=== PATIENT | male | born 1960 | race Caucasian/White ===

== ENCOUNTER 2017-01-19 13:56 | Inpatient (IN) | payer BC, OTHER ==
[2017-01-19] VITALS (12 sets, daily range): BP systolic 106–144; BP diastolic 50–67; PULSE 50–75; RESP 16; TEMP 98.4–98.7; O2SAT 95–100
[~2017-01-19] VITALS: Ht 182.9 cm; Wt 77.6 kg
[2017-01-19] MEDS ORDERED: PROPOFOL 1000 MG/100 ML INJ 100 ML ONE (14:06)
[2017-01-19 14:20] LABS: AUTOMATED NEUTROPHIL # 6.6 TH/MM3 (1.8-7.7); BASOPHIL # 0.1 TH/MM3 (0-0.2); BASOPHIL % 1.1 % (0.0-2.0); EOSINOPHIL # 0.2 TH/MM3 (0-0.4); HEMATOCRIT 43.7 % (39.0-51.0); LYMPH % 38.9 % (9.0-44.0); LYMPHOCYTE # 4.8 TH/MM3 (1.0-4.8); MEAN CORPUSCULAR HEMOGLOBIN 29.9 PG (27.0-34.0); MEAN CORPUSCULAR HGB CONC 34.4 % (32.0-36.0); MEAN PLATELET VOLUME 8.5 FL (7.0-11.0); MONO % 4.4 % (0.0-8.0); MONOCYTE # 0.5 TH/MM3 (0-0.9); NEUT % 53.6 % (16.0-70.0); PLATELET COUNT 205 TH/MM3 (150-450); RED BLOOD COUNT 5.02 MIL/MM3 (4.50-5.90); RED CELL DISTRIBUTION WIDTH 12.5 % (11.6-17.2); WHITE BLOOD COUNT 12.3 TH/MM3 (4.0-11.0)
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
[2017-01-19] MEDS ORDERED: MANNITOL INJ 100 ML ONE (14:28)
[2017-01-19 14:35] LABS: PROTHROMBIN TIME - PATIENT 9.9 SEC (9.8-11.6)
[2017-01-19] MEDS ORDERED: IOHEXOL 350 MG/ML 10 ML VIAL (for RAD DIAG) IVCONTRAST ONE (14:41)
[2017-01-19] MEDS ORDERED: CHLORHEXIDINE GLUCONATE 2 % 1 PACK (2 CLOTHS) TOP PRN (14:45)
[2017-01-19] MEDS ORDERED: MAGNESIUM HYDROXIDE SUSP 30 ML CUP PO PRN (14:45)
[2017-01-19] MEDS ORDERED: MISCELLANEOUS NURSING INFORMATION XX SCH (14:45)
[2017-01-19] MEDS ORDERED: ENALAPRILAT 1.25 MG/ML VIAL IV PUSH PRN (14:45)
[2017-01-19] MEDS ORDERED: ONDANSETRON HCL 4 MG/2 ML VIAL IV PUSH PRN (14:45)
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
[2017-01-19] MEDS ORDERED: fentaNYL DRIP 250 ML IV PRN ×2 (15:00→16:00)
[2017-01-19] MEDS ORDERED: PROPOFOL 1000 MG/100 ML INJ 100 ML IV PRN (15:00)
[2017-01-19] MEDS ORDERED: 3% SALINE INJ 500 ML IV ONE (15:00)
[2017-01-19] MEDS ORDERED: ETOMIDATE 20 MG/10 ML VIAL ONE (15:02)
[2017-01-19] MEDS ORDERED: SUCCINYLCHOLINE CHLORIDE 200 MG/10 ML VIAL ONE (15:02)
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
--- NOTE | 2017-01-19 15:36 | RADRPT ---
EXAM DATE/TIME: 01/19/2017 13:59 [facility] COMPARISON: CHEST SINGLE AP, January 19, 2017, 13:59. CT THORAX W CONTRAST, January 19, 2017, 14:23. INDICATIONS : Post intubation. MEDICAL HISTORY : None. SURGICAL HISTORY : None. ENCOUNTER: Initial ACUITY: 1 day PAIN SCORE: Non-responsive. LOCATION: Bilateral chest FINDINGS: There is an ETT in good position at the level of the clavicles. An NGT courses down the GE junction w ith tip limits of the image. Lungs are hypoaerated which accentuates the interstitial markings. Centr al posterior airspace consolidation in the lower lobes similar to the CT exam. Cardiomediastinal cont ours are stable. Remainder of exam is unchanged. CONCLUSION: 1. ETT in good position. NGT beyond the GE junction. 2. Stable bilateral central posterior lower lobe airspace consolidation which may reflect pulmonary c ontusions, aspiration or less likely atelectasis. Danny Vega MD on January 19, 2017 at 15:32 Board Certified Radiologist. This report was verified electronically.
[2017-01-19] MEDS ORDERED: MIDAZOLAM HCL 5 MG/ML VIAL (1 ML) ONE ×2 (15:43→15:44)
[2017-01-19] MEDS ORDERED: MIDAZOLAM HCL 5 MG/5 ML VIAL IV ONE (15:45)
[2017-01-19] MEDS ORDERED: ROCURONIUM INJ 50 MG/5 ML VIAL ONE (16:03)
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
--- NOTE | 2017-01-19 16:04 | PD.PROCEDR ---
Central Line Procedure REASON FOR PROCEDURE Central venous access PROCEDURE PERFORMED Central line placement: Right subclavian central line CONSENT Emergency procedure due to severe TBI ANESTHESIA Local injection of 1% Lidocaine DESCRIPTION OF THE PROCEDURE The patient was placed in supine, mild Trendelenburg position. The area was exposed and cleansed with ChloraPrep, times two. Large sterile drape was used to cover the patient, with the site exposed, under sterile conditions including cap, face mask, sterile gown, and sterile gloves. On single attempt, the introducer needle was inserted with negative pressure in syringe and venous flash was obtained. The guide wire was then advanced without any restriction and the needle was removed. The dilator was used without any complications. Using Seldinger technique the 20 CM 7F triple lumen catheter was advanced over the guide wire to a depth of 16 centimeters. The guide wire was removed. All ports were aspirated with dark venous blood return and flushed easily with sterile saline. All ports were capped. Antibiotic disc was placed around central line at puncture site. The central line was secured to the skin with two interrupted 2.0 silk sutures. The area was bandaged with sterile see- through central line bandage. COMPLICATIONS: No apparent complications ESTIMATED BLOOD LOSS: Less than 1 cc. Tonia Hood MD Jan 19, 2017 16:04
[2017-01-19] MEDS: PANTOPRAZOLE SODIUM 40 MG VIAL IVP SCH (16:13)
[2017-01-19] MEDS: SODIUM CHLOR 0.9% 1000 ML INJ 1,000 ML IV SCH (16:14)
[2017-01-19] MEDS: fentaNYL DRIP 250 ML IV PRN (16:14)
[2017-01-19] MEDS ORDERED: 3% SALINE INJ 250 ML IV SCH ×2 (16:15→17:00)
[2017-01-19] MEDS ORDERED: POTASSIUM PHOSPHATE INJ 30 MMOL in SODIUM CHLOR 0.9% 250 ML INJ 250 ML IV PRN (16:45)
[2017-01-19] MEDS ORDERED: POTASSIUM CHLOR 20 MEQ PREMIX 100 ML IV PRN ×2 (16:45)
[2017-01-19] MEDS ORDERED: MAGNESIUM SULFATE INJ 4 GM in SODIUM CHLORIDE 0.9% INJ 92 ML IV PRN (16:45)
[2017-01-19] MEDS ORDERED: POTASSIUM PHOSPHATE MONOBASIC 500 MG TAB PO PRN (16:45)
[2017-01-19] MEDS ORDERED: MAGNESIUM SULFATE INJ 2 GM in SODIUM CHLORIDE 0.9% INJ 96 ML IV PRN (16:45)
[2017-01-19] MEDS ORDERED: POTASSIUM CHLORIDE 25 MEQ EFFERVESCENT TAB PO PRN (16:45)
[2017-01-19] MEDS ORDERED: MAGNESIUM OXIDE 400 MG TAB PO PRN (16:45)
[2017-01-19] MEDS ORDERED: POTASSIUM PHOSPHATE MONOBASIC 500 MG TAB PO/TUBE PRN (16:45)
[2017-01-19] MEDS ORDERED: SODIUM PHOSPHATE INJ 30 MMOL in SODIUM CHLOR 0.9% 250 ML INJ 240 ML IV PRN (16:45)
--- NOTE | 2017-01-19 16:46 | RADRPT ---
EXAM DATE/TIME: 01/19/2017 16:07 [facility] COMPARISON: CHEST SINGLE AP, January 19, 2017, 13:59. INDICATIONS : Post central line placement. MEDICAL HISTORY : None. SURGICAL HISTORY : None. ENCOUNTER: Initial ACUITY: 1 day PAIN SCORE: Non-responsive. LOCATION: Bilateral chest FINDINGS: A single view of the chest demonstrates an improved inspiratory effort with resolution of the previou sly seen left basilar airspace disease. No effusions. Heart size is upper limits of normal. Interval placement of a nasogastric tube which enters the gastric lumen. Endotracheal tube with the tip at the clavicular heads. Right subclavian central venous catheter with the tip projecting over the central venous system. No pneumothorax. Osseous structures are intact. CONCLUSION: 1. Interval placement of a right subclavian central venous catheter, nasogastric tube and endotrachea l tube as above. All appear to be appropriately positioned. 2. Improved inspiratory effort. Lungs are now clear. Eber Matthews MD on January 19, 2017 at 16:42 Board Certified Radiologist. This report was verified electronically.
--- NOTE | 2017-01-19 16:51 | PD.OP ---
Operative Report Date of Surgery: Jan 19, 2017 Preoperative Diagnosis: Traumatic brain injury with multiple left hemispheric contusions and small subdural hemorrhage Postoperative Diagnosis: Same Procedure: Right frontal twist drill hole Beni intracranial pressure monitor placement Anesthesia: Local with sedation Surgeon: Chadd Salamanca M.D. Graining Press Operator(s): None Operation and Findings: Following administration of the intravenous Versed along with continuation of the Diprivan and fentanyl drips with the oxygen saturation and hemodynamic monitoring in the intensive care unit, the left frontal region was shaved and the prepped with chlor prep and sterilely draped. Using landmarks of 11 cm behind the nasion and 3 cm to the left of the midline, a 1 cm scalp incision was made after infiltrating with 1% lidocaine with epinephrine solution. With a handheld drill a twist drill hole was made in the underlying dura penetrated with a blunt probe. The Beni bolt was then secured to the skull. The fiberoptic catheter zeroed and passed into the subarachnoid space with an opening pressure of 13 mmHg noted. A sterile dressing was applied. There were no complications and blood loss was less than 5 cc. Chadd Salamanca MD Jan 19, 2017 16:51
[2017-01-19] MEDS ORDERED: ROCURONIUM INJ 100 MG/10 ML VIAL IV ONE (17:00)
[2017-01-19] MEDS ORDERED: MIDAZOLAM HCL 5 MG/ML VIAL (1 ML) IV ONE (17:00)
--- NOTE | 2017-01-19 17:43 | PD.PROCEDR ---
Procedure Note Procedure Left radial arterial line placement: The patient was placed optimal position. The area was exposed and cleansed with ChloraPrep, times two. Under sterile conditions including cap, face mask, sterile gown, and sterile gloves, introducer needle was inserted into the left radial artery and arterial flash was obtained. The guide wire was then advanced without any restriction and the needle was removed. Using Seldinger technique the single lumen arterial catheter was advanced over the guide wire and then the guide wire was removed. Antibiotic disc was placed around central line at puncture site. Arterial line was secured to the skin with one interrupted 2.0 silk sutures. The area was bandaged with sterile see-through bandage. Good arterial wave form obtained. blood loss was less than 2 ml Tonia Hood MD Jan 19, 2017 17:43
[2017-01-19] MEDS ORDERED: CISATRACURIUM INJ 100 MG in SODIUM CHLOR 0.9% 250 ML INJ 250 ML IV PRN (17:45)
[2017-01-19] MEDS: levETIRAcetam INJ 100 ML IV SCH (18:19)
[2017-01-19] MEDS: MANNITOL 12.5 GM/50 ML VIAL IV SCH (18:19)
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
[2017-01-19] MEDS ORDERED: NOREPINEPHRINE 4 MG/4 ML AMP ONE (19:37)
[2017-01-19] MEDS: MIDAZOLAM 100 MG/100 ML INJ 100 ML IV PRN (19:39)
[2017-01-19 19:58] LABS: MAGNESIUM 1.6 MG/DL (1.5-2.5); PHOSPHORUS 3.5 MG/DL (2.5-4.9)
[2017-01-19] MEDS: PROPOFOL 1000 MG/100 ML INJ 100 ML IV PRN (20:18)
[2017-01-19] MEDS: RESP: ALBUTEROL 2.5 MG/IPRATROPIUM 0.5 MG NEB (SCH) NEB (20:27)
[2017-01-19] MEDS: DOCUSATE SODIUM 100 MG/10 ML UDC PO SCH (21:00)
[2017-01-19] MEDS: CHLORHEXIDINE 0.12% (ORAL KIT) 15 ML CUP MT SCH (21:28)
[2017-01-19] MEDS ORDERED: FOSPHENYTOIN INJ 1,000 MGPE in SODIUM CHLORIDE 0.9% INJ 50 ML IV ONE (22:00)
[2017-01-19] MEDS: NOREPINEPHRINE INJ 4 MG in SODIUM CHLOR 0.9% 250 ML INJ 246 ML IV PRN (22:15)
[2017-01-20] VITALS (26 sets, daily range): BP systolic 103–120; BP diastolic 48–72; PULSE 39–55; RESP 16–20; TEMP 98.2–98.8; O2SAT 30–100
[2017-01-20] MEDS: SODIUM CHLOR 0.9% 1000 ML INJ 1,000 ML IV SCH ×3 (00:48→20:14)
[2017-01-20] MEDS: MANNITOL 12.5 GM/50 ML VIAL IV SCH (02:00)
[2017-01-20] MEDS: PROPOFOL 1000 MG/100 ML INJ 100 ML IV PRN ×7 (02:49→22:30)
[2017-01-20] MEDS: NOREPINEPHRINE INJ 4 MG in SODIUM CHLOR 0.9% 250 ML INJ 246 ML IV PRN (02:51)
[2017-01-20] MEDS: fentaNYL DRIP 250 ML IV PRN ×2 (02:58→15:15)
[2017-01-20] MEDS ORDERED: SODIUM CHLORIDE 23.4% INJ 240 MEQ in SYRINGE/BAG 1 EA IV SCH (03:00)
[2017-01-20] MEDS: RESP: ALBUTEROL 2.5 MG/IPRATROPIUM 0.5 MG NEB (SCH) NEB ×2 (03:16→20:07)
[2017-01-20] MEDS ORDERED: ATROPINE SULFATE 1 MG/10 ML SYRINGE ONE (03:49)
[2017-01-20] MEDS ORDERED: EPINEPHrine HCL (1:10,000) 1 MG/10 ML SYRINGE ONE (03:51)
[2017-01-20] MEDS ORDERED: MIDAZOLAM HCL 5 MG/ML VIAL (1 ML) IV SCH (04:00)
[2017-01-20] MEDS: CHLORHEXIDINE GLUCONATE 2 % 1 PACK (2 CLOTHS) TOP SCH (04:00)
--- NOTE | 2017-01-20 04:54 | RADRPT ---
EXAM DATE/TIME: 01/20/2017 04:16 [facility] COMPARISON: CHEST SINGLE AP, January 19, 2017, 16:07. INDICATIONS : Follow up acute trauma. Head injury. MEDICAL HISTORY : None. SURGICAL HISTORY : None. ENCOUNTER: Subsequent ACUITY: 2 days PAIN SCORE: Non-responsive. LOCATION: Bilateral chest FINDINGS: A single view of the chest demonstrates the lungs to be symmetrically aerated without evidence of mas s, infiltrate or effusion. Discoid atelectasis is noted at the right lung base. The endotracheal tub e remains in place with the tip approximately 5 cm above the dedrick. Nasogastric tube is again seen c oursing through the esophagus into the stomach. The right subclavian central venous line remains in p lace. Heart size is at the upper limits of normal. The cardiomediastinal contours are unremarkable. Osseous structures are intact. CONCLUSION: 1. Stable intubation and central line placement. 2. Mild discoid atelectasis now noted at the left lung base. Ole Mccall MD on January 20, 2017 at 4:52 Board Certified Radiologist. This report was verified electronically.
[2017-01-20 04:55] LABS: AUTOMATED NEUTROPHIL # 9.6 TH/MM3 (1.8-7.7); BASOPHIL # 0.1 TH/MM3 (0-0.2); BASOPHIL % 0.5 % (0.0-2.0); EOSINOPHIL # 0.1 TH/MM3 (0-0.4); EOSINOPHIL % 0.4 % (0.0-4.0); HEMATOCRIT 39.7 % (39.0-51.0); HEMOGLOBIN 13.2 GM/DL (13.0-17.0); LYMPH % 20.1 % (9.0-44.0); LYMPHOCYTE # 2.8 TH/MM3 (1.0-4.8); MEAN CELL VOLUME 87.6 FL (80.0-100.0); MEAN CORPUSCULAR HEMOGLOBIN 29.1 PG (27.0-34.0); MEAN CORPUSCULAR HGB CONC 33.2 % (32.0-36.0); MEAN PLATELET VOLUME 8.3 FL (7.0-11.0); MONO % 11.2 % (0.0-8.0); MONOCYTE # 1.6 TH/MM3 (0-0.9); NEUT % 67.8 % (16.0-70.0); PLATELET COUNT 183 TH/MM3 (150-450); RED BLOOD COUNT 4.53 MIL/MM3 (4.50-5.90); RED CELL DISTRIBUTION WIDTH 12.7 % (11.6-17.2); WHITE BLOOD COUNT 14.2 TH/MM3 (4.0-11.0)
--- NOTE | 2017-01-20 05:01 | RADRPT ---
EXAM DATE/TIME: 01/20/2017 03:51 [facility] COMPARISON: CT BRAIN W/O CONTRAST, January 19, 2017, 14:14. INDICATIONS : Trauma; fall, evaluate bleed. RADIATION DOSE: 56.35 CTDIvol (mGy) MEDICAL HISTORY : Non-responsive. SURGICAL HISTORY : Non-responsive. ENCOUNTER: Initial ACUITY: 2 days PAIN SCALE: Non-responsive LOCATION: cranial TECHNIQUE: Multiple contiguous axial images were obtained of the head. Using automated exposure control and adj ustment of the mA and/or kV according to patient size, radiation dose was kept as low as reasonably a chievable to obtain optimal diagnostic quality images. DICOM format image data is available electro nically for review and comparison. FINDINGS: One the areas of intraparenchymal hemorrhage in left frontal lobe is more prominent than on the prior study and now measures up to approximately 1.4 cm in greatest diameter compared to 0.7 cm. Ther e are multiple smaller areas of punctate hemorrhage in the left frontal and temporal lobe without sig nificant change. Small subdural collections along the left frontal and parietal bones are not signifi cant change. Diffuse edema is noted in the white matter of the left frontal and parietal lobes mild e ffacement of left lateral ventricle. This is without significant change. There is no significant midl ine shift. Subarachnoid hemorrhage is again noted the left parietal and temporal lobes. There is also small amount of subarachnoid hemorrhage now noted in the right parietal and temporal lobes. A an air -fluid level is noted in the left maxillary sinus. There is opacification of bilateral ethmoidal air cells. Extensive soft tissue swelling is noted over the left frontal and parietal bones. This is incr eased. CONCLUSION: 1. A small amount of sub-arachnoid hemorrhage is now noted in the right parietal and temporal lobes w hich appears new from the prior study. 2. Mild interval increase in the intraparenchymal hemorrhage in the left frontal lobe. 3. No significant change in the left subdural hemorrhage and subarachnoid hemorrhage diffuse edema an d mild mass effect. 4. Increased soft tissue swelling over the left parietal and temporal lobes. Ole Mccall MD on January 20, 2017 at 4:53 Board Certified Radiologist. This report was verified electronically.
[2017-01-20 05:12] LABS: ALBUMIN 3.1 GM/DL (3.4-5.0); AST (GOT) 36 U/L (15-37); BICARBONATE 24.4 MEQ/L (21.0-32.0); BLOOD UREA NITROGEN 13 MG/DL (7-18); CALCIUM 7.6 MG/DL (8.5-10.1); CHLORIDE 114 MEQ/L (98-107); CREATININE 0.96 MG/DL (0.60-1.30); GLOMERULAR FILTRATION RATE 68 ML/MIN (>89); GLUCOSE,RANDOM 176 MG/DL (74-106); MAGNESIUM 1.7 MG/DL (1.5-2.5); SODIUM (NA) 145 MEQ/L (136-145)
[2017-01-20 05:15] LABS: ALKALINE PHOSPHATASE 68 U/L (45-117); ALT (GPT) 29 U/L (12-78); TOTAL BILIRUBIN ADULT 0.7 MG/DL (0.2-1.0); TOTAL PROTEIN 6.3 GM/DL (6.4-8.2)
[2017-01-20] MEDS: levETIRAcetam INJ 100 ML IV SCH ×2 (06:02→20:13)
[2017-01-20] MEDS: MIDAZOLAM 100 MG/100 ML INJ 100 ML IV PRN ×2 (06:39→15:15)
[2017-01-20] MEDS: CHLORHEXIDINE 0.12% (ORAL KIT) 15 ML CUP MT SCH ×2 (08:00→20:14)
[2017-01-20] MEDS: DOCUSATE SODIUM 100 MG/10 ML UDC PO SCH ×2 (09:00→20:13)
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
[2017-01-20] MEDS: MAGNESIUM SULFATE 1 GM PREMIX 100 ML IV SCH ×2 (10:42→11:58)
[2017-01-20 10:58] LABS: TROPONIN I 0.03 NG/ML (0.02-0.05)
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
[2017-01-20] MEDS ORDERED: SODIUM CHLORIDE 23.4% INJ 240 MEQ in SYRINGE/BAG 1 EA IV STA (11:52)
[2017-01-20] MEDS: 3% SALINE INJ 500 ML IV SCH ×2 (11:59→18:23)
--- NOTE | 2017-01-20 12:09 | HHI.CCPN ---
Objective Vital Signs Date Time Temp Pulse Resp B/P (MAP) Pulse Ox O2 Delivery O2 Flow Rate FiO2 01/20/17 12:00 50 01/20/17 12:00 42 01/20/17 12:00 98.2 20 115/65 (82) 100 118/72 (87) 01/20/17 07:00 Mechanical Ventilator 01/19/17 14:00 15.00 Intake and Output 01/20/17 01/20/17 01/21/17 08:00 16:00 00:00 Intake Total 2264 ml 660 ml Output Total 1625 ml Balance 639 ml 660 ml Result Diagram: 01/20/17 0450 01/20/17 0950 Other Results Laboratory Tests Test 01/19/17 15:45 01/20/17 04:57 01/20/17 07:42 Blood Gas Puncture Site LT RADIAL ART LINE ART LINE Blood Gas Patient Temperature 98.6 98.6 98.6 Blood Gas HCO3 22 mmol/L (22-26) 22 mmol/L (22-26) 21 mmol/L (22-26) Blood Gas Base Excess -2.6 mmol/L (-2-2) -2.7 mmol/L (-2-2) -3.4 mmol/L (-2-2) Blood Gas Oxygen Saturation 96 % (90-100) 97 % (90-100) 98 % (90-100) Arterial Blood pH 7.33 (7.380-7.420) 7.35 (7.380-7.420) 7.40 (7.380-7.420) Arterial Blood Partial Pressure CO2 44 mmHg (38-42) 41 mmHg (38-42) 34 mmHg (38-42) Arterial Blood Partial Pressure O2 262 mmHg (61-120) 194 mmHg (61-120) 232 mmHg (61-120) Arterial Blood Oxygen Content 19.8 Vol % (12.0-20.0) 18.0 Vol % (12.0-20.0) 17.4 Vol % (12.0-20.0) Arterial Blood Carboxyhemoglobin 2.6 % (0-4) 1.0 % (0-4) 1.1 % (0-4) Arterial Blood Methemoglobin 1.0 % (0-2) 1.0 % (0-2) 1.0 % (0-2) Blood Gas Hemoglobin 14.3 G/DL (12.0-16.0) 12.9 G/DL (12.0-16.0) 12.3 G/DL (12.0-16.0) Oxygen Delivery Device VENTILATOR VENTILATOR VENTILATOR Blood Gas Ventilator Setting PRVC16/500/1.0/+5 AC16/600/+7/45% AC20/600/+7 Blood Gas Inspired Oxygen 50 % 45 % 40 % Imaging Last [address] 01/20/17 0000 Signed Impressions: Service Date/Time: January 03:51 - CONCLUSION: 1. A small amount of sub-arachnoid hemorrhage is now noted in the right parietal and temporal lobes which appears new from the prior study. 2. Mild interval increase in the intraparenchymal hemorrhage in the left frontal lobe. 3. No significant change in the left subdural hemorrhage and subarachnoid hemorrhage diffuse edema and mild mass effect. 4. Increased soft tissue swelling over the left parietal and temporal lobes. Ole Mccall MD Chest X-Ray 01/20/17 0000 Signed Impressions: Service Date/Time: January 04:16 - CONCLUSION: 1. Stable intubation and central line placement. 2. Mild discoid atelectasis now noted at the left lung base. Ole Mccall MD Thoracic Spine CT [id number]/19/171405 Signed Impressions: Service Date/Time: Thursday, January 19, 2017 14:14 - CONCLUSION: 1. No acute fracture or subluxation. 2. Dense posterior bilateral lower lobe air space consolidation which may reflect atelectasis, contusion or aspiration. Danny Vega MD Pelvis X-Ray [id number]/19/[id number] Signed Impressions: Service Date/Time: Thursday, January 19, 2017 13:59 - CONCLUSION: No acute disease. Krunal Hart MD Lumbar Spine CT [id number]/19/[id number] Signed Impressions: Service Date/Time: Thursday, January 19, 2017 14:14 - CONCLUSION: 1. No acute fracture or subluxation. 2. Degenerative spondylosis of the lumbar spine most prominently at L5-S1. Danny Vega MD Head CT 01/19/17 140 Signed Impressions: Service Date/Time: Thursday, January 19, 2017 14:14 - CONCLUSION: 1. Left-sided traumatic brain injury with left frontal and temporal hemorrhagic contusions, subarachnoid hemorrhage and left frontal subdural hematoma. 2. Mild left cerebral edema with 23 mm left to right midline shift. 3. No evidence of acute fracture. Krunal Hart MD Chest X-Ray [id number]/19/171405 Signed Impressions: Service Date/Time: Thursday, January 19, 2017 13:59 - CONCLUSION: Hypoaerated lungs with left basilar airspace disease Krunal Hart MD Chest CT [id number]/19/[id number] Signed Impressions: Service Date/Time: Thursday, January 19, 2017 14:23 - CONCLUSION: 1. Consolidating bibasilar air space disease within the lower lobes. 2. Tip of endotracheal tube at the level of the clavicles. 3. No evidence of vascular or cardiac mediastinal injury. 4. Intact osseous structures. Krunal Hart MD Cervical Spine CT [id number]/19/[id number] Signed Impressions: Service Date/Time: Thursday, January 19, 2017 14:16 - CONCLUSION: No evidence of acute fracture or traumatic listhesis. Krunal Hart MD Abdomen/Pelvis CT 01/19/171405 Signed Impressions: Service Date/Time: Thursday, January 19, 2017 14:14 - CONCLUSION: 1. Bibasilar lower lobe consolidating airspace disease. 2. No evidence of acute soft tissue or bony traumatic injury involving the abdomen or pelvis. MD Indira Medina Christian MD Jan 20, 2017 12:09
--- NOTE | 2017-01-20 12:29 | ECHRPT ---
Indication: cardiac arrest CONCLUSIONS The left ventricular systolic function is low normal with an estimated ejection fraction in the rang e of 50- 55%. Normal left ventricular size. No regional wall motion abnormalities are present. Trace mitral valve regurgitation. There is trace tricuspid valve regurgitation. The pulmonary valve is not well visualized. BP: / HR: Rhythm: Technical Quality: FINDINGS LEFT VENTRICLE The left ventricular systolic function is low normal with an estimated ejection fraction in the rang e of 50- 55%. Normal left ventricular size. No regional wall motion abnormalities are present. RIGHT VENTRICLE Normal right ventricular size and systolic function. LEFT ATRIUM The left atrial size is normal. RIGHT ATRIUM The right atrial size is normal. ATRIAL SEPTUM Normal atrial septal thickness without atrial level shunting by limited color doppler interrogation. AORTA The aortic root and proximal ascending aorta are normal in size on limited imaging. MITRAL VALVE Trace mitral valve regurgitation. Structurally normal mitral valve. AORTIC VALVE Trileaflet aortic valve. No aortic valve stenosis or regurgitation. TRICUSPID VALVE There is trace tricuspid valve regurgitation. Structurally normal tricuspid valve. PULMONARY VALVE The pulmonary valve is not well visualized. VESSELS The inferior vena cava is normal in size. PERICARDIUM No pericardial effusion. Royce Sánchez MD (Electronically Signed) Final Date:20 January 2017 12:29
[2017-01-20] MEDS ORDERED: ROCURONIUM INJ 50 MG/5 ML VIAL IV ONE (13:00)
[2017-01-20] MEDS ORDERED: IOHEXOL 350 MG/ML 10 ML VIAL (for RAD DIAG) IVCONTRAST ONE (13:40)
[2017-01-20] MEDS ORDERED: PHENYTOIN INJ 100 MG/2 ML VIAL IV PUSH SCH (15:15)
[2017-01-20] MEDS: PANTOPRAZOLE SODIUM 40 MG VIAL IVP SCH (15:16)
--- NOTE | 2017-01-20 15:49 | RADRPT ---
EXAM DATE/TIME: 01/20/2017 13:29 [facility] COMPARISON: CT BRAIN W/O CONTRAST, January 20, 2017, 3:51. INDICATIONS : Evaluate for aneurysm. Bleed. IV CONTRAST: 71 cc Omnipaque 350 (iohexol) IV ; Cumulative dose for multiple exams. RADIATION DOSE: 28.80 CTDIvol (mGy) ; Combined studies MEDICAL HISTORY : Non-responsive. SURGICAL HISTORY : Non-responsive. ENCOUNTER: Initial ACUITY: 2 days PAIN SCALE: Non-responsive LOCATION: cranial TECHNIQUE: Volumetric scanning was performed using a multi-row detector CT scanner. The data was post processed with a variety of visualization algorithms including full volume maximum intensity projection, multi -planar sliding thin slab reformation, curved planar reformation, and surface rendering techniques. Using automated exposure control and adjustment of the mA and/or kV according to patient size, radiat ion dose was kept as low as reasonably achievable to obtain optimal diagnostic quality images. DICO M format image data is available electronically for review and comparison. FINDINGS: Anterior circulation: Distal intracranial internal carotid arteries are patent with flow extending to the middle and anteri or cerebral arteries. Small caliber right A1 segment. There is no evidence for aneurysm, vessel trunc ation or stenosis, and no evidence for vascular malformation. Posterior circulation: Symmetric distal vertebral arteries with flow extending to basilar artery. There is no evidence for aneurysm, vessel truncation or stenosis, and no evidence for vascular malformation. CONCLUSION: 1. Small caliber right A1 segment, likely hypoplastic rather than vasospasm. 2. Otherwise, unremarkable head CTA examination. No aneurysm as questioned Danny Vega MD on January 20, 2017 at 15:31 Board Certified Radiologist. This report was verified electronically.
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
[2017-01-20] MEDS ORDERED: TERBUTALINE INJ 1 MG/ML AMP SQ PRN (16:15)
--- NOTE | 2017-01-20 17:32 | PD.RAD ---
Post Procedure Progress Note Pre Procedure Diagnosis: (1) Closed head injury Post Procedure Diagnosis: (1) Closed head injury Procedure Date: Jan 20, 2017 Supervising Radiologist: Danny Vega Proceduralist/Assist: Sophia Antonio, RT(R)(), Nolan Felton RT(R) Anesthesia: Local Plan of Activity Patient to Unit: Critical Care Patient Condition: Good See PACS Report for procedural detail/treatment Danny Vega MD Jan 20, 2017 17:32
[2017-01-20] MEDS ORDERED: IOHEXOL 350 MG/ML 50 ML BTL (for RAD DIAG) OTHER ONE (17:57)
[2017-01-20] MEDS: DOPamine INJ PREMIX 500 ML IV PRN (18:21)
--- NOTE | 2017-01-20 19:00 | EKG ---
Date Performed: 01/20/2017 Time Performed: 15:20:31 PTAGE: 56 years EKG: SINUS BRADYCARDIA BORDERLINE ECG NO PREVIOUS TRACING DOCTOR: Garret Hudson Interpretating Date/Time 01/20/2017 18:58:59
--- NOTE | 2017-01-20 20:50 | RADRPT ---
EXAM DATE/TIME: 01/20/2017 18:18 [facility] COMPARISON: No previous studies available for comparison. INDICATIONS : History of traumatic brain injury with brain hemorrhage and abnormal CT exam demonstrating pulmonary embolism. Therefore, IVC filter placement requested. MEDICAL HISTORY : Unavailable due to patients condition. SURGICAL HISTORY : Unavailable due to patients condition. ENCOUNTER: Initial ACUITY: 1 day PAIN SCORE: FLUORO TIME: 1.3 minutes IMAGE SERIES: 2 ACCESS SITE: Right Internal jugular vein CONTRAST: 1.) 15 cc Omnipaque (iohexol) 350 DEVICE(S): 1.) Inferior vena cava Bard Liliana filter PROCEDURE : 1. Ultrasound-guided venipuncture. 2. Inferior venacavogram. 3. Inferior vena cava filter placement. 4. Conscious sedation with continuous EKG and oximetry monitoring. The risks, benefits and alternatives to the procedure were explained and verbal and written consent w as obtained. The site was prepped in sterile fashion. Full sterile technique was used, including ca p, mask, sterile gloves and gown and a large sterile sheet. Hand hygiene and 2% chlorhexidine and/or betadine/alcohol prep was utilized per protocol for cutaneous antisepsis. Sterile gel and sterile p robe cover were utilized for ultrasound guidance. The skin and subcutaneous tissues were infiltrated with local anesthetic solution. With ultrasound and fluoroscopic guidance the targeted vein was punctured and a vascular sheath was p laced. Inferior venacavogram was performed to demonstrate level of renal veins. No caval thrombus was identified. The prescribed filter was deployed in the infrarenal inferior vena cava. Following deplo yment the filter was identified in good position. Conscious sedation was performed with the prescribed dosages and duration as above in the presence of an independent trained radiology nurse to assist in the monitoring of the patient. EKG and oximetry remained stable throughout the procedure. The patient tolerated the procedure well and there were n o complications. The patient was sent to post anesthesia recovery in stable condition. CONCLUSION: Uncomplicated inferior vena cava filter placement as above. Note: This retrievable IVC filter should be removed as soon as patient's contraindication to anticoag ulation or clinical status improves. Danny Vega MD on January 20, 2017 at 20:47 Board Certified Radiologist. This report was verified electronically.
[2017-01-20] MEDS: SODIUM CHLORIDE 0.9% IV SCH (21:31)
[2017-01-20] MEDS: PHENYTOIN IV SCH (21:31)
--- NOTE | 2017-01-20 22:40 | RADRPT ---
EXAM DATE/TIME: 01/20/2017 21:35 [facility] COMPARISON: No previous studies available for comparison. INDICATIONS : Bilateral leg swelling. MEDICAL HISTORY : Unable to obtain. SURGICAL HISTORY : Unable to obtain. ENCOUNTER: Initial ACUITY: 1 day PAIN SCORE: Non-responsive LOCATION: Bilateral legs. TECHNIQUE: Venous ultrasound of the left and right leg was performed from the inguinal ligament to the proximal calf. Real-time, color Doppler and spectral tracing, compression and augmentation techniques were us ed. FINDINGS: RIGHT LEG: There is normal compressibility of the deep venous system from the inguinal region to the proximal ca lf. No echogenic clot is seen in the lumen of the common femoral, femoral, popliteal, and posterior tibial veins. There is a normal response of the venous system to proximal and distal augmentation an d respiration. LEFT LEG: There is normal compressibility of the deep venous system from the inguinal region to the proximal ca lf. No echogenic clot is seen in the lumen of the common femoral, femoral, popliteal, and posterior tibial veins. There is a normal response of the venous system to proximal and distal augmentation an d respiration. CONCLUSION: No evidence of deep venous thrombosis within the lower extremities. Willian Hyatt MD on January 20, 2017 at 22:38 Board Certified Radiologist. This report was verified electronically.
--- NOTE | 2017-01-20 22:41 | RADRPT ---
EXAM DATE/TIME: 01/20/2017 21:50 [facility] COMPARISON: No previous studies available for comparison. INDICATIONS : Bilateral arm swelling. MEDICAL HISTORY : Unable to obtain. SURGICAL HISTORY : Unable to obtain. ENCOUNTER: Initial ACUITY: 1 day PAIN SCORE: Non-responsive LOCATION: Bilateral arms. FINDINGS: RIGHT UPPER EXTREMITY: Nonocclusive thrombus is noted within the right basilic and cephalic veins. LEFT UPPER EXTREMITY: Occlusive thrombus is noted within the left cephalic vein. CONCLUSION: Occlusive thrombus within the left cephalic vein and nonocclusive thrombus within the right basilic a nd cephalic veins. Willian Hyatt MD on January 20, 2017 at 22:38 Board Certified Radiologist. This report was verified electronically.
[2017-01-21] VITALS (20 sets, daily range): BP systolic 98–134; BP diastolic 54–69; PULSE 46–70; RESP 18–20; TEMP 97.8–99.1; O2SAT 93–98
[2017-01-21] MEDS: PROPOFOL 1000 MG/100 ML INJ 100 ML IV PRN ×6 (01:50→20:17)
[2017-01-21] MEDS: fentaNYL DRIP 250 ML IV PRN ×2 (02:35→12:48)
[2017-01-21 03:02] LABS: ALBUMIN 2.8 GM/DL (3.4-5.0); ALKALINE PHOSPHATASE 60 U/L (45-117); ALT (GPT) 25 U/L (12-78); AST (GOT) 27 U/L (15-37); BLOOD UREA NITROGEN 6 MG/DL (7-18); CALCIUM 7.7 MG/DL (8.5-10.1); CHLORIDE 123 MEQ/L (98-107); GLOMERULAR FILTRATION RATE 117 ML/MIN (>89); GLUCOSE,RANDOM 148 MG/DL (74-106); SODIUM (NA) 153 MEQ/L (136-145); TOTAL BILIRUBIN ADULT 0.5 MG/DL (0.2-1.0)
[2017-01-21] MEDS: RESP: ALBUTEROL 2.5 MG/IPRATROPIUM 0.5 MG NEB (SCH) NEB ×4 (03:25→21:54)
[2017-01-21] MEDS: CHLORHEXIDINE GLUCONATE 2 % 1 PACK (2 CLOTHS) TOP SCH (04:00)
[2017-01-21] MEDS: POTASSIUM CHLOR 40 MEQ PREMIX 100 ML IV PRN (04:27)
[2017-01-21 05:07] LABS: AUTOMATED NEUTROPHIL # 8.6 TH/MM3 (1.8-7.7); BASOPHIL % 0.3 % (0.0-2.0); EOSINOPHIL # 0.1 TH/MM3 (0-0.4); EOSINOPHIL % 1.1 % (0.0-4.0); HEMATOCRIT 37.7 % (39.0-51.0); HEMOGLOBIN 12.9 GM/DL (13.0-17.0); LYMPH % 17.6 % (9.0-44.0); LYMPHOCYTE # 2.1 TH/MM3 (1.0-4.8); MEAN CELL VOLUME 87.2 FL (80.0-100.0); MEAN CORPUSCULAR HEMOGLOBIN 29.8 PG (27.0-34.0); MEAN CORPUSCULAR HGB CONC 34.2 % (32.0-36.0); MEAN PLATELET VOLUME 8.6 FL (7.0-11.0); MONO % 8.3 % (0.0-8.0); NEUT % 72.7 % (16.0-70.0); PLATELET COUNT 122 TH/MM3 (150-450); RED BLOOD COUNT 4.33 MIL/MM3 (4.50-5.90); RED CELL DISTRIBUTION WIDTH 12.7 % (11.6-17.2); WHITE BLOOD COUNT 11.8 TH/MM3 (4.0-11.0)
[2017-01-21] MEDS: MIDAZOLAM 100 MG/100 ML INJ 100 ML IV PRN ×3 (05:32→22:31)
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
[2017-01-21] MEDS: 3% SALINE INJ 500 ML IV SCH ×2 (06:50→16:02)
[2017-01-21] MEDS: SODIUM CHLOR 0.9% 1000 ML INJ 1,000 ML IV SCH ×2 (06:51→15:44)
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
[2017-01-21] MEDS: CHLORHEXIDINE 0.12% (ORAL KIT) 15 ML CUP MT SCH ×2 (08:00→21:23)
[2017-01-21] MEDS: DOCUSATE SODIUM 100 MG/10 ML UDC PO SCH ×2 (08:22→20:54)
[2017-01-21] MEDS: levETIRAcetam INJ 100 ML IV SCH ×2 (08:23→20:46)
[2017-01-21] MEDS: SODIUM CHLORIDE 0.9% IV SCH ×2 (09:10→20:46)
[2017-01-21] MEDS: PHENYTOIN IV SCH ×2 (09:10→20:46)
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
--- NOTE | 2017-01-21 12:18 | HHI.CCPN ---
Subjective 24 Hour Review/Hospital Course 01/21/17 IVC filter placed yesterday after finding right-sided pulmonary embolus and left -sided cephalic vein thrombus ICP levels continue to spike, controlled with hypertonic saline boluses and sedation Start tube feeds today Objective Vital Signs Date Time Temp Pulse Resp B/P (MAP) Pulse Ox O2 Delivery O2 Flow Rate FiO2 01/21/17 11:36 97 30 01/21/17 10:00 98.5 52 20 134/66 (88) 109/68 (82) 01/21/17 07:00 Mechanical Ventilator 01/19/17 14:00 15.00 Intake and Output 01/21/17 01/21/17 01/21/17 07:59 15:59 23:59 Intake Total 2098 ml Output Total 3800 ml Balance -1702 ml Result Diagram: 01/21/17 0441 01/21/17 0215 Other Results Microbiology Date/Time Source Procedure Growth Status 01/19/17 16:30 Sputum Endotracheal Gram Stain - Final Complete 01/19/17 16:30 Sputum Endotracheal Sputum Culture - Final HEAVY GROWTH NORMAL RESPIRATORY MARCIAL Complete Laboratory Tests Test 01/21/17 03:44 Blood Gas Puncture Site ART LINE Blood Gas Patient Temperature 98.6 Blood Gas HCO3 19 mmol/L (22-26) Blood Gas Base Excess -4.2 mmol/L (-2-2) Blood Gas Oxygen Saturation 96 % (90-100) Arterial Blood pH 7.44 (7.380-7.420) Arterial Blood Partial Pressure CO2 29 mmHg (38-42) Arterial Blood Partial Pressure O2 101 mmHg (61-120) Arterial Blood Oxygen Content 17.1 Vol % (12.0-20.0) Arterial Blood Carboxyhemoglobin 1.0 % (0-4) Arterial Blood Methemoglobin 0.9 % (0-2) Blood Gas Hemoglobin 12.6 G/DL (12.0-16.0) Oxygen Delivery Device VENTILATOR Blood Gas Ventilator Setting AC20/600/+5 Blood Gas Inspired Oxygen 30 % Imaging Last 24 hours Impressions Chest X-Ray 01/21/17 0600 Signed Impressions: Service Date/Time: Saturday, January 21, 2017 04:11 - CONCLUSION: Atelectatic changes are noted as above. Eloy Webber MD Exam [employer] Intubated sedated Juan Coma Scale 3T Hemodynamic/Cardiac Regular rate and rhythm, stable off Levophed Pulmonary/Respiratory Clear to auscultation bilaterally Abdomen/GI Nutrition Soft, nontender, nondistended Renal/I&O Adequate urine output Hematologic Stable with a hemoglobin of 12.9 Assessment and Plan Plan Patient remains critically ill with severe traumatic brain injury requiring excess sedation to maintain a low ICP Continue to rest patient without sedation holidays for ICP control Start tube feeds today advanced to goal as tolerated Continue full ventilator support Edmund Jacobson MD Jan 21, 2017 12:18
[2017-01-21] MEDS: LACTULOSE SYRUP 20 GM/30 ML CUP PO SCH (12:47)
[2017-01-21] MEDS: MAGNESIUM HYDROXIDE SUSP 30 ML CUP PO SCH ×2 (12:47→20:54)
[2017-01-21] MEDS: SODIUM CHLORIDE 23.4% INJ 240 MEQ in SYRINGE/BAG 1 EA IV PRN ×2 (13:21→18:49)
--- NOTE | 2017-01-21 13:22 | HHI.NSPN ---
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 Contrast W 3d 3% Saline Inj (Sodium MED 01/20/17 In Process Chloride 3% Inj) 09:45 Electrocardiogram CAV 01/20/17 Resulted Magnesium Sulfate 1 MED 01/20/17 Complete Gm Premix (Magnesium 10:00 Sodium (Na) LAB 01/20/17 Complete 09:50 Sodium Chloride 23.4% MED 01/20/17 Complete Inj (Sodium Chlori 11:52 Sodium Chloride 23.4% MED 01/20/17 In Process Inj (Sodium Chlori 12:00 Rocuronium Inj MED 01/20/17 Complete (Zemuron Inj) 13:00 Iohexol 350 Inj MED 01/20/17 Complete (Omnipaque 350 Inj) 13:40 Phenytoin Inj MED 01/20/17 Complete (Dilantin Inj) 15:15 Phenytoin (Dilantin) LAB 01/21/17 Logged 06:00 Levetiracetam Inj MED 01/20/17 In Process (Keppra Inj) 21:00 Dopamine Inj Premix MED 01/20/17 In Process (Dopamine Inj Premix 16:15 Terbutaline Inj MED 01/20/17 In Process (Brethine Inj) 16:15 Us Arm Venous Doppler RADUS 01/20/17 Resulted Bilat Us Leg Venous Doppler RADUS 01/20/17 Resulted Bilat Venogram Ivc W/Ret RADINV 01/20/17 Resulted Fltr Plcmt Vital Signs (Adult) WILFRID 01/20/17 Complete 17:31 Activity Bed Rest WILFRID 01/20/17 In Process 17:[address]: Other WILFRID 01/20/17 In Process 17:31 ^ Apply Pressure WILFRID 01/20/17 In Process 17:31 Us Guided Vascular RADINV 01/20/17 Taken Access Iohexol 350 Inj MED 01/20/17 Complete (Omnipaque 350 Inj) 17:57 Phenytoin Inj MED 01/20/17 In Process (Dilantin Inj) 21:00 Continue Urinary WILFRID 01/21/17 In Process Catheter 08:02 Diet Tube Feed Only DIET 01/21/17 Transmitted Breakfast Tube Feeding WILFRID 01/21/17 In Process 09:41 Magnesium Hydroxide MED 01/21/17 In Process Liq (Milk Of Magnesi 11:00 Lactulose Liq MED 01/21/17 In Process (Lactulose Liq) 11:00 Equip, Feeding Pump SPD 01/21/17 Logged Use Of 10:08 Vital Signs Date Time Temp Pulse Resp B/P (MAP) Pulse Ox O2 Delivery O2 Flow Rate FiO2 01/21/17 11:36 97 30 01/21/17 10:00 30 01/21/17 10:00 98.5 52 20 134/66 (88) 98 109/68 (82) 01/21/17 10:00 52 01/21/17 08:00 50 01/21/17 07:45 97 30 01/21/17 07:00 100 Mechanical Ventilator 30 01/21/17 06:00 50 01/21/17 04:17 98 30 01/21/17 04:00 98.1 70 20 116/58 (77) 97 01/21/17 04:00 98 30 01/21/17 04:00 30 01/21/17 04:00 70 01/21/17 02:00 46 01/21/17 01:16 98 30 01/21/17 00:00 30 01/21/17 00:00 48 01/21/17 00:00 98.6 48 20 124/59 (80) 98 01/20/17 23:45 48 109/57 01/20/17 22:10 98 30 01/20/17 22:00 44 01/20/17 22:00 44 109/54 01/20/17 20:13 60 116/57 01/20/17 20:07 98 30 01/20/17 20:00 98.5 53 20 120/56 (77) 99 01/20/17 20:00 54 01/20/17 20:00 30 01/20/17 19:35 98 30 01/20/17 19:00 100 Mechanical Ventilator 30 01/20/17 18:21 40 127/52 01/20/17 18:00 41 01/20/17 17:28 98 100 01/20/17 16:00 45 01/20/17 16:00 98.2 40 20 103/54 (70) 100 115/65 (82) 01/20/17 16:00 30 01/20/17 15:33 100 30 01/20/17 14:00 40 01/20/17 13:51 98 01/20/17 12:00 50 01/20/17 12:00 42 01/20/17 12:00 98.2 42 20 115/65 (82) 100 118/72 (87) 01/20/17 11:29 100 30 01/20/17 10:00 39 01/20/17 08:02 100 30 01/20/17 08:00 50 01/20/17 08:00 40 01/20/17 08:00 98.4 49 20 108/61 (77) 100 105/59 (74) 01/20/17 07:58 30 40 01/20/17 07:00 100 Mechanical Ventilator 30 01/20/17 06:00 48 01/20/17 06:00 48 103/67 01/20/17 05:30 100 40 01/20/17 05:15 99 40 01/20/17 05:01 97 45 01/20/17 04:56 52 140/59 01/20/17 04:48 100 45 01/20/17 04:00 50 01/20/17 04:00 52 01/20/17 04:00 98.8 52 16 116/52 (73) 100 01/20/17 02:51 56 133/56 01/20/17 02:00 55 01/20/17 01:46 100 50 01/20/17 00:00 52 01/20/17 00:00 98.3 52 16 119/48 (71) 100 01/20/17 00:00 50 01/19/17 23:35 95 50 01/19/17 22:30 100 50 01/19/17 22:15 52 114/48 01/19/17 22:00 52 01/19/17 20:25 100 50 01/19/17 20:00 50 01/19/17 20:00 98.7 50 16 106/50 (68) 100 01/19/17 20:00 50 01/19/17 19:25 100 01/19/17 19:00 100 Mechanical Ventilator 50 01/19/17 18:00 52 01/19/17 16:00 100 Mechanical Ventilator 100 01/19/17 16:00 98.4 71 16 144/67 (92) 99 01/19/17 16:00 75 01/19/17 14:55 98 100 01/19/17 14:50 96 100 01/19/17 14:30 100 100 01/19/17 14:00 98 ambu 15.00 100 01/19/17 14:00 98 15.00 100 Medical Decision Making Impression and Plan Mr Rebollar is a 56-year-old male status post fall with TBI, intracerebral hemorrhage involving the left frontal and temporal lobes him a SAH, and left frontal subdural hematoma Neuro: Patient's neurologic exam remains guarded. His ICP's are well controlled , but remained labile and increase with any decrease in sedation 01/21 continue ICP monitoring, 3% saline at 50 mL/hr, goal CPP>65 Seizure: Seizure well-controlled on Keppra, propofol, Versed CV: Cardiac arrest with hypotension requiring dopamine pressors. Wean as tolerated to maintain CPP Pulm: Respiratory failure with aspiration pneumonitis, and pulmonary embolism Continue mechanical ventilation. Due to acute hemorrhage in the brain, therapeutic anticoagulation is contraindicated IVC filter GI: Aggressive bowel regimen in the setting of sedation PPI prophylaxis : Good urine output with Jones in place F/E/N: Malnutrition secondary to intubation status Continue to feeds to goal. Add reglan if patient has high residual ID: Aspiration pneumonitis. Follow-up culture Disposition: Continue ICU monitoring Uche Parker MD Jan 21, 2017 13:22
[2017-01-21] MEDS: PANTOPRAZOLE SODIUM 40 MG VIAL IVP SCH (15:44)
[2017-01-21] MEDS: DOPamine INJ PREMIX 500 ML IV PRN (16:02)
[2017-01-21] MEDS ORDERED: ROCURONIUM INJ 50 MG/5 ML VIAL ONE (16:44)
[2017-01-21] MEDS ORDERED: ROCURONIUM INJ 50 MG/5 ML VIAL IV PUSH STA (16:45)
[2017-01-22] VITALS (21 sets, daily range): BP systolic 96–111; BP diastolic 48–59; PULSE 64–86; RESP 22–24; TEMP 99–100.2; O2SAT 90–99
[2017-01-22 00:16] LABS: PHENYTOIN (DILANTIN) 10.9 MCG/ML (10.0-20.0)
[2017-01-22] MEDS: PROPOFOL 1000 MG/100 ML INJ 100 ML IV PRN ×5 (00:30→17:30)
[2017-01-22] MEDS: fentaNYL DRIP 250 ML IV PRN ×2 (00:58→10:41)
[2017-01-22] MEDS: SODIUM CHLOR 0.9% 1000 ML INJ 1,000 ML IV SCH ×3 (03:13→21:51)
[2017-01-22] MEDS: RESP: ALBUTEROL 2.5 MG/IPRATROPIUM 0.5 MG NEB (SCH) NEB ×4 (03:42→20:57)
[2017-01-22 03:47] LABS: BASOPHIL % 0.1 % (0.0-2.0); HEMATOCRIT 36.6 % (39.0-51.0); HEMOGLOBIN 12.6 GM/DL (13.0-17.0); LYMPH % 8.3 % (9.0-44.0); LYMPHOCYTE # 0.8 TH/MM3 (1.0-4.8); MEAN CELL VOLUME 88.1 FL (80.0-100.0); MEAN CORPUSCULAR HEMOGLOBIN 30.3 PG (27.0-34.0); MEAN CORPUSCULAR HGB CONC 34.4 % (32.0-36.0); MEAN PLATELET VOLUME 8.6 FL (7.0-11.0); MONO % 5.8 % (0.0-8.0); MONOCYTE # 0.5 TH/MM3 (0-0.9); NEUT % 85.8 % (16.0-70.0); PLATELET COUNT 114 TH/MM3 (150-450); RED BLOOD COUNT 4.16 MIL/MM3 (4.50-5.90); WHITE BLOOD COUNT 9.4 TH/MM3 (4.0-11.0)
[2017-01-22] MEDS ORDERED: NOREPINEPHRINE 4 MG/4 ML AMP ONE (03:47)
[2017-01-22] MEDS: NOREPINEPHRINE INJ 4 MG in SODIUM CHLOR 0.9% 250 ML INJ 246 ML IV PRN (03:55)
[2017-01-22] MEDS: CHLORHEXIDINE GLUCONATE 2 % 1 PACK (2 CLOTHS) TOP SCH (03:56)
[2017-01-22 04:19] LABS: ALBUMIN 2.4 GM/DL (3.4-5.0); BICARBONATE 21.3 MEQ/L (21.0-32.0); CALCIUM 7.3 MG/DL (8.5-10.1); CALCIUM-PROTEIN CORRECTED 7.9 MG/DL (8.5-10.1); CREATININE 1.23 MG/DL (0.60-1.30); TOTAL BILIRUBIN ADULT 0.6 MG/DL (0.2-1.0); TOTAL PROTEIN 5.9 GM/DL (6.4-8.2)
[2017-01-22] MEDS: POTASSIUM CHLOR 40 MEQ PREMIX 100 ML IV PRN ×4 (04:24→20:30)
[2017-01-22] MEDS ORDERED: SODIUM CHLOR 0.9% 1000 ML INJ 1,000 ML IV ONE ×2 (04:30→15:00)
--- NOTE | 2017-01-22 05:24 | PD.PROCEDR ---
Procedure Note Procedure Arterial line A time-out was completed verifying correct patient, procedure, site, positioning , and special equipment if applicable. Allens test was performed to ensure adequate perfusion. The patients right wrist was prepped and draped in sterile fashion. 1% Lidocaine was used to anesthetize the area. A 18G Arrow arterial line was introduced into the radial artery. The catheter was threaded over the guide wire and the needle was removed with appropriate pulsatile blood return. The catheter was then sutured in place to the skin and a sterile dressing applied. Perfusion to the extremity distal to the point of catheter insertion was checked and found to be adequate. Estimated Blood Loss: 1ml The patient tolerated the procedure well and there were no complications. Rigoberto Beth MD Jan 22, 2017 5:24 am
--- NOTE | 2017-01-22 05:57 | RADRPT ---
EXAM DATE/TIME: 01/22/2017 04:42 [facility] COMPARISON: CHEST SINGLE AP, January 21, 2017, 4:11. INDICATIONS : Follow up acute trauma. Head injury. MEDICAL HISTORY : Unable to obtain. SURGICAL HISTORY : Unable to obtain. ENCOUNTER: Subsequent ACUITY: 3 days PAIN SCORE: Non-responsive. LOCATION: Bilateral FINDINGS: There is cardiomegaly, dense consolidation in the left lower lobe and increasing bilateral infiltrate s. There may be small layering effusions. Endotracheal tube and enteric tube are noted. Right subclav benjamin line tip overlies the SVC. CONCLUSION: Worsening appearance of the chest. Eloy Webber MD on January 22, 2017 at 5:55 Board Certified Radiologist. This report was verified electronically.
[2017-01-22] MEDS: 3% SALINE INJ 500 ML IV SCH (06:41)
[2017-01-22] MEDS: DOCUSATE SODIUM 100 MG/10 ML UDC PO SCH ×2 (08:23→20:10)
[2017-01-22] MEDS: LACTULOSE SYRUP 20 GM/30 ML CUP PO SCH (08:23)
[2017-01-22] MEDS: MAGNESIUM HYDROXIDE SUSP 30 ML CUP PO SCH ×2 (08:23→20:10)
[2017-01-22] MEDS: levETIRAcetam INJ 100 ML IV SCH ×2 (08:23→20:10)
[2017-01-22] MEDS: CHLORHEXIDINE 0.12% (ORAL KIT) 15 ML CUP MT SCH ×2 (08:23→20:11)
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
[2017-01-22] MEDS: SODIUM CHLORIDE 0.9% IV SCH ×2 (08:42→20:11)
[2017-01-22] MEDS: PHENYTOIN IV SCH ×2 (08:42→20:11)
[2017-01-22] MEDS: MIDAZOLAM 100 MG/100 ML INJ 100 ML IV PRN ×2 (08:43→16:27)
[2017-01-22] MEDS ORDERED: SODIUM CHLORID 0.9% 500 ML INJ 500 ML IV ONE ×2 (09:00→10:30)
[2017-01-22] MEDS ORDERED: VASOPRESSIN INJ 40 UNITS in DEXTROSE 5% IN WATER 100ML INJ 98 ML IV SCH ×2 (09:17)
[2017-01-22] MEDS ORDERED: DEXTROSE 50% IN WATER 50 ML VIAL(D50) IV PUSH PRN (09:30)
--- NOTE | 2017-01-22 09:54 | HHI.NSPN ---
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 MED 01/19/17 In Process (Levophed Inj) 21:45 Equip, Crash Cart Use SPD 01/20/17 Logged OF 00:33 Midazolam Inj (Versed MED 01/20/17 Complete Inj) 04:00 Sodium Chloride 23.4% MED 01/20/17 Complete Inj (Sodium Chlori 03:00 Sodium (Na) LAB 01/20/17 Complete 03:07 Atropine Inj MED 01/20/17 Complete (Atropine Inj) 03:49 Epinephrine MED 01/20/17 In Process (1:10,000) Inj 03:51 Arterial Blood Gas LAB 01/20/17 Complete (Abg) 04:57 Trauma Office Use NTRACS 01/19/17 Transmitted Only Arterial Blood Gas LAB 01/20/17 Complete (Abg) 07:42 Consult CONS 01/20/17 Transmitted Neuropsychology Consult Rehab Medicine CONS 01/20/17 Transmitted (Hub Use Only)Inp Phy CONS 01/20/17 Transmitted Cons/Ref Complete Blood Count LAB 01/21/17 Complete With Diff 04:00 Complete Blood Count LAB 01/22/17 Complete With Diff 04:00 Complete Blood Count LAB 01/23/17 Verified With Diff 04:00 Comprehensive LAB 01/21/17 Complete Metabolic Panel 04:00 Comprehensive LAB 01/22/17 Complete Metabolic Panel 04:00 Comprehensive LAB 01/23/17 Verified Metabolic Panel 04:00 Arterial Blood Gas LAB 01/21/17 Complete (Abg) 04:00 Arterial Blood Gas LAB 01/22/17 Complete (Abg) 04:00 Arterial Blood Gas LAB 01/23/17 Verified (Abg) 04:00 Chest, Single Ap RADDIAG 01/22/17 Resulted 06:00 Chest, Single Ap RADDIAG 01/23/17 Verified 06:00 Chest, Single Ap RADDIAG 01/21/17 Resulted 06:00 Continue Urinary WILFRID 01/20/17 In Process Catheter 08:36 (Hub Use Only)Inp Phy CONS 01/20/17 Transmitted Cons/Ref Continue Urinary WILFRID 01/20/17 In Process Catheter 08:46 Troponin I LAB 01/20/17 Complete 09:21 Echo 2d Comp With ECH 01/20/17 Resulted Doppler Sodium (Na) LAB 01/20/17 Complete 18:00 Sodium (Na) LAB 01/21/17 Complete 10:00 Sodium (Na) LAB 01/21/17 Complete 18:00 Sodium (Na) LAB 01/22/17 In Process 10:00 Sodium (Na) LAB 01/22/17 Logged 18:00 Sodium (Na) LAB 01/23/17 Verified 02:00 Sodium (Na) LAB 01/23/17 Verified 10:00 Sodium (Na) LAB 01/23/17 Verified 18:00 Sodium (Na) LAB 01/24/17 Verified 02:00 Sodium (Na) LAB 01/24/17 Verified 10:00 Sodium (Na) LAB 01/24/17 Verified 18:00 Sodium (Na) LAB 01/25/17 Verified 02:00 Sodium (Na) LAB 01/25/17 Verified 10:00 Sodium (Na) LAB 01/25/17 Verified 18:00 Cta Brain W Iv RADCT 01/20/17 Resulted Contrast W 3d Cta Neck W Iv RADCT 01/20/17 Resulted Contrast W 3d 3% Saline Inj (Sodium MED 01/20/17 In Process Chloride 3% Inj) 09:45 Electrocardiogram CAV 01/20/17 Resulted Magnesium Sulfate 1 MED 01/20/17 Complete Gm Premix (Magnesium 10:00 Sodium (Na) LAB 01/20/17 Complete 09:50 Sodium Chloride 23.4% MED 01/20/17 Complete Inj (Sodium Chlori 11:52 Sodium Chloride 23.4% MED 01/20/17 In Process Inj (Sodium Chlori 12:00 Rocuronium Inj MED 01/20/17 Complete (Zemuron Inj) 13:00 Iohexol 350 Inj MED 01/20/17 Complete (Omnipaque 350 Inj) 13:40 Phenytoin Inj MED 01/20/17 Complete (Dilantin Inj) 15:15 Phenytoin (Dilantin) LAB 01/21/17 Complete 06:00 Levetiracetam Inj MED 01/20/17 In Process (Keppra Inj) 21:00 Dopamine Inj Premix MED 01/20/17 In Process (Dopamine Inj Premix 16:15 Terbutaline Inj MED 01/20/17 In Process (Brethine Inj) 16:15 Us Arm Venous Doppler RADUS 01/20/17 Resulted Bilat Us Leg Venous Doppler RADUS 01/20/17 Resulted Bilat Venogram Ivc W/Ret RADINV 01/20/17 Resulted Fltr Plcmt Vital Signs (Adult) WILFRID 01/20/17 Complete 17:31 Activity Bed Rest WILFRID 01/20/17 In Process 17:[address]: Other WILFRID 01/20/17 In Process 17:31 ^ Apply Pressure WILFRID 01/20/17 In Process 17:31 Us Guided Vascular RADINV 01/20/17 Taken Access Iohexol 350 Inj MED 01/20/17 Complete (Omnipaque 350 Inj) 17:57 Phenytoin Inj MED 01/20/17 In Process (Dilantin Inj) 21:00 Continue Urinary WILFRID 01/21/17 In Process Catheter 08:02 Tube Feeding WILFRID 01/21/17 In Process 09:41 Magnesium Hydroxide MED 01/21/17 In Process Liq (Milk Of Magnesi 11:00 Lactulose Liq MED 01/21/17 In Process (Lactulose Liq) 11:00 Equip, Feeding Pump SPD 01/21/17 Logged Use Of 10:08 Arterial Blood Gas LAB 01/21/17 Complete (Abg) Rocuronium Inj MED 01/21/17 Complete (Zemuron Inj) 16:44 Rocuronium Inj MED 01/21/17 Complete (Zemuron Inj) 16:45 Arterial Blood Gas LAB 01/21/17 Complete (Abg) 20:35 Arterial Blood Gas LAB 01/22/17 Complete (Abg) 01:15 Norepinephrine Inj MED 01/22/17 Complete (Levophed Inj) 03:47 Sodium Chlor 0.9% MED 01/22/17 Complete 1000 Ml Inj (Ns 1000 M 04:30 Vascular Access Team WILFRID 01/22/17 In Process Consult/P 06:53 Vascular Poc IMGUS 01/22/17 Taken Ultrasound Lactic Acid LAB 01/22/17 In Process 08:53 Continue Urinary WILFRID 01/22/17 In Process Catheter 08:57 Sodium Chlorid 0.9% MED 01/22/17 In Process 500 Ml Inj (Ns 500 M 09:00 Resp Request For RSP 01/22/17 Logged Service Dextrose 5% In MED 01/22/17 In Process Wate... W/Vasopressin 09:17 Portable Eeg EEG 01/22/17 Logged Phenytoin (Dilantin) LAB 01/22/17 In Process 09:20 Arterial Blood Gas LAB 01/22/17 Logged (Abg) 10:30 ^ CVP WILFRID 01/22/17 In Process 09:26 Bedside Glucose WILFRID 01/22/17 In Process 09:27 Blood Glucose Goal [facility] 01/22/17 In Process (Criteria) 09:27 Hypoglycemia 51 - 69 WILFRID 01/22/17 In Process Mg/Dl 09:27 Hypoglycemia 50 Mg/Dl WILFRID 01/22/17 In Process Or < 09:[address]: Vipul WILFRID 01/22/17 In Process 09:27 Dextrose 50% In Myrna MED 01/22/17 In Process (Vial) Inj (D50w (Vi 09:30 Insulin Human Reg MED 01/22/17 In Process Supp Scale (Novolin R 12:00 Cbc No Diff, Includes LAB 01/23/17 Verified Plts 05:00 Cbc No Diff, Includes LAB 01/24/17 Verified Plts 05:00 Cbc No Diff, Includes LAB 01/25/17 Verified Plts 05:00 Cbc No Diff, Includes LAB 01/26/17 Verified Plts 05:00 Cbc No Diff, Includes LAB 01/27/17 Verified Plts 05:00 Cbc No Diff, Includes LAB 01/28/17 Verified Plts 05:00 Cbc No Diff, Includes LAB 01/29/17 Verified Plts 05:00 Basic Metabolic Panel LAB 01/23/17 Verified (Bmp) 05:00 Basic Metabolic Panel LAB 01/24/17 Verified (Bmp) 05:00 Basic Metabolic Panel LAB 01/25/17 Verified (Bmp) 05:00 Basic Metabolic Panel LAB 01/26/17 Verified (Bmp) 05:00 Basic Metabolic Panel LAB 01/27/17 Verified (Bmp) 05:00 Basic Metabolic Panel LAB 01/28/17 Verified (Bmp) 05:00 Basic Metabolic Panel LAB 01/29/17 Verified (Bmp) 05:00 Vital Signs Date Time Temp Pulse Resp B/P (MAP) Pulse Ox O2 Delivery O2 Flow Rate FiO2 01/22/17 09:01 90 80 01/22/17 06:00 72 01/22/17 04:15 95 80 01/22/17 04:00 99.5 80 24 101/53 (69) 95 Automatic Cuff 01/22/17 04:00 80 01/22/17 04:00 80 01/22/17 03:55 79 94/52 01/22/17 03:20 77 99/57 01/22/17 02:40 99 45 01/22/17 02:00 68 01/22/17 01:25 95 60 01/22/17 01:15 95 60 01/22/17 00:00 64 01/22/17 00:00 100.2 64 22 103/54 (70) 95 01/22/17 00:00 35 01/21/17 23:20 75 121/58 01/21/17 22:15 95 60 01/21/17 22:00 69 01/21/17 20:16 62 100/52 01/21/17 20:00 99.1 64 18 103/54 (70) 94 01/21/17 20:00 64 01/21/17 20:00 93 60 01/21/17 20:00 35 01/21/17 19:45 93 60 01/21/17 19:41 75 137/68 01/21/17 18:00 59 01/21/17 16:38 97 30 01/21/17 16:02 56 126/87 01/21/17 16:01 65 01/21/17 16:00 65 01/21/17 16:00 35 01/21/17 16:00 98.4 58 20 110/58 (75) 93 Arterial Line 01/21/17 14:00 56 01/21/17 12:00 63 01/21/17 12:00 30 01/21/17 12:00 97.8 63 20 132/69 (90) 95 98/68 (78) 01/21/17 11:36 97 30 01/21/17 10:00 30 01/21/17 10:00 98.5 52 20 134/66 (88) 98 109/68 (82) 01/21/17 10:00 52 01/21/17 08:00 50 01/21/17 07:45 97 30 01/21/17 07:00 100 Mechanical Ventilator 30 01/21/17 06:00 50 01/21/17 04:17 98 30 01/21/17 04:00 98.1 70 20 116/58 (77) 97 01/21/17 04:00 98 30 01/21/17 04:00 30 01/21/17 04:00 70 01/21/17 02:00 46 01/21/17 01:16 98 30 01/21/17 00:00 30 01/21/17 00:00 48 01/21/17 00:00 98.6 48 20 124/59 (80) 98 01/20/17 23:45 48 109/57 01/20/17 22:10 98 30 01/20/17 22:00 44 01/20/17 22:00 44 109/54 01/20/17 20:13 60 116/57 01/20/17 20:07 98 30 01/20/17 20:00 98.5 53 20 120/56 (77) 99 01/20/17 20:00 54 01/20/17 20:00 30 01/20/17 19:35 98 30 01/20/17 19:00 100 Mechanical Ventilator 30 01/20/17 18:21 40 127/52 01/20/17 18:00 41 01/20/17 17:28 98 100 01/20/17 16:00 45 01/20/17 16:00 98.2 40 20 103/54 (70) 100 115/65 (82) 01/20/17 16:00 30 01/20/17 15:33 100 30 01/20/17 14:00 40 01/20/17 13:51 98 01/20/17 12:00 50 01/20/17 12:00 42 01/20/17 12:00 98.2 42 20 115/65 (82) 100 118/72 (87) 01/20/17 11:29 100 30 01/20/17 10:00 39 01/20/17 08:02 100 30 01/20/17 08:00 50 01/20/17 08:00 40 01/20/17 08:00 98.4 49 20 108/61 (77) 100 105/59 (74) 01/20/17 07:58 30 40 01/20/17 07:00 100 Mechanical Ventilator 30 01/20/17 06:00 48 01/20/17 06:00 48 103/67 01/20/17 05:30 100 40 01/20/17 05:15 99 40 01/20/17 05:01 97 45 01/20/17 04:56 52 140/59 01/20/17 04:48 100 45 01/20/17 04:00 50 01/20/17 04:00 52 01/20/17 04:00 98.8 52 16 116/52 (73) 100 01/20/17 02:51 56 133/56 01/20/17 02:00 55 01/20/17 01:46 100 50 01/20/17 00:00 52 01/20/17 00:00 98.3 52 16 119/48 (71) 100 01/20/17 00:00 50 01/19/17 23:35 95 50 01/19/17 22:30 100 50 01/19/17 22:15 52 114/48 01/19/17 22:00 52 01/19/17 20:25 100 50 01/19/17 20:00 50 01/19/17 20:00 98.7 50 16 106/50 (68) 100 01/19/17 20:00 50 01/19/17 19:25 100 01/19/17 19:00 100 Mechanical Ventilator 50 01/19/17 18:00 52 01/19/17 16:00 100 Mechanical Ventilator 100 01/19/17 16:00 98.4 71 16 144/67 (92) 99 01/19/17 16:00 75 01/19/17 14:55 98 100 01/19/17 14:50 96 100 01/19/17 14:30 100 100 01/19/17 14:00 98 ambu 15.00 100 01/19/17 14:00 98 15.00 100 Medical Decision Making Impression and Plan Mr Rebollar is a 56-year-old male status post fall with TBI, intracerebral hemorrhage involving the left frontal and temporal lobes him a SAH, and left frontal subdural hematoma Neuro: Patient's neurologic exam remains guarded. His ICP's are well controlled , but remained labile and increase with any decrease in sedation 01/21 continue ICP monitoring, 3% saline at 50 mL/hr, goal CPP>65 01/22 neurologically stable with elevated ICP. ICP well-controlled on 3% saline and sedation Seizure: Seizure well-controlled on Keppra, propofol, Versed CV: Cardiac arrest with hypotension requiring dopamine pressors. Wean as tolerated to maintain CPP 01/22 hypotension on pressors Pulm: Respiratory failure with aspiration pneumonitis, and pulmonary embolism Continue mechanical ventilation. Due to acute hemorrhage in the brain, therapeutic anticoagulation is contraindicated IVC filter GI: Aggressive bowel regimen in the setting of sedation PPI prophylaxis : Good urine output with Jones in place F/E/N: Malnutrition secondary to intubation status Continue to feeds to goal. Add reglan if patient has high residual ID: Aspiration pneumonitis. Follow-up culture Disposition: Continue ICU monitoring Uche Parker MD Jan 22, 2017 09:54
[2017-01-22] MEDS: DOPamine INJ PREMIX 500 ML IV PRN (10:46)
[2017-01-22] MEDS ORDERED: SODIUM BICARBONATE 8.4% INJ 50 MEQ/50 ML SYR IV PUSH ONE (11:00)
[2017-01-22] MEDS: VASOPRESSIN INJ 40 UNITS in SODIUM CHLORIDE 0.9% INJ 98 ML IV SCH (11:50)
[2017-01-22] MEDS: INSULIN NovoLIN REGULAR SUPPLEMENTAL SCALE SQ SCH ×3 (12:00→23:58)
--- NOTE | 2017-01-22 14:33 | HHI.CCPN ---
Subjective 24 Hour Review/Hospital Course 01/21/17 IVC filter placed yesterday after finding right-sided pulmonary embolus and left -sided cephalic vein thrombus ICP levels continue to spike, controlled with hypertonic saline boluses and sedation Start tube feeds today 01/22 large Uo,Na 166--will r/o DI CVP 3mmHg,BD-9,lactic 4.8-hypovolemic levophed/dopamin for CPP management Objective Vital Signs Date Time Temp Pulse Resp B/P (MAP) Pulse Ox O2 Delivery O2 Flow Rate FiO2 01/22/17 12:35 95 80 01/22/17 12:00 84 01/22/17 12:00 99.3 24 96/48 (64) 01/21/17 07:00 Mechanical Ventilator 01/19/17 14:00 15.00 Intake and Output 01/22/17 01/22/17 01/23/17 08:00 16:00 00:00 Intake Total 2726 ml 2572 ml Output Total 2600 ml Balance 126 ml 2572 ml Result Diagram: 01/22/17 0328 01/22/17 1029 Other Results Microbiology Date/Time Source Procedure Growth Status 01/19/17 16:30 Sputum Endotracheal Gram Stain - Final Complete 01/19/17 16:30 Sputum Endotracheal Sputum Culture - Final HEAVY GROWTH NORMAL RESPIRATORY MARCIAL Complete Laboratory Tests Test 01/21/17 16:10 01/21/17 20:35 01/22/17 01:15 01/22/17 03:58 Blood Gas Puncture Site ART LINE RT RADIAL RT RADIAL RT RADIAL Blood Gas Patient Temperature 98.6 98.6 98.6 98.6 Blood Gas HCO3 11 mmol/L (22-26) 21 mmol/L (22-26) 20 mmol/L (22-26) 19 mmol/L (22-26) Blood Gas Base Excess -12.3 mmol/L (-2-2) -4.5 mmol/L (-2-2) -5.2 mmol/L (-2-2) -6.6 mmol/L (-2-2) Blood Gas Oxygen Saturation 95 % (90-100) 92 % (90-100) 90 % (90-100) 92 % ( 90-100) Arterial Blood pH 7.49 (7.380-7.420) 7.30 (7.380-7.420) 7.32 (7.380-7.420) 7.28 (7.380-7.420) Arterial Blood Partial Pressure CO2 14 mmHg (38-42) 44 mmHg (38-42) 40 mmHg (38-42) 42 mmHg (38-42) Arterial Blood Partial Pressure O2 73 mmHg (61-120) 78 mmHg (61-120) 65 mmHg (61-120) 77 mmHg (61-120) Arterial Blood Oxygen Content 10.7 Vol % (12.0-20.0) 16.6 Vol % (12.0-20.0) 16.2 Vol % (12.0-20.0) 16.4 Vol % (12.0-20.0) Arterial Blood Carboxyhemoglobin 1.3 % (0-4) 1.1 % (0-4) 0.9 % (0-4) 1.0 % (0-4) Arterial Blood Methemoglobin 1.0 % (0-2) 1.1 % (0-2) 1.0 % (0-2) 1.1 % (0-2) Blood Gas Hemoglobin 8.0 G/DL (12.0-16.0) 12.8 G/DL (12.0-16.0) 12.8 G/DL (12.0-16.0) 12.6 G/DL (12.0-16.0) Oxygen Delivery Device VENTILATOR VENTILATOR VENTILATOR VENTILATOR Blood Gas Ventilator Setting AC18/600/+5 AC22/600/+5/ A/C 22/600/+5 Blood Gas Inspired Oxygen 30 % 60 % 60 % 80 % Test 01/22/17 10:35 Blood Gas Puncture Site ART LINE Blood Gas Patient Temperature 98.6 Blood Gas HCO3 17 mmol/L (22-26) Blood Gas Base Excess -9.9 mmol/L (-2-2) Blood Gas Oxygen Saturation 92 % (90-100) Arterial Blood pH 7.21 (7.380-7.420) Arterial Blood Partial Pressure CO2 43 mmHg (38-42) Arterial Blood Partial Pressure O2 78 mmHg (61-120) Arterial Blood Oxygen Content 14.7 Vol % (12.0-20.0) Arterial Blood Carboxyhemoglobin 0.9 % (0-4) Arterial Blood Methemoglobin 0.9 % (0-2) Blood Gas Hemoglobin 11.3 G/DL (12.0-16.0) Oxygen Delivery Device VENTILATOR Blood Gas Ventilator Setting 24/600/1.0/+12 Blood Gas Inspired Oxygen 80 % Imaging Last 24 hours Impressions Chest X-Ray 01/22/17 0600 Signed Impressions: Service Date/Time: Sunday, January 22, 2017 04:42 - CONCLUSION: Worsening appearance of the chest. Eloy Webber MD Exam AUTOCAD GCS 3 T Hemodynamic/Cardiac levophed Pulmonary/Respiratory mechanical ventilation Abdomen/GI Nutrition soft Vascular Central Line Catheter Vascular Central Line Catheter: Yes Assessment and Plan Plan Patient remains critically ill with severe traumatic brain injury requiring excess sedation to maintain a low ICP Continue full ventilator support monitor NA hydrate gently if DI DDAVP monitor BD and lactic acid Carmen Wynn MD Jan 22, 2017 14:33
[2017-01-22] MEDS: PANTOPRAZOLE SODIUM 40 MG VIAL IVP SCH (16:26)
[2017-01-22] MEDS ORDERED: LACTATED RINGER'S 1000 ML INJ 1,000 ML IV ONE (19:30)
[2017-01-22] MEDS: MIDAZOLAM HCL 5 MG/5 ML VIAL IV PUSH PRN (20:26)
--- NOTE | 2017-01-22 21:36 | RADRPT ---
EXAM DATE/TIME: 01/22/2017 21:08 [place] COMPARISON: CHEST SINGLE AP, January 22, 2017, 4:42. INDICATIONS : Respiratory failure and ETT tube exchange. MEDICAL HISTORY : Unable to obtain. SURGICAL HISTORY : Unable to obtain. ENCOUNTER: Initial ACUITY: 1 day PAIN SCORE: Non-responsive. LOCATION: Bilateral chest FINDINGS: A single view of the chest demonstrates endotracheal tube in good position. NG in stomach. Right cent ral line in the superior vena cava. No pneumothorax. Basilar airspace consolidation. No significant e ffusion. Heart size upper limits normal. CONCLUSION: 1. Support apparatus in good position. Basilar lung consolidation overall slightly improved on the le ft since exam from earlier today. Dashawn Delgadillo MD on January 22, 2017 at 21:32 Board Certified Radiologist. This report was verified electronically.
[2017-01-22] MEDS ORDERED: SUCCINYLCHOLINE CHLORIDE 200 MG/10 ML VIAL IV ONE (21:45)
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
[2017-01-23] VITALS (19 sets, daily range): BP systolic 108–119; BP diastolic 57–63; PULSE 62–75; RESP 12–24; TEMP 99–100.8; O2SAT 96–99
[2017-01-23 02:01] LABS: BICARBONATE 22.6 MEQ/L (21.0-32.0); CALCIUM 7.4 MG/DL (8.5-10.1); CALCIUM-PROTEIN CORRECTED 8.3 MG/DL (8.5-10.1); CREATININE 1.12 MG/DL (0.60-1.30); TOTAL BILIRUBIN ADULT 0.8 MG/DL (0.2-1.0); TOTAL PROTEIN 5.4 GM/DL (6.4-8.2)
[2017-01-23] MEDS: VASOPRESSIN INJ 40 UNITS in SODIUM CHLORIDE 0.9% INJ 98 ML IV SCH ×2 (02:07→17:42)
[2017-01-23] MEDS: MIDAZOLAM 100 MG/100 ML INJ 100 ML IV PRN ×3 (03:05→19:38)
[2017-01-23] MEDS: CHLORHEXIDINE GLUCONATE 2 % 1 PACK (2 CLOTHS) TOP SCH (03:22)
[2017-01-23] MEDS: RESP: ALBUTEROL 2.5 MG/IPRATROPIUM 0.5 MG NEB (SCH) NEB ×4 (04:19→20:01)
[2017-01-23 04:33] LABS: AUTOMATED NEUTROPHIL # 9.6 TH/MM3 (1.8-7.7); BASOPHIL % 0.2 % (0.0-2.0); HEMATOCRIT 33.6 % (39.0-51.0); HEMOGLOBIN 11.2 GM/DL (13.0-17.0); LYMPH % 15.1 % (9.0-44.0); LYMPHOCYTE # 1.8 TH/MM3 (1.0-4.8); MEAN CELL VOLUME 88.4 FL (80.0-100.0); MEAN CORPUSCULAR HEMOGLOBIN 29.4 PG (27.0-34.0); MEAN CORPUSCULAR HGB CONC 33.2 % (32.0-36.0); MEAN PLATELET VOLUME 8.5 FL (7.0-11.0); MONO % 3.3 % (0.0-8.0); MONOCYTE # 0.4 TH/MM3 (0-0.9); NEUT % 81.4 % (16.0-70.0); PLATELET COUNT 109 TH/MM3 (150-450); RED CELL DISTRIBUTION WIDTH 13.3 % (11.6-17.2); WHITE BLOOD COUNT 11.7 TH/MM3 (4.0-11.0)
[2017-01-23] MEDS: INSULIN NovoLIN REGULAR SUPPLEMENTAL SCALE SQ SCH ×3 (06:00→18:00)
[2017-01-23] MEDS: fentaNYL DRIP 250 ML IV PRN ×2 (07:01→19:38)
[2017-01-23 07:02] LABS: BANDS 28 % (0-6); CORRECTED NUCLEATED RBC 1 /100 WBC (0-0); LYMPHOCYTES 12 % (9-44); METAMYELOCYTES 35 % (0-1); MONOCYTES 1 % (0-8); MYELOCYTES 1 % (0-0); NEUTROPHIL # MANUAL DIFF 10.1 TH/MM3 (1.8-7.7); NUCLEATED RED BLOOD CELL 1 (0-0); POLYS (SEG NEUTROPHILS) 22 % (16-70)
[2017-01-23 07:03] LABS: DOHLE BODIES PRESENT (NONE SEEN)
[2017-01-23 07:30] LABS: BICARBONATE 20.9 MEQ/L (21.0-32.0); CALCIUM 7.3 MG/DL (8.5-10.1); CREATININE 1.19 MG/DL (0.60-1.30)
[2017-01-23 07:37] LABS: MAGNESIUM 1.6 MG/DL (1.5-2.5); PHOSPHORUS 3.7 MG/DL (2.5-4.9)
[2017-01-23 07:47] LABS: CALCIUM-PROTEIN CORRECTED 8.2 MG/DL (8.5-10.1); TOTAL PROTEIN 5.5 GM/DL (6.4-8.2)
[2017-01-23] MEDS ORDERED: SODIUM BICARBONATE 8.4% INJ 50 MEQ/50 ML SYR IV PUSH ONE (08:00)
[2017-01-23] MEDS: CHLORHEXIDINE 0.12% (ORAL KIT) 15 ML CUP MT SCH ×2 (08:14→20:38)
[2017-01-23] MEDS: MAGNESIUM HYDROXIDE SUSP 30 ML CUP PO SCH ×2 (08:21→20:38)
[2017-01-23] MEDS: LACTULOSE SYRUP 20 GM/30 ML CUP PO SCH (08:21)
[2017-01-23] MEDS: DOCUSATE SODIUM 100 MG/10 ML UDC PO SCH ×2 (08:21→20:38)
[2017-01-23] MEDS: levETIRAcetam INJ 100 ML IV SCH ×2 (08:21→20:38)
[2017-01-23] MEDS: SODIUM CHLOR 0.9% 1000 ML INJ 1,000 ML IV SCH ×3 (08:22→19:37)
[2017-01-23] MEDS: NOREPINEPHRINE INJ 4 MG in SODIUM CHLOR 0.9% 250 ML INJ 246 ML IV PRN ×2 (08:56→15:32)
[2017-01-23] MEDS: PHENYTOIN IV SCH ×2 (09:34→20:38)
[2017-01-23] MEDS: SODIUM CHLORIDE 0.9% IV SCH ×2 (09:34→20:38)
[2017-01-23] MEDS ORDERED: DIATRIZOATE MEGLUM/DIATRIZOATE SOD 9 ML CUP PO ONE (10:30)
[2017-01-23] MEDS: VANCOMYCIN INJ 1,000 MG in SODIUM CHLOR 0.9% 250 ML INJ 250 ML IV SCH ×2 (11:02→22:37)
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
[2017-01-23] MEDS: CEFEPIME INJ 1,000 MG in SODIUM CHLORIDE 0.9% INJ 100 ML IV SCH (12:20)
[2017-01-23] MEDS ORDERED: IOHEXOL 350 MG/ML 10 ML VIAL (for RAD DIAG) IVCONTRAST ONE (13:31)
--- NOTE | 2017-01-23 13:34 | HHI.CCPN ---
Subjective Remarks/Hospital Course Patient is a middle-aged male fell backwards from a top of a vehicle hitting his head. Initially was confused with right-sided facial droop and witnessed seizure activity. Apparently patient deteriorated neurologically, and was intubated with an LMA in the field. Patient arrived to [facility] emergency department as a trauma alert, LMA was exchanged and endotracheal tube was placed. GCS was 3 in ED. trauma workup revealed Left frontal and temporal hemorrhagic contusions, subarachnoid hemorrhage and left frontal subdural hematoma. There was a mild left to right midline shift. CT chest showed Bibasilar consolidation/aspiration pneumonitis. There was no other injuries identified. Patient received IV mannitol and was ordered to receive 3% saline from the ED. Seen by trauma surgeon Dr. Jacobson I evaluated the patient in the ICU. On sedation hold patient moves all extremities but nonpurposeful no eye opening, right upper extremity weaker than left. Patient requiring heavy sedation for ventilator synchrony. I have placed a right subclavian central line for hypertonic saline infusion. Discussed with neurosurgery Dr. Salamanca. Patient will need ICP monitor placement due to severe TBI with low GCS. With history of witnessed seizures I have started patient on IV Keppra will get the EEG also SUBJ 01/20: Sustained brief cardiac arrest/asystole following seizure yesterday night around 8 PM. Received CPR for 30 seconds with return of spontaneous circulation. F/u CT head shows new small SAH now noted in the right parietal and temporal lobes and mild interval increase in the intraparenchymal hemorrhage in the left frontal lobe. No significant change in the left subdural hemorrhage and subarachnoid hemorrhage diffuse edema and mild mass effect. Cardiac enzymes and 2-D echo ordered. Patient had ICP elevation up to [address] head. 23% saline given with good control. Currently on IV Mannitol and 3% saline 01/21: Patient remains critically ill with intermittent ICP elevation. CTA of the neck showed probable pulmonary embolism in the right pulmonary artery. Patient had IVC filter placed yesterday. Venous scan done 01/20 showed occlusive thrombus within the left cephalic vein and nonocclusive thrombus within the right basilic and cephalic veins. Na 153 today. UO adequate 01/22: remains on multiple vasopressors, elevated ICP between 11-20. on 3% sodium. hypernatremic. 01/23: remains critically ill. lactate rising despite fluid resuscitation. remains on vasopressors. hypernatremia, though with SG 1.011, unlikely to be DI. holding 3%. ICP more controlled today. unclear source of shock. Objective Vital Signs Date Time Temp Pulse Resp B/P (MAP) Pulse Ox O2 Delivery O2 Flow Rate FiO2 01/23/17 12:09 98 60 01/23/17 11:51 67 123/62 01/23/17 08:00 99.7 24 01/21/17 07:00 Mechanical Ventilator 01/19/17 14:00 15.00 Intake and Output 01/23/17 01/23/17 01/24/17 08:00 16:00 00:00 Intake Total 718 ml 1410 ml Output Total 2400 ml Balance -1682 ml 1410 ml Result Diagram: 01/23/17 0415 01/23/17 1056 Other Results Laboratory Tests Test 01/22/17 15:57 01/23/17 04:15 Blood Gas Puncture Site ART LINE MARILIA Blood Gas Patient Temperature 98.6 98.6 Blood Gas HCO3 19 mmol/L (22-26) 18 mmol/L (22-26) Blood Gas Base Excess -6.8 mmol/L (-2-2) -6.5 mmol/L (-2-2) Blood Gas Oxygen Saturation 93 % (90-100) 95 % (90-100) Arterial Blood pH 7.29 (7.380-7.420) 7.33 (7.380-7.420) Arterial Blood Partial Pressure CO2 39 mmHg (38-42) 36 mmHg (38-42) Arterial Blood Partial Pressure O2 73 mmHg (61-120) 84 mmHg (61-120) Arterial Blood Oxygen Content 14.9 Vol % (12.0-20.0) 19.0 Vol % (12.0-20.0) Arterial Blood Carboxyhemoglobin 1.0 % (0-4) 1.0 % (0-4) Arterial Blood Methemoglobin 1.0 % (0-2) 0.8 % (0-2) Blood Gas Hemoglobin 11.4 G/DL (12.0-16.0) 14.3 G/DL (12.0-16.0) Oxygen Delivery Device VENTILATOR VENTILATOR Blood Gas Ventilator Setting PRVC/24/600/1.0/+12 PRVC24/600/1.0/+12 Blood Gas Inspired Oxygen 80 % 80 % Imaging See HPI Objective Remarks GENERAL: middle-aged male who is sedated with propofol, Versed and fentanyl SKIN: Warm/dry. HEAD: Normocephalic. EYES: Pupils equal and round, 2 mm reactive to light. No scleral icterus. No injection or drainage. ENT: No nasal bleeding or discharge. Orotracheally intubated NECK: Trachea midline. No JVD. CARDIOVASCULAR: Regular rate and rhythm. RESPIRATORY: No accessory muscle use. PRVC, PEEP 12, fio2 60%. GASTROINTESTINAL: Abdomen soft, non-tender, nondistended. no guarding. MUSCULOSKELETAL: distal pulses 2+. 1+ edema. NEUROLOGICAL: Intubated heavily sedated. Pupils are round equal and reactive. Heavy sedation limits neuro exam, but no spontaneous movement noted on heavy sedation A/P Assessment and Plan Assessment: 56yM with severe traumatic brain injury. persistent shock with worsening lactate is concerning. rising fio2 also concerning. discussed with trauma team: need repeat imaging, CT chest/abd/pelvis. very unstable. I will travel with patient and remain with patient for imaging. appears euvolemic based on CVP, bedside echo. Remains very critically ill at this time. Neuro: Traumatic Brain Injury Subarachnoid hemorrhage Acute encephalopathy Elevated ICP Cerebral Edema - RASS goal -4 while elevated ICP - continue fentanyl, versed, propofol - monitoring ICP - versed 5mg iv boluses for sustained ICP > 20 - frequent neuro checks - repeat head CT today while imaging. - continue hyperosmolar therapy Resp: Acute hypoxic and hypercarbic respiratory failure Acute pulmonary embolism - repeat CT pulmonary angiogram - wean fio2 for goal spo2 > 90% - hob elevated - nebs - vent bundle - no weaning of mechanical ventilation until neuro and ICP improves - emergent ett swap for torn cuff 01/22 overnight. CV: Undifferentiated Shock Acute pulmonary embolism - trend lactate - continue levophed, vasopressin for goal map > 65 mmHg Renal: Acute kidney injury - continue gold - strict i/os FEN/GI: Hypernatremia Acute protein calorie malnutrition- mild Hypokalemia Metabolic Acidosis - unlikely to be DI. trend serial sodiums - if cannot get hypernatremia under control, may be forced to use a small dose of DDAVP - ICU electrolyte protocol - daily BMP - NPO while in shock - trend ABGs - CT abd/pelvis with iv and po contrast. Heme/ID: Anemia secondary to acute blood loss Thrombocytopenia secondary to consumption Reactive Leukocytosis - does not meet transfusion triggers at this time - no infectious etiology suspected at this time - daily CBC Endocrine: Hyperglycemia of critical illness - ssi, med scale, q6h Prophy: SCDs Pepcid iv no pharmacologic dvt prophylaxis given head bleed Dispo: remain in ICU. critically ill. Critical care time: 93 minutes, exclusive of separately billable procedures. includes time I spent in active management of the unstable patient transporting to and from CT scan, and ongoing acute hemodynamic management in the ICU. Morgan Ruth MD Jan 23, 2017 13:34
--- NOTE | 2017-01-23 13:37 | RADRPT ---
EXAM DATE/TIME: 01/23/2017 13:15 [facility] COMPARISON: CT BRAIN W/O CONTRAST, January 20, 2017, 3:51. INDICATIONS : Trauma, follow up RADIATION DOSE: 56.35 CTDIvol (mGy) MEDICAL HISTORY : Non-responsive. Trauma alert 01/19/17 SURGICAL HISTORY : Non-responsive. ENCOUNTER: Subsequent ACUITY: 4 - 6 days PAIN SCALE: Non-responsive LOCATION: cranial TECHNIQUE: Multiple contiguous axial images were obtained of the head. Using automated exposure control and adj ustment of the mA and/or kV according to patient size, radiation dose was kept as low as reasonably a chievable to obtain optimal diagnostic quality images. DICOM format image data is available electro nically for review and comparison. FINDINGS: Today's exam is compared to the prior study of 01/20/2017. There continues to be multiple punctate are as of hemorrhagic contusion and edema along the base of both frontal lobes, left greater than right. There continues to be a 1.4 cm area of focal intraparenchymal hemorrhage in the left frontal lobe whi ch is stable compared to the prior examination. The ventricles are normal in size and midline in posi tion. There appears to been improvement of the small left-sided subdural hematoma. There also appears to be some overall improvement of the bilateral subarachnoid hemorrhage. The posterior fossa is stab le and unremarkable. No definite new areas of hemorrhage are demonstrated. There does appear to be so me improvement with the bilateral cerebral edema. CONCLUSION: 1. Compared to the prior exam there has been some overall improvement in the bilateral cerebral edema and subarachnoid hemorrhage. There also appears to be improvement in the previously noted small left -sided subdural hematoma. 2. There continues to be multiple punctate hemorrhagic areas of contusion surrounded by edema in the base of both frontal lobes, left greater than right. There continues to be a focal 1.4 cm area of int raparenchymal hemorrhage in the left frontal lobe. These findings are essentially stable compared to the prior examination. 3. No definite new areas of hemorrhage are seen. 4. The ventricles remain normal in size and midline in position. Juan Carrillo MD on January 23, 2017 at 13:30 Board Certified Radiologist. This report was verified electronically.
--- NOTE | 2017-01-23 13:45 | RADRPT ---
EXAM DATE/TIME: 01/23/2017 13:19 [facility] COMPARISON: No previous studies available for comparison. INDICATIONS : Embolism, trauma. IV CONTRAST: 100 cc Omnipaque 350 (iohexol) IV ; Cumulative dose for multiple exams. RADIATION DOSE: 16.06 CTDIvol (mGy) MEDICAL HISTORY : Non-responsive. Trauma alert 01/19 SURGICAL HISTORY : Non-responsive. ENCOUNTER: Subsequent ACUITY: 4 - 6 days PAIN SCALE: Non-responsive LOCATION: chest TECHNIQUE: Volumetric scanning of the chest was performed using a pulmonary embolism protocol MIP images were re constructed. Using automated exposure control and adjustment of the mA and/or kV according to patien t size, radiation dose was kept as low as reasonably achievable to obtain optimal diagnostic quality images. DICOM format image data is available electronically for review and comparison. Follow-up recommendations for detected pulmonary nodules are based at a minimum on nodule size and pa tient risk factors according to Fleischner Society Guidelines. FINDINGS: PULMONARY ARTERIES: No filling defects are seen in the pulmonary arteries through the segmental level. LUNGS: There is some scattered infiltrates in both upper lung farfan, with the right. There is diffuse atele ctasis involving the right lower lung and left lower lung. There is no evidence of pneumothorax. PLEURAE: There is some pleural thickening bilaterally. However no definite pleural effusions are demonstrated. MEDIASTINUM: There is good visualization of the great vessels of the middle mediastinum. No evidence of mediastin al or hilar adenopathy/mass. MUSCULOSKELETAL: Within normal limits for patient age. MISCELLANEOUS: The visualized upper abdominal organs demonstrate no acute abnormality. There is an endotracheal tube and NG tube in place. CONCLUSION: 1. No evidence of pulmonary embolism. 2. There is atelectasis involving both lower lung farfan. No definite pleural effusions are demonstra allan. 3. There is some scattered infiltrates in both upper lung farfan, left greater than right. Juan Carrillo MD on January 23, 2017 at 13:40 Board Certified Radiologist. This report was verified electronically.
--- NOTE | 2017-01-23 13:50 | RADRPT ---
EXAM DATE/TIME: 01/23/2017 13:19 [facility] COMPARISON: CT ABDOMEN & PELVIS W CONTRAST, January 19, 2017, 14:14. INDICATIONS : Trauma IV CONTRAST: 100 cc Omnipaque 350 (iohexol) IV ; Cumulative dose for multiple exams. ORAL CONTRAST: No oral contrast ingested. RADIATION DOSE: 17.98 CTDIvol (mGy) MEDICAL HISTORY : Non-responsive. TRAUMA ALERT 01/19/17 SURGICAL HISTORY : Non-responsive. ENCOUNTER: Subsequent ACUITY: 4 - 6 days PAIN SCALE: Non-responsive LOCATION: chest TECHNIQUE: Volumetric scanning of the abdomen and pelvis was performed. Using automated exposure control and ad justment of the mA and/or kV according to patient size, radiation dose was kept as low as reasonably achievable to obtain optimal diagnostic quality images. DICOM format image data is available electro nically for review and comparison. FINDINGS: LOWER LUNGS: There is atelectasis in both lung bases. No evidence of pleural effusions. LIVER: Homogeneous density without lesion. There is no dilation of the biliary tree. No calcified gallston es. There is contrast seen in the gallbladder. SPLEEN: Normal size without lesion. PANCREAS: Within normal limits. KIDNEYS: Normal in size and shape. There is no mass, stone or hydronephrosis. ADRENAL GLANDS: Within normal limits. VASCULAR: There is no aortic aneurysm. There is an IVC filter in place. BOWEL/MESENTERY: The stomach, small bowel, and colon demonstrate no acute abnormality. There is no free intraperitone al air or fluid. No inflammatory changes are demonstrated. There is stool throughout the colon. ABDOMINAL WALL: Within normal limits. RETROPERITONEUM: There is no lymphadenopathy. BLADDER: Jones catheter in urinary bladder. REPRODUCTIVE: Within normal limits. INGUINAL: There is no lymphadenopathy or hernia. MUSCULOSKELETAL: Within normal limits for patient age. No significant changes compared to the prior examination. CONCLUSION: 1. There is atelectasis in both lower lung afrfan. 2. Otherwise, the CT scan of the abdomen and pelvis is not significantly changed compared to the prio r examination. Juan Carrillo MD on January 23, 2017 at 13:45 Board Certified Radiologist. This report was verified electronically.
--- NOTE | 2017-01-23 14:45 | HHI.CCPN ---
Subjective 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 by the tax manager public-CVP 18 mmHg possible etiology SIRS/pneumonitis/pneumonia-increased bands as well on diff CBC CT AP -no source CT chest-infiltrates b/l requires also increased vent settings Objective Vital Signs Date Time Temp Pulse Resp B/P (MAP) Pulse Ox O2 Delivery O2 Flow Rate FiO2 01/23/17 13:55 97 100 01/23/17 11:51 67 123/62 01/23/17 08:00 99.7 24 01/21/17 07:00 Mechanical Ventilator 01/19/17 14:00 15.00 Intake and Output 01/23/17 01/23/17 01/23/17 07:59 15:59 23:59 Intake Total 718 ml 1410 ml Output Total 2400 ml Balance -1682 ml 1410 ml Result Diagram: 01/23/17 0415 01/23/17 1056 Other Results Laboratory Tests Test 01/22/17 15:57 01/23/17 04:15 Blood Gas Puncture Site ART LINE MARILIA Blood Gas Patient Temperature 98.6 98.6 Blood Gas HCO3 19 mmol/L (22-26) 18 mmol/L (22-26) Blood Gas Base Excess -6.8 mmol/L (-2-2) -6.5 mmol/L (-2-2) Blood Gas Oxygen Saturation 93 % (90-100) 95 % (90-100) Arterial Blood pH 7.29 (7.380-7.420) 7.33 (7.380-7.420) Arterial Blood Partial Pressure CO2 39 mmHg (38-42) 36 mmHg (38-42) Arterial Blood Partial Pressure O2 73 mmHg (61-120) 84 mmHg (61-120) Arterial Blood Oxygen Content 14.9 Vol % (12.0-20.0) 19.0 Vol % (12.0-20.0) Arterial Blood Carboxyhemoglobin 1.0 % (0-4) 1.0 % (0-4) Arterial Blood Methemoglobin 1.0 % (0-2) 0.8 % (0-2) Blood Gas Hemoglobin 11.4 G/DL (12.0-16.0) 14.3 G/DL (12.0-16.0) Oxygen Delivery Device VENTILATOR VENTILATOR Blood Gas Ventilator Setting PRVC/24/600/1.0/+12 PRVC24/600/1.0/+12 Blood Gas Inspired Oxygen 80 % 80 % Imaging Last [address] 01/23/17 0000 Signed Impressions: Service Date/Time: Monday, January 23, 2017 13:15 - CONCLUSION: 1. Compared to the prior exam there has been some overall improvement in the bilateral cerebral edema and subarachnoid hemorrhage. There also appears to be improvement in the previously noted small left-sided subdural hematoma. 2. There continues to be multiple punctate hemorrhagic areas of contusion surrounded by edema in the base of both frontal lobes, left greater than right. There continues to be a focal 1.4 cm area of intraparenchymal hemorrhage in the left frontal lobe. These findings are essentially stable compared to the prior examination. 3. No definite new areas of hemorrhage are seen. 4. The ventricles remain normal in size and midline in position. Juan Carrillo MD CT Angiography 01/23/17 0000 Signed Impressions: Service Date/Time: Monday, January 23, 2017 13:19 - CONCLUSION: 1. No evidence of pulmonary embolism. 2. There is atelectasis involving both lower lung farfan. No definite pleural effusions are demonstrated. 3. There is some scattered infiltrates in both upper lung farfan, left greater than right. Juan Carrillo MD Abdomen/Pelvis CT 01/23/17 0000 Signed Impressions: Service Date/Time: Monday, January 23, 2017 13:19 - CONCLUSION: 1. There is atelectasis in both lower lung farfan. 2. Otherwise, the CT scan of the abdomen and pelvis is not significantly changed compared to the prior examination. Juan Carrillo MD Exam REGISTERED NURSE SUPERVISOR GCS 3 T Hemodynamic/Cardiac levophed/vasopressin Pulmonary/Respiratory infiltrated b/l Abdomen/GI Nutrition soft,npo Urinary Catheter Assessment Urinary Catheter: Yes Vascular Central Line Catheter Vascular Central Line Catheter: Yes Assessment and Plan Plan Patient remains critically ill with severe traumatic brain injury requiring sedation to maintain a low ICP Continue full ventilator support monitor NA-off 3% na normal Urin osmolarity if NA climbs may need careful 1/2 NS pancultured-started on empiric abx- if infection likely source are the lungs continue ICP/CPP monitoring neuroprotection/keppra family updated at the bedside CT head stable IVC filter for PE Carmen Wynn MD Jan 23, 2017 14:45
[2017-01-23] MEDS: PANTOPRAZOLE SODIUM 40 MG VIAL IVP SCH (15:00)
[2017-01-23] MEDS ORDERED: DESMOPRESSIN ACETATE 4 MCG/ML VIAL IV PUSH ONE (15:00)
[2017-01-23] MEDS: MIDAZOLAM HCL 5 MG/5 ML VIAL IV PUSH PRN (15:00)
[2017-01-23] MEDS ORDERED: SODIUM CHLOR 0.9% 1000 ML INJ 1,000 ML IV ONE (17:15)
[2017-01-24] VITALS (18 sets, daily range): BP systolic 117–148; BP diastolic 63–70; PULSE 64–84; RESP 12; TEMP 99.1–100.6; O2SAT 95–100
[2017-01-24] MEDS: CEFEPIME INJ 1,000 MG in SODIUM CHLORIDE 0.9% INJ 100 ML IV SCH ×2 (00:07→12:34)
[2017-01-24] MEDS: INSULIN NovoLIN REGULAR SUPPLEMENTAL SCALE SQ SCH ×4 (00:22→17:57)
[2017-01-24] MEDS: CHLORHEXIDINE GLUCONATE 2 % 1 PACK (2 CLOTHS) TOP SCH (01:48)
[2017-01-24] MEDS: FREE WATER SCH ×4 (02:52→18:25)
[2017-01-24] MEDS: RESP: ALBUTEROL 2.5 MG/IPRATROPIUM 0.5 MG NEB (SCH) NEB ×4 (04:15→21:03)
[2017-01-24 05:06] LABS: HEMATOCRIT 29.1 % (39.0-51.0); HEMOGLOBIN 9.9 GM/DL (13.0-17.0); MEAN CELL VOLUME 87.2 FL (80.0-100.0); MEAN CORPUSCULAR HEMOGLOBIN 29.5 PG (27.0-34.0); MEAN CORPUSCULAR HGB CONC 33.9 % (32.0-36.0); MEAN PLATELET VOLUME 8.9 FL (7.0-11.0); PLATELET COUNT 91 TH/MM3 (150-450); RED BLOOD COUNT 3.34 MIL/MM3 (4.50-5.90); RED CELL DISTRIBUTION WIDTH 13.2 % (11.6-17.2); WHITE BLOOD COUNT 11.6 TH/MM3 (4.0-11.0)
--- NOTE | 2017-01-24 05:16 | RADRPT ---
EXAM DATE/TIME: 01/24/2017 03:43 [facility] COMPARISON: CHEST SINGLE AP, January 22, 2017, 21:08. INDICATIONS : Evaluate for pneumonia-Respiratory failure MEDICAL HISTORY : None. SURGICAL HISTORY : None. ENCOUNTER: Subsequent ACUITY: 4 - 6 days PAIN SCORE: Non-responsive. LOCATION: Bilateral chest FINDINGS: ET, gastric, and right central lines in good position. Improved aeration of the mid and lower lungs with partial resolution of the airspace opacities. There remains some indistinctness of the central bronchopulmonary markings with peribronchial thickening and some patchy infiltrates in the left lower lung. Both hemidiaphragms. The heart is normal in size CONCLUSION: Improving bilateral infiltrates. Sterling Azevedo MD on January 24, 2017 at 5:13 Board Certified Radiologist. This report was verified electronically.
[2017-01-24 05:36] LABS: BICARBONATE 23.6 MEQ/L (21.0-32.0); CALCIUM 7.4 MG/DL (8.5-10.1); CREATININE 1.26 MG/DL (0.60-1.30)
[2017-01-24 05:56] LABS: CALCIUM-PROTEIN CORRECTED 8.2 MG/DL (8.5-10.1); TOTAL PROTEIN 5.6 GM/DL (6.4-8.2)
[2017-01-24] MEDS: POTASSIUM CHLOR 40 MEQ PREMIX 100 ML IV PRN ×2 (06:44→08:50)
[2017-01-24] MEDS: CHLORHEXIDINE 0.12% (ORAL KIT) 15 ML CUP MT SCH ×2 (08:03→21:40)
[2017-01-24] MEDS: levETIRAcetam INJ 100 ML IV SCH ×2 (08:03→21:38)
[2017-01-24] MEDS: LACTULOSE SYRUP 20 GM/30 ML CUP PO SCH (08:04)
[2017-01-24] MEDS: MAGNESIUM HYDROXIDE SUSP 30 ML CUP PO SCH ×2 (08:04→21:38)
[2017-01-24] MEDS: DOCUSATE SODIUM 100 MG/10 ML UDC PO SCH ×2 (08:04→21:38)
--- NOTE | 2017-01-24 08:15 | HHI.PR ---
Neuropsych Emotional Emotional: UnabletoAssess: Emotional, Anxious/Fearful, Depressed/Sad, Hostile/ Resentful, Irritable/Angry/Frustrate, Labile, Constricted/Blunted Behavior Behavior: Unable to Asses: Behavior, Coping/Acceptance, Cooperative w/ Treatment, Motivation, Frustration Tolerance/[place], Impulsive/Agitated, Suicidal/ Homicidal Risk Cognitive Cognitive: Unable to Asses: Cognitive, Attention/Concentration, Confused/ Orientation, Insight/Awareness, Judgement/Problem-Solving, Memory Psychosocial Psychosocial: Unable to Asses: Psychosocial, Family/Other Adjustment, Realistic Expectation, Self-Esteem/Confidence Progress Notes/Response to Tx Contents of Sessions: Adjustment, Level of Consciousness Time with Patient: 15 minutes Premorbid psychological status Premorbid Cognitive, Emotional and Behavioral Status: Unable to Assess. The patient's past history is unknown at this time. Behavioral Reactions of Patient and Family/Support System: Deferred. The patients family is experiencing ongoing issues of adjustment given the nature of the injury, and this aspect of recovery will require ongoing monitoring. Emotional/Behavioral Status of Patient and Family/Support System: Deferred. Pertinent issues, if appropriate to this patients clinical care, are described in detail above. Maximizing acute care outcome It is recommended that the patient be monitored for emergent behavioral impulsivity as the medical condition evolves. This patients neuropathological challenges may limit his rehabilitation potential going forward, and these challenges will require specialized therapeutic skills to maximize outcome. Additionally, the patients family is experiencing ongoing issues of adjustment given the traumatic nature of the injury, and they may benefit from ongoing psychological assistance. At this point in the recovery process, the patient does not have cognitive capacity as the patient is unable to understand a situation and its likely consequences, nor is he able to manipulate information rationally. Cognitive capacity will be assessed throughout the recovery process. Anticipated Problems Ongoing areas of concern will include behavioral impulsivity, lack of insight and judgment, which is expected to improve with time and treatment. Presently , the patient is intubated and sedated. Given the severity of the patient's injuries it is my clinical opinion that this patient will be unable to return to any type of productive employment for at least one year, perhaps longer and likely never. This patient is not considered safe to discharge home with supervision. Treatment Plan This clinician will continue to follow with you throughout the course of this patients acute care treatment, and I will be available to meet with the patient s family/support system to facilitate their understanding and the ongoing care of their family member. The goals of neuropsychological intervention shall be both educational and supportive to the family/support system as is deemed clinically appropriate. [facility] Level: I:No response-total assistance Impression 56 year old man s/p TBI 2T fall on 01/19/2017. He has significant neuropathology with outcome likely poor. Diagnosis: (1) Major neurocognitive disorder as late effect of traumatic brain injury without behavioral disturbance Progress Note Narrative Ongoing follow-up of patient seen during daily trauma rounds. This is day 5 post injury. The patient remains critically ill, and continues at [facility]. I will continue to follow. Contreras Snyder PhD Jan 24, 2017 8:15 am
[2017-01-24] MEDS: fentaNYL DRIP 250 ML IV PRN (08:28)
[2017-01-24] MEDS: SODIUM CHLOR 0.9% 1000 ML INJ 1,000 ML IV SCH (08:38)
[2017-01-24] MEDS: PHENYTOIN IV SCH (08:51)
[2017-01-24] MEDS: SODIUM CHLORIDE 0.9% IV SCH (08:51)
[2017-01-24] MEDS ORDERED: BISACODYL 10 MG SUPP RECTAL ONE (09:00)
[2017-01-24] MEDS: LACTATED RINGER'S 1000 ML INJ 1,000 ML IV SCH ×3 (10:50→21:39)
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
[2017-01-24] MEDS: VANCOMYCIN INJ 1,000 MG in SODIUM CHLOR 0.9% 250 ML INJ 250 ML IV SCH ×2 (11:15→23:39)
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
[2017-01-24] MEDS ORDERED: LACTATED RINGER'S 1000 ML INJ 500 ML IV ONE (12:15)
[2017-01-24] MEDS: VASOPRESSIN INJ 40 UNITS in SODIUM CHLORIDE 0.9% INJ 98 ML IV SCH (12:36)
--- NOTE | 2017-01-24 15:51 | HHI.CCPN ---
Subjective 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 by the sweat band sewer-CVP 18 mmHg possible etiology SIRS/pneumonitis/pneumonia-increased bands as well on diff CBC CT AP -no source CT chest-infiltrates b/l requires also increased vent settings 01/24 ICP monitor removed by NS lactic acid 2.7,BD cleared Na 164-has certainly free water deficit oxygenation improved with APRV CXR -stable with improvement Objective Vital Signs Date Time Temp Pulse Resp B/P (MAP) Pulse Ox O2 Delivery O2 Flow Rate FiO2 01/24/17 14:00 67 01/24/17 12:55 99 40 01/24/17 12:36 137/74 01/24/17 12:00 99.4 12 01/21/17 07:00 Mechanical Ventilator Intake and Output 01/24/17 01/24/17 01/25/17 08:00 16:00 00:00 Intake Total 1311 ml 2626 ml Output Total 1100 ml Balance 211 ml 2626 ml Result Diagram: 01/24/17 0445 01/24/17 1057 Other Results Laboratory Tests Test 01/23/17 16:30 01/24/17 04:25 Blood Gas Puncture Site ART LINE ART LINE Blood Gas Patient Temperature 98.6 98.6 Blood Gas HCO3 19 mmol/L (22-26) 21 mmol/L (22-26) Blood Gas Base Excess -4.7 mmol/L (-2-2) -2.2 mmol/L (-2-2) Blood Gas Oxygen Saturation 97 % (90-100) 96 % (90-100) Arterial Blood pH 7.41 (7.380-7.420) 7.49 (7.380-7.420) Arterial Blood Partial Pressure CO2 31 mmHg (38-42) 28 mmHg (38-42) Arterial Blood Partial Pressure O2 136 mmHg (61-120) 102 mmHg (61-120) Arterial Blood Oxygen Content 14.0 Vol % (12.0-20.0) 15.3 Vol % (12.0-20.0) Arterial Blood Carboxyhemoglobin 1.1 % (0-4) 1.3 % (0-4) Arterial Blood Methemoglobin 0.8 % (0-2) 0.8 % (0-2) Blood Gas Hemoglobin 10.1 G/DL (12.0-16.0) 11.2 G/DL (12.0-16.0) Oxygen Delivery Device VENTILATOR VENTILATOR Blood Gas Ventilator Setting APRV APRV Blood Gas Inspired Oxygen 80 % 40 % Imaging Last 24 hours Impressions Chest X-Ray 01/24/17 0600 Signed Impressions: Service Date/Time: Tuesday, January 24, 2017 03:43 - CONCLUSION: Improving bilateral infiltrates. Sterling Azevedo MD Exam STOCK DRIVER GCS 3 T Hemodynamic/Cardiac stable,off pressors Pulmonary/Respiratory coarse b/l Abdomen/GI Nutrition soft-started tube feeds Urinary Catheter Assessment Urinary Catheter: Yes Vascular Central Line Catheter Vascular Central Line Catheter: Yes Assessment and Plan Plan Patient remains critically ill with severe traumatic brain injury Continue full ventilator support-APRV Continue abx-monitor cultures LR to correct hypernatremia-follow q 6 hrs free water ordered by the sweat band sewer per NG mental status exam -will be possible when sodium high normal level/versed wears off started chemical DVT prophylaxis after cleared by Carmen Melara MD Jan 24, 2017 15:51
[2017-01-24] MEDS: HEPARIN SODIUM - SQ 10,000 UNITS/ML VIAL SQ SCH (16:39)
[2017-01-24] MEDS: PANTOPRAZOLE SODIUM 40 MG VIAL IVP SCH (16:39)
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
[2017-01-24] MEDS: FOSPHENYTOIN SODIUM 100 MG PE/2 ML VIAL IV SCH ×2 (17:57→22:12)
[2017-01-24] MEDS: cefTRIAXone INJ 2,000 MG in SODIUM CHLORIDE 0.9% INJ 100 ML IV SCH (18:28)
[2017-01-25] VITALS (20 sets, daily range): BP systolic 132–186; BP diastolic 79–88; PULSE 72–106; RESP 12–26; TEMP 99.8–101.3; O2SAT 92–98
[2017-01-25] MEDS: HEPARIN SODIUM - SQ 10,000 UNITS/ML VIAL SQ SCH ×4 (00:12→23:58)
[2017-01-25] MEDS: FREE WATER SCH ×4 (01:00→18:26)
[2017-01-25] MEDS: LACTATED RINGER'S 1000 ML INJ 1,000 ML IV SCH ×2 (01:49→06:49)
[2017-01-25] MEDS: POTASSIUM CHLOR 40 MEQ PREMIX 100 ML IV PRN ×2 (02:11→04:25)
[2017-01-25] MEDS: RESP: ALBUTEROL 2.5 MG/IPRATROPIUM 0.5 MG NEB (SCH) NEB ×4 (04:00→21:11)
[2017-01-25] MEDS: CHLORHEXIDINE GLUCONATE 2 % 1 PACK (2 CLOTHS) TOP SCH (04:00)
[2017-01-25] MEDS: VASOPRESSIN INJ 40 UNITS in SODIUM CHLORIDE 0.9% INJ 98 ML IV SCH ×2 (04:11→21:20)
[2017-01-25] MEDS: INSULIN NovoLIN REGULAR SUPPLEMENTAL SCALE SQ SCH ×5 (06:00→23:59)
[2017-01-25] MEDS: FOSPHENYTOIN SODIUM 100 MG PE/2 ML VIAL IV SCH ×3 (06:09→22:05)
[2017-01-25 06:16] LABS: HEMOGLOBIN 9.5 GM/DL (13.0-17.0); MEAN CELL VOLUME 87.4 FL (80.0-100.0); MEAN CORPUSCULAR HEMOGLOBIN 29.6 PG (27.0-34.0); MEAN CORPUSCULAR HGB CONC 33.9 % (32.0-36.0); PLATELET COUNT 69 TH/MM3 (150-450); RED CELL DISTRIBUTION WIDTH 13.6 % (11.6-17.2); WHITE BLOOD COUNT 12.2 TH/MM3 (4.0-11.0)
--- NOTE | 2017-01-25 06:17 | RADRPT ---
EXAM DATE/TIME: 01/25/2017 04:59 [facility] COMPARISON: CHEST SINGLE AP, January 24, 2017, 3:43. INDICATIONS : Short of breath. MEDICAL HISTORY : None. SURGICAL HISTORY : None. ENCOUNTER: Subsequent ACUITY: 1 week PAIN SCORE: Non-responsive. LOCATION: Bilateral chest FINDINGS: Endotracheal tube tip above the dedrick. Gastric tube and right central line stable. Patchy infiltra vasquez in the left lower lung similar to prior. Slight improvement in the right lower lung infiltrates. Portions of both hemidiaphragms are discernible. The heart is normal size. CONCLUSION: Persistent left lower lung infiltrates and slight improvement in right lower lung infiltrates. Sterling Azevedo MD on January 25, 2017 at 6:15 Board Certified Radiologist. This report was verified electronically.
[2017-01-25 07:04] LABS: BICARBONATE 26.2 MEQ/L (21.0-32.0); CALCIUM 7.7 MG/DL (8.5-10.1); CREATININE 1.11 MG/DL (0.60-1.30)
[2017-01-25] MEDS: CHLORHEXIDINE 0.12% (ORAL KIT) 15 ML CUP MT SCH ×2 (08:00→20:42)
[2017-01-25] MEDS: SODIUM CHLOR 0.45% 1000 ML INJ 1,000 ML IV SCH ×2 (09:00→15:16)
[2017-01-25] MEDS: hydrALAZINE HCL 20 MG/ML VIAL IV PUSH PRN ×2 (09:20→20:41)
[2017-01-25] MEDS: levETIRAcetam INJ 100 ML IV SCH ×2 (09:22→20:41)
[2017-01-25] MEDS: MAGNESIUM HYDROXIDE SUSP 30 ML CUP PO SCH ×2 (09:23→22:04)
[2017-01-25] MEDS: DOCUSATE SODIUM 100 MG/10 ML UDC PO SCH ×2 (09:23→22:04)
[2017-01-25] MEDS: LACTULOSE SYRUP 20 GM/30 ML CUP PO SCH (09:23)
[2017-01-25] MEDS: VANCOMYCIN INJ 1,000 MG in SODIUM CHLOR 0.9% 250 ML INJ 250 ML IV SCH ×2 (09:24→23:06)
[2017-01-25] MEDS: PROPRANOLOL HCL 10 MG TAB PO SCH ×3 (10:46→22:05)
[2017-01-25] MEDS: niCARdipine INJ 25 MG in SODIUM CHLOR 0.9% 250 ML INJ 250 ML IV PRN ×7 (10:47→22:22)
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
[2017-01-25] MEDS: PROPOFOL 1000 MG/100 ML INJ 100 ML IV PRN (13:19)
[2017-01-25 14:14] LABS: ALKALINE PHOSPHATASE 105 U/L (45-117); ALT (GPT) 18 U/L (12-78); AST (GOT) 29 U/L (15-37); BICARBONATE 26.8 MEQ/L (21.0-32.0); BLOOD UREA NITROGEN 22 MG/DL (7-18); CALCIUM 7.8 MG/DL (8.5-10.1); CHLORIDE 124 MEQ/L (98-107); GLOMERULAR FILTRATION RATE 77 ML/MIN (>89); GLUCOSE,RANDOM 161 MG/DL (74-106); TOTAL BILIRUBIN ADULT 0.9 MG/DL (0.2-1.0); TOTAL PROTEIN 6.1 GM/DL (6.4-8.2)
[2017-01-25 14:16] LABS: SODIUM (NA) 157 MEQ/L (136-145)
[2017-01-25] MEDS ORDERED: DESMOPRESSIN ACETATE 4 MCG/ML VIAL IV PUSH ONE (14:45)
[2017-01-25] MEDS: ACETAMINOPHEN 325 MG TAB PO PRN (15:23)
[2017-01-25] MEDS: PANTOPRAZOLE SODIUM 40 MG VIAL IVP SCH (15:23)
[2017-01-25] MEDS: cefTRIAXone INJ 2,000 MG in SODIUM CHLORIDE 0.9% INJ 100 ML IV SCH (18:26)
--- NOTE | 2017-01-25 20:31 | MG ---
cc: TIMOTHY SCHMITT MD Lab No: Date: 01/25/17 Age: 56 Sex: M Race: REQUESTING PHYSICIAN Dr. Hood. An EEG was obtained on this 56-year-old patient intubated. The patient is described as withdrawing bilaterally, no sedation. Prior EEG showed some bursts of suppression pattern. This study is showing prominent theta and delta rhythms bilaterally. There are some artifact and beta rhythms diffusely, but there is no alpha activity. Deep tactile stimulation disclosed no major change, perhaps some minor background reactivity. Photic stimulation was unremarkable. INTERPRETATION Abnormal EEG because of generalized slowing suggesting a moderate to severe diffuse disturbance of cerebral function but no epileptiform or lateralizing features present. Timothy Schmitt MD [facility]/ /8:08 PM /8:23 PM
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
--- NOTE | 2017-01-25 21:08 | HHI.CCPN ---
Subjective 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 by the command and control-CVP 18 mmHg possible etiology SIRS/pneumonitis/pneumonia-increased bands as well on diff CBC CT AP -no source CT chest-infiltrates b/l requires also increased vent settings 01/24 ICP monitor removed by NS lactic acid 2.7,BD cleared Na 164-has certainly free water deficit oxygenation improved with APRV CXR -stable with improvement 01/25 Sodium gradually improving Oxygenation remained satisfactory BAL shows staph hypertensive slightly has been off sedation Tolerating tube feeds Objective Vital Signs Date Time Temp Pulse Resp B/P (MAP) Pulse Ox O2 Delivery O2 Flow Rate FiO2 01/25/17 20:41 100 173/81 01/25/17 16:55 95 40 01/25/17 16:00 101.1 24 01/21/17 07:00 Mechanical Ventilator Intake and Output 01/25/17 01/25/17 01/26/17 08:00 16:00 00:00 Intake Total 484 ml 4144 ml 1400 ml Output Total 1600.0 ml 0 ml 5600 ml Balance -1116.0 ml 4144 ml -4200 ml Result Diagram: 01/25/17 0530 01/25/17 1825 Other Results Microbiology Date/Time Source Procedure Growth Status 01/22/17 21:05 Sputum Endotracheal Gram Stain - Final Complete 01/22/17 21:05 Sputum Culture - Final Staphylococcus Aureus Streptococcus Pneumoniae Complete 01/23/17 12:02 Urine Catheterized Urine Urine Culture - Final NO GROWTH IN 48 HOURS. Complete Laboratory Tests Test 01/25/17 17:57 Blood Gas Puncture Site LT RADIAL Blood Gas Patient Temperature 98.6 Blood Gas HCO3 24 mmol/L (22-26) Blood Gas Base Excess 1.2 mmol/L (-2-2) Blood Gas Oxygen Saturation 92 % (90-100) Arterial Blood pH 7.50 (7.380-7.420) Arterial Blood Partial Pressure CO2 32 mmHg (38-42) Arterial Blood Partial Pressure O2 67 mmHg (61-120) Arterial Blood Oxygen Content 15.7 Vol % (12.0-20.0) Arterial Blood Carboxyhemoglobin 1.4 % (0-4) Arterial Blood Methemoglobin 0.9 % (0-2) Blood Gas Hemoglobin 12.2 G/DL (12.0-16.0) Oxygen Delivery Device VENTILATOR Blood Gas Ventilator Setting Blood Gas Inspired Oxygen 40 % Imaging Last 24 hours Impressions Chest X-Ray 01/25/17 0600 Signed Impressions: Service Date/Time: Wednesday, January 25, 2017 04:59 - CONCLUSION: Persistent left lower lung infiltrates and slight improvement in right lower lung infiltrates. Sterling Azevedo MD Exam PAPER REELER GC score 3T Hemodynamic/Cardiac hypertensive Pulmonary/Respiratory APRV Abdomen/GI Nutrition soft Urinary Catheter Assessment Urinary Catheter: Yes Vascular Central Line Catheter Vascular Central Line Catheter: Yes Assessment and Plan Plan Patient remains critically ill with severe traumatic brain injury Continue full ventilator support-APRV Adjusted antibiotics for positive BAL Switch LR to half normal saline free water mental status exam -will be possible when sodium high normal level/versed wears off chemical DVT prophylaxis after cleared by NS Family updated at the bedside Carmen Wynn MD Jan 25, 2017 21:08
[2017-01-25] MEDS ORDERED: niCARdipine INJ 50 MG in SODIUM CHLOR 0.9% 250 ML INJ 230 ML IV PRN (23:30)
--- NOTE | 2017-01-25 23:59 | HHI.NSPN ---
History Chief Complaint: Severe TBI. Exam Results Vital Signs Date Time Temp Pulse Resp B/P (MAP) Pulse Ox O2 Delivery O2 Flow Rate FiO2 01/25/17 23:23 93 50 01/25/17 22:22 102 161/78 01/25/17 16:00 101.1 24 01/21/17 07:00 Mechanical Ventilator Intake and Output 01/25/17 01/25/17 01/26/17 08:00 16:00 00:00 Intake Total 484 ml 4144 ml 1400 ml Output Total 1600.0 ml 0 ml 5600 ml Balance -1116.0 ml 4144 ml -4200 ml Physical Examination The patient is intubated and sedated. HEENT: Moderate scleral and conjunctival edema with mild icterus. Cranial Nerves: Pupils equal, round, reactive to light. Eyes appear conjugated. There was no nystagmus, no papilledema. Face musculature appeared symmetrical at rest. Face sensation, olfaction, visual farfan, and hearing cannot be adequately assessed due to his neurological condition. The patient has a corneal reflex. He has a gag reflex. The sternocleidomastoid and trapezius are symmetrical. Cervical Spine: His neck is soft, supple, without nuchal rigidity. Motor: His muscle tone and bulk are normal. He moves purposefully all 4 extremities symmetrically. Reflexes: Deep tendon reflexes are 1+ and symmetrical in the biceps, triceps, and brachioradialis, bilaterally, in the upper extremities. In the lower extremities, the patellar and ankles are 1+, bilaterally. There is a bilateral plantar flexion response. There is no clonus or other abnormal reflexes noted. Sensory: On examination there is response to painful stimuli, localizing with both upper and lower extremities. Cerebellar: Examination cannot be adequately assessed due to the patient's neurological condition. Medical Decision Making Impression and Plan Impression: 1. Stable neurologic exam following traumatic brain injury. ICP monitor has been discontinued. Plan: Continue ventilatory support Seizure prophylaxis DVT prophylaxis-okay for Lovenox Persistent constipation. Addadd suppository. Patient impacted per nursing staff. Jerald Taylor MD Jan 25, 2017 23:59
[2017-01-26] VITALS (20 sets, daily range): BP systolic 131–154; BP diastolic 68–88; PULSE 76–92; RESP 18–26; TEMP 100.4–101.1; O2SAT 60–100
[2017-01-26] MEDS ORDERED: BISACODYL 10 MG SUPP RECTAL PRN (00:15)
[2017-01-26] MEDS: SODIUM CHLOR 0.45% 1000 ML INJ 1,000 ML IV SCH ×4 (00:29→18:01)
[2017-01-26] MEDS: FREE WATER SCH ×4 (01:00→19:00)
[2017-01-26] MEDS: POTASSIUM CHLOR 40 MEQ PREMIX 100 ML IV PRN (02:51)
[2017-01-26] MEDS: RESP: ALBUTEROL 2.5 MG/IPRATROPIUM 0.5 MG NEB (SCH) NEB ×4 (02:56→19:29)
[2017-01-26] MEDS: CHLORHEXIDINE GLUCONATE 2 % 1 PACK (2 CLOTHS) TOP SCH (04:00)
[2017-01-26] MEDS: PROPOFOL 1000 MG/100 ML INJ 100 ML IV PRN (04:19)
[2017-01-26 04:41] LABS: HEMATOCRIT 34.2 % (39.0-51.0); HEMOGLOBIN 11.6 GM/DL (13.0-17.0); MEAN CELL VOLUME 86.9 FL (80.0-100.0); MEAN CORPUSCULAR HEMOGLOBIN 29.5 PG (27.0-34.0); MEAN CORPUSCULAR HGB CONC 33.9 % (32.0-36.0); MEAN PLATELET VOLUME 8.4 FL (7.0-11.0); PLATELET COUNT 76 TH/MM3 (150-450); RED BLOOD COUNT 3.94 MIL/MM3 (4.50-5.90); RED CELL DISTRIBUTION WIDTH 13.3 % (11.6-17.2); WHITE BLOOD COUNT 15.2 TH/MM3 (4.0-11.0)
[2017-01-26 05:11] LABS: BICARBONATE 24.5 MEQ/L (21.0-32.0); CALCIUM 7.3 MG/DL (8.5-10.1); CREATININE 0.93 MG/DL (0.60-1.30)
[2017-01-26 05:32] LABS: CALCIUM-PROTEIN CORRECTED 7.9 MG/DL (8.5-10.1)
[2017-01-26] MEDS: PROPRANOLOL HCL 10 MG TAB PO SCH ×3 (05:43→21:59)
[2017-01-26] MEDS: INSULIN NovoLIN REGULAR SUPPLEMENTAL SCALE SQ SCH ×3 (05:43→18:00)
[2017-01-26] MEDS: FOSPHENYTOIN SODIUM 100 MG PE/2 ML VIAL IV SCH ×3 (05:43→21:58)
--- NOTE | 2017-01-26 05:44 | RADRPT ---
EXAM DATE/TIME: 01/26/2017 04:59 [facility] COMPARISON: CHEST SINGLE AP, January 25, 2017, 4:59. INDICATIONS : Shortness of breath. MEDICAL HISTORY : None. SURGICAL HISTORY : None. ENCOUNTER: Subsequent ACUITY: 1 week PAIN SCORE: Non-responsive. LOCATION: Bilateral chest FINDINGS: Endotracheal tube tip well above the dedrick. Gastric tube traverses the [id number]. Right subcla vian catheter tip projects over the mid superior vena cava. There is increasing hazy opacity in righ t mid and lower lung with loss of delineation of the right hemidiaphragm characteristic of increasing right pleural effusion. Patchy partially consolidative infiltrates in the medial lower left lung st able. The heart is normal in size. CONCLUSION: Findings suggest increasing right pleural effusion. Stable partially consolidative infiltrates left mid and lower lung. Sterling Azevedo MD on January 26, 2017 at 5:42 Board Certified Radiologist. This report was verified electronically.
[2017-01-26] MEDS: CHLORHEXIDINE 0.12% (ORAL KIT) 15 ML CUP MT SCH ×2 (08:00→19:43)
[2017-01-26] MEDS: levETIRAcetam INJ 100 ML IV SCH ×2 (09:05→21:46)
[2017-01-26] MEDS: HEPARIN SODIUM - SQ 10,000 UNITS/ML VIAL SQ SCH ×3 (09:05→23:45)
[2017-01-26] MEDS: DOCUSATE SODIUM 100 MG/10 ML UDC PO SCH ×2 (09:06→19:43)
[2017-01-26] MEDS: MAGNESIUM HYDROXIDE SUSP 30 ML CUP PO SCH ×2 (09:07→19:42)
[2017-01-26] MEDS: LACTULOSE SYRUP 20 GM/30 ML CUP PO SCH (09:07)
[2017-01-26] MEDS: ACETAMINOPHEN 325 MG TAB PO PRN ×2 (09:46)
[2017-01-26] MEDS ORDERED: BISACODYL 10 MG SUPP RECTAL ONE (10:00)
[2017-01-26] MEDS ORDERED: VECURONIUM BROMIDE 10 MG VIAL IV PUSH SCH (10:00)
[2017-01-26] MEDS: VANCOMYCIN INJ 1,000 MG in SODIUM CHLOR 0.9% 250 ML INJ 250 ML IV SCH ×2 (11:26→23:34)
[2017-01-26] MEDS ORDERED: MAGNESIUM CITRATE SOLN 300 ML BTL PO ONE (12:15)
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
[2017-01-26] MEDS ORDERED: fentaNYL CITRATE 250 MCG/5 ML AMP IV PUSH ONE (14:00)
[2017-01-26] MEDS: VASOPRESSIN INJ 40 UNITS in SODIUM CHLORIDE 0.9% INJ 98 ML IV SCH (14:39)
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
[2017-01-26] MEDS: PIPERACIL-TAZO 4.5 GM PREMIX 100 ML IV SCH ×2 (15:23→19:43)
--- NOTE | 2017-01-26 16:09 | PD.PROCEDR ---
Procedure Note Procedure DX: Respiratory Failure, Guidance for percutaneous tracheostomy Procedure: Bronchoscopy Procedure: Usual ICU monitoring devices in place. Patient on mechanical ventilation, rate 20/min, orotracheally intubated intubation. Through a side port in the vent circuit the scope was introduced and the tracheobronchial tree was inspected. Thick yellow secretions aspirated from RLL bronchi and BAL collected. Segmental branching was normal. The scope and orotracheal tube were then withdrawn together to the level of the cricoid cartilage. This provided full screen visualization for the percutaneous tracheostomy insertion dictated separately. Following trach insertion the new trach tube was immediately entered to confirm the tube's location in the mid-trachea, suitably above the dedrick. Conversion to direct tracheal ventilation was then accomplished and full tidal volumes returned. Sats were maintained > 91% throughout the procedure. Tonia Hood MD Jan 26, 2017 16:09
[2017-01-26] MEDS: MIDAZOLAM HCL 5 MG/5 ML VIAL IV PUSH PRN ×2 (16:29→16:30)
[2017-01-26] MEDS: PANTOPRAZOLE SODIUM 40 MG VIAL IVP SCH (16:51)
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
--- NOTE | 2017-01-26 17:25 | RADRPT ---
EXAM DATE/TIME: 01/26/2017 16:14 [facility] COMPARISON: CHEST SINGLE AP, January 26, 2017, 4:59. INDICATIONS : Status post tracheostomy and NG tube placement MEDICAL HISTORY : None. SURGICAL HISTORY : None. ENCOUNTER: Initial ACUITY: 1 day PAIN SCORE: Non-responsive. LOCATION: Bilateral chest FINDINGS: Interval tracheostomy placement with tip at the level of the clavicles. NGT in the distal stomach. Th e stable right subclavian catheter in place. Small to moderate right pleural effusion with associated right lower lobe airspace disease. Interval development of hazy opacity in the left lower lung zone consistent with small pleural effusion. Persistent left lower lung zone airspace disease. Cardiomedia stinal contours are stable. Remainder of exam is unchanged. CONCLUSION: 1. Tracheostomy and NGT in good position. 2. Small to moderate right pleural effusion with associated right lower lobe airspace disease. 3. Developing left pleural effusion with persistent left lower lobe airspace disease. Danny Vega MD on January 26, 2017 at 17:21 Board Certified Radiologist. This report was verified electronically.
[2017-01-27] VITALS (19 sets, daily range): BP systolic 133–158; BP diastolic 66–87; PULSE 74–90; RESP 23–30; TEMP 100.9–103.1; O2SAT 92–100
[2017-01-27] MEDS: FREE WATER SCH ×4 (01:00→21:37)
[2017-01-27] MEDS: ACETAMINOPHEN 325 MG TAB PO PRN ×4 (02:44→21:38)
[2017-01-27] MEDS: PIPERACIL-TAZO 4.5 GM PREMIX 100 ML IV SCH ×4 (02:44→21:09)
[2017-01-27] MEDS: RESP: ALBUTEROL 2.5 MG/IPRATROPIUM 0.5 MG NEB (SCH) NEB ×3 (03:26→17:02)
[2017-01-27] MEDS: CHLORHEXIDINE GLUCONATE 2 % 1 PACK (2 CLOTHS) TOP SCH (04:00)
[2017-01-27] MEDS: SODIUM CHLOR 0.45% 1000 ML INJ 1,000 ML IV SCH (04:01)
--- NOTE | 2017-01-27 04:25 | RADRPT ---
EXAM DATE/TIME: 01/27/2017 03:04 [facility] COMPARISON: CHEST SINGLE AP, January 26, 2017, 16:14. INDICATIONS : Short of breath. MEDICAL HISTORY : None. SURGICAL HISTORY : None. ENCOUNTER: Subsequent ACUITY: 1 week PAIN SCORE: Non-responsive. LOCATION: Bilateral chest FINDINGS: Tracheostomy, gastric, and right central lines stable. There is persisting consolidation in the left mid and lower lung with loss of delineation of the entire left hemidiaphragm and hazy opacity in the right lower lung suggesting a combination of pleural effusion and infiltrate. CONCLUSION: Stable left lower lobe consolidation and hazy opacity in the right lower chest. Sterling Azevedo MD on January 27, 2017 at 4:22 Board Certified Radiologist. This report was verified electronically.
[2017-01-27] MEDS: FOSPHENYTOIN SODIUM 100 MG PE/2 ML VIAL IV SCH ×3 (05:29→22:41)
[2017-01-27] MEDS: PROPRANOLOL HCL 10 MG TAB PO SCH ×2 (05:29→14:08)
[2017-01-27] MEDS: INSULIN NovoLIN REGULAR SUPPLEMENTAL SCALE SQ SCH ×4 (06:00→18:00)
[2017-01-27 06:12] LABS: HEMATOCRIT 30.8 % (39.0-51.0); HEMOGLOBIN 10.1 GM/DL (13.0-17.0); MEAN CELL VOLUME 87.4 FL (80.0-100.0); MEAN CORPUSCULAR HEMOGLOBIN 28.6 PG (27.0-34.0); MEAN CORPUSCULAR HGB CONC 32.7 % (32.0-36.0); MEAN PLATELET VOLUME 9.5 FL (7.0-11.0); PLATELET COUNT 77 TH/MM3 (150-450); RED BLOOD COUNT 3.52 MIL/MM3 (4.50-5.90); RED CELL DISTRIBUTION WIDTH 13.3 % (11.6-17.2); WHITE BLOOD COUNT 14.5 TH/MM3 (4.0-11.0)
[2017-01-27 06:59] LABS: BICARBONATE 27.4 MEQ/L (21.0-32.0); CREATININE 0.97 MG/DL (0.60-1.30)
[2017-01-27] MEDS: VASOPRESSIN INJ 40 UNITS in SODIUM CHLORIDE 0.9% INJ 98 ML IV SCH (07:25)
[2017-01-27 07:38] LABS: TOTAL PROTEIN 5.2 GM/DL (6.4-8.2)
[2017-01-27] MEDS: CHLORHEXIDINE 0.12% (ORAL KIT) 15 ML CUP MT SCH ×2 (07:54→21:10)
[2017-01-27] MEDS: HEPARIN SODIUM - SQ 10,000 UNITS/ML VIAL SQ SCH ×2 (07:54→18:03)
[2017-01-27] MEDS: MAGNESIUM HYDROXIDE SUSP 30 ML CUP PO SCH ×2 (08:06→21:00)
[2017-01-27] MEDS: LACTULOSE SYRUP 20 GM/30 ML CUP PO SCH (08:06)
[2017-01-27] MEDS: DOCUSATE SODIUM 100 MG/10 ML UDC PO SCH ×2 (08:06→21:00)
[2017-01-27] MEDS: levETIRAcetam INJ 100 ML IV SCH ×2 (08:06→21:47)
[2017-01-27] MEDS: POTASSIUM CHLOR 40 MEQ PREMIX 100 ML IV PRN (08:06)
--- NOTE | 2017-01-27 08:12 | MP ---
cc: ZAID POWERS MD DATE OF SURGERY 01/26/2017 PREOPERATIVE DIAGNOSES Respiratory failure. Traumatic brain injury. POSTOPERATIVE DIAGNOSES Respiratory failure. Traumatic brain injury. OPERATIVE PROCEDURE Blue Rhino tracheostomy and bronchoscopy. SURGEON MD Kim QUALITY REVIEW SPECIALIST Tonia Hood MD ANESTHESIA 1% Xylocaine, rocuronium and Versed. ESTIMATED BLOOD LOSS 5 cc. PROCEDURE The patient is prepped and draped in the usual fashion. The area is anesthetized with 1% Xylocaine and a small incision is made in the lower neck just above the sternal notch, deepened down with a hemostat straight to the trachea and needle with Angiocath is inserted in the trachea between the second and third ring and this is followed with bronchoscopy after endotracheal tube is withdrawn somewhat. Through the Angiocath guidewire is inserted, over the guidewire the punch dilator is placed, followed by the Blue Rhino dilator and then followed by the tracheostomy cannula, a Shiley on a guide. When this is completed the guide is withdrawn, the cannula is connected to the ventilator, end-tidal CO2 checked. The patient is now bronchoscoped through the tracheostomy site and position ascertained. The cannula is sutured to skin with a 2-0 nylon and secured around the neck. The patient tolerated the procedure well. Zaid Powers SJ/SSB /4:29 PM /8:00 AM
--- NOTE | 2017-01-27 08:23 | HHI.PR ---
Neuropsych Emotional Emotional: UnabletoAssess: Emotional, Anxious/Fearful, Depressed/Sad, Hostile/ Resentful, Irritable/Angry/Frustrate, Labile, Constricted/Blunted Behavior Behavior: Unable to Asses: Behavior, Coping/Acceptance, Cooperative w/ Treatment, Motivation, Frustration Tolerance/[place], Impulsive/Agitated, Suicidal/ Homicidal Risk Cognitive Cognitive: Unable to Asses: Cognitive, Attention/Concentration, Confused/ Orientation, Insight/Awareness, Judgement/Problem-Solving, Memory Psychosocial Psychosocial: Unable to Asses: Psychosocial, Family/Other Adjustment, Realistic Expectation, Self-Esteem/Confidence Progress Notes/Response to Tx Contents of Sessions: Adjustment Time with Patient: 15 minutes Premorbid psychological status Premorbid Cognitive, Emotional and Behavioral Status: Unable to Assess. The patient's past history is unknown at this time. Behavioral Reactions of Patient and Family/Support System: Deferred. The patients family is experiencing ongoing issues of adjustment given the nature of the injury, and this aspect of recovery will require ongoing monitoring. Emotional/Behavioral Status of Patient and Family/Support System: Deferred. Pertinent issues, if appropriate to this patients clinical care, are described in detail above. Maximizing acute care outcome It is recommended that the patient be monitored for emergent behavioral impulsivity as the medical condition evolves. This patients neuropathological challenges may limit his rehabilitation potential going forward, and these challenges will require specialized therapeutic skills to maximize outcome. Additionally, the patients family is experiencing ongoing issues of adjustment given the traumatic nature of the injury, and they may benefit from ongoing psychological assistance. At this point in the recovery process, the patient does not have cognitive capacity as the patient is unable to understand a situation and its likely consequences, nor is he able to manipulate information rationally. Cognitive capacity will be assessed throughout the recovery process. Anticipated Problems Ongoing areas of concern will include behavioral impulsivity, lack of insight and judgment, which is expected to improve with time and treatment. Presently , the patient is intubated and sedated. Given the severity of the patient's injuries it is my clinical opinion that this patient will be unable to return to any type of productive employment for at least one year, perhaps longer and likely never. This patient is not considered safe to discharge home with supervision. Treatment Plan This clinician will continue to follow with you throughout the course of this patients acute care treatment, and I will be available to meet with the patient s family/support system to facilitate their understanding and the ongoing care of their family member. The goals of neuropsychological intervention shall be both educational and supportive to the family/support system as is deemed clinically appropriate. [facility] Level: I:No response-total assistance Impression 56 year old man s/p TBI 2T fall on 01/19/2017. He has significant neuropathology with outcome likely poor. Diagnosis: (1) Major neurocognitive disorder as late effect of traumatic brain injury without behavioral disturbance Progress Note Narrative Ongoing follow-up of patient seen during daily trauma rounds. This is day 8 post injury. The patient remains intubated and sedated, with GCS of 5-6 and no significant neurobehavioral improvement. No agitation/restlessness issues. We do anticipate that he will becoming increasingly more awake and likely agitated/ restless and as such we are starting ABS to monitor him neurobehaviorally. He is at [facility]. I will continue to follow. Contreras Snyder PhD Jan 27, 2017 8:23 am
--- NOTE | 2017-01-27 09:35 | HHI.NSPN ---
(Oscar Rivera) History Chief Complaint: Unable to obtain due to patient's clinical condition. (Oscar Rivera) Interval History 01/19: This is a middle-aged gentleman who apparently fell off the top of a vehicle and had a low Juan Coma Score with right facial droop and seizure activity also noted. His airway was controlled with an LMA, and he was brought to [facility] as a trauma alert and intubated on arrival. He was hemodynamically stable. He was taken to the CT scanner for extensive trauma workup including CT scan of the head, which reveals multiple contusions involving the frontal lobes, left more than right, as well as temporal lobe on the left side along with a small subdural hemorrhage about 6 mm in thickness with 3 mm [id number] midline shift. There is also left hemisphere traumatic subarachnoid hemorrhage noted. 01/20/17: Pt is heavily sedated on Diprivan, Fentanyl, and Versed drips. Pupils 2mm bilaterally NR bilaterally. [place] bolt in place with ICPs 7. 01/21 ICP remains labile overnight. CTA of the neck show possible pulmonary embolism involving the right pulmonary artery. 01/22: No acute events overnight. ICP remains labile in upper teens 01/23: ICP well-controlled overnight. Patient has increasing lactic acidosis. Abdominal CT pending. 01/24. Intubated. No commands. No eye opening. ICP's have been stable over the weekend 01/26: intubated and sedated on propofol for blood pressure control. 01/27: The patient remains trached and sedated when seen. Nursing reports that the patient does have slight movement to the right upper and both lower extremities to local noxious stimulation but his pupils were fixed. He did report that the patient was off sedation at this time. The patient is on CPAP. He was placed on a cooling blanket due to fevers up to 101.1 max. Nursing does report that the patient's systolic blood pressure has been up. (Oscar Rivera) System Review Comments Unable to obtain due to patient's clinical condition. (Oscar Rivera) Exam Results 01/25/17 01/25/17 01/26/17 01/26/17 01/27/17 01/27/17 06:00 18:00 06:00 18:00 06:00 18:00 Intake Total 484 ml 5203 ml 651 ml 680 ml 985 ml Output Total 1600 ml 5600 ml 4050.0 ml 3000 ml 2000 ml Balance -1116 ml -397 ml -3399.0 ml -2320 ml -1015 ml Intake IV Total 4370 ml 601 ml Tube Feeding 184 ml 233 ml 0 ml 80 ml 385 ml Tube Irrigant 50 ml Other 300 ml 600 ml 0 ml 600 ml 600 ml Output Urine Total 1600 ml 5600 ml 3050 ml 3000 ml 2000 ml Gastric Drainage Total 500 ml Tube Feeding Residual Discard 0 ml 500.0 ml 0 ml # Bowel Movements 0 0 0 1 0 Vital Signs Date Time Temp Pulse Resp B/P (MAP) Pulse Ox O2 Delivery O2 Flow Rate FiO2 01/27/17 08:03 50 01/27/17 08:03 94 50 01/27/17 07:25 74 157/91 01/27/17 06:00 76 01/27/17 04:20 96 50 01/27/17 04:00 101.1 79 23 133/66 (88) 97 01/27/17 04:00 80 01/27/17 04:00 79 01/27/17 03:26 96 60 01/27/17 02:00 84 01/27/17 01:17 98 70 01/27/17 00:00 74 01/27/17 00:00 80 01/27/17 00:00 100.9 74 23 139/73 (95) 94 01/26/17 22:45 100 15.00 100 01/26/17 22:00 84 01/26/17 20:00 100.8 80 23 148/73 (98) 98 01/26/17 20:00 80 01/26/17 20:00 80 01/26/17 19:29 97 70 01/26/17 18:00 79 01/26/17 17:59 98 70 01/26/17 16:34 96 80 01/26/17 16:00 80 01/26/17 16:00 100.6 76 18 139/68 (91) 96 01/26/17 16:00 77 01/26/17 15:25 95 100 01/26/17 14:39 87 150/77 01/26/17 14:00 87 01/26/17 12:00 91 01/26/17 12:00 40 01/26/17 12:00 101.1 91 26 154/83 (106) 95 01/26/17 11:53 95 50 01/26/17 10:48 22 01/26/17 10:00 90 01/26/17 08:00 100.8 86 25 149/88 (108) 95 01/26/17 08:00 40 01/26/17 08:00 87 01/26/17 07:43 93 60 01/26/17 06:00 90 01/26/17 04:18 91 137/75 01/26/17 04:00 40 01/26/17 04:00 92 01/26/17 04:00 100.4 92 24 131/78 (95) 92 01/26/17 02:58 60 50 01/26/17 02:00 88 01/26/17 00:22 85 151/73 01/26/17 00:00 40 01/26/17 00:00 90 01/26/17 00:00 100.8 90 26 151/69 (96) 91 01/25/17 23:23 93 50 01/25/17 22:22 102 161/78 01/25/17 22:00 104 01/25/17 21:11 93 50 01/25/17 20:41 100 173/81 01/25/17 20:00 101.3 92 14 162/87 (112) 92 01/25/17 20:00 40 01/25/17 20:00 92 01/25/17 18:34 97 155/79 01/25/17 18:00 93 01/25/17 16:56 86 161/89 01/25/17 16:55 95 40 01/25/17 16:00 90 01/25/17 16:00 101.1 90 24 163/87 (112) 93 01/25/17 16:00 40 01/25/17 15:00 93 173/83 01/25/17 14:00 88 01/25/17 13:16 89 193/84 01/25/17 12:46 92 40 01/25/17 12:30 85 188/81 01/25/17 12:00 40 01/25/17 12:00 100.8 81 26 186/79 (114) 92 01/25/17 12:00 81 01/25/17 12:00 82 186/82 01/25/17 11:48 77 180/77 01/25/17 11:19 83 171/74 01/25/17 10:47 93 184/76 01/25/17 10:00 106 01/25/17 09:19 96 40 01/25/17 08:00 40 01/25/17 08:00 81 01/25/17 08:00 100.4 82 12 179/86 (117) 98 Arterial Line 01/25/17 06:00 78 01/25/17 05:10 97 40 01/25/17 04:01 97 40 01/25/17 04:00 99.8 74 12 145/88 (107) 97 01/25/17 04:00 40 01/25/17 04:00 74 01/25/17 02:00 72 01/25/17 00:43 97 40 01/25/17 00:00 99.9 74 12 132/82 (99) 98 01/25/17 00:00 40 01/25/17 00:00 74 01/24/17 22:00 82 01/24/17 20:57 98 40 01/24/17 20:00 40 01/24/17 20:00 72 01/24/17 20:00 99.5 72 12 148/70 (96) 99 01/24/17 18:00 77 01/24/17 16:14 98 40 01/24/17 16:00 40 01/24/17 16:00 80 01/24/17 16:00 99.1 81 12 138/63 (88) 100 01/24/17 14:00 67 01/24/17 12:55 99 40 01/24/17 12:36 68 137/74 01/24/17 12:00 99.4 68 12 127/68 (87) 97 01/24/17 12:00 40 01/24/17 12:00 68 01/24/17 10:00 74 01/24/17 09:43 95 40 (Oscar Rivera) Physical Examination GENERAL: Obtunded, no sedation, no apparent distress. HEENT: Normocephalic, frontal scalp wound healing w/o complication PERRLA 3 mm fairly brisk. MUSCULOSKELETAL: Moves RUE & BLE to stimulation, no movement of LUE noted, no evident deformity or clubbing. NEUROLOGICAL: Obtunded, no sedation, trached, GCS 5-6T (E1 V1T M3-4). No eye opening to any type of stimulation. PERRLA 3 mm fairly brisk. Nonverbal, trached. Slight motor movement RUE & BLE to local noxious stimulation, none to the LUE. No response to central noxious stimulation. (Oscar Rivera) Lab, Micro, Other Results Recent Impressions Chest X-Ray 01/27/17 0600 Signed Impressions: Service Date/Time: January 03:04 - CONCLUSION: Stable left lower lobe consolidation and hazy opacity in the right lower chest. Sterling Azevedo MD Chest X-Ray 01/26/17 0600 Signed Impressions: Service Date/Time: Thursday, January 26, 2017 04:59 - CONCLUSION: Findings suggest increasing right pleural effusion. Stable partially consolidative infiltrates left mid and lower lung. Sterling Azevedo MD Chest X-Ray 01/26/17 0000 Signed Impressions: Service Date/Time: Thursday, January 26, 2017 16:14 - CONCLUSION: 1. Tracheostomy and NGT in good position. 2. Small to moderate right pleural effusion with associated right lower lobe airspace disease. 3. Developing left pleural effusion with persistent left lower lobe airspace disease. Danny Vega MD Chest X-Ray 01/25/17 0600 Signed Impressions: Service Date/Time: Wednesday, January 25, 2017 04:59 - CONCLUSION: Persistent left lower lung infiltrates and slight improvement in right lower lung infiltrates. Sterling Azevedo MD Laboratory Tests Test 01/24/17 10:57 01/24/17 13:05 01/24/17 17:35 01/25/17 01:33 Sodium Level 165 MEQ/L 163 MEQ/L 162 MEQ/L Serum Osmolality 347 MOSM/KG 345 MOSM/KG Lactic Acid Level 2.7 mmol/L 2.0 mmol/L Potassium Level 3.2 MEQ/L Test 01/25/17 05:30 01/25/17 13:00 01/25/17 13:45 01/25/17 13:49 White Blood Count 12.2 TH/MM3 Red Blood Count 3.20 MIL/MM3 Hemoglobin 9.5 GM/DL Hematocrit 28.0 % Mean Corpuscular Volume 87.4 FL Mean Corpuscular Hemoglobin 29.6 PG Mean Corpuscular Hemoglobin Concent 33.9 % Red Cell Distribution Width 13.6 % Platelet Count 69 TH/MM3 Mean Platelet Volume 9.0 FL Blood Urea Nitrogen 23 MG/DL 22 MG/DL Creatinine 1.11 MG/DL 1.00 MG/DL Random Glucose 146 MG/DL 161 MG/DL Calcium Level 7.7 MG/DL 7.8 MG/DL Sodium Level 161 MEQ/L 157 MEQ/L 157 MEQ/L Potassium Level 3.7 MEQ/L 3.6 MEQ/L Chloride Level 128 MEQ/L 124 MEQ/L Carbon Dioxide Level 26.2 MEQ/L 26.8 MEQ/L Anion Gap 7 MEQ/L 6 MEQ/L Estimat Glomerular Filtration Rate 69 ML/MIN 77 ML/MIN Total Protein 6.1 GM/DL Albumin 2.0 GM/DL Alkaline Phosphatase 105 U/L Aspartate Amino Transf (AST/SGOT) 29 U/L Alanine Aminotransferase (ALT/SGPT) 18 U/L Total Bilirubin 0.9 MG/DL Serum Osmolality 341 MOSM/KG Urine Specific [place] 1.008 Urine Osmolality 428 MOSM/KG Test 01/25/17 17:57 01/25/17 18:25 01/26/17 00:13 01/26/17 04:34 Blood Gas Puncture Site LT RADIAL Blood Gas Patient Temperature 98.6 Blood Gas HCO3 24 mmol/L Blood Gas Base Excess 1.2 mmol/L Blood Gas Oxygen Saturation 92 % Arterial Blood pH 7.50 Arterial Blood Partial Pressure CO2 32 mmHg Arterial Blood Partial Pressure O2 67 mmHg Arterial Blood Oxygen Content 15.7 Vol % Arterial Blood Carboxyhemoglobin 1.4 % Arterial Blood Methemoglobin 0.9 % Blood Gas Hemoglobin 12.2 G/DL Oxygen Delivery Device VENTILATOR Blood Gas Ventilator Setting Blood Gas Inspired Oxygen 40 % Sodium Level 155 MEQ/L 154 MEQ/L 151 MEQ/L Potassium Level 3.3 MEQ/L 3.6 MEQ/L White Blood Count 15.2 TH/MM3 Red Blood Count 3.94 MIL/MM3 Hemoglobin 11.6 GM/DL Hematocrit 34.2 % Mean Corpuscular Volume 86.9 FL Mean Corpuscular Hemoglobin 29.5 PG Mean Corpuscular Hemoglobin Concent 33.9 % Red Cell Distribution Width 13.3 % Platelet Count 76 TH/MM3 Mean Platelet Volume 8.4 FL Blood Urea Nitrogen 26 MG/DL Creatinine 0.93 MG/DL Random Glucose 142 MG/DL Total Protein 6.0 GM/DL Calcium Level 7.3 MG/DL Chloride Level 119 MEQ/L Carbon Dioxide Level 24.5 MEQ/L Anion Gap 8 MEQ/L Estimat Glomerular Filtration Rate 84 ML/MIN Protein Corrected Calcium 7.9 MG/DL Phenytoin (Dilantin) Level 17.0 MCG/ML Test 01/27/17 05:55 White Blood Count 14.5 TH/MM3 Red Blood Count 3.52 MIL/MM3 Hemoglobin 10.1 GM/DL Hematocrit 30.8 % Mean Corpuscular Volume 87.4 FL Mean Corpuscular Hemoglobin 28.6 PG Mean Corpuscular Hemoglobin Concent 32.7 % Red Cell Distribution Width 13.3 % Platelet Count 77 TH/MM3 Mean Platelet Volume 9.5 FL Blood Urea Nitrogen 27 MG/DL Creatinine 0.97 MG/DL Random Glucose 174 MG/DL Total Protein 5.2 GM/DL Calcium Level 7.0 MG/DL Sodium Level 148 MEQ/L Potassium Level 3.3 MEQ/L Chloride Level 114 MEQ/L Carbon Dioxide Level 27.4 MEQ/L Anion Gap 7 MEQ/L Estimat Glomerular Filtration Rate 80 ML/MIN Protein Corrected Calcium 8.0 MG/DL (Oscar Rivera) Medical Decision Making Impression and Plan Impression: 1. Traumatic brain injury with bifrontal and left temporal lobe multiple contusions along with a small left frontotemporal subdural hemorrhage with minimal midline shift. 2. Respiratory failure with likely aspiration pneumonia. 3. Early posttraumatic seizure. 4. Hypertension. Patient remains obtunded w/o any sedation, minimal movement of extremities. Stable CT brain with improving cerebral edema. Plan: Critical care management per Trauma & Medical Laboratory Technician. Primary management per Trauma. Neuro checks. Continue antiepileptics. Mechanical DVT prophylaxis. Stress ulcer prophylaxis. (Oscar Rivera) Attending Statement The exam, history, and the medical decision-making described in the above note were completed with the assistance of the mid-level provider. I reviewed and agree with the findings presented. I attest that I had a [id number] encounter with the patient on the same day, and personally performed and documented my assessment and findings in the medical record. On examination 01/27/17 the patient remains intubated and sedated. With sedation decreased he has no eye opening or facial grimacing to voice or deep pain. Pupils are mid range moderately reactive. Minimal oculocephalic He has very mild slight flexion to deep pain over the chest and upper extremities. No lower extremity movement to deep pain. No significant improvement in neurologic exam over the past few days. Maintaining ventilatory support. Avoid hyponatremia Remains on Keppra and Dilantin for seizure prophylaxis Heparin for DVT prophylaxis (Jerald Taylor MD) Oscar Rivera Jan 27, 2017 09:35 Jerald Taylor MD Jan 27, 2017 18:49
[2017-01-27] MEDS: cloNIDine HCL 0.2 MG TAB PO SCH ×2 (10:51→14:08)
[2017-01-27] MEDS: VANCOMYCIN INJ 1,000 MG in SODIUM CHLOR 0.9% 250 ML INJ 250 ML IV SCH (10:51)
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
[2017-01-27] MEDS: LINEZOLID 600 MG PREMIX 300 ML IV SCH (15:48)
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
[2017-01-27] MEDS: PANTOPRAZOLE SODIUM 40 MG VIAL IVP SCH (18:04)
[2017-01-27] MEDS ORDERED: MORPHINE SULFATE 4 MG/ML INJ IV PUSH ONE (22:00)
--- NOTE | 2017-01-27 22:34 | RADRPT ---
EXAM DATE/TIME: 01/27/2017 22:07 [facility] COMPARISON: CHEST SINGLE AP, January 27, 2017, 3:04. INDICATIONS : Shortness of breath. MEDICAL HISTORY : None. SURGICAL HISTORY : None. ENCOUNTER: Subsequent ACUITY: 1 day PAIN SCORE: Non-responsive. LOCATION: Bilateral chest FINDINGS: A single view of the chest demonstrates tracheostomy in good position. NG enters stomach. Right centr al line is in superior vena cava. Bilateral mostly basilar airspace disease similar to exam from [facility] today. CONCLUSION: 1. Bilateral mostly basilar airspace disease similar to earlier exam. Support apparatus unchanged. Dashawn Delgadillo MD on January 27, 2017 at 22:31 Board Certified Radiologist. This report was verified electronically.
[2017-01-27] MEDS: ACETAMINOPHEN 1000 MG/100 ML 100 ML IV PRN (22:42)
[2017-01-27] MEDS: cloNIDine HCL 0.3 MG TAB PO SCH (22:42)
[2017-01-28] VITALS (16 sets, daily range): BP systolic 112–159; BP diastolic 66–76; PULSE 62–82; RESP 20–30; TEMP 100.9–102.8; O2SAT 94–100
[2017-01-28] MEDS: RESP: ALBUTEROL 2.5 MG/IPRATROPIUM 0.5 MG NEB (PRN) NEB (00:09)
[2017-01-28] MEDS: ACETAMINOPHEN 1000 MG/100 ML 100 ML IV PRN ×3 (00:22→20:26)
[2017-01-28] MEDS: PROPRANOLOL HCL 10 MG TAB PO SCH ×5 (00:41→19:18)
[2017-01-28] MEDS: HEPARIN SODIUM - SQ 10,000 UNITS/ML VIAL SQ SCH ×3 (00:41→16:00)
[2017-01-28] MEDS: FREE WATER SCH ×4 (00:42→20:27)
[2017-01-28] MEDS: PIPERACIL-TAZO 4.5 GM PREMIX 100 ML IV SCH ×3 (03:14→14:12)
[2017-01-28] MEDS: LINEZOLID 600 MG PREMIX 300 ML IV SCH (03:44)
[2017-01-28] MEDS: CHLORHEXIDINE GLUCONATE 2 % 1 PACK (2 CLOTHS) TOP SCH (03:47)
[2017-01-28] MEDS: RESP: ALBUTEROL 2.5 MG/IPRATROPIUM 0.5 MG NEB (SCH) NEB ×4 (05:02→21:52)
[2017-01-28 05:40] LABS: HEMATOCRIT 29.1 % (39.0-51.0); HEMOGLOBIN 9.6 GM/DL (13.0-17.0); MEAN CELL VOLUME 88.1 FL (80.0-100.0); MEAN CORPUSCULAR HEMOGLOBIN 29.1 PG (27.0-34.0); MEAN CORPUSCULAR HGB CONC 33.1 % (32.0-36.0); MEAN PLATELET VOLUME 10.2 FL (7.0-11.0); PLATELET COUNT 94 TH/MM3 (150-450); RED BLOOD COUNT 3.31 MIL/MM3 (4.50-5.90); RED CELL DISTRIBUTION WIDTH 12.7 % (11.6-17.2); WHITE BLOOD COUNT 18.6 TH/MM3 (4.0-11.0)
[2017-01-28] MEDS: INSULIN NovoLIN REGULAR SUPPLEMENTAL SCALE SQ SCH ×4 (06:00→18:00)
[2017-01-28] MEDS: cloNIDine HCL 0.3 MG TAB PO SCH ×3 (06:00→21:31)
[2017-01-28 06:08] LABS: BICARBONATE 27.3 MEQ/L (21.0-32.0); CALCIUM 7.1 MG/DL (8.5-10.1); CREATININE 0.92 MG/DL (0.60-1.30)
[2017-01-28 06:22] LABS: CALCIUM-PROTEIN CORRECTED 8.1 MG/DL (8.5-10.1); TOTAL PROTEIN 5.2 GM/DL (6.4-8.2)
[2017-01-28] MEDS: FOSPHENYTOIN SODIUM 100 MG PE/2 ML VIAL IV SCH ×3 (06:26→21:31)
[2017-01-28] MEDS: DOCUSATE SODIUM 100 MG/10 ML UDC PO SCH ×2 (08:18→20:27)
[2017-01-28] MEDS: LACTULOSE SYRUP 20 GM/30 ML CUP PO SCH (08:18)
[2017-01-28] MEDS: MAGNESIUM HYDROXIDE SUSP 30 ML CUP PO SCH ×2 (08:19→20:28)
[2017-01-28] MEDS: CHLORHEXIDINE 0.12% (ORAL KIT) 15 ML CUP MT SCH ×2 (08:20→20:27)
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
[2017-01-28] MEDS: levETIRAcetam INJ 100 ML IV SCH ×2 (09:10→20:27)
--- NOTE | 2017-01-28 09:39 | RADRPT ---
EXAM DATE/TIME: 01/28/2017 09:03 [facility] COMPARISON: CHEST SINGLE AP, January 27, 2017, 22:07. INDICATIONS : Short of breath MEDICAL HISTORY : None. SURGICAL HISTORY : None. ENCOUNTER: Subsequent ACUITY: 1 week PAIN SCORE: Non-responsive. LOCATION: Bilateral chest FINDINGS: The support devices remain in place. There has been no significant change in the bilateral pulmonary infiltrates compared to the prior examination. The heart size is stable. No significant pleural effus ions. The bony structures are stable. CONCLUSION: No significant change in the bilateral pulmonary infiltrates. Juan Carrillo MD on January 28, 2017 at 9:36 Board Certified Radiologist. This report was verified electronically.
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
--- NOTE | 2017-01-28 11:44 | RADRPT ---
EXAM DATE/TIME: 01/28/2017 10:54 [facility] COMPARISON: CT BRAIN W/O CONTRAST, January 23, 2017, 13:15. INDICATIONS : Traumatic brain injury. MEDICAL HISTORY : Hypertension. SURGICAL HISTORY : Appendectomy. IVC filter ENCOUNTER: Initial ACUITY: 4-6 days PAIN SCORE: 0/10 LOCATION: cranial TECHNIQUE: Multiplanar, multisequence MRI of the brain was performed without contrast. FINDINGS: Today's examination compared to the prior CT scan of 01/23/2017. There is focal edema again noted astrid ng the base of both frontal lobes, left greater than right in the area of the patient's punctate hemo rrhages without significant change compared to the prior CT scan. There is edema along the left tempo ral lobe and left mid parietal lobe corresponding to areas of punctate hemorrhage. There is a focal a alison of restricted diffusion associated with 1.3 cm focal hemorrhage in the left frontal lobe. Otherwi se, the diffusion weighted images are unremarkable. The ventricles are normal in size and midline in position. No significant mass effect or midline shift is seen. There is a small left-sided subdural h ematoma without significant change compared to the prior exam. The midbrain and posterior fossa are u nremarkable. There is subarachnoid hemorrhage along the posterior high cerebral vertex bilaterally. T his is stable compared to the prior CT scan. The pituitary gland is not enlarged. CONCLUSION: Compared to the prior CT scan of the brain of 01/23/2017 no new or significant changes are demonstrat ed. There continues to be areas of cerebral edema involving the base of both frontal lobes, left grea ter than right, left temporal lobe and left mid parietal lobe in areas of punctate hemorrhage. There is a small left-sided subdural hematoma and subarachnoid hemorrhage along both cerebral vertex. Juan Crarillo MD on January 28, 2017 at 11:35 Board Certified Radiologist. This report was verified electronically.
[2017-01-28] MEDS: VALPROIC ACID SYRUP 250 MG/5 ML UDC PO SCH ×2 (14:12→20:28)
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
--- NOTE | 2017-01-28 14:51 | RADRPT ---
EXAM DATE/TIME: 01/28/2017 13:28 [facility] COMPARISON: US LEG BILATERAL VENOUS DOPPLER, January 20, 2017, 21:35. INDICATIONS : Bilateral leg swelling. MEDICAL HISTORY : Deep venous thrombosis. Traumatic brain injury. SURGICAL HISTORY : Unable to obtain. ENCOUNTER: Subsequent ACUITY: 1 week PAIN SCORE: Non-responsive LOCATION: Bilateral leg. TECHNIQUE: Venous ultrasound of the left and right leg was performed from the inguinal ligament to the proximal calf. Real-time, color Doppler and spectral tracing, compression and augmentation techniques were us ed. FINDINGS: RIGHT LEG: There is normal compressibility of the deep venous system from the inguinal region to the proximal ca lf. No echogenic clot is seen in the lumen of the common femoral, femoral, popliteal, and posterior tibial veins. There is a normal response of the venous system to proximal and distal augmentation an d respiration. LEFT LEG: There is normal compressibility of the deep venous system from the inguinal region to the proximal ca lf. No echogenic clot is seen in the lumen of the common femoral, femoral, popliteal, and posterior tibial veins. There is a normal response of the venous system to proximal and distal augmentation an d respiration. CONCLUSION: No DVT in either lower extremity. Eber Matthews MD on January 28, 2017 at 14:48 Board Certified Radiologist. This report was verified electronically.
--- NOTE | 2017-01-28 14:55 | RADRPT ---
EXAM DATE/TIME: 01/28/2017 13:45 [facility] COMPARISON: US ARM BILATERAL VENOUS DOPPLER, January 20, 2017, 21:50. INDICATIONS : Prior deep vein thrombosis. MEDICAL HISTORY : Deep venous thrombosis. Traumatic brain injury. SURGICAL HISTORY : Unable to obtain. ENCOUNTER: Subsequent ACUITY: 1 week PAIN SCORE: Non-responsive LOCATION: Bilateral arm. FINDINGS: RIGHT UPPER EXTREMITY: Today's examination there is occlusive thrombus consistently DVT in the right subclavian vein, right axillary vein, right basilic and radial veins. There is also thrombus in the cephalic vein. These fin dings appear to be worse compared to the prior exam. LEFT UPPER EXTREMITY: There is thrombus seen in the left cephalic vein. The rest of the deep venous system of the left uppe r extremity appears to be patent. This appears to be about the same compared to the prior exam. CONCLUSION: 1. There is deep venous thrombosis involving the right upper extremity. 2. There is thrombus of the cephalic vein on the left side. No definite left DVT. Juan Carrillo MD on January 28, 2017 at 14:49 Board Certified Radiologist. This report was verified electronically.
[2017-01-28] MEDS: PANTOPRAZOLE SODIUM 40 MG VIAL IVP SCH (16:16)
[2017-01-28] MEDS: ceFAZolin 2 GM PREMIX 50 ML IV SCH ×2 (16:16→22:19)
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
--- NOTE | 2017-01-28 18:11 | HHI.PR ---
Addendum to Inpatient Note Addendum Reason: Additional Documentation Additional Information There is deep venous thrombosis involving the right upper extremity That can definiely contribute to fevers Serenity Gallegos MD Jan 28, 2017 18:11
[2017-01-28] MEDS ORDERED: HEPARIN-D5W 25,000 U/250 ML 250 ML IV PRN (19:00)
[2017-01-28 20:15] LABS: HEMATOCRIT 31.8 % (39.0-51.0); HEMOGLOBIN 10.5 GM/DL (13.0-17.0); MEAN CELL VOLUME 87.2 FL (80.0-100.0); MEAN CORPUSCULAR HEMOGLOBIN 28.8 PG (27.0-34.0); MEAN PLATELET VOLUME 10.1 FL (7.0-11.0); PLATELET COUNT 146 TH/MM3 (150-450); RED BLOOD COUNT 3.65 MIL/MM3 (4.50-5.90); RED CELL DISTRIBUTION WIDTH 12.5 % (11.6-17.2); WHITE BLOOD COUNT 23.1 TH/MM3 (4.0-11.0)
[2017-01-28 20:26] LABS: INTERNATIONAL NORMALIZED RATIO 1.1 RATIO
[2017-01-29] VITALS (17 sets, daily range): BP systolic 133–176; BP diastolic 60–77; PULSE 61–98; RESP 18–26; TEMP 99.4–101.4; O2SAT 95–100
[2017-01-29] MEDS: FREE WATER SCH ×5 (01:01→23:04)
[2017-01-29] MEDS: ACETAMINOPHEN 1000 MG/100 ML 100 ML IV PRN (02:51)
[2017-01-29] MEDS: RESP: ALBUTEROL 2.5 MG/IPRATROPIUM 0.5 MG NEB (SCH) NEB ×4 (03:40→19:27)
[2017-01-29] MEDS: CHLORHEXIDINE GLUCONATE 2 % 1 PACK (2 CLOTHS) TOP SCH (03:51)
[2017-01-29] MEDS: FOSPHENYTOIN SODIUM 100 MG PE/2 ML VIAL IV SCH ×3 (05:17→21:50)
[2017-01-29] MEDS: PROPRANOLOL HCL 10 MG TAB PO SCH ×5 (05:17→17:42)
[2017-01-29] MEDS: cloNIDine HCL 0.3 MG TAB PO SCH ×3 (05:17→21:50)
[2017-01-29 05:22] LABS: HEMATOCRIT 30.2 % (39.0-51.0); HEMOGLOBIN 10.4 GM/DL (13.0-17.0); MEAN CORPUSCULAR HGB CONC 34.5 % (32.0-36.0); MEAN PLATELET VOLUME 10.2 FL (7.0-11.0); PLATELET COUNT 161 TH/MM3 (150-450); RED BLOOD COUNT 3.48 MIL/MM3 (4.50-5.90); RED CELL DISTRIBUTION WIDTH 12.6 % (11.6-17.2); WHITE BLOOD COUNT 25.8 TH/MM3 (4.0-11.0)
[2017-01-29 05:41] LABS: BICARBONATE 27.5 MEQ/L (21.0-32.0); CALCIUM 7.3 MG/DL (8.5-10.1); CREATININE 0.71 MG/DL (0.60-1.30)
[2017-01-29 05:54] LABS: CALCIUM-PROTEIN CORRECTED 7.9 MG/DL (8.5-10.1); TOTAL PROTEIN 5.9 GM/DL (6.4-8.2)
[2017-01-29] MEDS: INSULIN NovoLIN REGULAR SUPPLEMENTAL SCALE SQ SCH ×4 (06:00→17:53)
[2017-01-29] MEDS: CHLORHEXIDINE 0.12% (ORAL KIT) 15 ML CUP MT SCH ×2 (08:00→20:00)
[2017-01-29] MEDS: DOCUSATE SODIUM 100 MG/10 ML UDC PO SCH ×2 (09:00→21:00)
[2017-01-29] MEDS: LACTULOSE SYRUP 20 GM/30 ML CUP PO SCH (09:00)
[2017-01-29] MEDS: MAGNESIUM HYDROXIDE SUSP 30 ML CUP PO SCH ×2 (09:00→21:00)
[2017-01-29] MEDS: ceFAZolin 2 GM PREMIX 50 ML IV SCH ×3 (09:07→21:50)
[2017-01-29] MEDS: levETIRAcetam INJ 100 ML IV SCH ×2 (09:08→21:50)
[2017-01-29] MEDS: VALPROIC ACID SYRUP 250 MG/5 ML UDC PO SCH ×2 (09:08→21:50)
[2017-01-29] MEDS: hydrALAZINE HCL 20 MG/ML VIAL IV PUSH PRN (09:08)
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
--- NOTE | 2017-01-29 12:34 | HHI.GIFU ---
Subjective Remarks PEG tube placed today without difficulty. NG tube removed. No apparent complication. EXcellent transillumination and indentation. Procedure went smoothly. Objective Vitals I&O Vital Signs Date Time Temp Pulse Resp B/P (MAP) Pulse Ox O2 Delivery O2 Flow Rate FiO2 01/29/17 12:24 99 50 01/29/17 09:21 100 50 01/29/17 06:00 67 01/29/17 05:57 96 50 01/29/17 04:00 99.6 66 26 137/62 (87) 100 01/29/17 04:00 50 01/29/17 04:00 66 01/29/17 03:40 100 50 01/29/17 02:00 69 01/29/17 00:00 101.4 61 22 133/60 (84) 100 01/29/17 00:00 50 01/29/17 00:00 61 01/28/17 22:00 75 01/28/17 21:52 100 50 01/28/17 20:00 102.8 80 30 159/67 (97) 99 01/28/17 20:00 50 01/28/17 20:00 80 01/28/17 18:00 78 01/28/17 16:28 100 50 01/28/17 16:00 72 01/28/17 16:00 102.3 75 22 139/66 (90) 96 01/28/17 16:00 50 01/28/17 14:00 66 I/O 01/28/17 01/28/17 01/28/17 01/29/17 01/29/17 01/29/17 07:00 15:00 23:00 07:00 15:00 23:00 Intake Total 1100 ml 1200 ml 845 ml Output Total 1675 ml 2175 ml 1450 ml Balance -575 ml -975 ml -605 ml Intake IV Total 500 ml 600 ml 245 ml Other 600 ml 600 ml 600 ml Output Urine Total 1675 ml 2175 ml 1450 ml # Bowel Movements 0 2 3 Laboratory Laboratory Tests Test 01/28/17 19:58 01/29/17 04:48 White Blood Count 23.1 25.8 Red Blood Count 3.65 3.48 Hemoglobin 10.5 10.4 Hematocrit 31.8 30.2 Mean Corpuscular Volume 87.2 87.0 Mean Corpuscular Hemoglobin 28.8 30.0 Mean Corpuscular Hemoglobin Concent 33.0 34.5 Red Cell Distribution Width 12.5 12.6 Platelet Count 146 161 Mean Platelet Volume 10.1 10.2 Prothrombin Time 11.0 Prothromb Time International Ratio 1.1 Activated Partial Thromboplast Time 25.6 48.5 Blood Urea Nitrogen 21 Creatinine 0.71 Random Glucose 97 Total Protein 5.9 Calcium Level 7.3 Sodium Level 140 Potassium Level 4.1 Chloride Level 106 Carbon Dioxide Level 27.5 Anion Gap 7 Estimat Glomerular Filtration Rate 115 Protein Corrected Calcium 7.9 Date/Time Source Procedure Growth Status 01/29/17 06:31 Blood Peripheral Aerobic Blood Culture Pending Received 01/29/17 06:31 Blood Peripheral Anaerobic Blood Culture Pending Received 01/29/17 04:45 Stool Stool Stool Occult Blood (EDISON) - Final HEMOCCULT NEGATIVE Complete 01/26/17 16:00 Bronchial Washings Right Lower Lobe Fungal Smear - Final NO FUNGAL ELEMENTS SEEN. Resulted 01/26/17 16:00 Bronchial Washings Right Lower Lobe Fungal Culture Pending Resulted 01/26/17 13:05 Urine Catheterized Urine Urine Culture - Final NO GROWTH IN 48 HOURS. Complete Physical Exam HEENT: Pupils round and reactive to light; normocephalic; atraumatic; no jaundice. Throat is clear. NECK: Neck is supple, no JVD, no lymphadenopathy. CHEST: Chest is clear to auscultation and percussion. CARDIAC: Regular rate and rhythm with no murmur gallop or rubs. ABDOMEN: Soft, nondistended, nontender; no hepatosplenomegaly; bowel sounds are present in all four quadrants. EXTREMITIES: No cyanosis SKIN: Normal; no rash; no jaundice. 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 d/w pt's , she is hesitant. she wants more time to decide - TBI, SAH, increased ICP, prob PE s/p filter, SURENDRA - per [facility] PEG tube placed on 01/29 without problems. PLAN OK to use PEG tube for meds and flush with water. OK to use PEG tube tomorrow for tube feedings Consult Nutrition service. We will recheck tube tomorrow. Gold Man MD Jan 29, 2017 12:34
--- NOTE | 2017-01-29 13:22 | HHI.IDPN ---
Subjective Subjective Remarks cont to be febrile sp PEG today remains on vent large amount of bronch secretions Antibiotics cefazoline Allergies: Coded Allergies: No Known Allergies (Verified Allergy, Unknown, 01/19/17) Objective . Vital Signs Date Time Temp Pulse Resp B/P (MAP) Pulse Ox O2 Delivery O2 Flow Rate FiO2 01/29/17 12:24 99 50 01/29/17 09:21 100 50 01/29/17 06:00 67 01/29/17 05:57 96 50 01/29/17 04:00 99.6 66 26 137/62 (87) 100 01/29/17 04:00 50 01/29/17 04:00 66 01/29/17 03:40 100 50 01/29/17 02:00 69 01/29/17 00:00 101.4 61 22 133/60 (84) 100 01/29/17 00:00 50 01/29/17 00:00 61 01/28/17 22:00 75 01/28/17 21:52 100 50 01/28/17 20:00 102.8 80 30 159/67 (97) 99 01/28/17 20:00 50 01/28/17 20:00 80 01/28/17 18:00 78 01/28/17 16:28 100 50 01/28/17 16:00 72 01/28/17 16:00 102.3 75 22 139/66 (90) 96 01/28/17 16:00 50 01/28/17 14:00 66 01/29/17 01/29/17 01/30/17 15:00 23:00 07:00 Intake Total 50 ml Balance 50 ml Other 50 ml . Laboratory Tests Test 01/28/17 05:08 01/28/17 19:58 01/29/17 04:48 White Blood Count 18.6 TH/MM3 23.1 TH/MM3 25.8 TH/MM3 Red Blood Count 3.31 MIL/MM3 3.65 MIL/MM3 3.48 MIL/MM3 Hemoglobin 9.6 GM/DL 10.5 GM/DL 10.4 GM/DL Hematocrit 29.1 % 31.8 % 30.2 % Mean Corpuscular Volume 88.1 FL 87.2 FL 87.0 FL Mean Corpuscular Hemoglobin 29.1 PG 28.8 PG 30.0 PG Mean Corpuscular Hemoglobin Concent 33.1 % 33.0 % 34.5 % Red Cell Distribution Width 12.7 % 12.5 % 12.6 % Platelet Count 94 TH/MM3 146 TH/MM3 161 TH/MM3 Mean Platelet Volume 10.2 FL 10.1 FL 10.2 FL Laboratory Tests Test 01/27/17 21:10 01/28/17 05:08 01/29/17 04:48 Sodium Level 146 MEQ/L 143 MEQ/L 140 MEQ/L Blood Urea Nitrogen 21 MG/DL 21 MG/DL Creatinine 0.92 MG/DL 0.71 MG/DL Random Glucose 167 MG/DL 97 MG/DL Total Protein 5.2 GM/DL 5.9 GM/DL Calcium Level 7.1 MG/DL 7.3 MG/DL Potassium Level 3.5 MEQ/L 4.1 MEQ/L Chloride Level 109 MEQ/L 106 MEQ/L Carbon Dioxide Level 27.3 MEQ/L 27.5 MEQ/L Anion Gap 7 MEQ/L 7 MEQ/L Estimat Glomerular Filtration Rate 85 ML/MIN 115 ML/MIN Protein Corrected Calcium 8.1 MG/DL 7.9 MG/DL Microbiology Date/Time Source Procedure Growth Status 01/29/17 06:31 Blood Peripheral Aerobic Blood Culture Pending Received 01/29/17 06:31 Blood Peripheral Anaerobic Blood Culture Pending Received 01/29/17 06:31 Blood Peripheral Aerobic Blood Culture Pending Received 01/29/17 06:31 Blood Peripheral Anaerobic Blood Culture Pending Received 01/26/17 15:20 Blood Peripheral Aerobic Blood Culture - Preliminary NO GROWTH IN 3 DAYS Resulted 01/26/17 15:20 Blood Peripheral Anaerobic Blood Culture - Preliminary NO GROWTH IN 3 DAYS Resulted 01/26/17 13:20 Blood Peripheral Aerobic Blood Culture - Preliminary NO GROWTH IN 3 DAYS Resulted 01/26/17 13:20 Blood Peripheral Anaerobic Blood Culture - Preliminary NO GROWTH IN 3 DAYS Resulted 01/29/17 04:45 Stool Stool Stool Occult Blood (EDISON) - Final HEMOCCULT NEGATIVE Complete 01/26/17 16:00 Bronchial Washings Right Lower Lobe Fungal Smear - Final NO FUNGAL ELEMENTS SEEN. Resulted 01/26/17 16:00 Bronchial Washings Right Lower Lobe Fungal Culture Pending Resulted 01/26/17 16:00 Bronchial Washings Right Lower Lobe Acid Fast Stain - Final NO ACID FAST BACILLI SEEN Resulted 01/26/17 16:00 Bronchial Washings Right Lower Lobe Mycobacterial Culture Pending Resulted 01/26/17 16:00 Bronchial Washings Right Lower Lobe Gram Stain - Final Complete 01/26/17 16:00 Bronchial Culture - Final Staphylococcus Aureus Complete Imaging Last Impressions Upper Extremity Ultrasound 01/28/17 0000 Signed Impressions: Service Date/Time: Saturday, January 28, 2017 13:45 - CONCLUSION: 1. There is deep venous thrombosis involving the right upper extremity. 2. There is thrombus of the cephalic vein on the left side. No definite left DVT. Juan Carrillo MD Lower Extremity Ultrasound 01/28/17 Signed Impressions: Service Date/Time: Saturday, January 28, 2017 13:28 - CONCLUSION: No DVT in either lower extremity. Eber Matthews MD Chest X-Ray 01/28/17 Signed Impressions: Service Date/Time: Saturday, January 28, 2017 09:03 - CONCLUSION: No significant change in the bilateral pulmonary infiltrates. Juan Carrillo MD Brain MRI 01/28/17 Signed Impressions: Service Date/Time: Saturday, January 28, 2017 10:54 - CONCLUSION: Compared to the prior CT scan of the brain of 01/23/2017 no new or significant changes are demonstrated. There continues to be areas of cerebral edema involving the base of both frontal lobes, left greater than right, left temporal lobe and left mid parietal lobe in areas of punctate hemorrhage. There is a small left-sided subdural hematoma and subarachnoid hemorrhage along both cerebral vertex. Juan Carrillo MD Head CT 01/23/17 Signed Impressions: Service Date/Time: Monday, January 23, 2017 13:15 - CONCLUSION: 1. Compared to the prior exam there has been some overall improvement in the bilateral cerebral edema and subarachnoid hemorrhage. There also appears to be improvement in the previously noted small left-sided subdural hematoma. 2. There continues to be multiple punctate hemorrhagic areas of contusion surrounded by edema in the base of both frontal lobes, left greater than right. There continues to be a focal 1.4 cm area of intraparenchymal hemorrhage in the left frontal lobe. These findings are essentially stable compared to the prior examination. 3. No definite new areas of hemorrhage are seen. 4. The ventricles remain normal in size and midline in position. Juan Carrillo MD CT Angiography 12/10/17 0000 Signed Impressions: Service Date/Time: Monday, January 23, 2017 13:19 - CONCLUSION: 1. No evidence of pulmonary embolism. 2. There is atelectasis involving both lower lung farfan. No definite pleural effusions are demonstrated. 3. There is some scattered infiltrates in both upper lung farfan, left greater than right. Juan Carrillo MD Abdomen/Pelvis CT 01/23/17 Signed Impressions: Service Date/Time: Monday, January 23, 2017 13:19 - CONCLUSION: 1. There is atelectasis in both lower lung farfan. 2. Otherwise, the CT scan of the abdomen and pelvis is not significantly changed compared to the prior examination. Juan Carrillo MD Neck CTA 01/20/17 Signed Impressions: Service Date/Time: January 13:29 - CONCLUSION: 1. No significant flow-limiting stenosis or dissection in the carotid or vertebral arteries. 2. Focal filling defect in the main right pulmonary artery which despite its unusual appearance is highly concerning for pulmonary embolus. 3. New discrete nodule in the right lung apex measuring up to 1.1 cm which was previously obscured by airspace consolidation in this region. Followup examination in approximately 3 months is recommended on an outpatient basis, unless future inpatient CT exams demonstrate resolution. 4. 8mm enhancing nodule in the right parotid gland which may reflect a small parotid lymph node. Consider followup examination with ultrasound on an outpatient basis. Danny Vega MD IVC Filter Placement X-Ray 01/20/17 Signed Impressions: Service Date/Time: January 18:18 - CONCLUSION: Uncomplicated inferior vena cava filter placement as above. Note: This retrievable IVC filter should be removed as soon as patient's contraindication to anticoagulation or clinical status improves. Danny Vega MD Head CTA 01/20/17 0000 Signed Impressions: Service Date/Time: January 13:29 - CONCLUSION: 1. Small caliber right A1 segment, likely hypoplastic rather than vasospasm. 2. Otherwise, unremarkable head CTA examination. No aneurysm as questioned Danny Vega MD Thoracic Spine CT 01/19/17 1406 Signed Impressions: Service Date/Time: Thursday, January 19, 2017 14:14 - CONCLUSION: 1. No acute fracture or subluxation. 2. Dense posterior bilateral lower lobe air space consolidation which may reflect atelectasis, contusion or aspiration. Danny Vega MD Pelvis X-Ray 01/19/171405 Signed Impressions: Service Date/Time: Thursday, January 19, 2017 13:59 - CONCLUSION: No acute disease. Krunal Hart MD Lumbar Spine CT 01/19/171405 Signed Impressions: Service Date/Time: Thursday, January 19, 2017 14:14 - CONCLUSION: 1. No acute fracture or subluxation. 2. Degenerative spondylosis of the lumbar spine most prominently at L5-S1. Danny Vega MD Chest CT 01/19/171405 Signed Impressions: Service Date/Time: Thursday, January 19, 2017 14:23 - CONCLUSION: 1. Consolidating bibasilar air space disease within the lower lobes. 2. Tip of endotracheal tube at the level of the clavicles. 3. No evidence of vascular or cardiac mediastinal injury. 4. Intact osseous structures. Krunal Hart MD Cervical Spine CT 01/19/171405 Signed Impressions: Service Date/Time: Thursday, January 19, 2017 14:16 - CONCLUSION: No evidence of acute fracture or traumatic listhesis. Krunal Hart MD Physical Exam CONSTITUTIONAL/GENERAL: This is an adequately nourished patient, in no apparent distress. TUBES/LINES/DRAINS: SKIN: No jaundice, rashes, or lesions. Ecchymoses on upper extremities. No wounds seen anteriorly. Skin temperature appropriate. Not diaphoretic. CARDIOVASCULAR: Regular rate and rhythm without murmurs, gallops, or rubs. No JVD. Peripheral pulses symmetric. RESPIRATORY/CHEST: Symmetric, unlabored respirations. Clear to auscultation. Breath sounds equal bilaterally. No wheezes, rales, or rhonchi. GASTROINTESTINAL: Abdomen soft, non-tender, nondistended. No hepato-splenomegaly , or palpable masses. No guarding. Bowel sounds present. GENITOURINARY: Without palpable bladder distension. gold in place MUSCULOSKELETAL: Extremities without clubbing, cyanosis, or edema. No joint tenderness or effusion noted. No calf tenderness. No mottling or clubbing. LYMPHATICS: No palpable cervical or supraclavicular adenopathy. NEUROLOGICAL: Obtunded. Not follows commands. Withdrawls all extremities. PSYCHIATRIC: unable to assess Assessment & Plan Remarks Traumatic brain injury with multiple left hemispheric contusions and small subdural hemorrhage Acute VDRF Bl PNA more involving LLL, MSSA Persistent fever ? infection vs central vs combination likely from PNA Brain MRI findings noted : continious cerebral edema, hmatoma, SAH Rec's: cont ancef fu repeat blood clx Serenity Gallegos MD Jan 29, 2017 13:22
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
--- NOTE | 2017-01-29 14:27 | HHI.NSPN ---
head injury History Chief Complaint: Unable to obtain due to patient's clinical condition. Interval History Patient in ICU due to head injury Has been febrile No neuro change System Review Comments no change Exam Results Vital Signs Date Time Temp Pulse Resp B/P (MAP) Pulse Ox O2 Delivery O2 Flow Rate FiO2 01/29/17 12:24 99 50 01/29/17 06:00 67 01/29/17 04:00 99.6 26 137/62 (87) 01/26/17 22:45 15.00 Intake and Output 01/29/17 01/29/17 01/30/17 08:00 16:00 00:00 Intake Total 845 ml 50 ml Output Total 1450 ml Balance -605 ml 50 ml Physical Examination Obtunded. Does not follow commands Opens eyes when stimulated Right hemiparesis Has been febrile Lab, Micro, Other Results Labs reviewed White count rising Medical Decision Making Impression and Plan Await cultures Continue support Discussed with Total Minutes: 15 Sai Toscano MD Jan 29, 2017 14:27
[2017-01-29] MEDS: HEPARIN-D5W 25,000 U/250 ML 250 ML IV PRN (15:00)
[2017-01-29] MEDS: PANTOPRAZOLE SODIUM 40 MG VIAL IVP SCH (15:39)
[2017-01-30] VITALS (16 sets, daily range): BP systolic 139–166; BP diastolic 65–94; PULSE 62–103; RESP 12–28; TEMP 98.7–101.5; O2SAT 95–100
[2017-01-30] MEDS: PROPRANOLOL HCL 10 MG TAB PO SCH ×4 (00:07→18:00)
[2017-01-30] MEDS: RESP: ALBUTEROL 2.5 MG/IPRATROPIUM 0.5 MG NEB (SCH) NEB ×4 (03:18→21:34)
[2017-01-30] MEDS: CHLORHEXIDINE GLUCONATE 2 % 1 PACK (2 CLOTHS) TOP SCH (04:00)
[2017-01-30 05:16] LABS: AUTOMATED NEUTROPHIL # 17.5 TH/MM3 (1.8-7.7); BASOPHIL # 0.1 TH/MM3 (0-0.2); BASOPHIL % 0.4 % (0.0-2.0); EOSINOPHIL # 0.5 TH/MM3 (0-0.4); EOSINOPHIL % 2.2 % (0.0-4.0); HEMATOCRIT 28.9 % (39.0-51.0); HEMOGLOBIN 9.6 GM/DL (13.0-17.0); LYMPH % 15.4 % (9.0-44.0); LYMPHOCYTE # 3.6 TH/MM3 (1.0-4.8); MEAN CELL VOLUME 87.1 FL (80.0-100.0); MEAN CORPUSCULAR HEMOGLOBIN 28.9 PG (27.0-34.0); MEAN CORPUSCULAR HGB CONC 33.2 % (32.0-36.0); MEAN PLATELET VOLUME 9.4 FL (7.0-11.0); MONO % 6.5 % (0.0-8.0); MONOCYTE # 1.5 TH/MM3 (0-0.9); NEUT % 75.5 % (16.0-70.0); PLATELET COUNT 250 TH/MM3 (150-450); RED BLOOD COUNT 3.32 MIL/MM3 (4.50-5.90); RED CELL DISTRIBUTION WIDTH 12.6 % (11.6-17.2); WHITE BLOOD COUNT 23.2 TH/MM3 (4.0-11.0)
[2017-01-30 05:35] LABS: ALBUMIN 1.7 GM/DL (3.4-5.0); BICARBONATE 26.6 MEQ/L (21.0-32.0); CALCIUM 7.4 MG/DL (8.5-10.1); CALCIUM-PROTEIN CORRECTED 8.1 MG/DL (8.5-10.1); CREATININE 0.77 MG/DL (0.60-1.30); TOTAL BILIRUBIN ADULT 0.5 MG/DL (0.2-1.0); TOTAL PROTEIN 5.8 GM/DL (6.4-8.2)
[2017-01-30] MEDS: INSULIN NovoLIN REGULAR SUPPLEMENTAL SCALE SQ SCH ×4 (05:46→18:00)
--- NOTE | 2017-01-30 06:02 | RADRPT ---
EXAM DATE/TIME: 01/30/2017 04:42 [facility] COMPARISON: CHEST SINGLE AP, January 28, 2017, 9:03. INDICATIONS : Infiltrates. MEDICAL HISTORY : None. SURGICAL HISTORY : None. ENCOUNTER: Subsequent ACUITY: 1 week PAIN SCORE: Non-responsive. LOCATION: Bilateral chest FINDINGS: Right base consolidation has resolved but there is slight worsening of left mid lung and basilar cons olidation. A very small left pleural effusion is present. No pneumothorax. Heart size stable, within normal limits. Tracheostomy tube again noted. Nasogastric tube has been removed. Right subclavian central venous cat heter remains in place, tip in the superior vena cava. CONCLUSION: Clearing right base and slightly worse left base consolidation. Erwin Carmona MD on January 30, 2017 at 6:00 Board Certified Radiologist. This report was verified electronically.
[2017-01-30] MEDS: FOSPHENYTOIN SODIUM 100 MG PE/2 ML VIAL IV SCH (06:14)
[2017-01-30] MEDS: cloNIDine HCL 0.3 MG TAB PO SCH ×3 (06:14→20:24)
[2017-01-30] MEDS: ceFAZolin 2 GM PREMIX 50 ML IV SCH ×3 (06:14→23:00)
[2017-01-30] MEDS: FREE WATER SCH ×2 (06:15→11:11)
[2017-01-30] MEDS: HEPARIN-D5W 25,000 U/250 ML 250 ML IV PRN (08:22)
[2017-01-30] MEDS: levETIRAcetam INJ 100 ML IV SCH (08:26)
[2017-01-30] MEDS: DOCUSATE SODIUM 100 MG/10 ML UDC PO SCH ×2 (08:27→20:28)
[2017-01-30] MEDS: CHLORHEXIDINE 0.12% (ORAL KIT) 15 ML CUP MT SCH ×2 (08:27→20:28)
[2017-01-30] MEDS: VALPROIC ACID SYRUP 250 MG/5 ML UDC PO SCH ×2 (08:27→20:27)
[2017-01-30] MEDS: LACTULOSE SYRUP 20 GM/30 ML CUP PO SCH (08:27)
[2017-01-30] MEDS: MAGNESIUM HYDROXIDE SUSP 30 ML CUP PO SCH ×2 (08:27→20:28)
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
[2017-01-30] MEDS: ENOXAPARIN SODIUM 40 MG/0.4 ML SYRINGE SQ SCH ×2 (11:10→21:00)
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
--- NOTE | 2017-01-30 11:50 | HHI.GIFU ---
Subjective Remarks Patient lying in bed. TF running at 20mL/hr, tolerating well. Objective Vitals I&O Vital Signs Date Time Temp Pulse Resp B/P (MAP) Pulse Ox O2 Delivery O2 Flow Rate FiO2 01/30/17 10:50 99 40 01/30/17 10:50 40 01/30/17 09:40 40 01/30/17 09:18 98 45 01/30/17 08:00 50 01/30/17 06:00 77 01/30/17 04:00 73 01/30/17 04:00 100.7 73 22 147/67 (93) 01/30/17 04:00 50 01/30/17 03:19 98 50 01/30/17 02:00 62 01/30/17 00:00 50 01/30/17 00:00 76 01/30/17 00:00 96 50 01/30/17 00:00 99.8 72 26 139/65 (89) 01/29/17 22:00 74 01/29/17 20:00 50 01/29/17 20:00 100.2 72 23 158/70 (99) 99 01/29/17 20:00 70 01/29/17 19:27 98 50 01/29/17 18:00 68 01/29/17 17:15 95 50 01/29/17 16:00 50 01/29/17 16:00 100.0 98 18 133/60 (84) 01/29/17 14:00 98 01/29/17 12:24 99 50 01/29/17 12:00 99.4 98 18 176/77 (110) 98 01/29/17 12:00 98 01/29/17 12:00 50 I/O 01/29/17 01/29/17 01/29/17 01/30/17 01/30/17 01/30/17 07:00 15:00 23:00 07:00 15:00 23:00 Intake Total 845 ml 50 ml 150 ml 238 ml Output Total 1450 ml 1900 ml 1200 ml Balance -605 ml 50 ml -1750 ml -962 ml Intake IV Total 245 ml 150 ml 198 ml Other 600 ml 50 ml 40 ml Output Urine Total 1450 ml 1900 ml 1200 ml # Bowel Movements 3 2 Laboratory Laboratory Tests Test 01/29/17 22:00 01/30/17 05:00 01/30/17 05:30 01/30/17 11:00 Activated Partial Thromboplast Time 44.0 51.3 White Blood Count 23.2 Red Blood Count 3.32 Hemoglobin 9.6 Hematocrit 28.9 Mean Corpuscular Volume 87.1 Mean Corpuscular Hemoglobin 28.9 Mean Corpuscular Hemoglobin Concent 33.2 Red Cell Distribution Width 12.6 Platelet Count 250 Mean Platelet Volume 9.4 Neutrophils (%) (Auto) 75.5 Lymphocytes (%) (Auto) 15.4 Monocytes (%) (Auto) 6.5 Eosinophils (%) (Auto) 2.2 Basophils (%) (Auto) 0.4 Neutrophils # (Auto) 17.5 Lymphocytes # (Auto) 3.6 Monocytes # (Auto) 1.5 Eosinophils # (Auto) 0.5 Basophils # (Auto) 0.1 CBC Comment DIFF FINAL Differential Comment Blood Urea Nitrogen 20 Creatinine 0.77 Random Glucose 112 Total Protein 5.8 Albumin 1.7 Calcium Level 7.4 Alkaline Phosphatase 146 Aspartate Amino Transf (AST/SGOT) 45 Alanine Aminotransferase (ALT/SGPT) 39 Total Bilirubin 0.5 Sodium Level 138 Potassium Level 3.8 Chloride Level 103 Carbon Dioxide Level 26.6 Anion Gap 8 Estimat Glomerular Filtration Rate 105 Protein Corrected Calcium 8.1 Blood Gas Puncture Site LT RADIAL Blood Gas Patient Temperature 98.6 Blood Gas HCO3 24 Blood Gas Base Excess 1.1 Blood Gas Oxygen Saturation 96 Arterial Blood pH 7.49 Arterial Blood Partial Pressure CO2 32 Arterial Blood Partial Pressure O2 90 Arterial Blood Oxygen Content 16.0 Arterial Blood Carboxyhemoglobin 1.1 Arterial Blood Methemoglobin 0.7 Blood Gas Hemoglobin 11.9 Oxygen Delivery Device VENTILATOR Blood Gas Ventilator Setting PRVC18/600/1.0/+8 Blood Gas Inspired Oxygen 50 Date/Time Source Procedure Growth Status 01/29/17 06:31 Blood Peripheral Aerobic Blood Culture - Preliminary NO GROWTH IN 1 DAY Resulted 01/29/17 06:31 Blood Peripheral Anaerobic Blood Culture - Preliminary NO GROWTH IN 1 DAY Resulted 01/29/17 04:45 Stool Stool Stool Occult Blood (EDISON) - Final HEMOCCULT NEGATIVE Complete 01/26/17 16:00 Bronchial Washings Right Lower Lobe Fungal Smear - Final NO FUNGAL ELEMENTS SEEN. Resulted 01/26/17 16:00 Bronchial Washings Right Lower Lobe Fungal Culture Pending Resulted 01/26/17 13:05 Urine Catheterized Urine Urine Culture - Final NO GROWTH IN 48 HOURS. Complete Imaging Last Impressions Chest X-Ray 01/30/17 0600 Signed Impressions: Service Date/Time: Monday, January 30, 2017 04:42 - CONCLUSION: Clearing right base and slightly worse left base consolidation. Erwin Carmona MD Upper Extremity Ultrasound 01/28/17 0000 Signed Impressions: Service Date/Time: Saturday, January 28, 2017 13:45 - CONCLUSION: 1. There is deep venous thrombosis involving the right upper extremity. 2. There is thrombus of the cephalic vein on the left side. No definite left DVT. Juan Carrillo MD Lower Extremity Ultrasound 01/28/17 0000 Signed Impressions: Service Date/Time: Saturday, January 28, 2017 13:28 - CONCLUSION: No DVT in either lower extremity. Eber Matthews MD Brain MRI 01/28/17 0000 Signed Impressions: Service Date/Time: Saturday, January 28, 2017 10:54 - CONCLUSION: Compared to the prior CT scan of the brain of 01/23/2017 no new or significant changes are demonstrated. There continues to be areas of cerebral edema involving the base of both frontal lobes, left greater than right, left temporal lobe and left mid parietal lobe in areas of punctate hemorrhage. There is a small left-sided subdural hematoma and subarachnoid hemorrhage along both cerebral vertex. Juan Carrillo MD Head CT 01/23/17 0000 Signed Impressions: Service Date/Time: Monday, January 23, 2017 13:15 - CONCLUSION: 1. Compared to the prior exam there has been some overall improvement in the bilateral cerebral edema and subarachnoid hemorrhage. There also appears to be improvement in the previously noted small left-sided subdural hematoma. 2. There continues to be multiple punctate hemorrhagic areas of contusion surrounded by edema in the base of both frontal lobes, left greater than right. There continues to be a focal 1.4 cm area of intraparenchymal hemorrhage in the left frontal lobe. These findings are essentially stable compared to the prior examination. 3. No definite new areas of hemorrhage are seen. 4. The ventricles remain normal in size and midline in position. Juan Carrillo MD CT Angiography 01/23/17 0000 Signed Impressions: Service Date/Time: Monday, January 23, 2017 13:19 - CONCLUSION: 1. No evidence of pulmonary embolism. 2. There is atelectasis involving both lower lung farfan. No definite pleural effusions are demonstrated. 3. There is some scattered infiltrates in both upper lung farfan, left greater than right. Juan Carrillo MD Abdomen/Pelvis CT 01/23/17 0000 Signed Impressions: Service Date/Time: Monday, January 23, 2017 13:19 - CONCLUSION: 1. There is atelectasis in both lower lung farfan. 2. Otherwise, the CT scan of the abdomen and pelvis is not significantly changed compared to the prior examination. Juan Carrillo MD Neck CTA 01/20/17 0000 Signed Impressions: Service Date/Time: January 13:29 - CONCLUSION: 1. No significant flow-limiting stenosis or dissection in the carotid or vertebral arteries. 2. Focal filling defect in the main right pulmonary artery which despite its unusual appearance is highly concerning for pulmonary embolus. 3. New discrete nodule in the right lung apex measuring up to 1.1 cm which was previously obscured by airspace consolidation in this region. Followup examination in approximately 3 months is recommended on an outpatient basis, unless future inpatient CT exams demonstrate resolution. 4. 8mm enhancing nodule in the right parotid gland which may reflect a small parotid lymph node. Consider followup examination with ultrasound on an outpatient basis. Danny Vega MD IVC Filter Placement X-Ray 01/20/17 0000 Signed Impressions: Service Date/Time: January 18:18 - CONCLUSION: Uncomplicated inferior vena cava filter placement as above. Note: This retrievable IVC filter should be removed as soon as patient's contraindication to anticoagulation or clinical status improves. Danny Vega MD Head CTA 01/20/17 0000 Signed Impressions: Service Date/Time: January 13:29 - CONCLUSION: 1. Small caliber right A1 segment, likely hypoplastic rather than vasospasm. 2. Otherwise, unremarkable head CTA examination. No aneurysm as questioned Danny Vega MD Thoracic Spine CT 01/19/17 1406 Signed Impressions: Service Date/Time: Thursday, January 19, 2017 14:14 - CONCLUSION: 1. No acute fracture or subluxation. 2. Dense posterior bilateral lower lobe air space consolidation which may reflect atelectasis, contusion or aspiration. Danny Vega MD Pelvis X-Ray [id number]/19/[id number] Signed Impressions: Service Date/Time: Thursday, January 19, 2017 13:59 - CONCLUSION: No acute disease. Krunal Hart MD Lumbar Spine CT [id number]/19/171405 Signed Impressions: Service Date/Time: Thursday, January 19, 2017 14:14 - CONCLUSION: 1. No acute fracture or subluxation. 2. Degenerative spondylosis of the lumbar spine most prominently at L5-S1. Danny Vega MD Chest CT [id number]/19/171405 Signed Impressions: Service Date/Time: Thursday, January 19, 2017 14:23 - CONCLUSION: 1. Consolidating bibasilar air space disease within the lower lobes. 2. Tip of endotracheal tube at the level of the clavicles. 3. No evidence of vascular or cardiac mediastinal injury. 4. Intact osseous structures. Krunal Hart MD Cervical Spine CT 01/19/171405 Signed Impressions: Service Date/Time: Thursday, January 19, 2017 14:16 - CONCLUSION: No evidence of acute fracture or traumatic listhesis. Krunal Hart MD Physical Exam HEENT: Normocephalic; atraumatic; no jaundice. NECK: Neck is supple CHEST: CTA CARDIAC: Regular rate and rhythm with no murmur gallop or rubs. ABDOMEN: Soft, nondistended, nontender; no hepatosplenomegaly; bowel sounds are present in all four quadrants. PEG site C/D/I EXTREMITIES: No cyanosis SKIN: Normal; no rash; no jaundice. RADIO DIRECTOR: Intubated, off sedation. Assessment and Plan Plan ASSESSMENT: - Dysphagia - GI consulted for PEG tube placement. - TBI, SAH, increased ICP, prob PE s/p filter, SURENDRA - per [facility] PEG tube placed on 01/29 without problems. 01/30/17--Tolerating TF at 20 mL/hr. PEG site C/D/I. No abdominal tenderness. PLAN: - Continue TF, Jevity 1.5, goal 60 mL/hr - Nutrition consult - Supportive care Patient seen and examined by Dr. Man and myself and this note is written on his behalf. Chiquis Marshall Jan 30, 2017 11:50
[2017-01-30] MEDS: hydrALAZINE HCL 20 MG/ML VIAL IV PUSH PRN (16:44)
[2017-01-30] MEDS: ACETAMINOPHEN 1000 MG/100 ML 100 ML IV PRN (20:23)
[2017-01-30] MEDS: levETIRAcetam 500 MG/5 ML UDC NG SCH (20:24)
[2017-01-30] MEDS: FAMOTIDINE 40 MG/5 ML LIQ 50 ML BTL NG SCH (21:00)
[2017-01-31] VITALS (20 sets, daily range): BP systolic 150–171; BP diastolic 69–82; PULSE 66–108; RESP 21–25; TEMP 98.6–99.9; O2SAT 96–100
[2017-01-31] MEDS: CHLORHEXIDINE GLUCONATE 2 % 1 PACK (2 CLOTHS) TOP SCH ×2 (03:34→23:49)
[2017-01-31] MEDS: RESP: ALBUTEROL 2.5 MG/IPRATROPIUM 0.5 MG NEB (SCH) NEB ×4 (03:55→21:20)
[2017-01-31] MEDS: INSULIN NovoLIN REGULAR SUPPLEMENTAL SCALE SQ SCH ×5 (06:00→23:48)
[2017-01-31] MEDS: cloNIDine HCL 0.3 MG TAB PO SCH ×3 (06:07→21:10)
[2017-01-31] MEDS: PROPRANOLOL HCL 10 MG TAB PO SCH ×3 (06:07→12:39)
[2017-01-31] MEDS: ceFAZolin 2 GM PREMIX 50 ML IV SCH ×3 (06:08→23:24)
[2017-01-31 06:27] LABS: AUTOMATED NEUTROPHIL # 9.6 TH/MM3 (1.8-7.7); BASOPHIL # 0.1 TH/MM3 (0-0.2); BASOPHIL % 0.4 % (0.0-2.0); EOSINOPHIL # 0.3 TH/MM3 (0-0.4); EOSINOPHIL % 2.4 % (0.0-4.0); LYMPHOCYTE # 2.3 TH/MM3 (1.0-4.8); MEAN CELL VOLUME 86.8 FL (80.0-100.0); MEAN CORPUSCULAR HEMOGLOBIN 29.9 PG (27.0-34.0); MEAN CORPUSCULAR HGB CONC 34.5 % (32.0-36.0); MEAN PLATELET VOLUME 9.9 FL (7.0-11.0); MONO % 8.4 % (0.0-8.0); MONOCYTE # 1.1 TH/MM3 (0-0.9); NEUT % 71.8 % (16.0-70.0); PLATELET COUNT 301 TH/MM3 (150-450); RED BLOOD COUNT 3.34 MIL/MM3 (4.50-5.90); RED CELL DISTRIBUTION WIDTH 12.6 % (11.6-17.2); WHITE BLOOD COUNT 13.4 TH/MM3 (4.0-11.0)
[2017-01-31 07:06] LABS: ALBUMIN 1.8 GM/DL (3.4-5.0); BICARBONATE 28.2 MEQ/L (21.0-32.0); CALCIUM 7.4 MG/DL (8.5-10.1); CALCIUM-PROTEIN CORRECTED 7.9 MG/DL (8.5-10.1); CREATININE 0.69 MG/DL (0.60-1.30); PHENYTOIN (DILANTIN) 2.6 MCG/ML (10.0-20.0); TOTAL BILIRUBIN ADULT 0.4 MG/DL (0.2-1.0); TOTAL PROTEIN 6.2 GM/DL (6.4-8.2)
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
[2017-01-31] MEDS: DOCUSATE SODIUM 100 MG/10 ML UDC PO SCH ×2 (09:00→19:46)
[2017-01-31] MEDS: LACTULOSE SYRUP 20 GM/30 ML CUP PO SCH (09:00)
[2017-01-31] MEDS: MAGNESIUM HYDROXIDE SUSP 30 ML CUP PO SCH ×2 (09:00→19:46)
[2017-01-31] MEDS: VALPROIC ACID SYRUP 250 MG/5 ML UDC PO SCH ×2 (09:34→21:10)
[2017-01-31] MEDS: levETIRAcetam 500 MG/5 ML UDC NG SCH ×2 (09:35→21:10)
[2017-01-31] MEDS: ENOXAPARIN SODIUM 40 MG/0.4 ML SYRINGE SQ SCH ×2 (09:35→21:10)
[2017-01-31] MEDS: CHLORHEXIDINE 0.12% (ORAL KIT) 15 ML CUP MT SCH ×2 (09:36→19:46)
[2017-01-31] MEDS: FAMOTIDINE 40 MG/5 ML LIQ 50 ML BTL NG SCH ×2 (12:53→22:15)
[2017-01-31] MEDS: BENEPROTEIN POWDER 1 PACK G-TUBE SCH ×2 (13:00→18:00)
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
--- NOTE | 2017-01-31 16:42 | HHI.PR ---
Addendum to Inpatient Note Additional Information ID - pt seen around 1400 - full note to follow Serenity Gallegos MD Jan 31, 2017 16:42
[2017-01-31] MEDS: SODIUM CHLOR 0.9% 1000 ML INJ 1,000 ML IV SCH ×2 (17:15→18:16)
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
[2017-01-31] MEDS ORDERED: PILL SPLITTER OTHER PRN (18:30)
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
[2017-01-31] MEDS: PROPRANOLOL HCL 20 MG TAB PO SCH ×2 (19:34→23:24)
--- NOTE | 2017-01-31 20:41 | HHI.IDPN ---
Subjective Subjective Remarks fevers improved remains on vent + secretions, though somewhat less more awake Antibiotics cefazoline Allergies: Coded Allergies: No Known Allergies (Verified Allergy, Unknown, 01/19/17) Objective . Vital Signs Date Time Temp Pulse Resp B/P (MAP) Pulse Ox O2 Delivery O2 Flow Rate FiO2 01/31/17 19:00 100 Mechanical Ventilator 40 01/31/17 18:00 80 01/31/17 16:53 97 40 01/31/17 16:00 78 01/31/17 16:00 99.8 78 23 157/69 (98) 100 01/31/17 16:00 40 01/31/17 14:00 68 01/31/17 12:10 97 40 01/31/17 12:00 81 01/31/17 12:00 99.0 81 25 161/70 (100) 96 01/31/17 12:00 40 01/31/17 10:00 76 01/31/17 09:50 99 40 01/31/17 09:50 40 01/31/17 09:45 99 40 01/31/17 09:12 100 40 01/31/17 08:00 40 01/31/17 08:00 99.5 66 22 159/71 (100) 99 01/31/17 08:00 66 01/31/17 06:00 84 01/31/17 04:00 40 01/31/17 04:00 99.6 83 22 152/82 (105) 98 01/31/17 04:00 83 01/31/17 03:55 98 40 01/31/17 02:00 74 01/31/17 01:10 98 40 01/31/17 00:00 98.6 88 23 150/70 (96) 99 01/31/17 00:00 88 01/31/17 00:00 40 01/30/17 22:00 84 01/30/17 21:35 98 40 01/31/17 01/31/17 02/01/17 15:00 23:00 07:00 Intake Total 873 ml Output Total 3000 ml Balance -2127 ml Tube Feeding 593 ml Tube Irrigant 280 ml Output Urine Total 3000 ml # Bowel Movements 2 . Laboratory Tests Test 01/30/17 05:00 01/31/17 05:16 White Blood Count 23.2 TH/MM3 13.4 TH/MM3 Red Blood Count 3.32 MIL/MM3 3.34 MIL/MM3 Hemoglobin 9.6 GM/DL 10.0 GM/DL Hematocrit 28.9 % 29.0 % Mean Corpuscular Volume 87.1 FL 86.8 FL Mean Corpuscular Hemoglobin 28.9 PG 29.9 PG Mean Corpuscular Hemoglobin Concent 33.2 % 34.5 % Red Cell Distribution Width 12.6 % 12.6 % Platelet Count 250 TH/MM3 301 TH/MM3 Mean Platelet Volume 9.4 FL 9.9 FL Neutrophils (%) (Auto) 75.5 % 71.8 % Lymphocytes (%) (Auto) 15.4 % 17.0 % Monocytes (%) (Auto) 6.5 % 8.4 % Eosinophils (%) (Auto) 2.2 % 2.4 % Basophils (%) (Auto) 0.4 % 0.4 % Neutrophils # (Auto) 17.5 TH/MM3 9.6 TH/MM3 Lymphocytes # (Auto) 3.6 TH/MM3 2.3 TH/MM3 Monocytes # (Auto) 1.5 TH/MM3 1.1 TH/MM3 Eosinophils # (Auto) 0.5 TH/MM3 0.3 TH/MM3 Basophils # (Auto) 0.1 TH/MM3 0.1 TH/MM3 CBC Comment DIFF FINAL DIFF FINAL Differential Comment Laboratory Tests Test 01/30/17 05:00 01/30/17 14:04 01/31/17 05:16 Blood Urea Nitrogen 20 MG/DL 15 MG/DL Creatinine 0.77 MG/DL 0.69 MG/DL Random Glucose 112 MG/DL 155 MG/DL Total Protein 5.8 GM/DL 6.2 GM/DL Albumin 1.7 GM/DL 1.8 GM/DL Calcium Level 7.4 MG/DL 7.4 MG/DL Alkaline Phosphatase 146 U/L 215 U/L Aspartate Amino Transf (AST/SGOT) 45 U/L 53 U/L Alanine Aminotransferase (ALT/SGPT) 39 U/L 39 U/L Total Bilirubin 0.5 MG/DL 0.4 MG/DL Sodium Level 138 MEQ/L 134 MEQ/L Potassium Level 3.8 MEQ/L 3.5 MEQ/L Chloride Level 103 MEQ/L 100 MEQ/L Carbon Dioxide Level 26.6 MEQ/L 28.2 MEQ/L Anion Gap 8 MEQ/L 6 MEQ/L Estimat Glomerular Filtration Rate 105 ML/MIN 119 ML/MIN Protein Corrected Calcium 8.1 MG/DL 7.9 MG/DL Ammonia 30 MCMOL/L Microbiology Date/Time Source Procedure Growth Status 01/29/17 06:31 Blood Peripheral Aerobic Blood Culture - Preliminary NO GROWTH IN 2 DAYS Resulted 01/29/17 06:31 Blood Peripheral Anaerobic Blood Culture - Preliminary NO GROWTH IN 2 DAYS Resulted 01/29/17 06:31 Blood Peripheral Aerobic Blood Culture - Preliminary NO GROWTH IN 2 DAYS Resulted 01/29/17 06:31 Blood Peripheral Anaerobic Blood Culture - Preliminary NO GROWTH IN 2 DAYS Resulted 01/29/17 04:45 Stool Stool Stool Occult Blood ([facility]) - Final HEMOCCULT NEGATIVE Complete Imaging Last Impressions Upper Extremity Ultrasound 01/28/17 0000 Signed Impressions: Service Date/Time: Saturday, January 28, 2017 13:45 - CONCLUSION: 1. There is deep venous thrombosis involving the right upper extremity. 2. There is thrombus of the cephalic vein on the left side. No definite left DVT. Juan Carrillo MD Lower Extremity Ultrasound 01/28/17 0000 Signed Impressions: Service Date/Time: Saturday, January 28, 2017 13:28 - CONCLUSION: No DVT in either lower extremity. Eber Matthews MD Chest X-Ray 01/28/17 0000 Signed Impressions: Service Date/Time: Saturday, January 28, 2017 09:03 - CONCLUSION: No significant change in the bilateral pulmonary infiltrates. Juan Carrillo MD Brain MRI 01/28/17 0000 Signed Impressions: Service Date/Time: Saturday, January 28, 2017 10:54 - CONCLUSION: Compared to the prior CT scan of the brain of 01/23/2017 no new or significant changes are demonstrated. There continues to be areas of cerebral edema involving the base of both frontal lobes, left greater than right, left temporal lobe and left mid parietal lobe in areas of punctate hemorrhage. There is a small left-sided subdural hematoma and subarachnoid hemorrhage along both cerebral vertex. Juan Carrillo MD Head CT 01/23/17 0000 Signed Impressions: Service Date/Time: Monday, January 23, 2017 13:15 - CONCLUSION: 1. Compared to the prior exam there has been some overall improvement in the bilateral cerebral edema and subarachnoid hemorrhage. There also appears to be improvement in the previously noted small left-sided subdural hematoma. 2. There continues to be multiple punctate hemorrhagic areas of contusion surrounded by edema in the base of both frontal lobes, left greater than right. There continues to be a focal 1.4 cm area of intraparenchymal hemorrhage in the left frontal lobe. These findings are essentially stable compared to the prior examination. 3. No definite new areas of hemorrhage are seen. 4. The ventricles remain normal in size and midline in position. Juan Carrillo MD CT Angiography 01/23/17 Signed Impressions: Service Date/Time: Monday, January 23, 2017 13:19 - CONCLUSION: 1. No evidence of pulmonary embolism. 2. There is atelectasis involving both lower lung farfan. No definite pleural effusions are demonstrated. 3. There is some scattered infiltrates in both upper lung farfan, left greater than right. Juan Carrillo MD Abdomen/Pelvis CT 01/23/17 Signed Impressions: Service Date/Time: Monday, January 23, 2017 13:19 - CONCLUSION: 1. There is atelectasis in both lower lung farfan. 2. Otherwise, the CT scan of the abdomen and pelvis is not significantly changed compared to the prior examination. Juan Carrillo MD Neck CTA 01/20/17 Signed Impressions: Service Date/Time: January 13:29 - CONCLUSION: 1. No significant flow-limiting stenosis or dissection in the carotid or vertebral arteries. 2. Focal filling defect in the main right pulmonary artery which despite its unusual appearance is highly concerning for pulmonary embolus. 3. New discrete nodule in the right lung apex measuring up to 1.1 cm which was previously obscured by airspace consolidation in this region. Followup examination in approximately 3 months is recommended on an outpatient basis, unless future inpatient CT exams demonstrate resolution. 4. 8mm enhancing nodule in the right parotid gland which may reflect a small parotid lymph node. Consider followup examination with ultrasound on an outpatient basis. Danny Vega MD IVC Filter Placement X-Ray 01/20/17 Signed Impressions: Service Date/Time: January 18:18 - CONCLUSION: Uncomplicated inferior vena cava filter placement as above. Note: This retrievable IVC filter should be removed as soon as patient's contraindication to anticoagulation or clinical status improves. Danny Vega MD Head CTA 01/20/17 0000 Signed Impressions: Service Date/Time: January 13:29 - CONCLUSION: 1. Small caliber right A1 segment, likely hypoplastic rather than vasospasm. 2. Otherwise, unremarkable head CTA examination. No aneurysm as questioned Danny Vega MD Thoracic Spine CT 01/19/17 1406 Signed Impressions: Service Date/Time: Thursday, January 19, 2017 14:14 - CONCLUSION: 1. No acute fracture or subluxation. 2. Dense posterior bilateral lower lobe air space consolidation which may reflect atelectasis, contusion or aspiration. Danny Vega MD Pelvis X-Ray 01/19/17 140 Signed Impressions: Service Date/Time: Thursday, January 19, 2017 13:59 - CONCLUSION: No acute disease. Krunal Hart MD Lumbar Spine CT 01/19/17 140 Signed Impressions: Service Date/Time: Thursday, January 19, 2017 14:14 - CONCLUSION: 1. No acute fracture or subluxation. 2. Degenerative spondylosis of the lumbar spine most prominently at L5-S1. Danny Vega MD Chest CT 01/19/17 140 Signed Impressions: Service Date/Time: Thursday, January 19, 2017 14:23 - CONCLUSION: 1. Consolidating bibasilar air space disease within the lower lobes. 2. Tip of endotracheal tube at the level of the clavicles. 3. No evidence of vascular or cardiac mediastinal injury. 4. Intact osseous structures. Krunal Hart MD Cervical Spine CT 01/19/17 140 Signed Impressions: Service Date/Time: Thursday, January 19, 2017 14:16 - CONCLUSION: No evidence of acute fracture or traumatic listhesis. Krunal Hart MD Last Impressions Chest X-Ray 01/30/17 0600 Signed Impressions: Service Date/Time: Monday, January 30, 2017 04:42 - CONCLUSION: Clearing right base and slightly worse left base consolidation. Erwin Carmona MD Upper Extremity Ultrasound 01/28/17 0000 Signed Impressions: Service Date/Time: Saturday, January 28, 2017 13:45 - CONCLUSION: 1. There is deep venous thrombosis involving the right upper extremity. 2. There is thrombus of the cephalic vein on the left side. No definite left DVT. Juan Carrillo MD Lower Extremity Ultrasound 01/28/17 0000 Signed Impressions: Service Date/Time: Saturday, January 28, 2017 13:28 - CONCLUSION: No DVT in either lower extremity. Eber Matthews MD Brain MRI 01/28/17 0000 Signed Impressions: Service Date/Time: Saturday, January 28, 2017 10:54 - CONCLUSION: Compared to the prior CT scan of the brain of 01/23/2017 no new or significant changes are demonstrated. There continues to be areas of cerebral edema involving the base of both frontal lobes, left greater than right, left temporal lobe and left mid parietal lobe in areas of punctate hemorrhage. There is a small left-sided subdural hematoma and subarachnoid hemorrhage along both cerebral vertex. Juan Carrillo MD Head CT 01/23/17 0000 Signed Impressions: Service Date/Time: Monday, January 23, 2017 13:15 - CONCLUSION: 1. Compared to the prior exam there has been some overall improvement in the bilateral cerebral edema and subarachnoid hemorrhage. There also appears to be improvement in the previously noted small left-sided subdural hematoma. 2. There continues to be multiple punctate hemorrhagic areas of contusion surrounded by edema in the base of both frontal lobes, left greater than right. There continues to be a focal 1.4 cm area of intraparenchymal hemorrhage in the left frontal lobe. These findings are essentially stable compared to the prior examination. 3. No definite new areas of hemorrhage are seen. 4. The ventricles remain normal in size and midline in position. Juan Carrillo MD CT Angiography 01/23/17 0000 Signed Impressions: Service Date/Time: Monday, January 23, 2017 13:19 - CONCLUSION: 1. No evidence of pulmonary embolism. 2. There is atelectasis involving both lower lung farfan. No definite pleural effusions are demonstrated. 3. There is some scattered infiltrates in both upper lung farfan, left greater than right. Juan Carrillo MD Abdomen/Pelvis CT 01/23/17 0000 Signed Impressions: Service Date/Time: Monday, January 23, 2017 13:19 - CONCLUSION: 1. There is atelectasis in both lower lung farfan. 2. Otherwise, the CT scan of the abdomen and pelvis is not significantly changed compared to the prior examination. Juan Carrillo MD Neck CTA 01/20/17 0000 Signed Impressions: Service Date/Time: January 13:29 - CONCLUSION: 1. No significant flow-limiting stenosis or dissection in the carotid or vertebral arteries. 2. Focal filling defect in the main right pulmonary artery which despite its unusual appearance is highly concerning for pulmonary embolus. 3. New discrete nodule in the right lung apex measuring up to 1.1 cm which was previously obscured by airspace consolidation in this region. Followup examination in approximately 3 months is recommended on an outpatient basis, unless future inpatient CT exams demonstrate resolution. 4. 8mm enhancing nodule in the right parotid gland which may reflect a small parotid lymph node. Consider followup examination with ultrasound on an outpatient basis. Danny Vega MD IVC Filter Placement X-Ray 01/20/17 0000 Signed Impressions: Service Date/Time: January 18:18 - CONCLUSION: Uncomplicated inferior vena cava filter placement as above. Note: This retrievable IVC filter should be removed as soon as patient's contraindication to anticoagulation or clinical status improves. Danny Vega MD Head CTA 01/20/17 0000 Signed Impressions: Service Date/Time: January 13:29 - CONCLUSION: 1. Small caliber right A1 segment, likely hypoplastic rather than vasospasm. 2. Otherwise, unremarkable head CTA examination. No aneurysm as questioned Danny Vega MD Thoracic Spine CT 01/19/17 140 Signed Impressions: Service Date/Time: Thursday, January 19, 2017 14:14 - CONCLUSION: 1. No acute fracture or subluxation. 2. Dense posterior bilateral lower lobe air space consolidation which may reflect atelectasis, contusion or aspiration. Danny Vega MD Pelvis X-Ray 01/19/171405 Signed Impressions: Service Date/Time: Thursday, January 19, 2017 13:59 - CONCLUSION: No acute disease. Krunal Hart MD Lumbar Spine CT 01/19/17 140 Signed Impressions: Service Date/Time: Thursday, January 19, 2017 14:14 - CONCLUSION: 1. No acute fracture or subluxation. 2. Degenerative spondylosis of the lumbar spine most prominently at L5-S1. Danny Vega MD Chest CT 01/19/17 1406 Signed Impressions: Service Date/Time: Thursday, January 19, 2017 14:23 - CONCLUSION: 1. Consolidating bibasilar air space disease within the lower lobes. 2. Tip of endotracheal tube at the level of the clavicles. 3. No evidence of vascular or cardiac mediastinal injury. 4. Intact osseous structures. Krunal Hart MD Cervical Spine CT 01/19/17 1406 Signed Impressions: Service Date/Time: Thursday, January 19, 2017 14:16 - CONCLUSION: No evidence of acute fracture or traumatic listhesis. Krunal Hart MD Physical Exam CONSTITUTIONAL/GENERAL: This is an adequately nourished patient, in no apparent distress. TUBES/LINES/DRAINS: SKIN: No jaundice, rashes, or lesions. Ecchymoses on upper extremities. No wounds seen anteriorly. Skin temperature appropriate. Not diaphoretic. CARDIOVASCULAR: Regular rate and rhythm without murmurs, gallops, or rubs. No JVD. Peripheral pulses symmetric. RESPIRATORY/CHEST: Symmetric, unlabored respirations. Scattered rhonchi auscultation. Breath sounds equal bilaterally. No wheezes, rales, or rhonchi. GASTROINTESTINAL: Abdomen soft, non-tender, nondistended. No hepato-splenomegaly , or palpable masses. No guarding. Bowel sounds present. GENITOURINARY: Without palpable bladder distension. gold in place MUSCULOSKELETAL: Extremities without clubbing, cyanosis, or edema. No joint tenderness or effusion noted. No calf tenderness. No mottling or clubbing. LYMPHATICS: No palpable cervical or supraclavicular adenopathy. NEUROLOGICAL: Awakens, oopens eyes spontaneously, maybe trying to focus. . Not follows commands. Withdrawls all extremities. PSYCHIATRIC: unable to assess Assessment & Plan Remarks Traumatic brain injury with multiple left hemispheric contusions and small subdural hemorrhage Acute VDRF Bl PNA more involving LLL, MSSA - improving clinically and radiologically Yeast in sputum - if not crypto, no clin significance Persistent fever ? infection vs central vs combination likely from PNA Brain MRI findings noted : continious cerebral edema, hmatoma, SAH Rec's: cont ancef fu yeast in BAL Serenity Gallegos MD Jan 31, 2017 20:41
[2017-01-31] MEDS: hydrALAZINE HCL 20 MG/ML VIAL IV PUSH PRN (21:11)
[2017-01-31] MEDS: HALOPERIDOL LACTATE 5 MG/ML AMP IV PUSH PRN (21:32)
[2017-02-01] VITALS (20 sets, daily range): BP systolic 134–164; BP diastolic 58–74; PULSE 79–109; RESP 17–23; TEMP 98.8–100.6; O2SAT 98–100
[2017-02-01] MEDS: RESP: ALBUTEROL 2.5 MG/IPRATROPIUM 0.5 MG NEB (SCH) NEB ×4 (03:40→22:52)
[2017-02-01] MEDS: SODIUM CHLOR 0.9% 1000 ML INJ 1,000 ML IV SCH ×2 (05:36→14:43)
[2017-02-01] MEDS: INSULIN NovoLIN REGULAR SUPPLEMENTAL SCALE SQ SCH ×3 (05:59→18:47)
[2017-02-01] MEDS: ceFAZolin 2 GM PREMIX 50 ML IV SCH ×3 (06:09→22:24)
[2017-02-01] MEDS: PROPRANOLOL HCL 20 MG TAB PO SCH ×3 (06:09→18:46)
[2017-02-01] MEDS: cloNIDine HCL 0.3 MG TAB PO SCH ×3 (06:09→22:24)
--- NOTE | 2017-02-01 06:22 | RADRPT ---
EXAM DATE/TIME: 02/01/2017 05:15 [facility] COMPARISON: CHEST SINGLE AP, January 30, 2017, 4:42. INDICATIONS : Short of breath. MEDICAL HISTORY : None. SURGICAL HISTORY : None. ENCOUNTER: Subsequent ACUITY: 2 weeks PAIN SCORE: Non-responsive. LOCATION: Bilateral chest FINDINGS: There is a tracheostomy tube place. The heart size is normal. There is mild increased density at the left base. The right lung is grossly clear. CONCLUSION: Mild left base atelectasis or consolidation. Erwin Christensen MD on February 01, 2017 at 6:20 Board Certified Radiologist. This report was verified electronically.
[2017-02-01 06:26] LABS: AUTOMATED NEUTROPHIL # 8.8 TH/MM3 (1.8-7.7); BASOPHIL % 0.3 % (0.0-2.0); EOSINOPHIL # 0.3 TH/MM3 (0-0.4); HEMOGLOBIN 10.6 GM/DL (13.0-17.0); LYMPH % 22.9 % (9.0-44.0); MEAN CORPUSCULAR HEMOGLOBIN 29.8 PG (27.0-34.0); MEAN CORPUSCULAR HGB CONC 34.3 % (32.0-36.0); MEAN PLATELET VOLUME 9.4 FL (7.0-11.0); MONO % 8.3 % (0.0-8.0); MONOCYTE # 1.1 TH/MM3 (0-0.9); NEUT % 66.5 % (16.0-70.0); PLATELET COUNT 427 TH/MM3 (150-450); RED BLOOD COUNT 3.56 MIL/MM3 (4.50-5.90); RED CELL DISTRIBUTION WIDTH 12.5 % (11.6-17.2); WHITE BLOOD COUNT 13.2 TH/MM3 (4.0-11.0)
[2017-02-01 06:56] LABS: ALBUMIN 1.9 GM/DL (3.4-5.0); AST (GOT) 63 U/L (15-37); BICARBONATE 28.9 MEQ/L (21.0-32.0); BLOOD UREA NITROGEN 13 MG/DL (7-18); CALCIUM 7.7 MG/DL (8.5-10.1); CHLORIDE 100 MEQ/L (98-107); CREATININE 0.66 MG/DL (0.60-1.30); GLOMERULAR FILTRATION RATE 125 ML/MIN (>89); GLUCOSE,RANDOM 142 MG/DL (74-106); SODIUM (NA) 137 MEQ/L (136-145)
[2017-02-01 06:57] LABS: ALT (GPT) 45 U/L (12-78)
[2017-02-01 07:00] LABS: ALKALINE PHOSPHATASE 241 U/L (45-117); TOTAL BILIRUBIN ADULT 0.4 MG/DL (0.2-1.0); TOTAL PROTEIN 6.6 GM/DL (6.4-8.2)
[2017-02-01] MEDS: MAGNESIUM HYDROXIDE SUSP 30 ML CUP PO SCH ×2 (08:10→20:07)
[2017-02-01] MEDS: LACTULOSE SYRUP 20 GM/30 ML CUP PO SCH (08:10)
[2017-02-01] MEDS: DOCUSATE SODIUM 100 MG/10 ML UDC PO SCH ×2 (08:10→20:06)
--- NOTE | 2017-02-01 08:40 | HHI.PR ---
Neuropsych Emotional Emotional: UnabletoAssess: Emotional, Anxious/Fearful, Depressed/Sad, Hostile/ Resentful, Irritable/Angry/Frustrate, Labile, Constricted/Blunted Behavior Behavior: Mild: Impulsive/Agitated Cognitive Cognitive: Unable to Asses: Cognitive, Attention/Concentration, Confused/ Orientation, Insight/Awareness, Judgement/Problem-Solving, Memory Psychosocial Psychosocial: Intact: Psychosocial, Family/Other Adjustment, Realistic Expectation, Unable to Asses: Self-Esteem/Confidence Progress Notes/Response to Tx Contents of Sessions: Adjustment, Level of Consciousness Time with Patient: 15 minutes Premorbid psychological status Premorbid Cognitive, Emotional and Behavioral Status: Stable. The patient is high school educated, and has a solid work history. He has no prior psychiatric issues, and substance abuse history is unremarkable. Behavioral Reactions of Patient and Family/Support System: Stable. The patient s family is experiencing ongoing issues of adjustment given the nature of the injury, and this aspect of recovery will require ongoing monitoring. Emotional/Behavioral Status of Patient and Family/Support System: Stable. Pertinent issues, if appropriate to this patients clinical care, are described in detail above. Maximizing acute care outcome It is recommended that the patient be monitored for emergent behavioral impulsivity as the medical condition evolves. This patients neuropathological challenges may limit his rehabilitation potential going forward, and these challenges will require specialized therapeutic skills to maximize outcome. Additionally, the patients family is experiencing ongoing issues of adjustment given the traumatic nature of the injury, and they may benefit from ongoing psychological assistance. At this point in the recovery process, the patient does not have cognitive capacity as the patient is unable to understand a situation and its likely consequences, nor is he able to manipulate information rationally. Cognitive capacity will be assessed throughout the recovery process. Anticipated Problems Ongoing areas of concern will include behavioral impulsivity, lack of insight and judgment, which is expected to improve with time and treatment. Presently , the patient is intubated and sedated. Given the severity of the patient's injuries it is my clinical opinion that this patient will be unable to return to any type of productive employment for at least one year, perhaps longer and likely never. This patient is not considered safe to discharge home with supervision. Treatment Plan This clinician will continue to follow with you throughout the course of this patients acute care treatment, and I will be available to meet with the patient s family/support system to facilitate their understanding and the ongoing care of their family member. The goals of neuropsychological intervention shall be both educational and supportive to the family/support system as is deemed clinically appropriate. [facility] Level: IV:Confused/Agitated-maximal assist Impression 56 year old man s/p TBI 2T fall on 01/19/2017. He has significant neuropathology with outcome likely poor. Diagnosis: (1) Major neurocognitive disorder as late effect of traumatic brain injury without behavioral disturbance Progress Note Narrative Ongoing follow-up of patient seen during daily trauma rounds. This is day 13 post injury. The patient's NA has normalized, and he localizes to pain, some following commands. He is an emerging [place] IV. Notably is that although ordered x 2 days, ABS was not administered. This is unfortunate as this hamper the trauma team's management of his agitation/restlessness, particularly in light of the fact that he received Haldol PRN at 2132 yesterday. In other words , we don't know level or pattern of agitation/restlessness and as such don't know how develop a plan to treat. This was discussed with nursing and nursing management. I will continue to follow. Contreras Snyder PhD Feb 01, 2017 8:40 am
[2017-02-01] MEDS: CHLORHEXIDINE 0.12% (ORAL KIT) 15 ML CUP MT SCH ×2 (08:45→20:00)
[2017-02-01] MEDS: BENEPROTEIN POWDER 1 PACK G-TUBE SCH ×3 (08:46→18:47)
[2017-02-01] MEDS: levETIRAcetam 500 MG/5 ML UDC NG SCH ×2 (08:50→20:06)
[2017-02-01] MEDS: VALPROIC ACID SYRUP 250 MG/5 ML UDC PO SCH ×2 (08:51→20:06)
[2017-02-01] MEDS: FAMOTIDINE 40 MG/5 ML LIQ 50 ML BTL NG SCH ×2 (08:52→20:10)
[2017-02-01] MEDS: ENOXAPARIN SODIUM 40 MG/0.4 ML SYRINGE SQ SCH ×2 (08:52→20:09)
[2017-02-01] MEDS ORDERED: FLUCONAZOLE 200 MG PREMIX BAG 100 ML IV SCH (10:00)
[2017-02-01] MEDS ORDERED: FREE WATER G-TUBE SCH (12:00)
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
[2017-02-01] MEDS: SODIUM CHLORIDE 1 GRAM TAB PO SCH (14:42)
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
[2017-02-01] MEDS: ACETAMINOPHEN 1000 MG/100 ML 100 ML IV PRN (20:10)
[2017-02-02] VITALS (18 sets, daily range): BP systolic 116–167; BP diastolic 58–72; PULSE 73–93; RESP 17–20; TEMP 98.8–100.6; O2SAT 94–99
[2017-02-02] MEDS: PROPRANOLOL HCL 20 MG TAB PO SCH ×3 (00:38→20:35)
[2017-02-02] MEDS: SODIUM CHLORIDE 1 GRAM TAB PO SCH ×2 (00:38→11:23)
[2017-02-02] MEDS: SODIUM CHLOR 0.9% 1000 ML INJ 1,000 ML IV SCH ×2 (02:35→15:51)
[2017-02-02] MEDS: RESP: ALBUTEROL 2.5 MG/IPRATROPIUM 0.5 MG NEB (SCH) NEB ×4 (03:46→20:16)
[2017-02-02] MEDS: CHLORHEXIDINE GLUCONATE 2 % 1 PACK (2 CLOTHS) TOP SCH (04:00)
[2017-02-02 05:50] LABS: AUTOMATED NEUTROPHIL # 6.1 TH/MM3 (1.8-7.7); BASOPHIL # 0.1 TH/MM3 (0-0.2); BASOPHIL % 1.2 % (0.0-2.0); EOSINOPHIL # 0.2 TH/MM3 (0-0.4); EOSINOPHIL % 2.1 % (0.0-4.0); HEMATOCRIT 28.2 % (39.0-51.0); HEMOGLOBIN 9.7 GM/DL (13.0-17.0); LYMPH % 27.6 % (9.0-44.0); LYMPHOCYTE # 2.8 TH/MM3 (1.0-4.8); MEAN CELL VOLUME 87.8 FL (80.0-100.0); MEAN CORPUSCULAR HEMOGLOBIN 30.1 PG (27.0-34.0); MEAN CORPUSCULAR HGB CONC 34.3 % (32.0-36.0); MEAN PLATELET VOLUME 9.1 FL (7.0-11.0); MONO % 9.3 % (0.0-8.0); MONOCYTE # 0.9 TH/MM3 (0-0.9); NEUT % 59.8 % (16.0-70.0); PLATELET COUNT 440 TH/MM3 (150-450); RED BLOOD COUNT 3.21 MIL/MM3 (4.50-5.90); RED CELL DISTRIBUTION WIDTH 12.6 % (11.6-17.2); WHITE BLOOD COUNT 10.1 TH/MM3 (4.0-11.0)
[2017-02-02] MEDS: INSULIN NovoLIN REGULAR SUPPLEMENTAL SCALE SQ SCH ×5 (06:00→23:48)
[2017-02-02 06:08] LABS: BICARBONATE 29.6 MEQ/L (21.0-32.0); CALCIUM 7.7 MG/DL (8.5-10.1); CREATININE 0.74 MG/DL (0.60-1.30)
[2017-02-02] MEDS: ceFAZolin 2 GM PREMIX 50 ML IV SCH ×3 (06:21→23:15)
[2017-02-02] MEDS: cloNIDine HCL 0.3 MG TAB PO SCH ×3 (06:21→20:35)
[2017-02-02] MEDS: CHLORHEXIDINE 0.12% (ORAL KIT) 15 ML CUP MT SCH ×2 (08:00→20:35)
[2017-02-02] MEDS: BENEPROTEIN POWDER 1 PACK G-TUBE SCH ×3 (08:17→18:00)
--- NOTE | 2017-02-02 08:26 | HHI.PR ---
Neuropsych Emotional Emotional: UnabletoAssess: Emotional, Anxious/Fearful, Depressed/Sad, Hostile/ Resentful, Irritable/Angry/Frustrate, Labile, Constricted/Blunted Behavior Behavior: Intact: Impulsive/Agitated Cognitive Cognitive: Unable to Asses: Cognitive, Attention/Concentration, Confused/ Orientation, Insight/Awareness, Judgement/Problem-Solving, Memory Psychosocial Psychosocial: Intact: Psychosocial, Family/Other Adjustment, Realistic Expectation, Unable to Asses: Self-Esteem/Confidence Progress Notes/Response to Tx Contents of Sessions: Adjustment, Level of Consciousness Time with Patient: 15 minutes Premorbid psychological status Premorbid Cognitive, Emotional and Behavioral Status: Stable. The patient is high school educated, and has a solid work history. He has no prior psychiatric issues, and substance abuse history is unremarkable. Behavioral Reactions of Patient and Family/Support System: Stable. The patient s family is experiencing ongoing issues of adjustment given the nature of the injury, and this aspect of recovery will require ongoing monitoring. Emotional/Behavioral Status of Patient and Family/Support System: Stable. Pertinent issues, if appropriate to this patients clinical care, are described in detail above. Maximizing acute care outcome It is recommended that the patient be monitored for emergent behavioral impulsivity as the medical condition evolves. This patients neuropathological challenges may limit his rehabilitation potential going forward, and these challenges will require specialized therapeutic skills to maximize outcome. Additionally, the patients family is experiencing ongoing issues of adjustment given the traumatic nature of the injury, and they may benefit from ongoing psychological assistance. At this point in the recovery process, the patient does not have cognitive capacity as the patient is unable to understand a situation and its likely consequences, nor is he able to manipulate information rationally. Cognitive capacity will be assessed throughout the recovery process. Anticipated Problems Ongoing areas of concern will include behavioral impulsivity, lack of insight and judgment, which is expected to improve with time and treatment. Presently , the patient is intubated and sedated. Given the severity of the patient's injuries it is my clinical opinion that this patient will be unable to return to any type of productive employment for at least one year, perhaps longer and likely never. This patient is not considered safe to discharge home with supervision. Treatment Plan This clinician will continue to follow with you throughout the course of this patients acute care treatment, and I will be available to meet with the patient s family/support system to facilitate their understanding and the ongoing care of their family member. The goals of neuropsychological intervention shall be both educational and supportive to the family/support system as is deemed clinically appropriate. [facility] Level: III:Localized response-total assist Disinhibition Score: 19.18 Aggression Score: 14.00 Lability Score: 14.00 Agitated Behavior Total Score: 17 Impression 56 year old man s/p TBI 2T fall on 01/19/2017. He has significant neuropathology with outcome likely poor. Diagnosis: (1) Major neurocognitive disorder as late effect of traumatic brain injury without behavioral disturbance Progress Note Narrative Ongoing follow-up of patient seen during daily trauma rounds. This is day 14 post injury. He is neurobehaviorally improving, with opening of eyes and following simple commands inconsistently. He remains on Propranolol 30 q6H, Keppra, Valproic Acid 250 BID, and he has not required Haldol since 01/31 @ 2132. Nursing completion of ABS is most appreciated, showing that in general he is NOT agitated/restless, but trending up with the disinhibition component, yet still not clinically significant. The patient is Rancho III, improving to IV. Suggestion to trauma team to consider starting Amantadine 100 qD and d/c Propranolol, if not medically contraindicated. I will continue to follow. Contreras Snyder PhD Feb 02, 2017 8:26 am
[2017-02-02] MEDS: DOCUSATE SODIUM 100 MG/10 ML UDC PO SCH ×2 (08:51→20:35)
[2017-02-02] MEDS: levETIRAcetam 500 MG/5 ML UDC NG SCH ×2 (08:51→20:34)
[2017-02-02] MEDS: MAGNESIUM HYDROXIDE SUSP 30 ML CUP PO SCH ×2 (08:51→20:34)
[2017-02-02] MEDS: VALPROIC ACID SYRUP 250 MG/5 ML UDC PO SCH ×2 (08:51→20:35)
[2017-02-02] MEDS: FAMOTIDINE 40 MG/5 ML LIQ 50 ML BTL NG SCH ×2 (08:52→20:35)
[2017-02-02] MEDS: ENOXAPARIN SODIUM 40 MG/0.4 ML SYRINGE SQ SCH ×2 (08:52→20:38)
[2017-02-02] MEDS: LACTULOSE SYRUP 20 GM/30 ML CUP PO SCH (08:52)
--- NOTE | 2017-02-02 09:39 | PD.WCN.NOT ---
Wound Consult Description: Bilateral buttocks Communicated with: Tarah Fink,consult ordered by Recommendation: 1) Please reposition patient every 2 hours for comfort and offloading. 2) Cleanse bilateral buttocks with warm soap and water, rinse,pat dry.Remove old Calazime but please do not vagariously scrub skin. 3) Apply generous amount of Calazime cream to bilateral buttocks BID or post bowel movement. Additional Information: Patient was seen today by machine sign writer for bilateral buttocks wounds. Tarah Fikn present with machine sign writer. Patient requires full assist to reposition to left side. Buttocks cleansed with normal saline pat dry. Buttocks presents with denoted skin to left buttocks with an open area measuring 3cm x .9cm x .1cm beefy red wound base no drainage, no foul odor or no signs or symptoms of infection.Patient is currently on Airerapy Mattress. Calazime cream applied to bilateral buttocks for moisture/skin protection.Bilateral buttocks is blanchable.No open areas noted to Right buttocks.Patient repositioned to right side with 2 pillows for comfort. Multiple intact blisters noted to areas of upper extremities and left flank area probable cause is adhesive allergy blisters concurrent with adhesive placement. Ostomy Date of Surgery: Jan 19, 2017 Ana Maria Chang [facility] Feb 02, 2017 09:39
[2017-02-02] MEDS ORDERED: SODI1TAB PO (09:52)
[2017-02-02] MEDS ORDERED: ACET325T15 PO (09:52)
[2017-02-02] MEDS ORDERED: AMANTADINE HCL SOLN 100 MG/10 ML UDC PO ONE (11:00)
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
[2017-02-03] VITALS (19 sets, daily range): BP systolic 142–163; BP diastolic 64–72; PULSE 66–86; RESP 16–22; TEMP 98.5–99.7; O2SAT 92–100
[2017-02-03] MEDS: SODIUM CHLORIDE 1 GRAM TAB PO SCH ×2 (01:34→12:29)
[2017-02-03] MEDS: RESP: ALBUTEROL 2.5 MG/IPRATROPIUM 0.5 MG NEB (SCH) NEB ×2 (03:15→08:07)
[2017-02-03] MEDS: CHLORHEXIDINE GLUCONATE 2 % 1 PACK (2 CLOTHS) TOP SCH (03:51)
[2017-02-03] MEDS: SODIUM CHLOR 0.9% 1000 ML INJ 1,000 ML IV SCH ×2 (05:55→17:38)
[2017-02-03] MEDS: cloNIDine HCL 0.3 MG TAB PO SCH ×3 (05:55→22:18)
[2017-02-03] MEDS: INSULIN NovoLIN REGULAR SUPPLEMENTAL SCALE SQ SCH ×3 (06:00→17:37)
[2017-02-03] MEDS: CHLORHEXIDINE 0.12% (ORAL KIT) 15 ML CUP MT SCH ×2 (08:00→19:29)
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
[2017-02-03] MEDS: BENEPROTEIN POWDER 1 PACK G-TUBE SCH ×3 (08:19→17:37)
[2017-02-03] MEDS: LACTULOSE SYRUP 20 GM/30 ML CUP PO SCH (09:00)
[2017-02-03] MEDS: FAMOTIDINE 40 MG/5 ML LIQ 50 ML BTL NG SCH ×2 (09:00→19:28)
[2017-02-03] MEDS: AMANTADINE HCL SOLN 100 MG/10 ML UDC PO SCH ×2 (09:00→09:11)
[2017-02-03] MEDS: ceFAZolin 2 GM PREMIX 50 ML IV SCH ×3 (09:10→22:18)
[2017-02-03] MEDS: DOCUSATE SODIUM 100 MG/10 ML UDC PO SCH ×2 (09:11→19:29)
[2017-02-03] MEDS: PROPRANOLOL HCL 20 MG TAB PO SCH ×2 (09:11→19:28)
[2017-02-03] MEDS: levETIRAcetam 500 MG/5 ML UDC NG SCH ×2 (09:11→19:28)
[2017-02-03] MEDS: MAGNESIUM HYDROXIDE SUSP 30 ML CUP PO SCH ×2 (09:11→19:29)
[2017-02-03] MEDS: ENOXAPARIN SODIUM 40 MG/0.4 ML SYRINGE SQ SCH ×2 (09:11→19:27)
[2017-02-03] MEDS: VALPROIC ACID SYRUP 250 MG/5 ML UDC PO SCH ×2 (09:11→19:28)
[2017-02-03] MEDS: RESP: ALBUTEROL 2.5 MG/IPRATROPIUM 0.5 MG NEB (PRN) NEB ×2 (16:02→21:43)
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
[2017-02-04] VITALS (18 sets, daily range): BP systolic 113–167; BP diastolic 67–89; PULSE 65–95; RESP 17–24; TEMP 98.6–99.4; O2SAT 97–100
[2017-02-04] MEDS: SODIUM CHLORIDE 1 GRAM TAB PO SCH ×2 (01:43→13:01)
[2017-02-04] MEDS: CHLORHEXIDINE GLUCONATE 2 % 1 PACK (2 CLOTHS) TOP SCH (03:06)
[2017-02-04] MEDS: cloNIDine HCL 0.3 MG TAB PO SCH ×3 (05:20→21:50)
[2017-02-04 05:43] LABS: AUTOMATED NEUTROPHIL # 6.4 TH/MM3 (1.8-7.7); BASOPHIL # 0.2 TH/MM3 (0-0.2); BASOPHIL % 1.5 % (0.0-2.0); EOSINOPHIL # 0.3 TH/MM3 (0-0.4); EOSINOPHIL % 2.8 % (0.0-4.0); HEMATOCRIT 30.8 % (39.0-51.0); HEMOGLOBIN 10.2 GM/DL (13.0-17.0); LYMPH % 28.2 % (9.0-44.0); LYMPHOCYTE # 3.1 TH/MM3 (1.0-4.8); MEAN CELL VOLUME 88.4 FL (80.0-100.0); MEAN CORPUSCULAR HEMOGLOBIN 29.2 PG (27.0-34.0); MEAN CORPUSCULAR HGB CONC 33.1 % (32.0-36.0); MEAN PLATELET VOLUME 9.1 FL (7.0-11.0); MONO % 9.3 % (0.0-8.0); NEUT % 58.2 % (16.0-70.0); PLATELET COUNT 526 TH/MM3 (150-450); RED BLOOD COUNT 3.48 MIL/MM3 (4.50-5.90); RED CELL DISTRIBUTION WIDTH 13.1 % (11.6-17.2); WHITE BLOOD COUNT 10.9 TH/MM3 (4.0-11.0)
[2017-02-04] MEDS: INSULIN NovoLIN REGULAR SUPPLEMENTAL SCALE SQ SCH ×4 (06:00→18:00)
[2017-02-04 06:12] LABS: ALBUMIN 2.4 GM/DL (3.4-5.0); ALKALINE PHOSPHATASE 199 U/L (45-117); ALT (GPT) 61 U/L (12-78); AST (GOT) 49 U/L (15-37); BICARBONATE 26.7 MEQ/L (21.0-32.0); BLOOD UREA NITROGEN 13 MG/DL (7-18); CALCIUM 8.3 MG/DL (8.5-10.1); CHLORIDE 102 MEQ/L (98-107); CREATININE 0.71 MG/DL (0.60-1.30); GLOMERULAR FILTRATION RATE 115 ML/MIN (>89); GLUCOSE,RANDOM 110 MG/DL (74-106); SODIUM (NA) 136 MEQ/L (136-145); TOTAL BILIRUBIN ADULT 0.4 MG/DL (0.2-1.0); TOTAL PROTEIN 7.4 GM/DL (6.4-8.2)
--- NOTE | 2017-02-04 06:28 | RADRPT ---
EXAM DATE/TIME: 02/04/2017 04:37 [facility] COMPARISON: CHEST SINGLE AP, February 01, 2017, 5:15. INDICATIONS : Respiratory disease. MEDICAL HISTORY : Deep venous thrombosis. Traumatic brain injury. SURGICAL HISTORY : Unable to obtain. ENCOUNTER: Subsequent ACUITY: 3 weeks PAIN SCORE: Non-responsive. LOCATION: Bilateral chest FINDINGS: Tracheostomy is in good position. Right perihilar infiltrate is unchanged. Left lung aeration is impr tanner. Cardiac contour is grossly stable. CONCLUSION: Slight interval improvement in aeration. Erwin Arevalo MD on February 04, 2017 at 6:25 Board Certified Radiologist. This report was verified electronically.
[2017-02-04] MEDS: SODIUM CHLOR 0.9% 1000 ML INJ 1,000 ML IV SCH ×2 (07:55→20:00)
[2017-02-04] MEDS: CHLORHEXIDINE 0.12% (ORAL KIT) 15 ML CUP MT SCH ×2 (08:00→21:49)
[2017-02-04] MEDS ORDERED: GELATIN 12 MM/7 MM FOAM ONE (08:14)
[2017-02-04] MEDS: VALPROIC ACID SYRUP 250 MG/5 ML UDC PO SCH ×2 (08:40→21:49)
[2017-02-04] MEDS: AMANTADINE HCL SOLN 100 MG/10 ML UDC PO SCH (08:41)
[2017-02-04] MEDS: ceFAZolin 2 GM PREMIX 50 ML IV SCH ×3 (08:41→21:49)
[2017-02-04] MEDS: levETIRAcetam 500 MG/5 ML UDC NG SCH ×2 (08:41→21:55)
[2017-02-04] MEDS: PROPRANOLOL HCL 20 MG TAB PO SCH ×2 (08:41→21:50)
[2017-02-04] MEDS: FAMOTIDINE 40 MG/5 ML LIQ 50 ML BTL NG SCH ×2 (09:00→21:00)
[2017-02-04] MEDS: DOCUSATE SODIUM 100 MG/10 ML UDC PO SCH ×2 (09:00→21:00)
[2017-02-04] MEDS: BENEPROTEIN POWDER 1 PACK G-TUBE SCH ×3 (09:00→18:00)
[2017-02-04] MEDS: ENOXAPARIN SODIUM 40 MG/0.4 ML SYRINGE SQ SCH ×2 (09:00→21:50)
[2017-02-04] MEDS: LACTULOSE SYRUP 20 GM/30 ML CUP PO SCH (09:00)
[2017-02-04] MEDS: MAGNESIUM HYDROXIDE SUSP 30 ML CUP PO SCH ×2 (09:00→21:00)
--- NOTE | 2017-02-04 12:56 | RADRPT ---
EXAM DATE/TIME: 02/04/2017 10:35 [place] Corrected on: February 11, 2017; Added pain score and acuity data [facility] COMPARISON: US ARM BILATERAL VENOUS DOPPLER, January 28, 2017, 13:45. INDICATIONS : Follow up on DVT. Patient on therapeutic Lovenox. MEDICAL HISTORY : Deep venous thrombosis. Traumatic brain injury. SURGICAL HISTORY : Unable to obtain. ENCOUNTER: [facility] ACUITY: 3 Weeks PAIN SCORE: 8/10 LOCATION: Right arm. FINDINGS: Examination is limited and incomplete due to patient becoming uncooperative and combative during exam . There is only partial compressibility and large amount of residual thrombus in the internal jugular, subclavian and axillary veins. Blood flow is demonstrated in the axillary and subclavian veins. The c ephalic vein was not visualized. CONCLUSION: 1. Incomplete exam due to patient becoming uncooperative and combative during examination. 2. Findings are consistent with chronic DVT involving the axillary, subclavian and internal jugular v eins. There has been interval partial recannulization of the axillary and subclavian veins. Danny Vega MD on February 04, 2017 at 12:48 Board Certified Radiologist. This report was verified electronically.
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
[2017-02-04] MEDS: HALOPERIDOL LACTATE 5 MG/ML AMP IV PUSH PRN (21:56)
[2017-02-05] VITALS (19 sets, daily range): BP systolic 113–155; BP diastolic 60–80; PULSE 72–114; RESP 18–28; TEMP 98.8–100.1; O2SAT 94–100
[2017-02-05] MEDS: SODIUM CHLORIDE 1 GRAM TAB PO SCH ×2 (00:43→12:02)
[2017-02-05] MEDS: CHLORHEXIDINE GLUCONATE 2 % 1 PACK (2 CLOTHS) TOP SCH (02:37)
[2017-02-05 04:48] LABS: AUTOMATED NEUTROPHIL # 8.3 TH/MM3 (1.8-7.7); BASOPHIL # 0.1 TH/MM3 (0-0.2); BASOPHIL % 1.2 % (0.0-2.0); EOSINOPHIL # 0.2 TH/MM3 (0-0.4); EOSINOPHIL % 1.7 % (0.0-4.0); HEMATOCRIT 30.7 % (39.0-51.0); HEMOGLOBIN 10.7 GM/DL (13.0-17.0); LYMPH % 20.3 % (9.0-44.0); LYMPHOCYTE # 2.4 TH/MM3 (1.0-4.8); MEAN CORPUSCULAR HEMOGLOBIN 30.2 PG (27.0-34.0); MEAN CORPUSCULAR HGB CONC 34.7 % (32.0-36.0); MEAN PLATELET VOLUME 8.4 FL (7.0-11.0); NEUT % 68.8 % (16.0-70.0); PLATELET COUNT 646 TH/MM3 (150-450); RED BLOOD COUNT 3.53 MIL/MM3 (4.50-5.90); RED CELL DISTRIBUTION WIDTH 13.1 % (11.6-17.2)
[2017-02-05 05:01] LABS: BLOOD UREA NITROGEN 15 MG/DL (7-18); CREATININE 0.79 MG/DL (0.60-1.30); GLOMERULAR FILTRATION RATE 101 ML/MIN (>89); GLUCOSE,RANDOM 122 MG/DL (74-106)
[2017-02-05 05:02] LABS: ALBUMIN 2.7 GM/DL (3.4-5.0); ALT (GPT) 56 U/L (12-78); AST (GOT) 38 U/L (15-37); BICARBONATE 26.1 MEQ/L (21.0-32.0); CALCIUM 8.6 MG/DL (8.5-10.1); CHLORIDE 101 MEQ/L (98-107); SODIUM (NA) 134 MEQ/L (136-145)
[2017-02-05 05:04] LABS: ALKALINE PHOSPHATASE 194 U/L (45-117); TOTAL BILIRUBIN ADULT 0.5 MG/DL (0.2-1.0); TOTAL PROTEIN 7.9 GM/DL (6.4-8.2)
[2017-02-05] MEDS: INSULIN NovoLIN REGULAR SUPPLEMENTAL SCALE SQ SCH ×5 (06:00→23:36)
[2017-02-05] MEDS: ceFAZolin 2 GM PREMIX 50 ML IV SCH ×3 (06:01→23:35)
[2017-02-05] MEDS: cloNIDine HCL 0.3 MG TAB PO SCH ×3 (06:01→21:10)
[2017-02-05] MEDS: MAGNESIUM HYDROXIDE SUSP 30 ML CUP PO SCH ×2 (09:00→19:26)
[2017-02-05] MEDS: DOCUSATE SODIUM 100 MG/10 ML UDC PO SCH ×2 (09:00→20:58)
[2017-02-05] MEDS: LACTULOSE SYRUP 20 GM/30 ML CUP PO SCH (09:00)
[2017-02-05] MEDS: BENEPROTEIN POWDER 1 PACK G-TUBE SCH ×3 (09:00→17:36)
[2017-02-05] MEDS: levETIRAcetam 500 MG/5 ML UDC NG SCH ×2 (09:45→21:09)
[2017-02-05] MEDS: VALPROIC ACID SYRUP 250 MG/5 ML UDC PO SCH ×2 (09:45→21:09)
[2017-02-05] MEDS: ENOXAPARIN SODIUM 100 MG/ML SYRINGE SQ SCH ×2 (09:46→21:10)
[2017-02-05] MEDS: PROPRANOLOL HCL 20 MG TAB PO SCH ×2 (09:46→21:09)
[2017-02-05] MEDS: hydrALAZINE HCL 20 MG/ML VIAL IV PUSH PRN (09:47)
[2017-02-05] MEDS: RESP: ALBUTEROL 2.5 MG/IPRATROPIUM 0.5 MG NEB (PRN) NEB (11:38)
[2017-02-05] MEDS: AMANTADINE HCL SOLN 100 MG/10 ML UDC PO SCH (12:02)
[2017-02-05] MEDS: CHLORHEXIDINE 0.12% (ORAL KIT) 15 ML CUP MT SCH ×2 (12:04→21:09)
[2017-02-05] MEDS: FAMOTIDINE 40 MG/5 ML LIQ 50 ML BTL NG SCH ×2 (12:04→21:09)
[2017-02-05] MEDS: SODIUM CHLOR 0.9% 1000 ML INJ 1,000 ML IV SCH ×2 (12:04→23:36)
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
[2017-02-06] VITALS (10 sets, daily range): BP systolic 127–161; BP diastolic 53–91; PULSE 72–93; RESP 18–27; TEMP 97.7–99.3; O2SAT 86–99
[2017-02-06] MEDS: SODIUM CHLORIDE 1 GRAM TAB PO SCH ×2 (01:00→14:12)
[2017-02-06] MEDS: CHLORHEXIDINE GLUCONATE 2 % 1 PACK (2 CLOTHS) TOP SCH (02:06)
[2017-02-06 05:13] LABS: AUTOMATED NEUTROPHIL # 5.6 TH/MM3 (1.8-7.7); BASOPHIL # 0.2 TH/MM3 (0-0.2); BASOPHIL % 2.2 % (0.0-2.0); EOSINOPHIL # 0.2 TH/MM3 (0-0.4); EOSINOPHIL % 1.9 % (0.0-4.0); HEMOGLOBIN 11.2 GM/DL (13.0-17.0); LYMPH % 26.8 % (9.0-44.0); LYMPHOCYTE # 2.6 TH/MM3 (1.0-4.8); MEAN CELL VOLUME 87.7 FL (80.0-100.0); MEAN CORPUSCULAR HEMOGLOBIN 29.7 PG (27.0-34.0); MEAN CORPUSCULAR HGB CONC 33.9 % (32.0-36.0); MEAN PLATELET VOLUME 8.2 FL (7.0-11.0); MONO % 10.8 % (0.0-8.0); NEUT % 58.3 % (16.0-70.0); PLATELET COUNT 599 TH/MM3 (150-450); RED BLOOD COUNT 3.76 MIL/MM3 (4.50-5.90); RED CELL DISTRIBUTION WIDTH 13.7 % (11.6-17.2); WHITE BLOOD COUNT 9.6 TH/MM3 (4.0-11.0)
[2017-02-06 05:16] LABS: ALBUMIN 2.6 GM/DL (3.4-5.0); AST (GOT) 26 U/L (15-37); BICARBONATE 27.5 MEQ/L (21.0-32.0); BLOOD UREA NITROGEN 15 MG/DL (7-18); CALCIUM 8.6 MG/DL (8.5-10.1); CHLORIDE 102 MEQ/L (98-107); CREATININE 0.79 MG/DL (0.60-1.30); GLOMERULAR FILTRATION RATE 101 ML/MIN (>89); GLUCOSE,RANDOM 156 MG/DL (74-106); SODIUM (NA) 136 MEQ/L (136-145)
[2017-02-06 05:22] LABS: ALKALINE PHOSPHATASE 180 U/L (45-117); ALT (GPT) 46 U/L (12-78); TOTAL BILIRUBIN ADULT 0.4 MG/DL (0.2-1.0); TOTAL PROTEIN 7.8 GM/DL (6.4-8.2)
[2017-02-06] MEDS: cloNIDine HCL 0.3 MG TAB PO SCH ×3 (05:39→20:18)
[2017-02-06] MEDS: AMANTADINE HCL SOLN 100 MG/10 ML UDC PO SCH ×2 (06:10→14:13)
[2017-02-06] MEDS: ceFAZolin 2 GM PREMIX 50 ML IV SCH ×3 (06:10→23:00)
[2017-02-06] MEDS: INSULIN NovoLIN REGULAR SUPPLEMENTAL SCALE SQ SCH ×3 (06:36→18:00)
[2017-02-06] MEDS ORDERED: Albuterol-Ipratropium Neb NEB (07:47)
[2017-02-06] MEDS: DOCUSATE SODIUM 100 MG/10 ML UDC PO SCH ×2 (09:00→20:13)
[2017-02-06] MEDS: BENEPROTEIN POWDER 1 PACK G-TUBE SCH ×3 (09:00→18:00)
[2017-02-06] MEDS: LACTULOSE SYRUP 20 GM/30 ML CUP PO SCH (09:00)
[2017-02-06] MEDS: MAGNESIUM HYDROXIDE SUSP 30 ML CUP PO SCH ×2 (09:00→20:14)
[2017-02-06] MEDS: CHLORHEXIDINE 0.12% (ORAL KIT) 15 ML CUP MT SCH ×2 (09:30→20:00)
[2017-02-06] MEDS: VALPROIC ACID SYRUP 250 MG/5 ML UDC PO SCH ×2 (09:31→20:11)
[2017-02-06] MEDS: PROPRANOLOL HCL 20 MG TAB PO SCH ×2 (09:31→20:13)
[2017-02-06] MEDS: levETIRAcetam 500 MG/5 ML UDC NG SCH ×2 (09:32→20:13)
[2017-02-06] MEDS: ENOXAPARIN SODIUM 100 MG/ML SYRINGE SQ SCH ×2 (09:32→20:17)
[2017-02-06] MEDS: FAMOTIDINE 20 MG TAB NG SCH ×2 (09:59→20:13)
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
[2017-02-06] MEDS: FREE WATER G-TUBE SCH ×2 (12:00→18:00)
--- NOTE | 2017-02-06 16:34 | HHI.IDPN ---
Subjective Subjective Remarks intermittent fever up to 100 WBC down to 9 K Antibiotics cefazoline Allergies: Coded Allergies: No Known Allergies (Verified Allergy, Unknown, 01/19/17) Objective . Vital Signs Date Time Temp Pulse Resp B/P (MAP) Pulse Ox O2 Delivery O2 Flow Rate FiO2 02/06/17 09:34 99 Trach Collar 28 02/06/17 08:00 97.7 91 18 135/71 (92) 98 02/06/17 07:00 97 Trach Collar 28 02/06/17 06:00 87 02/06/17 04:00 98.5 72 24 137/53 (81) 86 02/06/17 04:00 83 02/06/17 02:00 78 02/06/17 00:00 97.7 72 25 138/57 (84) 95 02/06/17 00:00 72 02/05/17 22:00 72 02/05/17 20:42 95 Trach Collar 28 02/05/17 20:00 110 02/05/17 20:00 98.8 110 28 124/61 (82) 95 02/05/17 19:00 97 Trach Collar 28 02/05/17 18:00 102 02/06/17 02/06/17 02/07/17 15:00 23:00 07:00 Output Total 0 ml Balance 0 ml Tube Feeding Residual Discard 0 ml . Laboratory Tests Test 02/05/17 04:25 02/06/17 04:50 White Blood Count 12.0 TH/MM3 9.6 TH/MM3 Red Blood Count 3.53 MIL/MM3 3.76 MIL/MM3 Hemoglobin 10.7 GM/DL 11.2 GM/DL Hematocrit 30.7 % 33.0 % Mean Corpuscular Volume 87.0 FL 87.7 FL Mean Corpuscular Hemoglobin 30.2 PG 29.7 PG Mean Corpuscular Hemoglobin Concent 34.7 % 33.9 % Red Cell Distribution Width 13.1 % 13.7 % Platelet Count 646 TH/MM3 599 TH/MM3 Mean Platelet Volume 8.4 FL 8.2 FL Neutrophils (%) (Auto) 68.8 % 58.3 % Lymphocytes (%) (Auto) 20.3 % 26.8 % Monocytes (%) (Auto) 8.0 % 10.8 % Eosinophils (%) (Auto) 1.7 % 1.9 % Basophils (%) (Auto) 1.2 % 2.2 % Neutrophils # (Auto) 8.3 TH/MM3 5.6 TH/MM3 Lymphocytes # (Auto) 2.4 TH/MM3 2.6 TH/MM3 Monocytes # (Auto) 1.0 TH/MM3 1.0 TH/MM3 Eosinophils # (Auto) 0.2 TH/MM3 0.2 TH/MM3 Basophils # (Auto) 0.1 TH/MM3 0.2 TH/MM3 CBC Comment DIFF FINAL DIFF FINAL Differential Comment Laboratory Tests Test 02/05/17 04:25 02/06/17 04:50 Blood Urea Nitrogen 15 MG/DL 15 MG/DL Creatinine 0.79 MG/DL 0.79 MG/DL Random Glucose 122 MG/DL 156 MG/DL Total Protein 7.9 GM/DL 7.8 GM/DL Albumin 2.7 GM/DL 2.6 GM/DL Calcium Level 8.6 MG/DL 8.6 MG/DL Alkaline Phosphatase 194 U/L 180 U/L Aspartate Amino Transf (AST/SGOT) 38 U/L 26 U/L Alanine Aminotransferase (ALT/SGPT) 56 U/L 46 U/L Total Bilirubin 0.5 MG/DL 0.4 MG/DL Sodium Level 134 MEQ/L 136 MEQ/L Potassium Level 4.6 MEQ/L 4.4 MEQ/L Chloride Level 101 MEQ/L 102 MEQ/L Carbon Dioxide Level 26.1 MEQ/L 27.5 MEQ/L Anion Gap 7 MEQ/L 7 MEQ/L Estimat Glomerular Filtration Rate 101 ML/MIN 101 ML/MIN Imaging Last Impressions Chest X-Ray 02/04/17 0600 Signed Impressions: Service Date/Time: Saturday, February 04, 2017 04:37 - CONCLUSION: Slight interval improvement in aeration. Erwin Arevalo MD Upper Extremity Ultrasound 02/04/17 0000 Signed Impressions: Service Date/Time: Saturday, February 04, 2017 10:35 - CONCLUSION: 1. Incomplete exam due to patient becoming uncooperative and combative during examination. 2. Findings are consistent with chronic DVT involving the axillary, subclavian and internal jugular veins. There has been interval partial recannulization of the axillary and subclavian veins. Danny Vega MD Lower Extremity Ultrasound 01/28/17 0000 Signed Impressions: Service Date/Time: Saturday, January 28, 2017 13:28 - CONCLUSION: No DVT in either lower extremity. Eber Matthews MD Brain MRI 01/28/17 Signed Impressions: Service Date/Time: Saturday, January 28, 2017 10:54 - CONCLUSION: Compared to the prior CT scan of the brain of 01/23/2017 no new or significant changes are demonstrated. There continues to be areas of cerebral edema involving the base of both frontal lobes, left greater than right, left temporal lobe and left mid parietal lobe in areas of punctate hemorrhage. There is a small left-sided subdural hematoma and subarachnoid hemorrhage along both cerebral vertex. Juan Carrillo MD Head CT 01/23/17 0000 Signed Impressions: Service Date/Time: Monday, January 23, 2017 13:15 - CONCLUSION: 1. Compared to the prior exam there has been some overall improvement in the bilateral cerebral edema and subarachnoid hemorrhage. There also appears to be improvement in the previously noted small left-sided subdural hematoma. 2. There continues to be multiple punctate hemorrhagic areas of contusion surrounded by edema in the base of both frontal lobes, left greater than right. There continues to be a focal 1.4 cm area of intraparenchymal hemorrhage in the left frontal lobe. These findings are essentially stable compared to the prior examination. 3. No definite new areas of hemorrhage are seen. 4. The ventricles remain normal in size and midline in position. Juan Carrillo MD CT Angiography 01/23/17 0000 Signed Impressions: Service Date/Time: Monday, January 23, 2017 13:19 - CONCLUSION: 1. No evidence of pulmonary embolism. 2. There is atelectasis involving both lower lung farfan. No definite pleural effusions are demonstrated. 3. There is some scattered infiltrates in both upper lung farfan, left greater than right. Juan Carrillo MD Abdomen/Pelvis CT 01/23/17 0000 Signed Impressions: Service Date/Time: Monday, January 23, 2017 13:19 - CONCLUSION: 1. There is atelectasis in both lower lung farfan. 2. Otherwise, the CT scan of the abdomen and pelvis is not significantly changed compared to the prior examination. Juan Carrillo MD Neck CTA 01/20/17 Signed Impressions: Service Date/Time: January 13:29 - CONCLUSION: 1. No significant flow-limiting stenosis or dissection in the carotid or vertebral arteries. 2. Focal filling defect in the main right pulmonary artery which despite its unusual appearance is highly concerning for pulmonary embolus. 3. New discrete nodule in the right lung apex measuring up to 1.1 cm which was previously obscured by airspace consolidation in this region. Followup examination in approximately 3 months is recommended on an outpatient basis, unless future inpatient CT exams demonstrate resolution. 4. 8mm enhancing nodule in the right parotid gland which may reflect a small parotid lymph node. Consider followup examination with ultrasound on an outpatient basis. Danny Vega MD IVC Filter Placement X-Ray 01/20/17 0000 Signed Impressions: Service Date/Time: January 18:18 - CONCLUSION: Uncomplicated inferior vena cava filter placement as above. Note: This retrievable IVC filter should be removed as soon as patient's contraindication to anticoagulation or clinical status improves. Danny Vega MD Head CTA 01/20/17 0000 Signed Impressions: Service Date/Time: January 13:29 - CONCLUSION: 1. Small caliber right A1 segment, likely hypoplastic rather than vasospasm. 2. Otherwise, unremarkable head CTA examination. No aneurysm as questioned Danny Vega MD Thoracic Spine CT 01/19/17 140 Signed Impressions: Service Date/Time: Thursday, January 19, 2017 14:14 - CONCLUSION: 1. No acute fracture or subluxation. 2. Dense posterior bilateral lower lobe air space consolidation which may reflect atelectasis, contusion or aspiration. Danny Vega MD Pelvis X-Ray 01/19/171405 Signed Impressions: Service Date/Time: Thursday, January 19, 2017 13:59 - CONCLUSION: No acute disease. Krunal Hart MD Lumbar Spine CT 01/19/17 140 Signed Impressions: Service Date/Time: Thursday, January 19, 2017 14:14 - CONCLUSION: 1. No acute fracture or subluxation. 2. Degenerative spondylosis of the lumbar spine most prominently at L5-S1. Danny Vega MD Chest CT 01/19/171405 Signed Impressions: Service Date/Time: Thursday, January 19, 2017 14:23 - CONCLUSION: 1. Consolidating bibasilar air space disease within the lower lobes. 2. Tip of endotracheal tube at the level of the clavicles. 3. No evidence of vascular or cardiac mediastinal injury. 4. Intact osseous structures. Krunal Hart MD Cervical Spine CT 01/19/17 1406 Signed Impressions: Service Date/Time: Thursday, January 19, 2017 14:16 - CONCLUSION: No evidence of acute fracture or traumatic listhesis. Krunal Hart MD Physical Exam CONSTITUTIONAL/GENERAL: This is an adequately nourished patient, in no apparent distress. TUBES/LINES/DRAINS: SKIN: No jaundice, rashes, or lesions. Ecchymoses on upper extremities. No wounds seen anteriorly. Skin temperature appropriate. Not diaphoretic. NECK: trach in place , site ok CARDIOVASCULAR: Regular rate and rhythm without murmurs, gallops, or rubs. No JVD. Peripheral pulses symmetric. RESPIRATORY/CHEST: Symmetric, unlabored respirations. Scattered rhonchi auscultation. Breath sounds equal bilaterally. No wheezes, rales, or rhonchi. GASTROINTESTINAL: Abdomen soft, non-tender, nondistended. No hepato-splenomegaly , or palpable masses. No guarding. Bowel sounds present. GENITOURINARY: Without palpable bladder distension. gold in place MUSCULOSKELETAL: Extremities without clubbing, cyanosis, or edema. No joint tenderness or effusion noted. No calf tenderness. No mottling or clubbing. LYMPHATICS: No palpable cervical or supraclavicular adenopathy. NEUROLOGICAL: Awakens, oopens eyes spontaneously, maybe trying to focus. . Not follows commands consistently. PSYCHIATRIC: unable to assess Assessment & Plan Remarks Traumatic brain injury with multiple left hemispheric contusions and small subdural hemorrhage Acute VDRF Bl PNA more involving LLL, MSSA - improving clinically and radiologically Yeast in sputum - not crypto, no clin significance Persistent fever ? infection vs central vs combination likely from PNA Brain MRI findings noted : continious cerebral edema, hematoma, SAH Rec's: cont ancef for few more days (thru 02/09) Serenity Gallegos MD Feb 06, 2017 16:34
[2017-02-06] MEDS: HALOPERIDOL LACTATE 5 MG/ML AMP IV PUSH PRN (20:00)
[2017-02-07] VITALS (12 sets, daily range): BP systolic 117–161; BP diastolic 66–91; PULSE 82–136; RESP 22–28; TEMP 98.6–99.9; O2SAT 92–99
[2017-02-07] MEDS: HALOPERIDOL LACTATE 5 MG/ML AMP IV PUSH PRN ×3 (00:12→19:29)
[2017-02-07] MEDS: SODIUM CHLORIDE 1 GRAM TAB PO SCH ×2 (00:12→12:08)
[2017-02-07] MEDS: CHLORHEXIDINE GLUCONATE 2 % 1 PACK (2 CLOTHS) TOP SCH (04:00)
[2017-02-07 05:32] LABS: AUTOMATED NEUTROPHIL # 5.4 TH/MM3 (1.8-7.7); BASOPHIL # 0.1 TH/MM3 (0-0.2); BASOPHIL % 1.3 % (0.0-2.0); EOSINOPHIL # 0.2 TH/MM3 (0-0.4); EOSINOPHIL % 2.3 % (0.0-4.0); HEMATOCRIT 35.4 % (39.0-51.0); HEMOGLOBIN 11.9 GM/DL (13.0-17.0); LYMPH % 29.5 % (9.0-44.0); LYMPHOCYTE # 2.9 TH/MM3 (1.0-4.8); MEAN CELL VOLUME 88.3 FL (80.0-100.0); MEAN CORPUSCULAR HEMOGLOBIN 29.7 PG (27.0-34.0); MEAN CORPUSCULAR HGB CONC 33.6 % (32.0-36.0); MEAN PLATELET VOLUME 8.4 FL (7.0-11.0); MONO % 11.6 % (0.0-8.0); MONOCYTE # 1.1 TH/MM3 (0-0.9); NEUT % 55.3 % (16.0-70.0); PLATELET COUNT 654 TH/MM3 (150-450); RED BLOOD COUNT 4.01 MIL/MM3 (4.50-5.90); RED CELL DISTRIBUTION WIDTH 13.6 % (11.6-17.2); WHITE BLOOD COUNT 9.8 TH/MM3 (4.0-11.0)
[2017-02-07 05:55] LABS: BICARBONATE 26.4 MEQ/L (21.0-32.0); CALCIUM 8.8 MG/DL (8.5-10.1); CREATININE 0.83 MG/DL (0.60-1.30)
[2017-02-07] MEDS: FREE WATER G-TUBE SCH ×5 (06:00→23:35)
[2017-02-07] MEDS: cloNIDine HCL 0.3 MG TAB PO SCH ×3 (06:00→23:35)
[2017-02-07] MEDS: INSULIN NovoLIN REGULAR SUPPLEMENTAL SCALE SQ SCH ×4 (06:00→17:21)
[2017-02-07] MEDS: ceFAZolin 2 GM PREMIX 50 ML IV SCH ×3 (07:00→23:35)
[2017-02-07] MEDS: AMANTADINE HCL SOLN 100 MG/10 ML UDC PO SCH ×2 (07:00→12:07)
[2017-02-07] MEDS: BENEPROTEIN POWDER 1 PACK G-TUBE SCH ×3 (07:54→17:21)
[2017-02-07] MEDS: CHLORHEXIDINE 0.12% (ORAL KIT) 15 ML CUP MT SCH ×2 (07:54→19:35)
[2017-02-07] MEDS: VALPROIC ACID SYRUP 250 MG/5 ML UDC PO SCH ×2 (07:56→19:36)
[2017-02-07] MEDS: levETIRAcetam 500 MG/5 ML UDC NG SCH ×2 (07:56→19:35)
[2017-02-07] MEDS: PROPRANOLOL HCL 20 MG TAB PO SCH (07:57)
[2017-02-07] MEDS: LACTULOSE SYRUP 20 GM/30 ML CUP PO SCH (07:57)
[2017-02-07] MEDS: DOCUSATE SODIUM 100 MG/10 ML UDC PO SCH ×2 (07:57→19:36)
[2017-02-07] MEDS: FAMOTIDINE 20 MG TAB NG SCH ×2 (07:57→19:35)
[2017-02-07] MEDS: MAGNESIUM HYDROXIDE SUSP 30 ML CUP PO SCH ×2 (07:57→19:36)
[2017-02-07] MEDS: ENOXAPARIN SODIUM 100 MG/ML SYRINGE SQ SCH ×2 (09:00→19:36)
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
[2017-02-07] MEDS: hydrALAZINE HCL 20 MG/ML VIAL IV PUSH PRN (15:30)
[2017-02-07] MEDS: PROPRANOLOL HCL 10 MG TAB PO SCH (17:21)
[2017-02-07] MEDS: ZIPRASIDONE HCL 40 MG CAP PO SCH (23:47)
[2017-02-08] VITALS (14 sets, daily range): BP systolic 91–138; BP diastolic 54–91; PULSE 68–123; RESP 24–30; TEMP 97.8–99.7; O2SAT 94–97
[2017-02-08] MEDS: CHLORHEXIDINE GLUCONATE 2 % 1 PACK (2 CLOTHS) TOP SCH (02:10)
[2017-02-08] MEDS: SODIUM CHLORIDE 1 GRAM TAB PO SCH ×2 (02:12→12:37)
[2017-02-08] MEDS: FREE WATER G-TUBE SCH ×3 (03:33→18:00)
[2017-02-08] MEDS: INSULIN NovoLIN REGULAR SUPPLEMENTAL SCALE SQ SCH ×4 (06:00→18:00)
[2017-02-08] MEDS: cloNIDine HCL 0.3 MG TAB PO SCH ×3 (06:21→21:19)
[2017-02-08] MEDS: ceFAZolin 2 GM PREMIX 50 ML IV SCH ×3 (06:21→21:18)
[2017-02-08] MEDS: AMANTADINE HCL SOLN 100 MG/10 ML UDC PO SCH ×2 (06:37→12:41)
[2017-02-08] MEDS: CHLORHEXIDINE 0.12% (ORAL KIT) 15 ML CUP MT SCH ×2 (08:10→21:19)
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
[2017-02-08] MEDS: DOCUSATE SODIUM 100 MG/10 ML UDC PO SCH ×2 (09:17→21:18)
[2017-02-08] MEDS: MAGNESIUM HYDROXIDE SUSP 30 ML CUP PO SCH ×2 (09:17→21:18)
[2017-02-08] MEDS: BENEPROTEIN POWDER 1 PACK G-TUBE SCH ×3 (09:17→18:05)
[2017-02-08] MEDS: PROPRANOLOL HCL 10 MG TAB PO SCH ×3 (09:18→18:04)
[2017-02-08] MEDS: FAMOTIDINE 20 MG TAB NG SCH ×2 (09:18→21:19)
[2017-02-08] MEDS: VALPROIC ACID SYRUP 250 MG/5 ML UDC PO SCH ×2 (09:18→21:19)
[2017-02-08] MEDS: levETIRAcetam 500 MG/5 ML UDC NG SCH (09:18)
[2017-02-08] MEDS: ENOXAPARIN SODIUM 100 MG/ML SYRINGE SQ SCH ×2 (09:19→21:19)
[2017-02-08] MEDS: LACTULOSE SYRUP 20 GM/30 ML CUP PO SCH (12:41)
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
[2017-02-08] MEDS: ZIPRASIDONE HCL 40 MG CAP PO SCH (21:19)
[2017-02-09] VITALS (14 sets, daily range): BP systolic 99–132; BP diastolic 57–64; PULSE 60–92; RESP 14–24; TEMP 97.6–98.6; O2SAT 92–99
[2017-02-09] MEDS: SODIUM CHLORIDE 1 GRAM TAB PO SCH ×2 (01:12→12:35)
[2017-02-09] MEDS: FREE WATER G-TUBE SCH ×5 (01:12→23:21)
[2017-02-09] MEDS: CHLORHEXIDINE GLUCONATE 2 % 1 PACK (2 CLOTHS) TOP SCH (04:00)
[2017-02-09] MEDS: cloNIDine HCL 0.3 MG TAB PO SCH ×3 (06:00→20:23)
[2017-02-09] MEDS: INSULIN NovoLIN REGULAR SUPPLEMENTAL SCALE SQ SCH ×4 (06:00→18:00)
[2017-02-09] MEDS: AMANTADINE HCL SOLN 100 MG/10 ML UDC PO SCH ×2 (06:24→12:34)
[2017-02-09] MEDS: ceFAZolin 2 GM PREMIX 50 ML IV SCH ×3 (06:24→23:21)
[2017-02-09] MEDS: CHLORHEXIDINE 0.12% (ORAL KIT) 15 ML CUP MT SCH ×2 (08:00→20:00)
[2017-02-09] MEDS: FAMOTIDINE 20 MG TAB NG SCH ×2 (08:11→20:23)
[2017-02-09] MEDS: VALPROIC ACID SYRUP 250 MG/5 ML UDC PO SCH ×2 (08:11→20:23)
[2017-02-09] MEDS: ENOXAPARIN SODIUM 100 MG/ML SYRINGE SQ SCH ×2 (08:11→20:23)
[2017-02-09] MEDS: PROPRANOLOL HCL 10 MG TAB PO SCH ×3 (08:11→18:10)
[2017-02-09] MEDS: BENEPROTEIN POWDER 1 PACK G-TUBE SCH ×3 (08:11→18:00)
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
[2017-02-09] MEDS: MAGNESIUM HYDROXIDE SUSP 30 ML CUP PO SCH ×2 (09:00→20:23)
[2017-02-09] MEDS: DOCUSATE SODIUM 100 MG/10 ML UDC PO SCH ×2 (09:00→20:23)
[2017-02-09] MEDS: LACTULOSE SYRUP 20 GM/30 ML CUP PO SCH (09:00)
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
--- NOTE | 2017-02-09 17:32 | HHI.PR ---
Addendum to Inpatient Note Additional Information I will be OOT thru 02/16/2017 Rocio Arnett and [employer] willn cover for me for that period of time call them if any question or new issue occur Serenity Gallegos MD Feb 09, 2017 17:32
[2017-02-09] MEDS: ZIPRASIDONE HCL 40 MG CAP PO SCH (20:23)
[2017-02-10] VITALS (13 sets, daily range): BP systolic 115–163; BP diastolic 59–82; PULSE 62–81; RESP 12–23; TEMP 97.4–98.3; O2SAT 97–100
[2017-02-10] MEDS: SODIUM CHLORIDE 1 GRAM TAB PO SCH ×2 (01:31→13:00)
[2017-02-10] MEDS: CHLORHEXIDINE GLUCONATE 2 % 1 PACK (2 CLOTHS) TOP SCH (01:32)
[2017-02-10] MEDS: INSULIN NovoLIN REGULAR SUPPLEMENTAL SCALE SQ SCH ×4 (06:00→17:26)
[2017-02-10] MEDS: FREE WATER G-TUBE SCH ×3 (06:00→17:26)
[2017-02-10] MEDS: cloNIDine HCL 0.3 MG TAB PO SCH ×3 (06:00→21:40)
[2017-02-10] MEDS: AMANTADINE HCL SOLN 100 MG/10 ML UDC PO SCH ×2 (07:00→11:50)
[2017-02-10] MEDS: CHLORHEXIDINE 0.12% (ORAL KIT) 15 ML CUP MT SCH ×2 (08:00→19:59)
[2017-02-10] MEDS: DOCUSATE SODIUM 100 MG/10 ML UDC PO SCH ×2 (08:28→19:58)
[2017-02-10] MEDS: FAMOTIDINE 20 MG TAB NG SCH ×2 (08:28→19:58)
[2017-02-10] MEDS: VALPROIC ACID SYRUP 250 MG/5 ML UDC PO SCH ×3 (08:28→17:26)
[2017-02-10] MEDS: PROPRANOLOL HCL 10 MG TAB PO SCH ×3 (08:28→17:26)
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
[2017-02-10] MEDS: ENOXAPARIN SODIUM 100 MG/ML SYRINGE SQ SCH ×2 (08:29→19:58)
[2017-02-10] MEDS: LACTULOSE SYRUP 20 GM/30 ML CUP PO SCH (08:29)
[2017-02-10] MEDS: BENEPROTEIN POWDER 1 PACK G-TUBE SCH ×3 (08:29→17:26)
[2017-02-10] MEDS: MAGNESIUM HYDROXIDE SUSP 30 ML CUP PO SCH ×2 (08:29→19:58)
[2017-02-10] MEDS ORDERED: ZIPRASIDONE HCL 40 MG CAP PO PRN (10:15)
--- NOTE | 2017-02-10 13:14 | PD.CONS ---
HPI Service Urology Consult Requested By Dr. Holguin Reason for Consult Blood at meatus Primary Care Physician Non-Staff Diagnosis: History of Present Illness 56-year-old gentleman admitted for traumatic brain injury after sustaining a fall. During his present hospitalization the patient has been managed with an indwelling Jones catheter and developed blood around the catheter several days ago. According to the family members the patient actually had pulled out his catheter and at other times he moves around quite abruptly with tugging on the Jones. Urine output via Jones has been clear yellow. At the time of consultation there was a small amount of dry blood at the meatus. Review of Systems ROS Limitations: Altered Mental Status Except as stated in HPI: all other systems reviewed are Neg Past Family Social History Past Medical History Unable to obtain from patient Past Surgical History Unable to obtain from patient Reported Medications Unable to obtain from patient Allergies: Coded Allergies: No Known Allergies (Verified Allergy, Unknown, 01/19/17) Active Ordered Medications Refer to EMR Family History Unable to obtain from patient Social History Unable to obtain from patient Physical Exam Vital Signs Date Time Temp Pulse Resp B/P (MAP) Pulse Ox O2 Delivery O2 Flow Rate FiO2 02/10/17 10:00 68 02/10/17 08:00 98.3 81 13 163/82 (109) 100 02/10/17 08:00 68 02/10/17 07:00 95 Trach Collar 28 02/10/17 06:00 68 02/10/17 04:00 97.4 70 14 115/59 (77) 97 02/10/17 04:00 70 02/10/17 02:00 64 02/10/17 00:00 97.4 62 18 120/63 (82) 97 02/10/17 00:00 62 02/09/17 22:00 92 02/09/17 21:13 96 Trach Collar 6.00 28 02/09/17 20:00 98.4 92 24 130/62 (84) 97 02/09/17 20:00 92 02/09/17 19:00 97 Trach Collar 28 02/09/17 18:00 66 02/09/17 16:00 63 02/09/17 16:00 97.7 63 22 105/59 (74) 94 02/09/17 14:00 60 Physical Exam GENERAL: Lying quietly in bed with eyes open and in no apparent distress. Nonresponsive to questioning. SKIN: No rashes, ecchymoses or lesions. Cool and dry. HEAD: Atraumatic. Normocephalic. No temporal or scalp tenderness. EYES: Pupils equal round and reactive. Extraocular motions intact. No scleral icterus. No injection or drainage. ENT: Nose without bleeding, purulent drainage or septal hematoma. Throat without erythema, tonsillar hypertrophy or exudate. Uvula midline. Airway patent. NECK: Trachea midline. No JVD or lymphadenopathy. Supple, nontender, no meningeal signs. GASTROINTESTINAL: Abdomen soft, non-tender, nondistended. No hepato-splenomegaly , or palpable masses. No guarding. GENITOURINARY: Jones catheter in place draining clear yellow urine. Small amount of dried blood at meatus, bladder not distended. MUSCULOSKELETAL: Extremities without clubbing, cyanosis, or edema. No joint tenderness, effusion, or edema noted. No calf tenderness. Negative Homans sign bilaterally. NEUROLOGICAL: Altered mental status Date/Time Source Procedure Growth Status 01/29/17 06:31 Blood Peripheral Aerobic Blood Culture - Final NO GROWTH IN 5 DAYS Complete 01/29/17 06:31 Blood Peripheral Anaerobic Blood Culture - Final NO GROWTH IN 5 DAYS Complete 01/29/17 04:45 Stool Stool Stool Occult Blood ([facility]) - Final HEMOCCULT NEGATIVE Complete 01/26/17 16:00 Bronchial Washings Right Lower Lobe Fungal Smear - Final NO FUNGAL ELEMENTS SEEN. Resulted 01/26/17 16:00 Bronchial Washings Right Lower Lobe Fungal Culture - Preliminary Resulted 01/26/17 13:05 Urine Catheterized Urine Urine Culture - Final NO GROWTH IN 48 HOURS. Complete Result Diagram: 02/07/17 0446 02/07/17 0446 Imaging Last Impressions Chest X-Ray 02/04/17 0600 Signed Impressions: Service Date/Time: Saturday, February 04, 2017 04:37 - CONCLUSION: Slight interval improvement in aeration. Erwin Arevalo MD Upper Extremity Ultrasound 02/04/17 0000 Signed Impressions: Service Date/Time: Saturday, February 04, 2017 10:35 - CONCLUSION: 1. Incomplete exam due to patient becoming uncooperative and combative during examination. 2. Findings are consistent with chronic DVT involving the axillary, subclavian and internal jugular veins. There has been interval partial recannulization of the axillary and subclavian veins. Danny Vega MD Lower Extremity Ultrasound 01/28/17 0000 Signed Impressions: Service Date/Time: Saturday, January 28, 2017 13:28 - CONCLUSION: No DVT in either lower extremity. Eber Matthews MD Brain MRI 01/28/17 0000 Signed Impressions: Service Date/Time: Saturday, January 28, 2017 10:54 - CONCLUSION: Compared to the prior CT scan of the brain of 01/23/2017 no new or significant changes are demonstrated. There continues to be areas of cerebral edema involving the base of both frontal lobes, left greater than right, left temporal lobe and left mid parietal lobe in areas of punctate hemorrhage. There is a small left-sided subdural hematoma and subarachnoid hemorrhage along both cerebral vertex. Juan Carrillo MD Head CT 01/23/17 0000 Signed Impressions: Service Date/Time: Monday, January 23, 2017 13:15 - CONCLUSION: 1. Compared to the prior exam there has been some overall improvement in the bilateral cerebral edema and subarachnoid hemorrhage. There also appears to be improvement in the previously noted small left-sided subdural hematoma. 2. There continues to be multiple punctate hemorrhagic areas of contusion surrounded by edema in the base of both frontal lobes, left greater than right. There continues to be a focal 1.4 cm area of intraparenchymal hemorrhage in the left frontal lobe. These findings are essentially stable compared to the prior examination. 3. No definite new areas of hemorrhage are seen. 4. The ventricles remain normal in size and midline in position. Juan Carrillo MD CT Angiography 01/23/17 0000 Signed Impressions: Service Date/Time: Monday, January 23, 2017 13:19 - CONCLUSION: 1. No evidence of pulmonary embolism. 2. There is atelectasis involving both lower lung farfan. No definite pleural effusions are demonstrated. 3. There is some scattered infiltrates in both upper lung farfan, left greater than right. Juan Carrillo MD Abdomen/Pelvis CT 01/23/17 0000 Signed Impressions: Service Date/Time: Monday, January 23, 2017 13:19 - CONCLUSION: 1. There is atelectasis in both lower lung farfan. 2. Otherwise, the CT scan of the abdomen and pelvis is not significantly changed compared to the prior examination. Juan Carrillo MD Neck CTA 01/20/17 0000 Signed Impressions: Service Date/Time: January 13:29 - CONCLUSION: 1. No significant flow-limiting stenosis or dissection in the carotid or vertebral arteries. 2. Focal filling defect in the main right pulmonary artery which despite its unusual appearance is highly concerning for pulmonary embolus. 3. New discrete nodule in the right lung apex measuring up to 1.1 cm which was previously obscured by airspace consolidation in this region. Followup examination in approximately 3 months is recommended on an outpatient basis, unless future inpatient CT exams demonstrate resolution. 4. 8mm enhancing nodule in the right parotid gland which may reflect a small parotid lymph node. Consider followup examination with ultrasound on an outpatient basis. Danny Vega MD IVC Filter Placement X-Ray 01/20/17 0000 Signed Impressions: Service Date/Time: January 18:18 - CONCLUSION: Uncomplicated inferior vena cava filter placement as above. Note: This retrievable IVC filter should be removed as soon as patient's contraindication to anticoagulation or clinical status improves. Danny Vega MD Head CTA 01/20/17 0000 Signed Impressions: Service Date/Time: January 13:29 - CONCLUSION: 1. Small caliber right A1 segment, likely hypoplastic rather than vasospasm. 2. Otherwise, unremarkable head CTA examination. No aneurysm as questioned Danny Vega MD Thoracic Spine CT 01/19/17 1406 Signed Impressions: Service Date/Time: Thursday, January 19, 2017 14:14 - CONCLUSION: 1. No acute fracture or subluxation. 2. Dense posterior bilateral lower lobe air space consolidation which may reflect atelectasis, contusion or aspiration. Danny Vega MD Pelvis X-Ray 01/19/17 1406 Signed Impressions: Service Date/Time: Thursday, January 19, 2017 13:59 - CONCLUSION: No acute disease. Krunal Hart MD Lumbar Spine CT 01/19/17 1406 Signed Impressions: Service Date/Time: Thursday, January 19, 2017 14:14 - CONCLUSION: 1. No acute fracture or subluxation. 2. Degenerative spondylosis of the lumbar spine most prominently at L5-S1. Danny Vega MD Chest CT 01/19/17 140 Signed Impressions: Service Date/Time: Thursday, January 19, 2017 14:23 - CONCLUSION: 1. Consolidating bibasilar air space disease within the lower lobes. 2. Tip of endotracheal tube at the level of the clavicles. 3. No evidence of vascular or cardiac mediastinal injury. 4. Intact osseous structures. Krunal Hart MD Cervical Spine CT 01/19/171405 Signed Impressions: Service Date/Time: Thursday, January 19, 2017 14:16 - CONCLUSION: No evidence of acute fracture or traumatic listhesis. Krunal Hart MD Assessment and Plan Assessment and Plan Urologic impression: Blood at meatus related to traumatic tugging on the Jones. Presently resolved.This may be an ongoing problem that the patient continues to thrash about abruptly or pull on the Jones. Recommendations: #1 restrained patient to limit tugging and pulling on the Jones catheter. #2 nothing further to add at this time #3 will be available as needed. Samuel Kent MD Feb 10, 2017 13:14
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
[2017-02-11] VITALS (14 sets, daily range): BP systolic 96–145; BP diastolic 54–74; PULSE 60–79; RESP 12–20; TEMP 97.8–98.5; O2SAT 94–100
[2017-02-11] MEDS: SODIUM CHLORIDE 1 GRAM TAB PO SCH ×2 (00:37→13:04)
[2017-02-11] MEDS: INSULIN NovoLIN REGULAR SUPPLEMENTAL SCALE SQ SCH ×4 (00:58→18:00)
[2017-02-11] MEDS: CHLORHEXIDINE GLUCONATE 2 % 1 PACK (2 CLOTHS) TOP SCH (04:00)
[2017-02-11] MEDS: FREE WATER G-TUBE SCH ×4 (05:01→18:00)
[2017-02-11 05:27] LABS: AUTOMATED NEUTROPHIL # 4.9 TH/MM3 (1.8-7.7); BASOPHIL # 0.1 TH/MM3 (0-0.2); BASOPHIL % 1.1 % (0.0-2.0); EOSINOPHIL # 0.1 TH/MM3 (0-0.4); EOSINOPHIL % 0.9 % (0.0-4.0); HEMATOCRIT 33.7 % (39.0-51.0); HEMOGLOBIN 11.1 GM/DL (13.0-17.0); LYMPH % 34.9 % (9.0-44.0); LYMPHOCYTE # 3.2 TH/MM3 (1.0-4.8); MEAN CELL VOLUME 90.5 FL (80.0-100.0); MEAN CORPUSCULAR HEMOGLOBIN 29.7 PG (27.0-34.0); MEAN CORPUSCULAR HGB CONC 32.8 % (32.0-36.0); MEAN PLATELET VOLUME 8.7 FL (7.0-11.0); MONO % 9.4 % (0.0-8.0); MONOCYTE # 0.9 TH/MM3 (0-0.9); NEUT % 53.7 % (16.0-70.0); PLATELET COUNT 291 TH/MM3 (150-450); RED BLOOD COUNT 3.73 MIL/MM3 (4.50-5.90); RED CELL DISTRIBUTION WIDTH 13.5 % (11.6-17.2); WHITE BLOOD COUNT 9.1 TH/MM3 (4.0-11.0)
[2017-02-11 05:45] LABS: BICARBONATE 26.9 MEQ/L (21.0-32.0); CREATININE 0.88 MG/DL (0.60-1.30)
[2017-02-11] MEDS: cloNIDine HCL 0.3 MG TAB PO SCH ×3 (05:50→22:31)
[2017-02-11] MEDS: AMANTADINE HCL SOLN 100 MG/10 ML UDC PO SCH ×2 (07:29→13:04)
[2017-02-11] MEDS: CHLORHEXIDINE 0.12% (ORAL KIT) 15 ML CUP MT SCH ×2 (08:00→20:00)
[2017-02-11] MEDS: LACTULOSE SYRUP 20 GM/30 ML CUP PO SCH (09:00)
[2017-02-11] MEDS: BENEPROTEIN POWDER 1 PACK G-TUBE SCH ×3 (09:00→18:00)
[2017-02-11] MEDS: MAGNESIUM HYDROXIDE SUSP 30 ML CUP PO SCH ×2 (09:00→19:38)
[2017-02-11] MEDS: DOCUSATE SODIUM 100 MG/10 ML UDC PO SCH ×2 (09:10→19:37)
[2017-02-11] MEDS: ENOXAPARIN SODIUM 100 MG/ML SYRINGE SQ SCH ×2 (09:10→19:38)
[2017-02-11] MEDS: VALPROIC ACID SYRUP 250 MG/5 ML UDC PO SCH ×3 (09:11→18:24)
[2017-02-11] MEDS: FAMOTIDINE 20 MG TAB NG SCH ×2 (09:11→19:37)
[2017-02-11] MEDS: PROPRANOLOL HCL 10 MG TAB PO SCH ×3 (09:11→18:24)
[2017-02-11] MEDS: HALOPERIDOL LACTATE 5 MG/ML AMP IV PRN (14:03)
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
[2017-02-11 16:38] LABS: HEMATOCRIT 31.8 % (39.0-51.0); HEMOGLOBIN 10.3 GM/DL (13.0-17.0); MEAN CELL VOLUME 90.2 FL (80.0-100.0); MEAN CORPUSCULAR HEMOGLOBIN 29.4 PG (27.0-34.0); MEAN CORPUSCULAR HGB CONC 32.6 % (32.0-36.0); PLATELET COUNT 295 TH/MM3 (150-450); RED BLOOD COUNT 3.52 MIL/MM3 (4.50-5.90); RED CELL DISTRIBUTION WIDTH 13.7 % (11.6-17.2); WHITE BLOOD COUNT 9.2 TH/MM3 (4.0-11.0)
[2017-02-11] MEDS: QUEtiapine FUMARATE 100 MG TAB PO SCH (19:38)
[2017-02-12] VITALS (14 sets, daily range): BP systolic 116–137; BP diastolic 57–71; PULSE 57–68; RESP 14–17; TEMP 98–98.5; O2SAT 99–100
[2017-02-12] MEDS: SODIUM CHLORIDE 1 GRAM TAB PO SCH ×2 (00:59→13:18)
[2017-02-12] MEDS: CHLORHEXIDINE GLUCONATE 2 % 1 PACK (2 CLOTHS) TOP SCH (00:59)
[2017-02-12] MEDS: cloNIDine HCL 0.3 MG TAB PO SCH ×3 (05:51→22:08)
[2017-02-12] MEDS: FREE WATER G-TUBE SCH ×5 (05:51→23:45)
[2017-02-12] MEDS: AMANTADINE HCL SOLN 100 MG/10 ML UDC PO SCH ×2 (05:55→13:18)
[2017-02-12] MEDS: INSULIN NovoLIN REGULAR SUPPLEMENTAL SCALE SQ SCH ×5 (05:59→23:45)
[2017-02-12] MEDS: FAMOTIDINE 20 MG TAB NG SCH ×2 (07:46→20:48)
[2017-02-12] MEDS: VALPROIC ACID SYRUP 250 MG/5 ML UDC PO SCH ×3 (07:46→18:26)
[2017-02-12] MEDS: CHLORHEXIDINE 0.12% (ORAL KIT) 15 ML CUP MT SCH ×2 (07:46→20:00)
[2017-02-12] MEDS: BENEPROTEIN POWDER 1 PACK G-TUBE SCH ×3 (07:46→18:00)
[2017-02-12] MEDS: PROPRANOLOL HCL 10 MG TAB PO SCH ×3 (07:46→18:26)
[2017-02-12] MEDS: ENOXAPARIN SODIUM 100 MG/ML SYRINGE SQ SCH ×2 (07:47→21:00)
[2017-02-12] MEDS: DOCUSATE SODIUM 100 MG/10 ML UDC PO SCH ×2 (07:47→20:48)
[2017-02-12] MEDS: LACTULOSE SYRUP 20 GM/30 ML CUP PO SCH (07:47)
[2017-02-12] MEDS: MAGNESIUM HYDROXIDE SUSP 30 ML CUP PO SCH ×2 (07:47→20:48)
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
[2017-02-12] MEDS: QUEtiapine FUMARATE 100 MG TAB PO SCH (20:48)
[2017-02-13] VITALS (14 sets, daily range): BP systolic 102–129; BP diastolic 52–62; PULSE 54–77; RESP 16–22; TEMP 97.7–98.7; O2SAT 94–100
[2017-02-13] MEDS: SODIUM CHLORIDE 1 GRAM TAB PO SCH ×2 (00:18→13:08)
[2017-02-13] MEDS: CHLORHEXIDINE GLUCONATE 2 % 1 PACK (2 CLOTHS) TOP SCH (03:03)
[2017-02-13] MEDS: cloNIDine HCL 0.3 MG TAB PO SCH ×3 (05:18→21:23)
[2017-02-13] MEDS: INSULIN NovoLIN REGULAR SUPPLEMENTAL SCALE SQ SCH ×4 (05:18→23:50)
[2017-02-13] MEDS: FREE WATER G-TUBE SCH ×4 (05:18→23:50)
[2017-02-13] MEDS: AMANTADINE HCL SOLN 100 MG/10 ML UDC PO SCH ×2 (07:12→13:08)
[2017-02-13] MEDS: CHLORHEXIDINE 0.12% (ORAL KIT) 15 ML CUP MT SCH ×2 (08:00→20:00)
[2017-02-13] MEDS: VALPROIC ACID SYRUP 250 MG/5 ML UDC PO SCH ×3 (08:05→18:03)
[2017-02-13] MEDS: FAMOTIDINE 20 MG TAB NG SCH ×2 (08:06→21:23)
[2017-02-13] MEDS: BENEPROTEIN POWDER 1 PACK G-TUBE SCH ×3 (08:06→18:00)
[2017-02-13] MEDS: ENOXAPARIN SODIUM 100 MG/ML SYRINGE SQ SCH ×2 (08:06→21:23)
[2017-02-13] MEDS: PROPRANOLOL HCL 10 MG TAB PO SCH ×3 (08:06→18:03)
[2017-02-13] MEDS: DOCUSATE SODIUM 100 MG/10 ML UDC PO SCH ×2 (08:59→21:23)
[2017-02-13] MEDS: LACTULOSE SYRUP 20 GM/30 ML CUP PO SCH (09:00)
[2017-02-13] MEDS ORDERED: ACETAMINOPHEN/HYDROcodone 325 MG/5 MG TAB PO PRN (09:00)
[2017-02-13] MEDS ORDERED: MORPHINE SULFATE 2 MG/ML INJ IV PUSH PRN (09:00)
[2017-02-13] MEDS ORDERED: ACETAMINOPHEN/HYDROcodone 325 MG/7.5 MG TAB PO PRN (09:00)
[2017-02-13] MEDS: MAGNESIUM HYDROXIDE SUSP 30 ML CUP PO SCH ×2 (09:00→21:23)
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
[2017-02-13] MEDS: QUEtiapine FUMARATE 100 MG TAB PO SCH (21:23)
[2017-02-14] VITALS (15 sets, daily range): BP systolic 92–134; BP diastolic 50–62; PULSE 56–103; RESP 11–24; TEMP 97.7–99; O2SAT 94–100
[2017-02-14] MEDS: SODIUM CHLORIDE 1 GRAM TAB PO SCH ×2 (00:28→11:39)
[2017-02-14] MEDS: CHLORHEXIDINE GLUCONATE 2 % 1 PACK (2 CLOTHS) TOP SCH (03:21)
[2017-02-14 05:13] LABS: AUTOMATED NEUTROPHIL # 5.4 TH/MM3 (1.8-7.7); BASOPHIL # 0.1 TH/MM3 (0-0.2); BASOPHIL % 0.8 % (0.0-2.0); EOSINOPHIL # 0.1 TH/MM3 (0-0.4); EOSINOPHIL % 0.9 % (0.0-4.0); HEMATOCRIT 32.5 % (39.0-51.0); HEMOGLOBIN 10.6 GM/DL (13.0-17.0); LYMPH % 33.4 % (9.0-44.0); LYMPHOCYTE # 3.4 TH/MM3 (1.0-4.8); MEAN CELL VOLUME 91.1 FL (80.0-100.0); MEAN CORPUSCULAR HEMOGLOBIN 29.7 PG (27.0-34.0); MEAN CORPUSCULAR HGB CONC 32.6 % (32.0-36.0); MEAN PLATELET VOLUME 8.9 FL (7.0-11.0); MONO % 11.5 % (0.0-8.0); MONOCYTE # 1.2 TH/MM3 (0-0.9); NEUT % 53.4 % (16.0-70.0); PLATELET COUNT 201 TH/MM3 (150-450); RED BLOOD COUNT 3.57 MIL/MM3 (4.50-5.90); RED CELL DISTRIBUTION WIDTH 13.8 % (11.6-17.2); WHITE BLOOD COUNT 10.1 TH/MM3 (4.0-11.0)
[2017-02-14 05:23] LABS: ALBUMIN 2.6 GM/DL (3.4-5.0); AST (GOT) 11 U/L (15-37); BICARBONATE 26.2 MEQ/L (21.0-32.0); BLOOD UREA NITROGEN 19 MG/DL (7-18); CALCIUM 8.4 MG/DL (8.5-10.1); CHLORIDE 100 MEQ/L (98-107); CREATININE 1.04 MG/DL (0.60-1.30); GLOMERULAR FILTRATION RATE 74 ML/MIN (>89); GLUCOSE,RANDOM 121 MG/DL (74-106); SODIUM (NA) 136 MEQ/L (136-145)
[2017-02-14 05:24] LABS: ALT (GPT) 23 U/L (12-78)
[2017-02-14 05:27] LABS: ALKALINE PHOSPHATASE 112 U/L (45-117); TOTAL BILIRUBIN ADULT 0.4 MG/DL (0.2-1.0); TOTAL PROTEIN 7.4 GM/DL (6.4-8.2)
[2017-02-14] MEDS: FREE WATER G-TUBE SCH ×3 (05:43→18:00)
[2017-02-14] MEDS: cloNIDine HCL 0.3 MG TAB PO SCH ×3 (05:43→21:11)
[2017-02-14] MEDS: INSULIN NovoLIN REGULAR SUPPLEMENTAL SCALE SQ SCH ×3 (05:44→18:00)
[2017-02-14] MEDS: AMANTADINE HCL SOLN 100 MG/10 ML UDC PO SCH ×2 (07:00→11:39)
[2017-02-14] MEDS: CHLORHEXIDINE 0.12% (ORAL KIT) 15 ML CUP MT SCH ×2 (08:00→20:00)
[2017-02-14] MEDS: PROPRANOLOL HCL 10 MG TAB PO SCH ×3 (08:49→18:06)
[2017-02-14] MEDS: ENOXAPARIN SODIUM 100 MG/ML SYRINGE SQ SCH ×2 (08:49→21:15)
[2017-02-14] MEDS: LACTULOSE SYRUP 20 GM/30 ML CUP PO SCH (08:50)
[2017-02-14] MEDS: DOCUSATE SODIUM 100 MG/10 ML UDC PO SCH ×2 (08:50→21:15)
[2017-02-14] MEDS: VALPROIC ACID SYRUP 250 MG/5 ML UDC PO SCH ×3 (08:50→18:05)
[2017-02-14] MEDS: BENEPROTEIN POWDER 1 PACK G-TUBE SCH ×3 (08:50→18:00)
[2017-02-14] MEDS: FAMOTIDINE 20 MG TAB NG SCH ×2 (08:50→21:15)
[2017-02-14] MEDS: MAGNESIUM HYDROXIDE SUSP 30 ML CUP PO SCH ×2 (08:51→21:15)
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
[2017-02-14] MEDS: QUEtiapine FUMARATE 100 MG TAB PO SCH (21:15)
[2017-02-15] VITALS (15 sets, daily range): BP systolic 111–158; BP diastolic 57–80; PULSE 72–134; RESP 12–26; TEMP 98.3–99; O2SAT 93–100
[2017-02-15] MEDS: HALOPERIDOL LACTATE 5 MG/ML AMP IV PRN ×2 (00:02→08:37)
[2017-02-15] MEDS: FREE WATER G-TUBE SCH ×4 (00:46→18:00)
[2017-02-15] MEDS: CHLORHEXIDINE GLUCONATE 2 % 1 PACK (2 CLOTHS) TOP SCH (01:08)
[2017-02-15] MEDS: SODIUM CHLORIDE 1 GRAM TAB PO SCH ×2 (01:08→13:22)
[2017-02-15] MEDS: cloNIDine HCL 0.3 MG TAB PO SCH ×3 (05:09→22:00)
[2017-02-15] MEDS: INSULIN NovoLIN REGULAR SUPPLEMENTAL SCALE SQ SCH ×4 (05:09→18:00)
[2017-02-15] MEDS: AMANTADINE HCL SOLN 100 MG/10 ML UDC PO SCH ×2 (06:19→13:27)
[2017-02-15] MEDS: CHLORHEXIDINE 0.12% (ORAL KIT) 15 ML CUP MT SCH ×2 (08:00→20:39)
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
[2017-02-15] MEDS: BENEPROTEIN POWDER 1 PACK G-TUBE SCH ×3 (08:36→18:00)
[2017-02-15] MEDS: PROPRANOLOL HCL 10 MG TAB PO SCH (08:37)
[2017-02-15] MEDS: FAMOTIDINE 20 MG TAB NG SCH ×2 (08:37→20:37)
[2017-02-15] MEDS: DOCUSATE SODIUM 100 MG/10 ML UDC PO SCH ×2 (08:38→20:37)
[2017-02-15] MEDS: ENOXAPARIN SODIUM 100 MG/ML SYRINGE SQ SCH (08:38)
[2017-02-15] MEDS: MAGNESIUM HYDROXIDE SUSP 30 ML CUP PO SCH ×2 (08:38→21:00)
[2017-02-15] MEDS: LACTULOSE SYRUP 20 GM/30 ML CUP PO SCH (08:39)
[2017-02-15] MEDS: VALPROIC ACID SYRUP 250 MG/5 ML UDC PO SCH ×3 (08:40→18:00)
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
[2017-02-15] MEDS: QUEtiapine FUMARATE 100 MG TAB PO SCH ×2 (13:22→20:38)
[2017-02-15] MEDS ORDERED: HALOPERIDOL LACTATE 5 MG/ML AMP IM ONE (19:00)
[2017-02-15] MEDS ORDERED: HALOPERIDOL LACTATE 5 MG/ML AMP IV ONE (20:00)
[2017-02-15 20:09] LABS: HEMATOCRIT 32.6 % (39.0-51.0); HEMOGLOBIN 10.7 GM/DL (13.0-17.0)
[2017-02-15] MEDS: QUEtiapine FUMARATE 25 MG TAB PO SCH (20:37)
[2017-02-15] MEDS: APIXABAN 5 MG TABLET PO SCH (20:37)
[2017-02-16] VITALS (14 sets, daily range): BP systolic 95–124; BP diastolic 46–85; PULSE 95–135; RESP 15–25; TEMP 98.2–102.7; O2SAT 94–100
[2017-02-16] MEDS: SODIUM CHLORIDE 1 GRAM TAB PO SCH ×2 (01:02→14:39)
[2017-02-16] MEDS: INSULIN NovoLIN REGULAR SUPPLEMENTAL SCALE SQ SCH ×4 (01:03→17:25)
[2017-02-16] MEDS: CHLORHEXIDINE GLUCONATE 2 % 1 PACK (2 CLOTHS) TOP SCH (01:03)
[2017-02-16] MEDS ORDERED: METOPROLOL TARTRATE 5 MG/5 ML VIAL IV PUSH ONE (04:00)
[2017-02-16] MEDS: cloNIDine HCL 0.3 MG TAB PO SCH ×3 (05:27→22:00)
[2017-02-16] MEDS: FREE WATER G-TUBE SCH ×4 (05:45→17:14)
[2017-02-16] MEDS: QUEtiapine FUMARATE 100 MG TAB PO SCH ×3 (06:38→20:54)
[2017-02-16] MEDS: AMANTADINE HCL SOLN 100 MG/10 ML UDC PO SCH (06:41)
[2017-02-16] MEDS: CHLORHEXIDINE 0.12% (ORAL KIT) 15 ML CUP MT SCH ×2 (08:00→20:53)
[2017-02-16] MEDS: VALPROIC ACID SYRUP 250 MG/5 ML UDC PO SCH ×3 (08:40→17:25)
[2017-02-16] MEDS: DOCUSATE SODIUM 100 MG/10 ML UDC PO SCH ×2 (08:40→20:54)
[2017-02-16] MEDS: ACETAMINOPHEN 325 MG TAB PO PRN (08:40)
[2017-02-16] MEDS: APIXABAN 5 MG TABLET PO SCH ×2 (08:40→20:54)
[2017-02-16] MEDS: LACTULOSE SYRUP 20 GM/30 ML CUP PO SCH (08:41)
[2017-02-16] MEDS: FAMOTIDINE 20 MG TAB NG SCH ×2 (08:41→20:54)
[2017-02-16] MEDS: BENEPROTEIN POWDER 1 PACK G-TUBE SCH ×3 (08:41→17:14)
[2017-02-16] MEDS: MAGNESIUM HYDROXIDE SUSP 30 ML CUP PO SCH ×2 (08:41→20:54)
[2017-02-16] MEDS: HALOPERIDOL LACTATE 5 MG/ML AMP IV PUSH PRN (10:15)
[2017-02-16] MEDS ORDERED: METOPROLOL TARTRATE 5 MG/5 ML VIAL IV PUSH SCH (11:00)
--- NOTE | 2017-02-16 12:10 | EKG ---
Date Performed: 02/16/2017 Time Performed: 09:58:58 PTAGE: 56 years EKG: ATRIAL FLUTTER/TACHYCARDIA WITH RAPID VENTRICULAR RESPONSE NONSPECIFIC ST & T-WAVE ABNORMAL ITY ABNORMAL ECG PREVIOUS TRACING : 01/20/2017 15.20 DOCTOR: Ramy Karimi Interpretating Date/Time 02/16/2017 12:09:40
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
[2017-02-16] MEDS: METOPROLOL TARTRATE 5 MG/5 ML VIAL IV PUSH SCH (17:24)
[2017-02-16] MEDS: QUEtiapine FUMARATE 25 MG TAB PO SCH (20:53)
[2017-02-17] VITALS (12 sets, daily range): BP systolic 106–144; BP diastolic 55–91; PULSE 101–126; RESP 14–30; TEMP 98.4–100.1; O2SAT 93–98
[2017-02-17] MEDS: INSULIN NovoLIN REGULAR SUPPLEMENTAL SCALE SQ SCH ×4 (00:57→18:00)
[2017-02-17] MEDS: SODIUM CHLORIDE 1 GRAM TAB PO SCH ×2 (00:57→12:25)
[2017-02-17] MEDS: FREE WATER G-TUBE SCH ×4 (00:57→18:13)
[2017-02-17] MEDS: HALOPERIDOL LACTATE 5 MG/ML AMP IV PUSH PRN ×2 (03:14→09:38)
[2017-02-17] MEDS: CHLORHEXIDINE GLUCONATE 2 % 1 PACK (2 CLOTHS) TOP SCH (04:00)
[2017-02-17 04:58] LABS: BACTERIA, URINE MANY /hpf; BILIRUBIN, URINE NEG (NEG); BLOOD, URINE LARGE (NEG); GLUCOSE,URINE NEG (NEG); KETONE, URINE TRACE mg/dL (NEG); MUCUS URINE MANY /lpf (OCC); NITRITE,URINE POS (NEG); PH, URINE 5.5 (5.0-8.5); URINE LEUKOCYTE ESTERASE LARGE (NEG); WAXY CAST, URINE 12 /lpf; WHITE BLOOD CELL CLUMPS MANY
[2017-02-17 04:59] LABS: URINE COLOR LIGHT-RED (YELLW/STRAW)
[2017-02-17] MEDS: cloNIDine HCL 0.3 MG TAB PO SCH ×3 (06:00→21:02)
[2017-02-17] MEDS: QUEtiapine FUMARATE 100 MG TAB PO SCH ×2 (06:29→14:17)
[2017-02-17] MEDS: METOPROLOL TARTRATE 5 MG/5 ML VIAL IV PUSH SCH ×2 (06:29)
[2017-02-17] MEDS: CHLORHEXIDINE 0.12% (ORAL KIT) 15 ML CUP MT SCH ×2 (08:00→21:01)
[2017-02-17] MEDS: BENEPROTEIN POWDER 1 PACK G-TUBE SCH ×3 (08:13→18:13)
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
[2017-02-17] MEDS: MAGNESIUM HYDROXIDE SUSP 30 ML CUP PO SCH ×2 (08:22→21:02)
[2017-02-17] MEDS: LACTULOSE SYRUP 20 GM/30 ML CUP PO SCH (08:22)
[2017-02-17] MEDS: DOCUSATE SODIUM 100 MG/10 ML UDC PO SCH ×2 (08:22→21:02)
[2017-02-17] MEDS: VALPROIC ACID SYRUP 250 MG/5 ML UDC PO SCH ×3 (08:22→18:24)
[2017-02-17] MEDS: APIXABAN 5 MG TABLET PO SCH ×2 (08:23→21:03)
[2017-02-17] MEDS: FAMOTIDINE 20 MG TAB NG SCH ×2 (08:23→21:02)
[2017-02-17] MEDS ORDERED: QUET1TAB8 PO ×2 (10:14)
[2017-02-17] MEDS ORDERED: APIX5TAB PO (10:14)
[2017-02-17] MEDS ORDERED: METO25TA3 PO (10:14)
[2017-02-17] MEDS: METOPROLOL TARTRATE 25 MG TAB PO SCH ×2 (10:31→21:02)
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
[2017-02-17] MEDS: PIPERACIL-TAZO 3.375 GM PREMIX 50 ML IV SCH ×2 (12:26→18:23)
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
[2017-02-17] MEDS ORDERED: QUEtiapine FUMARATE 100 MG TAB PO SCH (21:00)
[2017-02-17] MEDS: ACETAMINOPHEN 325 MG TAB PO PRN (21:11)
[2017-02-18] VITALS (11 sets, daily range): BP systolic 92–111; BP diastolic 55–66; PULSE 82–100; RESP 16–24; TEMP 97.5–99.1; O2SAT 95–98
[2017-02-18] MEDS: FREE WATER G-TUBE SCH ×4 (00:09→18:00)
[2017-02-18] MEDS: INSULIN NovoLIN REGULAR SUPPLEMENTAL SCALE SQ SCH ×4 (00:09→18:00)
[2017-02-18] MEDS: PIPERACIL-TAZO 3.375 GM PREMIX 50 ML IV SCH ×4 (00:09→18:00)
[2017-02-18] MEDS: SODIUM CHLORIDE 1 GRAM TAB PO SCH ×2 (00:10→14:49)
[2017-02-18] MEDS: CHLORHEXIDINE GLUCONATE 2 % 1 PACK (2 CLOTHS) TOP SCH (03:51)
[2017-02-18] MEDS: cloNIDine HCL 0.3 MG TAB PO SCH ×3 (06:00→21:04)
[2017-02-18] MEDS: QUEtiapine FUMARATE 100 MG TAB PO SCH ×2 (06:11→14:50)
[2017-02-18] MEDS: CHLORHEXIDINE 0.12% (ORAL KIT) 15 ML CUP MT SCH ×2 (08:00→20:32)
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
[2017-02-18] MEDS: BENEPROTEIN POWDER 1 PACK G-TUBE SCH ×3 (09:00→18:00)
[2017-02-18] MEDS: METOPROLOL TARTRATE 25 MG TAB PO SCH ×3 (09:00→20:32)
[2017-02-18] MEDS: LACTULOSE SYRUP 20 GM/30 ML CUP PO SCH (09:00)
[2017-02-18] MEDS: VALPROIC ACID SYRUP 250 MG/5 ML UDC PO SCH ×3 (09:30→18:00)
[2017-02-18] MEDS: FAMOTIDINE 20 MG TAB NG SCH ×2 (09:30→20:32)
[2017-02-18] MEDS: MAGNESIUM HYDROXIDE SUSP 30 ML CUP PO SCH ×2 (09:30→20:32)
[2017-02-18] MEDS: DOCUSATE SODIUM 100 MG/10 ML UDC PO SCH ×2 (09:30→20:32)
[2017-02-18] MEDS: APIXABAN 5 MG TABLET PO SCH ×2 (09:30→20:32)
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
[2017-02-18] MEDS ORDERED: QUET1TAB9 PO (14:11)
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
[2017-02-18] MEDS ORDERED: DOCU100S PO (20:18)
[2017-02-18] MEDS ORDERED: HYDR-3516 PO (20:18)
[2017-02-18] MEDS: QUEtiapine FUMARATE 200 MG TAB PO SCH (20:56)
[2017-02-19] VITALS (10 sets, daily range): BP systolic 103–116; BP diastolic 61–70; PULSE 69–86; RESP 18–24; TEMP 97.6–98.5; O2SAT 94–100
[2017-02-19] MEDS: SODIUM CHLORIDE 1 GRAM TAB PO SCH ×3 (00:04→23:53)
[2017-02-19] MEDS: PIPERACIL-TAZO 3.375 GM PREMIX 50 ML IV SCH ×5 (00:04→23:52)
[2017-02-19] MEDS: CHLORHEXIDINE GLUCONATE 2 % 1 PACK (2 CLOTHS) TOP SCH ×2 (04:00→23:53)
[2017-02-19] MEDS: cloNIDine HCL 0.3 MG TAB PO SCH ×3 (05:12→22:00)
[2017-02-19] MEDS: FREE WATER G-TUBE SCH ×5 (05:21→23:52)
[2017-02-19] MEDS: INSULIN NovoLIN REGULAR SUPPLEMENTAL SCALE SQ SCH ×5 (05:28→23:52)
[2017-02-19] MEDS: CHLORHEXIDINE 0.12% (ORAL KIT) 15 ML CUP MT SCH ×2 (08:17→20:49)
[2017-02-19] MEDS: FAMOTIDINE 20 MG TAB NG SCH ×2 (08:18→20:49)
[2017-02-19] MEDS: APIXABAN 5 MG TABLET PO SCH ×2 (08:18→20:48)
[2017-02-19] MEDS: DOCUSATE SODIUM 100 MG/10 ML UDC PO SCH ×2 (08:18→20:49)
[2017-02-19] MEDS: METOPROLOL TARTRATE 25 MG TAB PO SCH ×2 (08:18→20:49)
[2017-02-19] MEDS: VALPROIC ACID SYRUP 250 MG/5 ML UDC PO SCH ×3 (08:18→17:18)
[2017-02-19] MEDS: QUEtiapine FUMARATE 100 MG TAB PO SCH ×2 (08:19→15:58)
[2017-02-19] MEDS: BENEPROTEIN POWDER 1 PACK G-TUBE SCH ×3 (08:19→17:18)
[2017-02-19] MEDS: LACTULOSE SYRUP 20 GM/30 ML CUP PO SCH (08:19)
[2017-02-19] MEDS: MAGNESIUM HYDROXIDE SUSP 30 ML CUP PO SCH ×2 (08:19→20:49)
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
[2017-02-19] MEDS: QUEtiapine FUMARATE 200 MG TAB PO SCH (20:48)
[2017-02-20] VITALS (8 sets, daily range): BP systolic 103–121; BP diastolic 58–72; PULSE 74–83; RESP 14–20; TEMP 97.9–98.6; O2SAT 96–100
[2017-02-20] MEDS: cloNIDine HCL 0.3 MG TAB PO SCH ×3 (05:15→21:56)
[2017-02-20] MEDS: FREE WATER G-TUBE SCH ×4 (05:15→23:56)
[2017-02-20] MEDS: INSULIN NovoLIN REGULAR SUPPLEMENTAL SCALE SQ SCH ×4 (05:41→23:56)
[2017-02-20] MEDS: PIPERACIL-TAZO 3.375 GM PREMIX 50 ML IV SCH ×4 (05:42→23:56)
[2017-02-20] MEDS: QUEtiapine FUMARATE 100 MG TAB PO SCH ×2 (06:07→14:36)
[2017-02-20] MEDS: CHLORHEXIDINE 0.12% (ORAL KIT) 15 ML CUP MT SCH ×2 (08:00→20:25)
[2017-02-20] MEDS: MAGNESIUM HYDROXIDE SUSP 30 ML CUP PO SCH ×2 (08:49→20:25)
[2017-02-20] MEDS: LACTULOSE SYRUP 20 GM/30 ML CUP PO SCH (08:49)
[2017-02-20] MEDS: DOCUSATE SODIUM 100 MG/10 ML UDC PO SCH ×2 (08:49→20:24)
[2017-02-20] MEDS: FAMOTIDINE 20 MG TAB NG SCH ×2 (08:50→20:25)
[2017-02-20] MEDS: METOPROLOL TARTRATE 25 MG TAB PO SCH ×2 (08:50→20:24)
[2017-02-20] MEDS: VALPROIC ACID SYRUP 250 MG/5 ML UDC PO SCH ×3 (08:50→18:47)
[2017-02-20] MEDS: APIXABAN 5 MG TABLET PO SCH ×2 (08:51→20:25)
[2017-02-20] MEDS: BENEPROTEIN POWDER 1 PACK G-TUBE SCH ×3 (09:00→18:00)
[2017-02-20] MEDS: SODIUM CHLORIDE 1 GRAM TAB PO SCH (12:03)
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
[2017-02-20] MEDS: QUEtiapine FUMARATE 200 MG TAB PO SCH (20:24)
[2017-02-21] VITALS (8 sets, daily range): BP systolic 99–134; BP diastolic 63–73; PULSE 67–85; RESP 11–20; TEMP 97.9–98.5; O2SAT 95–98
[2017-02-21] MEDS: SODIUM CHLORIDE 1 GRAM TAB PO SCH ×2 (00:36→12:56)
[2017-02-21] MEDS: CHLORHEXIDINE GLUCONATE 2 % 1 PACK (2 CLOTHS) TOP SCH (04:00)
[2017-02-21] MEDS: INSULIN NovoLIN REGULAR SUPPLEMENTAL SCALE SQ SCH ×4 (05:08→23:46)
[2017-02-21] MEDS: cloNIDine HCL 0.3 MG TAB PO SCH (05:08)
[2017-02-21] MEDS: FREE WATER G-TUBE SCH ×4 (05:08→23:46)
[2017-02-21] MEDS: PIPERACIL-TAZO 3.375 GM PREMIX 50 ML IV SCH (06:00)
[2017-02-21] MEDS: QUEtiapine FUMARATE 100 MG TAB PO SCH ×2 (06:13→14:21)
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
[2017-02-21] MEDS: CHLORHEXIDINE 0.12% (ORAL KIT) 15 ML CUP MT SCH ×2 (08:30→19:59)
[2017-02-21] MEDS: FAMOTIDINE 20 MG TAB NG SCH ×2 (08:58→20:00)
[2017-02-21] MEDS: DOCUSATE SODIUM 100 MG/10 ML UDC PO SCH ×2 (08:58→20:01)
[2017-02-21] MEDS: METOPROLOL TARTRATE 25 MG TAB PO SCH ×2 (08:58→20:00)
[2017-02-21] MEDS: VALPROIC ACID SYRUP 250 MG/5 ML UDC PO SCH ×3 (08:58→17:58)
[2017-02-21] MEDS: LACTULOSE SYRUP 20 GM/30 ML CUP PO SCH (08:58)
[2017-02-21] MEDS: APIXABAN 5 MG TABLET PO SCH ×2 (08:58→20:00)
[2017-02-21] MEDS: MAGNESIUM HYDROXIDE SUSP 30 ML CUP PO SCH ×2 (08:59→20:01)
[2017-02-21] MEDS: BENEPROTEIN POWDER 1 PACK G-TUBE SCH ×3 (08:59→17:58)
[2017-02-21] MEDS ORDERED: cefTRIAXone INJ 1,000 MG in SODIUM CHLORIDE 0.9% INJ 100 ML IV SCH (11:00)
[2017-02-21] MEDS: cefTRIAXone INJ 1,000 MG in SODIUM CHLORIDE 0.9% INJ 100 ML IV SCH (11:08)
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
[2017-02-21] MEDS: QUEtiapine FUMARATE 200 MG TAB PO SCH (20:00)
[2017-02-22] VITALS (7 sets, daily range): BP systolic 103–118; BP diastolic 60–82; PULSE 73–104; RESP 20–24; TEMP 98–98.5; O2SAT 96–100
[2017-02-22] MEDS: SODIUM CHLORIDE 1 GRAM TAB PO SCH ×2 (01:53→13:00)
[2017-02-22] MEDS: CHLORHEXIDINE GLUCONATE 2 % 1 PACK (2 CLOTHS) TOP SCH ×2 (04:00→20:04)
[2017-02-22] MEDS: QUEtiapine FUMARATE 100 MG TAB PO SCH ×2 (05:58→13:24)
[2017-02-22] MEDS: INSULIN NovoLIN REGULAR SUPPLEMENTAL SCALE SQ SCH ×3 (06:00→18:00)
[2017-02-22] MEDS: FREE WATER G-TUBE SCH ×4 (06:00→22:52)
[2017-02-22] MEDS: CHLORHEXIDINE 0.12% (ORAL KIT) 15 ML CUP MT SCH ×2 (08:00→20:00)
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
[2017-02-22] MEDS: BENEPROTEIN POWDER 1 PACK G-TUBE SCH ×3 (08:32→18:00)
[2017-02-22] MEDS: DOCUSATE SODIUM 100 MG/10 ML UDC PO SCH ×2 (08:32→20:25)
[2017-02-22] MEDS: MAGNESIUM HYDROXIDE SUSP 30 ML CUP PO SCH ×2 (08:32→20:25)
[2017-02-22] MEDS: LACTULOSE SYRUP 20 GM/30 ML CUP PO SCH (08:32)
[2017-02-22] MEDS: FAMOTIDINE 20 MG TAB NG SCH ×2 (09:11→20:26)
[2017-02-22] MEDS: METOPROLOL TARTRATE 25 MG TAB PO SCH ×2 (09:11→20:25)
[2017-02-22] MEDS: VALPROIC ACID SYRUP 250 MG/5 ML UDC PO SCH ×3 (09:11→18:22)
[2017-02-22] MEDS: APIXABAN 5 MG TABLET PO SCH ×2 (09:11→20:26)
[2017-02-22] MEDS: cefTRIAXone INJ 1,000 MG in SODIUM CHLORIDE 0.9% INJ 100 ML IV SCH (13:23)
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
[2017-02-22] MEDS: QUEtiapine FUMARATE 200 MG TAB PO SCH (20:26)
[2017-02-23] VITALS (8 sets, daily range): BP systolic 103–134; BP diastolic 65–77; PULSE 77–107; RESP 16–20; TEMP 97.9–98.8; O2SAT 97–100
[2017-02-23] MEDS: SODIUM CHLORIDE 1 GRAM TAB PO SCH ×2 (00:03→15:00)
[2017-02-23 05:16] LABS: BASOPHIL # 0.1 TH/MM3 (0-0.2); BASOPHIL % 0.8 % (0.0-2.0); EOSINOPHIL # 0.1 TH/MM3 (0-0.4); EOSINOPHIL % 0.9 % (0.0-4.0); HEMATOCRIT 30.5 % (39.0-51.0); HEMOGLOBIN 10.2 GM/DL (13.0-17.0); LYMPH % 29.6 % (9.0-44.0); LYMPHOCYTE # 2.7 TH/MM3 (1.0-4.8); MEAN CORPUSCULAR HEMOGLOBIN 30.7 PG (27.0-34.0); MEAN CORPUSCULAR HGB CONC 33.4 % (32.0-36.0); MEAN PLATELET VOLUME 7.8 FL (7.0-11.0); MONO % 13.3 % (0.0-8.0); MONOCYTE # 1.2 TH/MM3 (0-0.9); NEUT % 55.4 % (16.0-70.0); PLATELET COUNT 344 TH/MM3 (150-450); RED BLOOD COUNT 3.31 MIL/MM3 (4.50-5.90); RED CELL DISTRIBUTION WIDTH 15.3 % (11.6-17.2)
[2017-02-23] MEDS: QUEtiapine FUMARATE 100 MG TAB PO SCH ×2 (05:30→15:01)
[2017-02-23] MEDS: FREE WATER G-TUBE SCH (05:31)
[2017-02-23 05:39] LABS: ALBUMIN 2.5 GM/DL (3.4-5.0); ALT (GPT) 19 U/L (12-78); AST (GOT) 13 U/L (15-37); BICARBONATE 27.7 MEQ/L (21.0-32.0); BLOOD UREA NITROGEN 17 MG/DL (7-18); CALCIUM 8.6 MG/DL (8.5-10.1); CHLORIDE 104 MEQ/L (98-107); CREATININE 0.89 MG/DL (0.60-1.30); GLOMERULAR FILTRATION RATE 88 ML/MIN (>89); GLUCOSE,RANDOM 154 MG/DL (74-106); SODIUM (NA) 140 MEQ/L (136-145)
[2017-02-23 05:41] LABS: ALKALINE PHOSPHATASE 83 U/L (45-117); TOTAL BILIRUBIN ADULT 0.2 MG/DL (0.2-1.0); TOTAL PROTEIN 7.5 GM/DL (6.4-8.2)
[2017-02-23] MEDS: INSULIN NovoLIN REGULAR SUPPLEMENTAL SCALE SQ SCH ×4 (06:00→18:00)
[2017-02-23] MEDS: CHLORHEXIDINE 0.12% (ORAL KIT) 15 ML CUP MT SCH (08:00)
[2017-02-23] MEDS: BENEPROTEIN POWDER 1 PACK G-TUBE SCH (08:59)
[2017-02-23] MEDS: FAMOTIDINE 20 MG TAB NG SCH ×2 (09:00→20:37)
[2017-02-23] MEDS: APIXABAN 5 MG TABLET PO SCH ×2 (09:00→20:37)
[2017-02-23] MEDS: DOCUSATE SODIUM 100 MG/10 ML UDC PO SCH ×2 (09:00→20:37)
[2017-02-23] MEDS: VALPROIC ACID SYRUP 250 MG/5 ML UDC PO SCH (09:00)
[2017-02-23] MEDS: MAGNESIUM HYDROXIDE SUSP 30 ML CUP PO SCH (09:00)
[2017-02-23] MEDS: METOPROLOL TARTRATE 25 MG TAB PO SCH ×2 (09:00→20:37)
[2017-02-23] MEDS: LACTULOSE SYRUP 20 GM/30 ML CUP PO SCH (09:00)
[2017-02-23] MEDS: DULoxetine HCl DR 30 MG CAP PO SCH ×2 (10:00→20:37)
[2017-02-23] MEDS ORDERED: LACTULOSE SYRUP 20 GM/30 ML CUP PO PRN (10:00)
[2017-02-23] MEDS: cefTRIAXone INJ 1,000 MG in SODIUM CHLORIDE 0.9% INJ 100 ML IV SCH (12:14)
[2017-02-23] MEDS: VALPROIC ACID 250 MG CAP PO SCH ×2 (15:01→18:36)
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
[2017-02-23] MEDS: QUEtiapine FUMARATE 200 MG TAB PO SCH (20:37)
[2017-02-24] VITALS (7 sets, daily range): BP systolic 103–125; BP diastolic 65–72; PULSE 73–91; RESP 17–22; TEMP 97–98.6; O2SAT 95–100
[2017-02-24] MEDS: SODIUM CHLORIDE 1 GRAM TAB PO SCH ×2 (01:01→14:02)
[2017-02-24] MEDS: CHLORHEXIDINE GLUCONATE 2 % 1 PACK (2 CLOTHS) TOP SCH (04:00)
[2017-02-24] MEDS: INSULIN NovoLIN REGULAR SUPPLEMENTAL SCALE SQ SCH ×3 (06:00→11:28)
[2017-02-24] MEDS: VALPROIC ACID 250 MG CAP PO SCH ×3 (08:43→17:46)
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
[2017-02-24] MEDS: METOPROLOL TARTRATE 25 MG TAB PO SCH ×2 (08:44→20:36)
[2017-02-24] MEDS: QUEtiapine FUMARATE 100 MG TAB PO SCH ×2 (08:44→14:02)
[2017-02-24] MEDS: FAMOTIDINE 20 MG TAB NG SCH ×2 (08:44→20:36)
[2017-02-24] MEDS: DULoxetine HCl DR 30 MG CAP PO SCH ×2 (08:44→20:36)
[2017-02-24] MEDS: APIXABAN 5 MG TABLET PO SCH ×2 (08:44→20:36)
[2017-02-24] MEDS: DOCUSATE SODIUM 100 MG/10 ML UDC PO SCH ×2 (08:44→20:37)
[2017-02-24] MEDS: cefTRIAXone INJ 1,000 MG in SODIUM CHLORIDE 0.9% INJ 100 ML IV SCH (10:51)
[2017-02-24] MEDS ORDERED: VALP250 PO (14:04)
[2017-02-24] MEDS ORDERED: CEFT1INJ5 IV (14:04)
[2017-02-24] MEDS ORDERED: DULO1CAP2 PO (14:04)
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
[2017-02-24] MEDS: QUEtiapine FUMARATE 200 MG TAB PO SCH (20:36)
[2017-02-25] VITALS: BP 105/67; PULSE 84; RESP 20; TEMP 96.2; O2SAT 99
[2017-02-25] MEDS: SODIUM CHLORIDE 1 GRAM TAB PO SCH ×2 (00:31→13:56)
[2017-02-25] MEDS: CHLORHEXIDINE GLUCONATE 2 % 1 PACK (2 CLOTHS) TOP SCH (04:00)
[2017-02-25] MEDS: QUEtiapine FUMARATE 100 MG TAB PO SCH ×2 (05:32→13:57)
[2017-02-25 08:00] VITALS: BP 108/68; PULSE 73; RESP 18; TEMP 97.4; O2SAT 99
[2017-02-25] MEDS: FAMOTIDINE 20 MG TAB NG SCH ×2 (09:34→20:27)
[2017-02-25] MEDS: DULoxetine HCl DR 30 MG CAP PO SCH ×2 (09:35→20:27)
[2017-02-25] MEDS: VALPROIC ACID 250 MG CAP PO SCH ×3 (09:35→17:32)
[2017-02-25] MEDS: DOCUSATE SODIUM 100 MG/10 ML UDC PO SCH ×2 (09:35→20:28)
[2017-02-25] MEDS: APIXABAN 5 MG TABLET PO SCH ×2 (09:35→20:27)
[2017-02-25] MEDS: METOPROLOL TARTRATE 25 MG TAB PO SCH ×2 (09:36→20:34)
[2017-02-25] MEDS: cefTRIAXone INJ 1,000 MG in SODIUM CHLORIDE 0.9% INJ 100 ML IV SCH (11:57)
[2017-02-25 12:00] VITALS: BP 104/73; PULSE 70; RESP 18; TEMP 97.6; O2SAT 97
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
[2017-02-25] MEDS ORDERED: LACTULOSE SYRUP 20 GM/30 ML CUP PO ONE (13:30)
[2017-02-25 16:00] VITALS: BP 122/77; PULSE 72; RESP 16; TEMP 96.9; O2SAT 96
[2017-02-25 20:00] VITALS: BP 119/68; PULSE 83; RESP 20; TEMP 97.5; O2SAT 96
[2017-02-25] MEDS: QUEtiapine FUMARATE 200 MG TAB PO SCH (20:27)
[2017-02-26] VITALS: BP 108/65; PULSE 68; RESP 18; TEMP 97.1; O2SAT 95
[2017-02-26] MEDS: SODIUM CHLORIDE 1 GRAM TAB PO SCH ×2 (01:19→14:13)
[2017-02-26] MEDS: CHLORHEXIDINE GLUCONATE 2 % 1 PACK (2 CLOTHS) TOP SCH (04:00)
[2017-02-26] MEDS: QUEtiapine FUMARATE 100 MG TAB PO SCH ×2 (06:22→14:13)
[2017-02-26 08:00] VITALS: BP 111/72; PULSE 75; RESP 18; TEMP 97.8; O2SAT 96
[2017-02-26] MEDS: FAMOTIDINE 20 MG TAB NG SCH ×2 (08:36→22:56)
[2017-02-26] MEDS: VALPROIC ACID 250 MG CAP PO SCH ×3 (08:36→18:00)
[2017-02-26] MEDS: APIXABAN 5 MG TABLET PO SCH ×2 (08:36→22:55)
[2017-02-26] MEDS: METOPROLOL TARTRATE 25 MG TAB PO SCH ×2 (08:36→22:55)
[2017-02-26] MEDS: DULoxetine HCl DR 30 MG CAP PO SCH ×2 (08:36→22:54)
[2017-02-26] MEDS: DOCUSATE SODIUM 100 MG/10 ML UDC PO SCH ×2 (08:36→21:00)
[2017-02-26] MEDS: SODIUM CHLORIDE 0.9% FLUSH 10 ML FLUSH IV FLUSH PRN ×2 (08:37→11:00)
[2017-02-26] MEDS: cefTRIAXone INJ 1,000 MG in SODIUM CHLORIDE 0.9% INJ 100 ML IV SCH (10:54)
[2017-02-26 12:00] VITALS: BP 109/73; PULSE 69; RESP 18; TEMP 97.1; O2SAT 98
[2017-02-26 14:00] VITALS: PULSE 85
[2017-02-26 16:00] VITALS: BP 108/69; PULSE 77; RESP 18; TEMP 98; O2SAT 95
[2017-02-26 20:00] VITALS: BP 117/75; PULSE 78; RESP 18; TEMP 98.3; O2SAT 96
[2017-02-26] MEDS: QUEtiapine FUMARATE 200 MG TAB PO SCH (22:55)
[2017-02-27] VITALS: BP 115/72; PULSE 65; RESP 18; TEMP 97.6; O2SAT 96
[2017-02-27] MEDS: SODIUM CHLORIDE 1 GRAM TAB PO SCH ×3 (01:33→23:41)
[2017-02-27] MEDS: CHLORHEXIDINE GLUCONATE 2 % 1 PACK (2 CLOTHS) TOP SCH ×2 (01:33→23:41)
[2017-02-27] MEDS: QUEtiapine FUMARATE 100 MG TAB PO SCH ×2 (06:24→13:42)
[2017-02-27 08:00] VITALS: BP 121/82; PULSE 74; RESP 16; TEMP 95.8; O2SAT 99
[2017-02-27] MEDS: VALPROIC ACID 250 MG CAP PO SCH ×3 (08:30→17:39)
[2017-02-27] MEDS: DULoxetine HCl DR 30 MG CAP PO SCH ×2 (08:33→20:21)
[2017-02-27] MEDS: METOPROLOL TARTRATE 25 MG TAB PO SCH ×2 (08:33→20:23)
[2017-02-27] MEDS: APIXABAN 5 MG TABLET PO SCH ×2 (08:33→20:22)
[2017-02-27] MEDS: FAMOTIDINE 20 MG TAB NG SCH ×2 (08:37→20:21)
[2017-02-27] MEDS: DOCUSATE SODIUM 100 MG/10 ML UDC PO SCH ×2 (08:37→20:21)
[2017-02-27] MEDS: cefTRIAXone INJ 1,000 MG in SODIUM CHLORIDE 0.9% INJ 100 ML IV SCH (10:42)
[2017-02-27 12:00] VITALS: BP 117/68; PULSE 63; RESP 17; TEMP 98; O2SAT 96
[2017-02-27 16:00] VITALS: BP 122/73; PULSE 77; RESP 17; TEMP 97.6; O2SAT 97
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
[2017-02-27] MEDS ORDERED: LACTULOSE SYRUP 20 GM/30 ML CUP PO ONE (18:15)
[2017-02-27 20:00] VITALS: BP 131/71; PULSE 77; RESP 18; TEMP 97.9; O2SAT 96
[2017-02-27] MEDS: QUEtiapine FUMARATE 200 MG TAB PO SCH (20:22)
[2017-02-28] VITALS: BP 106/69; PULSE 74; RESP 18; TEMP 97.7; O2SAT 96
[2017-02-28] MEDS: QUEtiapine FUMARATE 100 MG TAB PO SCH (06:31)
[2017-02-28 08:00] VITALS: BP 120/73; PULSE 69; RESP 16; TEMP 97.6; O2SAT 95
[2017-02-28] MEDS: APIXABAN 5 MG TABLET PO SCH ×2 (08:28→20:42)
[2017-02-28] MEDS: FAMOTIDINE 20 MG TAB NG SCH ×2 (08:28→20:42)
[2017-02-28] MEDS: DOCUSATE SODIUM 100 MG/10 ML UDC PO SCH ×2 (08:28→20:42)
[2017-02-28] MEDS: DULoxetine HCl DR 30 MG CAP PO SCH ×2 (08:28→20:42)
[2017-02-28] MEDS: METOPROLOL TARTRATE 25 MG TAB PO SCH ×2 (08:29→20:42)
[2017-02-28 08:30] VITALS: PULSE 68
[2017-02-28] MEDS: VALPROIC ACID 250 MG CAP PO SCH ×3 (08:33→18:00)
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
[2017-02-28 12:00] VITALS: BP 125/77; PULSE 75; RESP 16; TEMP 97.7; O2SAT 100
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
[2017-02-28] MEDS: cefTRIAXone INJ 1,000 MG in SODIUM CHLORIDE 0.9% INJ 100 ML IV SCH (12:48)
[2017-02-28] MEDS: QUEtiapine FUMARATE 25 MG TAB PO SCH (12:48)
[2017-02-28] MEDS: SODIUM CHLORIDE 1 GRAM TAB PO SCH (12:48)
[2017-02-28 16:00] VITALS: BP 111/63; PULSE 76; RESP 16; TEMP 97.6; O2SAT 95
[2017-02-28 20:00] VITALS: BP 100/61; PULSE 73; RESP 20; TEMP 99.1; O2SAT 94
[2017-02-28] MEDS: QUEtiapine FUMARATE 200 MG TAB PO SCH (20:42)
[2017-03-01] VITALS: BP 131/62; PULSE 61; RESP 18; TEMP 97.4; O2SAT 95
[2017-03-01] MEDS: SODIUM CHLORIDE 1 GRAM TAB PO SCH ×2 (00:13→12:18)
[2017-03-01] MEDS: CHLORHEXIDINE GLUCONATE 2 % 1 PACK (2 CLOTHS) TOP SCH (04:00)
[2017-03-01] MEDS: QUEtiapine FUMARATE 25 MG TAB PO SCH ×2 (05:52→13:49)
[2017-03-01] MEDS: FAMOTIDINE 20 MG TAB NG SCH ×2 (07:59→20:26)
[2017-03-01] MEDS: DULoxetine HCl DR 30 MG CAP PO SCH ×2 (07:59→20:25)
[2017-03-01] MEDS: VALPROIC ACID 250 MG CAP PO SCH ×3 (07:59→17:37)
[2017-03-01 08:00] VITALS: BP 118/67; PULSE 55; RESP 16; TEMP 97.3; O2SAT 96
[2017-03-01] MEDS: APIXABAN 5 MG TABLET PO SCH ×2 (08:00→20:26)
[2017-03-01] MEDS: METOPROLOL TARTRATE 25 MG TAB PO SCH ×2 (08:00→20:25)
[2017-03-01] MEDS: DOCUSATE SODIUM 50 MG/SENNA 8.6 MG TAB PO SCH ×2 (08:06→20:25)
[2017-03-01] MEDS: MAGNESIUM HYDROXIDE SUSP 30 ML CUP PO SCH (08:06)
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
[2017-03-01] MEDS: cefTRIAXone INJ 1,000 MG in SODIUM CHLORIDE 0.9% INJ 100 ML IV SCH (11:19)
[2017-03-01 12:00] VITALS: BP 111/75; PULSE 61; RESP 16; TEMP 97.9; O2SAT 96
[2017-03-01 16:00] VITALS: BP 109/64; PULSE 74; RESP 16; TEMP 98.5; O2SAT 97
[2017-03-01 20:00] VITALS: BP 103/68; PULSE 70; RESP 20; TEMP 99; O2SAT 96
[2017-03-01] MEDS: QUEtiapine FUMARATE 200 MG TAB PO SCH (20:25)
[2017-03-02 00:08] VITALS: BP 101/67; PULSE 69; RESP 18; TEMP 97.8; O2SAT 95
[2017-03-02] MEDS: SODIUM CHLORIDE 1 GRAM TAB PO SCH ×2 (01:16→12:25)
[2017-03-02] MEDS: CHLORHEXIDINE GLUCONATE 2 % 1 PACK (2 CLOTHS) TOP SCH (01:19)
[2017-03-02] MEDS: QUEtiapine FUMARATE 25 MG TAB PO SCH (06:32)
[2017-03-02 07:32] LABS: AUTOMATED NEUTROPHIL # 4.1 TH/MM3 (1.8-7.7); BASOPHIL % 0.6 % (0.0-2.0); EOSINOPHIL # 0.1 TH/MM3 (0-0.4); EOSINOPHIL % 1.5 % (0.0-4.0); HEMATOCRIT 33.9 % (39.0-51.0); HEMOGLOBIN 11.3 GM/DL (13.0-17.0); LYMPH % 33.7 % (9.0-44.0); LYMPHOCYTE # 2.5 TH/MM3 (1.0-4.8); MEAN CELL VOLUME 92.7 FL (80.0-100.0); MEAN CORPUSCULAR HEMOGLOBIN 30.8 PG (27.0-34.0); MEAN CORPUSCULAR HGB CONC 33.2 % (32.0-36.0); MEAN PLATELET VOLUME 8.3 FL (7.0-11.0); MONOCYTE # 0.6 TH/MM3 (0-0.9); NEUT % 56.2 % (16.0-70.0); PLATELET COUNT 211 TH/MM3 (150-450); RED BLOOD COUNT 3.66 MIL/MM3 (4.50-5.90); RED CELL DISTRIBUTION WIDTH 15.8 % (11.6-17.2); WHITE BLOOD COUNT 7.4 TH/MM3 (4.0-11.0)
[2017-03-02 07:51] LABS: CALCIUM 8.5 MG/DL (8.5-10.1); CREATININE 0.9 MG/DL (0.60-1.30)
[2017-03-02 08:00] VITALS: BP 108/72; PULSE 63; RESP 16; TEMP 97.1; O2SAT 97
[2017-03-02] MEDS: DULoxetine HCl DR 30 MG CAP PO SCH (08:01)
[2017-03-02] MEDS: FAMOTIDINE 20 MG TAB NG SCH (08:01)
[2017-03-02] MEDS: MAGNESIUM HYDROXIDE SUSP 30 ML CUP PO SCH (08:01)
[2017-03-02] MEDS: SODIUM CHLORIDE 0.9% FLUSH 10 ML FLUSH IV FLUSH PRN (08:01)
[2017-03-02] MEDS: METOPROLOL TARTRATE 25 MG TAB PO SCH (08:01)
[2017-03-02] MEDS: DOCUSATE SODIUM 50 MG/SENNA 8.6 MG TAB PO SCH (08:01)
[2017-03-02] MEDS: APIXABAN 5 MG TABLET PO SCH (08:01)
[2017-03-02] MEDS: VALPROIC ACID 250 MG CAP PO SCH ×2 (08:02→12:25)
--- NOTE | 2017-03-02 11:03 | HHI.PR ---
Objective Vitals/I&O Vital Signs Date Time Temp Pulse Resp B/P (MAP) Pulse Ox O2 Delivery O2 Flow Rate FiO2 03/02/17 08:00 97.1 63 16 108/72 (84) 97 Labs Laboratory Tests Test 03/02/17 05:30 White Blood Count 7.4 Red Blood Count 3.66 Hemoglobin 11.3 Hematocrit 33.9 Mean Corpuscular Volume 92.7 Mean Corpuscular Hemoglobin 30.8 Mean Corpuscular Hemoglobin Concent 33.2 Red Cell Distribution Width 15.8 Platelet Count 211 Mean Platelet Volume 8.3 Neutrophils (%) (Auto) 56.2 Lymphocytes (%) (Auto) 33.7 Monocytes (%) (Auto) 8.0 Eosinophils (%) (Auto) 1.5 Basophils (%) (Auto) 0.6 Neutrophils # (Auto) 4.1 Lymphocytes # (Auto) 2.5 Monocytes # (Auto) 0.6 Eosinophils # (Auto) 0.1 Basophils # (Auto) 0.0 CBC Comment DIFF FINAL Differential Comment Blood Urea Nitrogen 18 Creatinine 0.90 Random Glucose 82 Calcium Level 8.5 Sodium Level 141 Potassium Level 4.1 Chloride Level 105 Carbon Dioxide Level 29.0 Anion Gap 7 Estimat Glomerular Filtration Rate 87 Date/Time Source Procedure Growth Status 02/16/17 11:35 Blood Peripheral Aerobic Blood Culture - Final NO GROWTH IN 5 DAYS Complete 02/16/17 11:35 Blood Peripheral Anaerobic Blood Culture - Final NO GROWTH IN 5 DAYS Complete 01/29/17 04:45 Stool Stool Stool Occult Blood (EDISON) - Final HEMOCCULT NEGATIVE Complete 02/16/17 10:25 Sputum Endotracheal Gram Stain - Final Complete 02/16/17 10:25 Sputum Culture - Final Staphylococcus Aureus Complete 02/17/17 04:10 Urine Catheterized Urine Urine Culture - Final Enterobacter Cloacae Complete Disinhibition Score: 14.00 Aggression Score: 14.00 Lability Score: 14.00 Agitated Behavior Total Score: 14 Rosa Holguin Mar 02, 2017 11:03
[2017-03-02 12:00] VITALS: BP 111/70; PULSE 70; RESP 16; TEMP 98.1; O2SAT 96
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
== END 2017-03-02 13:07 | DRG 3 ==
LOC: NEPI 13:56 → EDBD 14:16 → NEDA 14:16 → N03B 14:54 → N03A 02-06 03:10 → N07A 02-24 02:29
PROVIDERS: ADMIT Surgery; ATTEND Surgery
PROC: 00H032Z Insertion of Monitoring Device into Brain, Percutaneous Approach (ICD-10-PCS; 2017-01-19)
PROC: 5A1955Z Respiratory Ventilation, Greater than 96 Consecutive Hours (ICD-10-PCS; 2017-01-19)
PROC: 4A103BD Monitoring of Intracranial Pressure, Percutaneous Approach (ICD-10-PCS; 2017-01-19)
PROC: 05H533Z Insertion of Infusion Device into Right Subclavian Vein, Percutaneous Approach (ICD-10-PCS; 2017-01-19)
PROC: 03HY32Z Insertion of Monitoring Device into Upper Artery, Percutaneous Approach (ICD-10-PCS; 2017-01-19)
PROC: 4A133B1 Monitoring of Arterial Pressure, Peripheral, Percutaneous Approach (ICD-10-PCS; 2017-01-19)
PROC: 4A133J1 Monitoring of Arterial Pulse, Peripheral, Percutaneous Approach (ICD-10-PCS; 2017-01-19)
PROC: 0D9670Z Drainage of Stomach with Drainage Device, Via Natural or Artificial Opening (ICD-10-PCS; 2017-01-19)
PROC: 0T9B70Z Drainage of Bladder with Drainage Device, Via Natural or Artificial Opening (ICD-10-PCS; 2017-01-19)
PROC: 0BH17EZ Insertion of Endotracheal Airway into Trachea, Via Natural or Artificial Opening (ICD-10-PCS; 2017-01-19)
PROC: 06H03DZ Insertion of Intraluminal Device into Inferior Vena Cava, Percutaneous Approach (ICD-10-PCS; 2017-01-20)
PROC: 03HY32Z Insertion of Monitoring Device into Upper Artery, Percutaneous Approach (ICD-10-PCS; 2017-01-22)
PROC: 4A133B1 Monitoring of Arterial Pressure, Peripheral, Percutaneous Approach (ICD-10-PCS; 2017-01-22)
PROC: 4A133J1 Monitoring of Arterial Pulse, Peripheral, Percutaneous Approach (ICD-10-PCS; 2017-01-22)
PROC: 0B113F4 Bypass Trachea to Cutaneous with Tracheostomy Device, Percutaneous Approach (ICD-10-PCS; principal; 2017-01-26)
PROC: 0B9F8ZX Drainage of Right Lower Lung Lobe, Via Natural or Artificial Opening Endoscopic, Diagnostic (ICD-10-PCS; 2017-01-26)
PROC: 0DH63UZ Insertion of Feeding Device into Stomach, Percutaneous Approach (ICD-10-PCS; 2017-01-29)
PROC: 0T9B70Z Drainage of Bladder with Drainage Device, Via Natural or Artificial Opening (ICD-10-PCS; 2017-02-22)
DX: S06.5X9A Traumatic subdural hemorrhage with loss of consciousness of unspecified duration, initial encounter (principal); I46.9 Cardiac arrest, cause unspecified; I26.99 Other pulmonary embolism without acute cor pulmonale; J69.0 Pneumonitis due to inhalation of food and vomit; N17.9 Acute kidney failure, unspecified; S27.322A Contusion of lung, bilateral, initial encounter; R56.1 Post traumatic seizures; I82.612 Acute embolism and thrombosis of superficial veins of left upper extremity; E46 Unspecified protein-calorie malnutrition; E87.0 Hyperosmolality and hypernatremia; F01.51 Vascular dementia, unspecified severity, with behavioral disturbance; N39.0 Urinary tract infection, site not specified; S06.6X9A Traumatic subarachnoid hemorrhage with loss of consciousness of unspecified duration, initial encounter; V87.8XXA Person injured in other specified noncollision transport accidents involving motor vehicle (traffic), initial encounter; Y99.1 Military activity; S06.1X9A Traumatic cerebral edema with loss of consciousness of unspecified duration, initial encounter; R13.10 Dysphagia, unspecified; R29.810 Facial weakness; E86.1 Hypovolemia; I10 Essential (primary) hypertension; R31.9 Hematuria, unspecified
CPT/HCPCS: 31500; 31600; 31624; 36600; 37191; 43753; 61210; 70450; 70496; 70498; 70551; 71010; 71260; 71275; 72125; 72128; 72131; 72170; 74177; 76937; 80048; 80053; 80185; 80307; 81001; 81003; 82140; 82272; 82435; 82565; 82805; 82947; 82948; 83605; 83735; 83930; 83935; 84100; 84132; 84145; 84155; 84295; 84484; 84520; 85007; 85014; 85018; 85025; 85027; 85610; 85730; 86403; 86850; 86900; 86901; 87015; 87040; 87070; 87077; 87086; 87102; 87116; 87147; 87186; 87205; 87206; 87641; 92950; 93005; 93306; 93970; 93971; 94002; 94003; 94640; 94664; 94770; 95819; 96374; 96375; 99291; A7520; C1769; C1880; C9113; G0390; J0131; J0171; J0330; J0360; J0461; J0690; J0692; J0696; J1165; J1265; J1450; J1630; J1644; J1650; J1953; J2020; J2150; J2250; J2270; J2543; J2597; J3010; J3370; J3475; J3480; J7030; J7040; J7050; J7120; Q2009; Q9963; Q9967

== ENCOUNTER 2017-03-03 09:15 | Inpatient (IN) | payer SELFPAY ==
[2017-03-03] VITALS (12 sets, daily range): BP systolic 97–121; BP diastolic 63–77; PULSE 67–120; RESP 14–20; TEMP 98.6–99; O2SAT 92–100
[~2017-03-03 09:15] MED LIST: APIX5TAB PO; Albuterol-Ipratropium Neb NEB; CEFT1INJ5 IV; DULO1CAP2 PO; HYDR-3516 PO; METO25TA3 PO; QUET1TAB8 PO; QUET1TAB9 PO; SODI1TAB PO; VALP250 PO
[2017-03-03] MEDS ORDERED: ePHEDrine/NS 25 MG/5 ML SYRINGE ONE (09:44)
[2017-03-03] MEDS ORDERED: PHENYLEPH/NS 1000 MCG/10 ML SYR ONE (09:45)
[2017-03-03 09:49] LABS: AUTOMATED NEUTROPHIL # 12.6 TH/MM3 (1.8-7.7); BASOPHIL % 0.3 % (0.0-2.0); EOSINOPHIL % 0.1 % (0.0-4.0); HEMATOCRIT 28.8 % (39.0-51.0); HEMOGLOBIN 9.3 GM/DL (13.0-17.0); LYMPH % 11.9 % (9.0-44.0); LYMPHOCYTE # 1.8 TH/MM3 (1.0-4.8); MEAN CORPUSCULAR HEMOGLOBIN 30.6 PG (27.0-34.0); MEAN CORPUSCULAR HGB CONC 32.2 % (32.0-36.0); MEAN PLATELET VOLUME 8.2 FL (7.0-11.0); MONO % 5.5 % (0.0-8.0); MONOCYTE # 0.8 TH/MM3 (0-0.9); NEUT % 82.2 % (16.0-70.0); PLATELET COUNT 234 TH/MM3 (150-450); RED BLOOD COUNT 3.03 MIL/MM3 (4.50-5.90); RED CELL DISTRIBUTION WIDTH 15.5 % (11.6-17.2); WHITE BLOOD COUNT 15.3 TH/MM3 (4.0-11.0)
[2017-03-03] MEDS ORDERED: PHENYLEPHRINE HCL 10 MG/ML VIAL ONE ×2 (10:01→10:02)
--- NOTE | 2017-03-03 10:55 | PD.CONS ---
HPI Service Urology Consult Requested By Reason for Consult Hematuria Primary Care Physician Non-Staff Diagnosis: History of Present Illness 56yo male with history of traumatic brain injury seen in consultation for gross hematuria. Patient currently admitted with concern for GI and/or urological bleed. Hematuria began few days ago and has progressively worsened. He currently had an indwelling 14Fr urethral catheter. Currently denies any pain. He was scheduled to undergo colonoscopy, however became hypotensive and transferred to the ICU. History limited due to the brain injury. Patient was transferred from [facility] [place]. Review of Systems ROS Limitations: Clinical Condition Constitutional: DENIES: Fever Ears, nose, mouth, throat: DENIES: Tinnitus, Hearing loss Respiratory: DENIES: Apneas, Cough Cardiovascular: DENIES: Chest pain Gastrointestinal: DENIES: Abdominal pain Genitourinary: COMPLAINS OF: Hematuria Musculoskeletal: DENIES: Back pain Integumentary: DENIES: Abnormal pigmentation Hematologic/lymphatic: DENIES: Bruising Neurologic: DENIES: Headache Psychiatric: COMPLAINS OF: Confusion Except as stated in HPI: all other systems reviewed are Neg Past Family Social History Past Medical History Traumatic brain injury DVT Seizures Past Surgical History IVC filter Reported Medications Reported Meds & Active Scripts Active Depakene (Valproic Acid) 250 Mg Cap 500 Mg PO TID Duloxetine DR (Duloxetine HCl) 30 Mg Capdr 30 Mg PO BID Ceftriaxone Inj (Ceftriaxone Sodium) 1 Gram Inj 1 Gm IV DAILY 5 Days Hydrocodone-Acetamin 5-325 mg (Hydrocodone/Acetaminophen) 5 Mg-325 Mg Tablet 1 Tab PO Q4H PRN 5 Days Quetiapine (Quetiapine Fumarate) 200 Mg Tab 200 Mg PO HS Quetiapine (Quetiapine Fumarate) 100 Mg Tab 100 Mg PO DAILY@1400 Quetiapine (Quetiapine Fumarate) 100 Mg Tab 100 Mg PO DAILY@0700 Metoprolol Tartrate 25 Mg Tab 25 Mg PO Q12HR Eliquis (Apixaban) 5 Mg Tab 5 Mg PO BID [Albuterol-Ipratropium Neb] 1 AMPULE Nebu 1 Ampule NEB Q2HR NEB PRN 5 Days Sodium Chloride 1 Gram Tab 1 Gm PO Q12H 5 Days Allergies: Coded Allergies: No Known Allergies (Verified Allergy, Unknown, 01/19/17) Family History Family history reviewed and noncontributory to present illness Social History Residing at [facility] facility Physical Exam Physical Exam GENERAL: This is a well-nourished, well-developed patient, in no apparent distress. SKIN: No rashes, ecchymoses or lesions. Cool and dry. HEAD: Atraumatic. Normocephalic. EYES: Extraocular motions intact. No scleral icterus. No injection or drainage. ENT: Nose without bleeding, purulent drainage, Airway patent. NECK: Trachea midline. CARDIOVASCULAR: Hypotensive, tachycardia RESPIRATORY: nonlabored GASTROINTESTINAL: Abdomen soft, non-tender, nondistended. MUSCULOSKELETAL: Extremities without clubbing, cyanosis, or edema. NEUROLOGICAL: Awake, confused. Motor and sensory grossly within normal limits. Normal speech. Lab results reviewed: Yes Laboratory Tests Test 03/03/17 09:30 White Blood Count 15.3 Red Blood Count 3.03 Hemoglobin 9.3 Hematocrit 28.8 Mean Corpuscular Volume 95.0 Mean Corpuscular Hemoglobin 30.6 Mean Corpuscular Hemoglobin Concent 32.2 Red Cell Distribution Width 15.5 Platelet Count 234 Mean Platelet Volume 8.2 Neutrophils (%) (Auto) 82.2 Lymphocytes (%) (Auto) 11.9 Monocytes (%) (Auto) 5.5 Eosinophils (%) (Auto) 0.1 Basophils (%) (Auto) 0.3 Neutrophils # (Auto) 12.6 Lymphocytes # (Auto) 1.8 Monocytes # (Auto) 0.8 Eosinophils # (Auto) 0.0 Basophils # (Auto) 0.0 CBC Comment DIFF FINAL Differential Comment Result Diagram: 03/03/17 0930 Personally reviewed images: Yes Assessment and Plan Problem List: (1) Hematuria ICD Code: R31.9 - Hematuria, unspecified Assessment and Plan -14Fr gold removed; Placed 20Fr catheter initially with inability to successfully irrigate catheter -24Fr Hematuria catheter place and successfully irrigated with 2 L normal saline. Significant large number of clots removed from the bladder -CBI initiated -Maintain gold and CBI. May wean CBI to slow rate if urine remains clear -If hematuria does not improve, may need clot evacuation in the OR, however patient is not stable for this procedure at this time -Will follow Matthew Silva MD Mar 03, 2017 10:55
[2017-03-03] MEDS ORDERED: RESP: ALBUTEROL 2.5 MG/3 ML NEB (PRN) INH (11:00)
[2017-03-03] MEDS ORDERED: SODIUM CHLORIDE 0.9% FLUSH 10 ML FLUSH IV FLUSH PRN ×2 (11:00→12:00)
[2017-03-03] MEDS ORDERED: BISACODYL 10 MG SUPP RECTAL PRN (11:00)
[2017-03-03] MEDS ORDERED: CHLORHEXIDINE GLUCONATE 2 % 1 PACK (2 CLOTHS) TOP PRN (11:00)
[2017-03-03] MEDS ORDERED: ONDANSETRON HCL 4 MG/2 ML VIAL IV PUSH PRN (11:00)
[2017-03-03] MEDS ORDERED: LACTULOSE SYRUP 20 GM/30 ML CUP PO PRN (11:00)
[2017-03-03] MEDS ORDERED: PHYTONADIONE INJ 10 MG in SODIUM CHLORIDE 0.9% INJ 50 ML IV ONE (11:00)
[2017-03-03] MEDS ORDERED: SENNOSIDES 8.6 MG TAB PO PRN (11:00)
[2017-03-03] MEDS ORDERED: MISCELLANEOUS NURSING INFORMATION XX SCH (11:00)
[2017-03-03] MEDS ORDERED: Vancomycin Consult Pharmacy 1 EA OTHER SCH (11:00)
[2017-03-03] MEDS ORDERED: PHENYLEPHRINE INJ 160 MG in DEXTROSE 5% IN WATE 500 ML INJ 484 ML IV PRN ×2 (11:00)
[2017-03-03] MEDS ORDERED: TERBUTALINE INJ 1 MG/ML AMP SQ PRN (11:00)
[2017-03-03] MEDS ORDERED: MAGNESIUM HYDROXIDE SUSP 30 ML CUP PO PRN (11:00)
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
[2017-03-03] MEDS ORDERED: PHENYLEPHRINE HCL 160 MG/D5W 484 ML ADMIX IV PRN ×2 (12:00)
--- NOTE | 2017-03-03 12:23 | PD.CAR.PN ---
CVT Progress Note Subjective/Hospital Course: Patient known to me Now with GI bleed Full consult TF Ryan J Objective: Vital Signs Date Time Temp Pulse Resp B/P (MAP) Pulse Ox O2 Delivery O2 Flow Rate FiO2 03/03/17 10:35 112 16 108/58 (75) 99 03/03/17 10:30 111 16 98/52 (67) 99 03/03/17 10:20 114 16 89/51 (64) 99 03/03/17 10:10 112 16 85/52 (63) 99 03/03/17 10:00 98.0 114 16 88/45 (59) 99 03/03/17 09:50 116 16 79/51 (60) 99 03/03/17 09:40 117 16 75/45 (55) 99 03/03/17 09:30 123 16 82/42 (55) 99 03/03/17 09:20 124 17 67/44 (52) 98 03/03/17 09:15 119 16 65/46 (52) 98 03/03/17 09:10 128 15 79/47 (58) 97 03/03/17 09:08 98.0 130 15 75/48 (57) 97 Labs: Laboratory Tests Test 03/03/17 09:30 White Blood Count 15.3 TH/MM3 (4.0-11.0) Red Blood Count 3.03 MIL/MM3 (4.50-5.90) Hemoglobin 9.3 GM/DL (13.0-17.0) Hematocrit 28.8 % (39.0-51.0) Mean Corpuscular Volume 95.0 FL (80.0-100.0) Mean Corpuscular Hemoglobin 30.6 PG (27.0-34.0) Mean Corpuscular Hemoglobin Concent 32.2 % (32.0-36.0) Red Cell Distribution Width 15.5 % (11.6-17.2) Platelet Count 234 TH/MM3 (150-450) Mean Platelet Volume 8.2 FL (7.0-11.0) Neutrophils (%) (Auto) 82.2 % (16.0-70.0) Lymphocytes (%) (Auto) 11.9 % (9.0-44.0) Monocytes (%) (Auto) 5.5 % (0.0-8.0) Eosinophils (%) (Auto) 0.1 % (0.0-4.0) Basophils (%) (Auto) 0.3 % (0.0-2.0) Neutrophils # (Auto) 12.6 TH/MM3 (1.8-7.7) Lymphocytes # (Auto) 1.8 TH/MM3 (1.0-4.8) Monocytes # (Auto) 0.8 TH/MM3 (0-0.9) Eosinophils # (Auto) 0.0 TH/MM3 (0-0.4) Basophils # (Auto) 0.0 TH/MM3 (0-0.2) CBC Comment DIFF FINAL Differential Comment Result Diagram: 03/03/17 0930 Lucius Alvarez MD Mar 03, 2017 12:23
--- NOTE | 2017-03-03 12:30 | RADRPT ---
EXAM DATE/TIME: 03/03/2017 12:07 [place] COMPARISON: CHEST SINGLE AP, February 04, 2017, 4:37. INDICATIONS : Evaluate central line placement MEDICAL HISTORY : Myocardial infarction. Hypertension. Traumatic brain injury. SURGICAL HISTORY : IVC filter ENCOUNTER: Initial ACUITY: 2 days PAIN SCORE: 0/10 LOCATION: Bilateral chest FINDINGS: A single AP portable expiratory view of the chest was obtained and demonstrates interval placement of a left internal jugular central venous line with the tip projected over the superior vena cava. Ther e is no pneumothorax. There are no confluent infiltrates or effusions. There is mild motion artifact and overlying the cardiac leads. The heart size remains within normal limits. There is no perihilar e nona. There has been interval removal of the tracheostomy tube. CONCLUSION: 1. Interval placement of a left internal jugular central venous line with no pneumothorax. 2. Interval removal of tracheostomy tube. Ole Mccall MD on March 03, 2017 at 12:27 Board Certified Radiologist. This report was verified electronically.
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
[2017-03-03] MEDS ORDERED: ACETAMINOPHEN 1000 MG/100 ML 100 ML IV PRN (13:00)
[2017-03-03 13:21] LABS: AUTOMATED NEUTROPHIL # 9.1 TH/MM3 (1.8-7.7); BASOPHIL % 0.4 % (0.0-2.0); HEMATOCRIT 23.8 % (39.0-51.0); HEMOGLOBIN 7.9 GM/DL (13.0-17.0); LYMPH % 13.1 % (9.0-44.0); LYMPHOCYTE # 1.4 TH/MM3 (1.0-4.8); MEAN CELL VOLUME 92.5 FL (80.0-100.0); MEAN CORPUSCULAR HEMOGLOBIN 30.8 PG (27.0-34.0); MEAN CORPUSCULAR HGB CONC 33.3 % (32.0-36.0); MEAN PLATELET VOLUME 8.5 FL (7.0-11.0); MONO % 3.4 % (0.0-8.0); MONOCYTE # 0.4 TH/MM3 (0-0.9); NEUT % 83.1 % (16.0-70.0); PLATELET COUNT 211 TH/MM3 (150-450); RED BLOOD COUNT 2.57 MIL/MM3 (4.50-5.90); RED CELL DISTRIBUTION WIDTH 15.3 % (11.6-17.2); WHITE BLOOD COUNT 10.9 TH/MM3 (4.0-11.0)
[2017-03-03 13:30] LABS: INTERNATIONAL NORMALIZED RATIO 1.1 RATIO; PROTHROMBIN TIME - PATIENT 11.6 SEC (9.8-11.6)
--- NOTE | 2017-03-03 13:45 | RADRPT ---
EXAM DATE/TIME: 03/03/2017 13:20 [facility] COMPARISON: No previous studies available for comparison. INDICATIONS : Lower GI bleed, hematuria. ORAL CONTRAST: Prescribed oral contrast ingested. RADIATION DOSE: 6.64 CTDIvol (mGy) MEDICAL HISTORY : Seizures. Cardiovascular disease SURGICAL HISTORY : None. ENCOUNTER: Initial ACUITY: 1 day PAIN SCALE: 4/10 LOCATION: Bilateral lower quadrant TECHNIQUE: Volumetric scanning of the abdomen and pelvis was performed. Using automated exposure control and ad justment of the mA and/or kV according to patient size, radiation dose was kept as low as reasonably achievable to obtain optimal diagnostic quality images. DICOM format image data is available electro nically for review and comparison. FINDINGS: LOWER LUNGS: The visualized lower lungs are clear. LIVER: Homogeneous density without lesion. There is no dilation of the biliary tree. No calcified gallston es. SPLEEN: Normal size without lesion. PANCREAS: Within normal limits. KIDNEYS: Normal in size and shape. There is no mass, stone, or hydronephrosis. ADRENAL GLANDS: Within normal limits. VASCULAR: There is no aortic aneurysm. IVC filter in place BOWEL/MESENTERY: The stomach, small bowel, and colon demonstrate no acute abnormality. There is no free intraperitone al air or fluid. ABDOMINAL WALL: Within normal limits. RETROPERITONEUM: There is no lymphadenopathy. BLADDER: Jones catheter in place with significant hemorrhage within the bladder lumen. REPRODUCTIVE: Within normal limits. INGUINAL: There is no lymphadenopathy or hernia. MUSCULOSKELETAL: Within normal limits for patient age. CONCLUSION: Significant hemorrhage within the bladder. There is a Jones catheter in place. No evidence for signif icant inflammation or free fluid in the pelvis. Ramy Josue MD on March 03, 2017 at 13:40 Board Certified Radiologist. This report was verified electronically.
[2017-03-03] MEDS: SODIUM CHLOR 0.9% 1000 ML INJ 1,000 ML IV SCH ×2 (15:07→20:05)
[2017-03-03] MEDS: VANCOMYCIN INJ 1,250 MG in SODIUM CHLOR 0.9% 250 ML INJ 250 ML IV SCH (15:11)
[2017-03-03] MEDS: PIPERACIL-TAZO 4.5 GM PREMIX 100 ML IV SCH ×2 (15:12→18:00)
[2017-03-03] MEDS: VALPROATE INJ 500 MG in SODIUM CHLORIDE 0.9% INJ 100 ML IV SCH ×2 (15:12→23:07)
[2017-03-03] MEDS: RESP: ALBUTEROL 2.5 MG/IPRATROPIUM 0.5 MG NEB (SCH) INH ×2 (15:46→21:23)
[2017-03-03 17:26] LABS: ALBUMIN 2.1 GM/DL (3.4-5.0); BICARBONATE 27.1 MEQ/L (21.0-32.0); CALCIUM 7.3 MG/DL (8.5-10.1); CALCIUM-PROTEIN CORRECTED 8.2 MG/DL (8.5-10.1); CREATININE 0.98 MG/DL (0.60-1.30); MAGNESIUM 2.5 MG/DL (1.5-2.5); PHOSPHORUS 4.1 MG/DL (2.5-4.9); TOTAL BILIRUBIN ADULT 0.8 MG/DL (0.2-1.0); TOTAL PROTEIN 5.4 GM/DL (6.4-8.2); TROPONIN I 0.03 NG/ML (0.02-0.05)
[2017-03-03] MEDS ORDERED: SOD PHOSPHATE/SOD BIPHOSPHATE (ADULT) ENEMA 133ML RECTAL ONE (17:45)
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
--- NOTE | 2017-03-03 19:36 | EKG ---
Date Performed: 03/03/2017 Time Performed: 17:02:25 PTAGE: 56 years EKG: SINUS TACHYCARDIA ABNORMAL RHYTHM ECG Compared to prior electrocardiogram, Nonspecific T wa ve changes are less marked PREVIOUS TRACING : 02/16/2017 09.58 DOCTOR: Garret Hudson Interpretating Date/Time 03/03/2017 19:36:08
--- NOTE | 2017-03-03 19:40 | PD.PROCEDR ---
GI Procedure PROCEDURE PERFORMED Flexible sigmoidoscopy INDICATION FOR PROCEDURE Rectal bleeding PROCEDURE: The procedure, risks and benefits were discussed with Mr. Rebollar and informed consent was obtained. Anesthesia sedated him with Diprivan. He was placed in the left lateral decubitus position. Flexible Sigmoidoscopy: The Pentax videoscope was introduced through the rectum and advanced to the sigmoid. Retroflexion was performed in the rectum. Colonic prep was good in the sigmoid FINDINGS: As scope was slowly withdrawn colonic mucosa was carefully inspected the sigmoid mucosa and including descending and rectum were all unremarkable there was no evidence of blood whatsoever noted within the lumen of the colon retroflexion did reveal grade 2 internal hemorrhoids otherwise rectal examination was unremarkable ESTIMATED BLOOD LOSS: None SPECIMENS REMOVED: None COMPLICATIONS: None IMPRESSION: Internal hemorrhoids Otherwise unremarkable flexible sigmoidoscopy PLAN: Continue with supportive care Monitor labs and transfuse as needed Consider full colonoscopy and or repeat bleeding scan if the patient is noted to be actively bleeding Thomas Clark MD Mar 03, 2017 19:40
[2017-03-03 19:41] LABS: HEMATOCRIT 27.9 % (39.0-51.0); HEMOGLOBIN 9.4 GM/DL (13.0-17.0)
[2017-03-03] MEDS ORDERED: DO NOT ADM ANY ANTICOAGULANT DRUGS PRN (20:15)
[2017-03-03] MEDS: SODIUM CHLORIDE 0.9% FLUSH 10 ML FLUSH IV FLUSH SCH (20:43)
[2017-03-03] MEDS: PANTOPRAZOLE SODIUM 40 MG VIAL IV PUSH SCH (20:43)
[2017-03-03] MEDS: DOCUSATE SODIUM 50 MG/SENNA 8.6 MG TAB PO SCH (21:00)
[2017-03-04] VITALS (8 sets, daily range): BP systolic 116–124; BP diastolic 66–74; PULSE 80–110; RESP 16–29; TEMP 97.9–99.9; O2SAT 97–98
[2017-03-04] MEDS: PIPERACIL-TAZO 4.5 GM PREMIX 100 ML IV SCH ×3 (01:08→11:29)
[2017-03-04 01:27] LABS: HEMATOCRIT 29.4 % (39.0-51.0); HEMOGLOBIN 9.6 GM/DL (13.0-17.0)
[2017-03-04] MEDS ORDERED: PHENYLEPHRINE 40 MG in D5W 500 ML IV PRN (01:30)
[2017-03-04] MEDS ORDERED: TERBUTALINE INJ 1 MG/ML AMP SQ PRN (01:30)
[2017-03-04] MEDS: VANCOMYCIN INJ 1,250 MG in SODIUM CHLOR 0.9% 250 ML INJ 250 ML IV SCH ×2 (02:02→12:29)
[2017-03-04] MEDS: RESP: ALBUTEROL 2.5 MG/IPRATROPIUM 0.5 MG NEB (SCH) INH ×3 (03:08→10:08)
[2017-03-04] MEDS ORDERED: CHLORHEXIDINE GLUCONATE 2 % 1 PACK (2 CLOTHS) TOP SCH (04:00)
[2017-03-04 04:42] LABS: AUTOMATED NEUTROPHIL # 7.4 TH/MM3 (1.8-7.7); BASOPHIL % 0.5 % (0.0-2.0); EOSINOPHIL % 0.2 % (0.0-4.0); HEMATOCRIT 30.5 % (39.0-51.0); HEMOGLOBIN 10.7 GM/DL (13.0-17.0); LYMPH % 21.3 % (9.0-44.0); LYMPHOCYTE # 2.2 TH/MM3 (1.0-4.8); MEAN CELL VOLUME 90.4 FL (80.0-100.0); MEAN CORPUSCULAR HEMOGLOBIN 31.7 PG (27.0-34.0); MEAN CORPUSCULAR HGB CONC 35.1 % (32.0-36.0); MEAN PLATELET VOLUME 8.4 FL (7.0-11.0); MONOCYTE # 0.6 TH/MM3 (0-0.9); PLATELET COUNT 165 TH/MM3 (150-450); RED BLOOD COUNT 3.37 MIL/MM3 (4.50-5.90); RED CELL DISTRIBUTION WIDTH 15.7 % (11.6-17.2); WHITE BLOOD COUNT 10.2 TH/MM3 (4.0-11.0)
[2017-03-04 04:54] LABS: PROTHROMBIN TIME - PATIENT 10.6 SEC (9.8-11.6)
[2017-03-04 05:01] LABS: ALBUMIN 2.6 GM/DL (3.4-5.0); ALKALINE PHOSPHATASE 66 U/L (45-117); ALT (GPT) 14 U/L (12-78); AST (GOT) 19 U/L (15-37); BLOOD UREA NITROGEN 15 MG/DL (7-18); CALCIUM 7.7 MG/DL (8.5-10.1); CHLORIDE 108 MEQ/L (98-107); GLOMERULAR FILTRATION RATE 77 ML/MIN (>89); GLUCOSE,RANDOM 111 MG/DL (74-106); MAGNESIUM 2.3 MG/DL (1.5-2.5); PHOSPHORUS 3.9 MG/DL (2.5-4.9); SODIUM (NA) 142 MEQ/L (136-145); TOTAL BILIRUBIN ADULT 0.5 MG/DL (0.2-1.0); TOTAL PROTEIN 6.5 GM/DL (6.4-8.2)
[2017-03-04] MEDS: VALPROATE INJ 500 MG in SODIUM CHLORIDE 0.9% INJ 100 ML IV SCH ×2 (06:27→09:28)
[2017-03-04] MEDS: SODIUM CHLORIDE 0.9% FLUSH 10 ML FLUSH IV FLUSH SCH (07:57)
[2017-03-04] MEDS ORDERED: PANTOPRAZOLE SODIUM 40 MG VIAL IV PUSH SCH (09:00)
[2017-03-04] MEDS ORDERED: SODIUM CHLORIDE 0.9% FLUSH 10 ML FLUSH IV FLUSH SCH (09:00)
[2017-03-04] MEDS: DOCUSATE SODIUM 50 MG/SENNA 8.6 MG TAB PO SCH (09:00)
[2017-03-04] MEDS: PANTOPRAZOLE SODIUM 40 MG VIAL IV PUSH SCH (09:28)
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
[2017-03-04] MEDS: SODIUM CHLOR 0.9% 1000 ML INJ 1,000 ML IV SCH (11:27)
[2017-03-04] MEDS ORDERED: PANT40P IV PUSH (11:40)
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
--- NOTE | 2017-03-04 12:53 | HHI.GIFU ---
Subjective Remarks Awake resting in bed Family present Patient denies any acute pain, states he is not drinking anything today Clear liquid diet to be brought to room and encourage patient to take by mouth fluids Low-grade temp 99.9 (Tamara Ruggiero) Objective Vitals I&O Vital Signs Date Time Temp Pulse Resp B/P (MAP) Pulse Ox O2 Delivery O2 Flow Rate FiO2 03/04/17 12:00 99.9 83 29 116/74 (88) 98 03/04/17 12:00 83 03/04/17 10:00 93 03/04/17 08:00 88 03/04/17 08:00 99.9 83 29 116/74 (88) 98 03/04/17 07:30 Room Air 03/04/17 06:00 88 03/04/17 04:00 97.9 81 16 124/66 (85) 97 03/04/17 04:00 98 03/04/17 02:00 94 03/04/17 00:00 80 03/03/17 22:00 88 03/03/17 21:00 118/75 (89) 03/03/17 21:00 98.6 80 15 129/76 (93) 98 Room Air 03/03/17 20:45 81 14 130/76 (94) 98 Room Air 03/03/17 20:30 83 11 133/76 (95) 98 Room Air 03/03/17 20:15 80 15 136/76 (96) 97 Room Air 03/03/17 20:00 84 14 135/77 (96) 98 Room Air 03/03/17 20:00 84 03/03/17 20:00 98.7 89 18 121/71 (88) 92 03/03/17 19:45 86 13 126/77 (93) 98 Room Air 03/03/17 19:30 86 13 118/75 (89) 97 Room Air 03/03/17 19:30 118/75 (89) 03/03/17 19:15 84 12 133/78 (96) 99 Room Air 03/03/17 19:00 Room Air 03/03/17 19:00 98.8 87 16 124/73 (90) 98 Room Air 03/03/17 18:00 113 03/03/17 18:00 98.7 106 20 113/63 (80) 97 03/03/17 16:00 71 03/03/17 14:19 99.0 90 15 101/70 100 03/03/17 14:18 98.7 85 14 117/77 100 03/03/17 14:00 74 I/O 03/03/17 03/03/17 03/03/17 03/04/17 03/04/17 03/04/17 07:00 15:00 23:00 07:00 15:00 23:00 Intake Total 1420 ml 1550 ml 1187 ml 750 ml Output Total 550 ml 4275 ml 350 ml Balance 870 ml -2725 ml 837 ml 750 ml Intake IV Total 1000 ml 1187 ml 750 ml Packed Cells 400 ml 1200 ml Blood Product IV Normal Saline Flush 20 ml 250 ml Other 100 ml Output Urine Total 550 ml 2100 ml 350 ml Other 2175 ml # Bowel Movements 4 Laboratory Laboratory Tests Test 03/03/17 16:36 03/03/17 19:28 03/04/17 01:07 03/04/17 04:22 Nasal Screen MRSA (PCR) MRSA NOT DETECTED Blood Urea Nitrogen 18 15 Creatinine 0.98 1.00 Random Glucose 141 111 Total Protein 5.4 6.5 Albumin 2.1 2.6 Calcium Level 7.3 7.7 Phosphorus Level 4.1 3.9 Magnesium Level 2.5 2.3 Alkaline Phosphatase 56 66 Aspartate Amino Transf (AST/SGOT) 9 19 Alanine Aminotransferase (ALT/SGPT) 11 14 Total Bilirubin 0.8 0.5 Sodium Level 144 142 Potassium Level 4.3 4.2 Chloride Level 109 108 Carbon Dioxide Level 27.1 28.0 Anion Gap 8 6 Estimat Glomerular Filtration Rate 79 77 Protein Corrected Calcium 8.2 Total Creatine Kinase 19 Troponin I 0.03 Amylase Level 33 Lipase 65 Thyroid Stimulating Hormone 3rd Gen 1.820 Valproic Acid (Depakene) Level 57 Hemoglobin 9.4 9.6 10.7 Hematocrit 27.9 29.4 30.5 Lactic Acid Level 1.4 1.3 1.3 White Blood Count 10.2 Red Blood Count 3.37 Mean Corpuscular Volume 90.4 Mean Corpuscular Hemoglobin 31.7 Mean Corpuscular Hemoglobin Concent 35.1 Red Cell Distribution Width 15.7 Platelet Count 165 Mean Platelet Volume 8.4 Neutrophils (%) (Auto) 72.0 Lymphocytes (%) (Auto) 21.3 Monocytes (%) (Auto) 6.0 Eosinophils (%) (Auto) 0.2 Basophils (%) (Auto) 0.5 Neutrophils # (Auto) 7.4 Lymphocytes # (Auto) 2.2 Monocytes # (Auto) 0.6 Eosinophils # (Auto) 0.0 Basophils # (Auto) 0.0 CBC Comment DIFF FINAL Differential Comment Prothrombin Time 10.6 Prothromb Time International Ratio 1.0 Activated Partial Thromboplast Time 20.4 Date/Time Source Procedure Growth Status 03/03/17 17:15 Blood Peripheral Aerobic Blood Culture - Preliminary NO GROWTH IN 1 DAY Resulted 03/03/17 17:15 Blood Peripheral Anaerobic Blood Culture - Preliminary NO GROWTH IN 1 DAY Resulted Imaging Last Impressions Chest X-Ray 03/03/17 1156 Signed Impressions: Service Date/Time: February 12:07 - CONCLUSION: 1. Interval placement of a left internal jugular central venous line with no pneumothorax. 2. Interval removal of tracheostomy tube. Ole Mccall MD Abdomen/Pelvis CT 03/03/17 0000 Signed Impressions: Service Date/Time: February 13:20 - CONCLUSION: Significant hemorrhage within the bladder. There is a Jones catheter in place. No evidence for significant inflammation or free fluid in the pelvis. Ramy Josue MD Physical Exam HEENT: Pupils round and reactive to light; normocephalic, oral cavity dry. NECK: Neck is supple CHEST: Chest volumes low but no obvious rhonchi or wheezing CARDIAC: Regular rate and rhythm ABDOMEN: Soft, nondistended, nontender; no hepatosplenomegaly; bowel sounds soft EXTREMITIES: No clubbing, cyanosis, or edema. 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 (Tamara Ruggiero) Assessment and Plan Plan ASSESSMENT - bleeding - yesterday onset rectal bleed, per pos bleed scan that identified hemorrhage sigmoid or rectum. s/p successful PEG tube placement 01/29/17 which has now been removed - anemia , hemoglobin 10.7 today, no obvious bleeding today - Flex sigmoidoscopy performed on 03/03/17, internal hemorrhoids noted, otherwise exam unremarkable. PLAN - Clear liquid diet, encourage patient to trial his liquids - monitor HH - transfuse as needed - Full colonoscopy can be considered or repeat bleeding scan if patient begins actively bleeding - further recs depending on results above - Monitor labs with special attention to hemoglobin hematocrit pt seen by myself and Dr Clark and this note is written on his behalf (Tamara Ruggiero) Physician Comments Patient seen and examined Agree with above Continue with current supportive care Monitor labs (Thomas Clark MD) Tamara Ruggiero Mar 04, 2017 12:53 Thomas Clark MD Mar 04, 2017 22:57
--- NOTE | 2017-03-04 13:05 | HHI.PR ---
Subjective Patient symptoms today CBI running, slow rate, light pink. No pain Objective Vital Signs Vital Signs Date Time Temp Pulse Resp B/P (MAP) Pulse Ox O2 Delivery O2 Flow Rate FiO2 03/04/17 12:00 99.9 83 29 116/74 (88) 98 03/04/17 12:00 83 03/04/17 10:00 93 03/04/17 08:00 88 03/04/17 08:00 99.9 83 29 116/74 (88) 98 03/04/17 07:30 Room Air 03/04/17 06:00 88 03/04/17 04:00 97.9 81 16 124/66 (85) 97 03/04/17 04:00 98 03/04/17 02:00 94 03/04/17 00:00 80 03/03/17 22:00 88 03/03/17 21:00 118/75 (89) 03/03/17 21:00 98.6 80 15 129/76 (93) 98 Room Air 03/03/17 20:45 81 14 130/76 (94) 98 Room Air 03/03/17 20:30 83 11 133/76 (95) 98 Room Air 03/03/17 20:15 80 15 136/76 (96) 97 Room Air 03/03/17 20:00 84 14 135/77 (96) 98 Room Air 03/03/17 20:00 84 03/03/17 20:00 98.7 89 18 121/71 (88) 92 03/03/17 19:45 86 13 126/77 (93) 98 Room Air 03/03/17 19:30 86 13 118/75 (89) 97 Room Air 03/03/17 19:30 118/75 (89) 03/03/17 19:15 84 12 133/78 (96) 99 Room Air 03/03/17 19:00 Room Air 03/03/17 19:00 98.8 87 16 124/73 (90) 98 Room Air 03/03/17 18:00 113 03/03/17 18:00 98.7 106 20 113/63 (80) 97 03/03/17 16:00 71 03/03/17 14:19 99.0 90 15 101/70 100 03/03/17 14:18 98.7 85 14 117/77 100 03/03/17 14:00 74 Intake & Output 03/04/17 03/04/17 07:00 19:00 Intake Total 1187 ml 750 ml Output Total 950 ml Balance 237 ml 750 ml Intake IV Total 1187 ml 750 ml Output Urine Total 350 ml Other 600 ml Result Diagram: 03/04/1742103/04/17421 Objective Remarks NAD CBI running, light pink to clear, no clots Medications and IVs Current Medications Medications (Trade) Dose Ordered Sig/Earnestine Route Start Time Stop Time Status Last Admin (NS Flush) 2 ml UNSCH PRN IV FLUSH 03/03/17 11:00 (NS Flush) 2 ml BID IV FLUSH 03/03/17 21:00 03/04/17 07:57 (Zofran Inj) 4 mg Q6H PRN IV PUSH 03/03/17 11:00 (Duoneb Neb) 1 ampule Q6HR NEB INH 03/03/17 16:00 03/04/17 03:08 (Albuterol Neb) 2.5 mg Q2HR NEB PRN INH 03/03/17 11:00 Miscellaneous Information 1 Q361D XX 03/03/17 11:00 03/03/17 15:15 (Chlorhexidine 2% Cloth) 3 pack Taper DAILY@04 TOP 03/04/17 04:00 02/28/18 03:59 (Chlorhexidine 2% Cloth) 3 pack UNSCH PRN TOP 03/03/17 11:00 (Jess-Colace) 1 tab BID PO 03/03/17 21:00 (Milk Of Magnesia Liq) 30 ml Q12H PRN PO 03/03/17 11:00 (Senokot) 17.2 mg Q12H PRN PO 03/03/17 11:00 (Dulcolax Supp) 10 mg DAILY PRN RECTAL 03/03/17 11:00 (Lactulose Liq) 30 ml DAILY PRN PO 03/03/17 11:00 (Brethine Inj) 1 mg UNSCH PRN SQ 03/03/17 11:00 (Protonix Inj) 40 mg BID IV PUSH 03/03/17 21:00 03/04/17 09:28 Pharmacy Profile Note 0 ml @ 0 mls/hr UNSCH OTHER 03/03/17 11:00 Piperacillin Sod/ Tazobactam Sod 100 ml @ 200 mls/hr Q6H IV 03/03/17 12:00 03/04/17 11:29 Vancomycin HCl 1250 mg/Sodium Chloride 262.5 ml @ 250 mls/hr Q12H IV 03/03/17 13:00 03/04/17 12:29 Miscellaneous Information SPECIFIC LAB TO BE DRAWN:VANCOMYCIN TROUGH DATE TO... ONCE ONCE .XX 03/05/17 00:45 03/05/17 00:46 (NS Flush) DAILY IV FLUSH 03/04/17 09:00 (NS Flush) UNSCH PRN IV FLUSH 03/03/17 12:00 Valproate Sodium 500 mg/Sodium Chloride 105 ml @ 105 mls/hr Q8HR IV 03/03/17 14:00 03/04/17 09:28 Acetaminophen 100 ml @ 400 mls/hr Q8HR PRN IV 03/03/17 13:00 Miscellaneous Information ALL NURSING DEPARTME... UNSCH PRN .XX 03/03/17 20:15 03/04/17 20:14 Assessment and Plan Problem List: (1) Hematuria ICD Code: R31.9 - Hematuria, unspecified Assessment and Plan -Continue hand irrigation and CBI at slow rate. May titrate if urine remains clear -Will follow Matthew Silva MD Mar 04, 2017 13:05
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
[2017-03-04 23:34] LABS: BILIRUBIN, URINE NEG (NEG); BLOOD, URINE LARGE (NEG); GLUCOSE,URINE NEG (NEG); KETONE, URINE 10 mg/dL (NEG); MUCUS URINE MANY /lpf (OCC); NITRITE,URINE NEG (NEG); URINE COLOR RED (YELLW/STRAW); URINE LEUKOCYTE ESTERASE TRACE (NEG)
[2017-03-05] MEDS ORDERED: PHARMACY ORDERED LAB ONE (00:45)
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
== END 2017-03-04 15:30 | DRG 393 ==
LOC: HOR 09:15 → N03A 10:40 → HOR 10:55 → N03A 10:56
PROVIDERS: ADMIT Internal Medicine Critical Care Medicine; ATTEND Internal Medicine Critical Care Medicine
PROC: 30233N1 Transfusion of Nonautologous Red Blood Cells into Peripheral Vein, Percutaneous Approach (ICD-10-PCS; 2017-03-03)
PROC: 0T2BX0Z Change Drainage Device in Bladder, External Approach (ICD-10-PCS; 2017-03-03)
PROC: 3C1ZX8Z Irrigation of Indwelling Device using Irrigating Substance, External Approach (ICD-10-PCS; 2017-03-03)
PROC: 0DJD8ZZ Inspection of Lower Intestinal Tract, Via Natural or Artificial Opening Endoscopic (ICD-10-PCS; principal; 2017-03-03 18:20)
DX: K64.1 Second degree hemorrhoids (principal); R57.1 Hypovolemic shock; D62 Acute posthemorrhagic anemia; I95.9 Hypotension, unspecified; R31.0 Gross hematuria; I10 Essential (primary) hypertension; S06.6X9D Traumatic subarachnoid hemorrhage with loss of consciousness of unspecified duration, subsequent encounter; S06.5X9D Traumatic subdural hemorrhage with loss of consciousness of unspecified duration, subsequent encounter; Z86.718 Personal history of other venous thrombosis and embolism; Z87.891 Personal history of nicotine dependence
CPT/HCPCS: 36430; 71045; 74176; 80053; 80164; 81001; 82140; 82150; 82330; 82533; 82550; 82948; 83605; 83690; 83735; 83930; 84100; 84443; 84484; 85014; 85018; 85025; 85384; 85610; 85730; 86920; 87040; 87086; 87449; 87641; 93005; 94150; 94640; 94664; 99211; C9113; G0463; J2370; J2543; J3370; J3430; J7030; J7050; J7060; P9016

== ENCOUNTER 2017-03-14 10:34 | Inpatient (IN) | payer SELFPAY ==
[~2017-03-14] VITALS: Ht 172.7 cm; Wt 76.6 kg
[~2017-03-14 10:34] MED LIST changes: -APIX5TAB PO; -HYDR-3516 PO; -METO25TA3 PO; +PANT40P IV PUSH; +PANT40TA3 PO; -SODI1TAB PO
[2017-03-14] MEDS ORDERED: METOPROLOL TARTRATE 25 MG TAB PO PRN (12:00)
[2017-03-14] MEDS ORDERED: LACTATED RINGER'S 1000 ML IV PRN (12:00)
[2017-03-14] MEDS ORDERED: SODIUM CHLORID 0.9% 500 ML IV PRN (12:00)
[2017-03-14] MEDS ORDERED: CHLORHEXIDINE GLUCONATE 2 % 1 PACK (2 CLOTHS) TOPICAL PRN (12:00)
[2017-03-14] MEDS ORDERED: INSULIN HUMAN REGULAR 1,000 UNITS/10 ML VIAL SQ PRN (12:00)
[2017-03-14] MEDS ORDERED: POVIDONE IODINE 5% (ANTISEPSIS KIT) 4 APPLICATIONS EACH NARE PRN (12:00)
[2017-03-14] MEDS ORDERED: GELFOAM SIZE 100 ONE (13:34)
[2017-03-14] MEDS ORDERED: BUPIVACAINE/EPINEPHRINE 0.5% PF 30 ML VIAL ONE (13:34)
[2017-03-14] MEDS ORDERED: THROMBIN (TOPICAL) 5,000 UNIT VIAL ONE (13:34)
[2017-03-14] MEDS ORDERED: VANCOMYCIN HCL 1000 MG VIAL ONE ×2 (13:34→14:12)
[2017-03-14] MEDS ORDERED: GENTAMICIN SULFATE 80 MG/2 ML VIAL ONE (13:37)
[2017-03-14] MEDS: NS + KCL 20 MEQ INJ 1,000 ML IV SCH ×2 (15:07→20:09)
[2017-03-14] MEDS ORDERED: RESP: ALBUTEROL 2.5 MG/IPRATROPIUM 0.5 MG NEB (PRN) NEB (15:15)
[2017-03-14] MEDS ORDERED: SODIUM CHLORIDE 0.9% FLUSH 10 ML FLUSH IV FLUSH PRN (15:15)
[2017-03-14] MEDS ORDERED: RESP: ALBUTEROL 2.5 MG/3 ML NEB (PRN) NEB (15:15)
[2017-03-14] MEDS ORDERED: ACETAMINOPHEN/HYDROcodone 325 MG/10 MG TAB PO PRN ×2 (15:15)
[2017-03-14] MEDS ORDERED: MENTHOL LOZENGE BUCCAL PRN (15:15)
[2017-03-14] MEDS ORDERED: LABETALOL HCL 100 MG/20 ML VIAL IV PUSH PRN (15:15)
[2017-03-14] MEDS ORDERED: MORPHINE SULFATE 4 MG/ML INJ IV PUSH PRN (15:15)
[2017-03-14] MEDS ORDERED: cloNIDine HCL 0.1 MG TAB PO PRN (15:15)
[2017-03-14] MEDS ORDERED: PROMETHAZINE INJ 25 MG/ML VIAL IM PRN (15:15)
[2017-03-14] MEDS ORDERED: SENNOSIDES 8.6 MG TAB PO PRN (15:15)
[2017-03-14] MEDS ORDERED: niCARdipine INJ 25 MG in SODIUM CHLOR 0.9% 250 ML INJ 240 ML IV PRN (15:15)
[2017-03-14] MEDS ORDERED: CALCIUM GLUCONATE INJ 1 GM in SODIUM CHLORIDE 0.9% INJ 100 ML IV PRN (15:15)
[2017-03-14] MEDS ORDERED: POTASSIUM CHLOR 20 MEQ PREMIX 100 ML IV PRN (15:15)
[2017-03-14] MEDS ORDERED: LORazepam 2 MG/ML VIAL IV PUSH PRN (15:15)
[2017-03-14] MEDS ORDERED: BISACODYL 10 MG SUPP RECTAL PRN (15:15)
[2017-03-14] MEDS ORDERED: MAGNESIUM HYDROXIDE SUSP 30 ML CUP PO PRN (15:15)
[2017-03-14] MEDS ORDERED: MAGNESIUM SULFATE INJ 2 GM in SODIUM CHLORIDE 0.9% INJ 100 ML IV PRN (15:15)
[2017-03-14] MEDS ORDERED: ALUMINUM/MAGNESIUM/SIMETH 30 ML CUP PO PRN (15:15)
[2017-03-14] MEDS ORDERED: LACTULOSE SYRUP 20 GM/30 ML CUP PO PRN (15:15)
[2017-03-14] MEDS ORDERED: ONDANSETRON HCL 4 MG/2 ML VIAL IV PUSH PRN (15:15)
[2017-03-14] MEDS ORDERED: ACETAMINOPHEN 325 MG TAB PO PRN (15:15)
[2017-03-14] MEDS ORDERED: ZOLPIDEM TARTRATE 5 MG TAB PO PRN (15:15)
--- NOTE | 2017-03-14 15:16 | PD.OP ---
JESUS Hood [id number] Operative Report Date of Surgery: Mar 14, 2017 Preoperative Diagnosis: Right frontoparietal chronic subdural hemorrhage/hygroma with mass effect and midline shift Postoperative Diagnosis: Same Procedure: Right frontal blayne hole placement for subdural hemorrhage drainage Anesthesia: Gen. endotracheal by Clark carvalho Surgeon: Chadd Salamanca M.D. Cnc Milling Machinist(s): Светлана Roberts Operation and Findings: Following administration of a general endotracheal anesthesia, patient received a gram of vancomycin intravenously. Jones catheter was placed along with sequential compression devices and he was positioned supine on the horseshoe headrest with the head turned to 45 to left side. The right frontoparietal area was then shaved and prepped with the resolution and ChloraPrep and sterilely draped. A small right frontal incision was made after infiltrating the scalp with 0.5% Marcaine with epinephrine solution. Incision carried down through the galea and a self-retaining retractor used for exposure. With an automated ramp service employee a bur hole was made and the underlying dura cauterized with bipolar cautery and opened in a cruciate format. Mostly blood-tinged the hygromatous fluid under pressure was encountered and evacuated. The subdural space was then thoroughly irrigated with a drain also until the fluid was more clear. A facial drain was then placed in the subdural space which was exited through the blayne hole and tunneled on the scalp and secured the exit site with a 3-0 nylon suture. A blayne hole cover was also placed. The galea was then approximated using 3-0 Vicryl interrupted stitches and final skin closure was with clifton. A sterile dressing was then applied. Patient was then extubated and taken recovery room. There were no intraoperative complications and all sponge and needle count was correct at the end of the procedure. Estimated blood loss 50 cc from the procedure. Chadd Salamanca MD Mar 14, 2017 15:16
[2017-03-14] MEDS ORDERED: DO NOT ADM ANY ANTICOAGULANT DRUGS PRN (15:28)
[2017-03-14 16:00] VITALS: BP 128/67; PULSE 64; RESP 9; TEMP 97.6; O2SAT 100
[2017-03-14 16:25] LABS: AUTOMATED NEUTROPHIL # 1.8 TH/MM3 (1.8-7.7); BASOPHIL % 0.5 % (0.0-2.0); EOSINOPHIL # 0.1 TH/MM3 (0-0.4); EOSINOPHIL % 1.6 % (0.0-4.0); HEMATOCRIT 30.8 % (39.0-51.0); HEMOGLOBIN 10.1 GM/DL (13.0-17.0); LYMPH % 45.8 % (9.0-44.0); LYMPHOCYTE # 2.1 TH/MM3 (1.0-4.8); MEAN CELL VOLUME 92.5 FL (80.0-100.0); MEAN CORPUSCULAR HEMOGLOBIN 30.3 PG (27.0-34.0); MEAN CORPUSCULAR HGB CONC 32.8 % (32.0-36.0); MEAN PLATELET VOLUME 7.2 FL (7.0-11.0); MONO % 12.2 % (0.0-8.0); MONOCYTE # 0.6 TH/MM3 (0-0.9); NEUT % 39.9 % (16.0-70.0); PLATELET COUNT 238 TH/MM3 (150-450); RED BLOOD COUNT 3.33 MIL/MM3 (4.50-5.90); RED CELL DISTRIBUTION WIDTH 14.7 % (11.6-17.2); WHITE BLOOD COUNT 4.6 TH/MM3 (4.0-11.0)
[2017-03-14 16:50] LABS: BICARBONATE 29.9 MEQ/L (21.0-32.0); CALCIUM 8.2 MG/DL (8.5-10.1); CREATININE 0.88 MG/DL (0.60-1.30); MAGNESIUM 1.6 MG/DL (1.5-2.5)
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
[2017-03-14 18:00] VITALS: PULSE 64
[2017-03-14 19:00] VITALS: O2SAT 100
[2017-03-14 20:00] VITALS: BP 127/74; PULSE 66; RESP 10; TEMP 97.7; O2SAT 100
[2017-03-14] MEDS: VALPROIC ACID 250 MG CAP PO SCH (20:06)
[2017-03-14] MEDS: SODIUM CHLORIDE 0.9% FLUSH 10 ML FLUSH IV FLUSH SCH (20:06)
[2017-03-14] MEDS: PANTOPRAZOLE SOD 40 MG DELAYED RELEASE TAB PO SCH (20:06)
[2017-03-14] MEDS: QUEtiapine FUMARATE 100 MG TAB PO SCH (20:06)
[2017-03-14] MEDS: DOCUSATE SODIUM 50 MG/SENNA 8.6 MG TAB PO SCH (20:06)
[2017-03-14] MEDS: DULoxetine HCl DR 30 MG CAP PO SCH (20:28)
[2017-03-14 22:00] VITALS: PULSE 63
[2017-03-15] VITALS (13 sets, daily range): BP systolic 99–118; BP diastolic 47–72; PULSE 58–97; RESP 8–23; TEMP 98.1–99.1; O2SAT 98–100
--- NOTE | 2017-03-15 05:41 | RADRPT ---
EXAM DATE/TIME: 03/15/2017 05:12 [place] COMPARISON: CT BRAIN W/O CONTRAST, March 09, 2017, 16:06. INDICATIONS : Follow up sudural. Post op. RADIATION DOSE: 53.10 CTDIvol (mGy) MEDICAL HISTORY : Cardiovascular disease. Stroke Seizures. SURGICAL HISTORY : Craniotomy. ENCOUNTER: Subsequent ACUITY: 1 day PAIN SCALE: 5/10 LOCATION: cranial TECHNIQUE: Multiple contiguous axial images were obtained of the head. Using automated exposure control and adj ustment of the mA and/or kV according to patient size, radiation dose was kept as low as reasonably a chievable to obtain optimal diagnostic quality images. DICOM format image data is available electro nically for review and comparison. FINDINGS: Comparison is March 09. Midline shift has decreased from about 7 mm to 2 mm from left to right. Pre vious subdural hematoma is nearly completely resolved with a residual measuring less than 5 mm in thi ckness. A right subdural drain is present anteriorly. There is encephalomalacia in the left frontal l obe and both frontal lobes inferiorly as well as the left temporal lobe. No new hemorrhage. CONCLUSION: 1. Decrease in size of right subdural hematoma with placement of subdural drain. Decreasing mass effe ct and midline shift. Stable encephalomalacia anteriorly. Dashawn Delgadillo MD on March 15, 2017 at 5:35 Board Certified Radiologist. This report was verified electronically.
[2017-03-15] MEDS: VALPROIC ACID 250 MG CAP PO SCH ×3 (08:30→18:03)
[2017-03-15] MEDS: QUEtiapine FUMARATE 100 MG TAB PO SCH ×2 (08:30→21:23)
[2017-03-15] MEDS: SODIUM CHLORIDE 0.9% FLUSH 10 ML FLUSH IV FLUSH SCH ×2 (08:30→21:23)
[2017-03-15] MEDS: PANTOPRAZOLE SOD 40 MG DELAYED RELEASE TAB PO SCH ×2 (08:30→21:23)
[2017-03-15] MEDS: DULoxetine HCl DR 30 MG CAP PO SCH ×2 (08:30→21:23)
[2017-03-15] MEDS: DOCUSATE SODIUM 50 MG/SENNA 8.6 MG TAB PO SCH ×2 (08:30→21:23)
[2017-03-15] MEDS: NS + KCL 20 MEQ INJ 1,000 ML IV SCH (08:31)
--- NOTE | 2017-03-15 08:45 | HHI.NSPN ---
(Ash Newman) History Chief Complaint: Moderate aphasia from previous trauma. (Ash Newman) Interval History 03/15/17: Pt awake and alert. Denies headaches, nausea, vomiting, or muscle weakness. Moderate aphasia unchanged, otherwise neuro exam unchanged. F/U CT head this am improved. (Ash Newman) Review of Systems General: Negative for: fever, chills, insomnia Respiratory: Negative for: shortness of breath, cough, sputum Cardiovascular: Negative for: chest pain Gastrointestinal: Negative for: nausea, vomitting, diarrhea, constipation ( Ash Newman) Exam Results Vital Signs Date Time Temp Pulse Resp B/P (MAP) Pulse Ox O2 Delivery O2 Flow Rate FiO2 03/15/17 06:00 58 03/15/17 04:00 98.6 23 99/57 (71) 98 03/14/17 19:00 Nasal Cannula 2.00 Intake and Output 03/15/17 03/15/17 03/16/17 08:00 16:00 00:00 Intake Total 1152 ml Output Total 1960 ml Balance -808 ml (Ash Newman) Physical Examination General: Pt resting in bed getting ready to eat breakfast in NAD. Resp: CTA bilaterally Heart: NSR no murmurs Abd: Soft positive bs Skin: Incision clean and dry. RENA drain in place. Muscle: Moves all 4 extremities well. Neuro: Pt awake and alert. Pupils 3mm bilaterally reactive bilaterally. Follows commands well. Speech with moderate aphasia but able to answer questions appropriately with yes/no. (Ash Newman) Lab, Micro, Other Results Last Impressions Head CT 03/15/17 0600 Signed Impressions: Service Date/Time: Wednesday, March 15, 2017 05:12 - CONCLUSION: 1. Decrease in size of right subdural hematoma with placement of subdural drain. Decreasing mass effect and midline shift. Stable encephalomalacia anteriorly. Dashawn Delgadillo MD Laboratory Tests Test 03/14/17 15:51 White Blood Count 4.6 TH/MM3 Red Blood Count 3.33 MIL/MM3 Hemoglobin 10.1 GM/DL Hematocrit 30.8 % Mean Corpuscular Volume 92.5 FL Mean Corpuscular Hemoglobin 30.3 PG Mean Corpuscular Hemoglobin Concent 32.8 % Red Cell Distribution Width 14.7 % Platelet Count 238 TH/MM3 Mean Platelet Volume 7.2 FL Neutrophils (%) (Auto) 39.9 % Lymphocytes (%) (Auto) 45.8 % Monocytes (%) (Auto) 12.2 % Eosinophils (%) (Auto) 1.6 % Basophils (%) (Auto) 0.5 % Neutrophils # (Auto) 1.8 TH/MM3 Lymphocytes # (Auto) 2.1 TH/MM3 Monocytes # (Auto) 0.6 TH/MM3 Eosinophils # (Auto) 0.1 TH/MM3 Basophils # (Auto) 0.0 TH/MM3 CBC Comment DIFF FINAL Differential Comment Blood Urea Nitrogen 11 MG/DL Creatinine 0.88 MG/DL Random Glucose 105 MG/DL Calcium Level 8.2 MG/DL Magnesium Level 1.6 MG/DL Sodium Level 141 MEQ/L Potassium Level 3.5 MEQ/L Chloride Level 105 MEQ/L Carbon Dioxide Level 29.9 MEQ/L Anion Gap 6 MEQ/L Estimat Glomerular Filtration Rate 90 ML/MIN (Ash Newman) Medical Decision Making Impression and Plan A: 56 y/o M s/p right blayne hole drainage of right frontal SDH. P: Continue with RENA drain Continue with Neuro checks. Continue with rehab efforts. (Ash Newman) Attending Statement The exam, history, and the medical decision-making described in the above note were completed with the assistance of the mid-level provider. I reviewed and agree with the findings presented. I attest that I had a [id number] encounter with the patient on the same day, and personally performed and documented my assessment and findings in the medical record. Doing well postoperatively with follow-up CT scan with near complete resolution of right subdural collection. Continue with subdural drainage and will DC IV fluids and Jones catheter and increase her activity status as tolerated. Updated at bedside. (Chadd Salamanca MD) Ash Newman Mar 15, 2017 08:45 Chadd Salamanca MD Mar 15, 2017 16:23
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
[2017-03-16] VITALS (11 sets, daily range): BP systolic 112–131; BP diastolic 57–83; PULSE 66–77; RESP 10–18; TEMP 98–99; O2SAT 97–99
--- NOTE | 2017-03-16 09:22 | HHI.NSPN ---
(Ash Newman) History Chief Complaint: Moderate aphasia from previous trauma. (Ash Newman) Interval History 03/15/17: Pt awake and alert. Denies headaches, nausea, vomiting, or muscle weakness. Moderate aphasia unchanged, otherwise neuro exam unchanged. F/U CT head this am improved. 03/16/17: Pt awake and alert. Denies headaches, nausea, vomiting. Complains of aphasia which is not worse. (Ash Newman) Review of Systems General: Negative for: fever, chills, insomnia Respiratory: Negative for: shortness of breath, cough, sputum Cardiovascular: Negative for: chest pain Gastrointestinal: Negative for: nausea, vomitting, diarrhea, constipation ( Ash Newman) Exam Results Vital Signs Date Time Temp Pulse Resp B/P (MAP) Pulse Ox O2 Delivery O2 Flow Rate FiO2 03/16/17 06:00 68 03/16/17 04:00 98.6 11 128/67 (87) 99 03/15/17 20:31 21 03/15/17 19:00 Room Air 03/14/17 19:00 2.00 Intake and Output 03/16/17 03/16/17 03/17/17 08:00 16:00 00:00 Intake Total 140 ml Output Total 20 ml Balance 120 ml (Ash Newman) Physical Examination General: Pt resting in bed in NAD. Resp: CTA bilaterally Heart: NSR no murmurs Abd: Soft positive bs Skin: Incision clean and dry. RENA drain in place. No signs of infection. Muscle: Moves all 4 extremities well. 5/5 strength. Neuro: Pt awake and alert. Pupils 3mm bilaterally reactive bilaterally. Follows commands well. Speech with moderate aphasia but able to answer questions appropriately with yes/no. (Ash Newman) Lab, Micro, Other Results Last Impressions Head CT 03/15/17 0600 Signed Impressions: Service Date/Time: Wednesday, March 15, 2017 05:12 - CONCLUSION: 1. Decrease in size of right subdural hematoma with placement of subdural drain. Decreasing mass effect and midline shift. Stable encephalomalacia anteriorly. Dashawn Delgadillo MD (Ash Newman) Medical Decision Making Impression and Plan A: 56 y/o M s/p right blayne hole drainage of right frontal SDH. P: Discontinue RENA drain. Steristrip placed at exit site. Continue with Neuro checks. Continue with rehab efforts. Transfer to . (Ash Newman) Attending Statement The exam, history, and the medical decision-making described in the above note were completed with the assistance of the mid-level provider. I reviewed and agree with the findings presented. I attest that I had a [id number] encounter with the patient on the same day, and personally performed and documented my assessment and findings in the medical record. (Chadd Salamanca MD) Ash Newman Mar 16, 2017 09:22 Chadd Salamanca MD Mar 16, 2017 18:44
[2017-03-16] MEDS: SODIUM CHLORIDE 0.9% FLUSH 10 ML FLUSH IV FLUSH SCH ×2 (10:16→20:52)
[2017-03-16] MEDS: DOCUSATE SODIUM 50 MG/SENNA 8.6 MG TAB PO SCH ×2 (10:17→20:52)
[2017-03-16] MEDS: VALPROIC ACID 250 MG CAP PO SCH ×3 (10:17→18:31)
[2017-03-16] MEDS: DULoxetine HCl DR 30 MG CAP PO SCH ×2 (10:17→20:52)
[2017-03-16] MEDS: QUEtiapine FUMARATE 100 MG TAB PO SCH ×2 (10:17→20:52)
[2017-03-16] MEDS: PANTOPRAZOLE SOD 40 MG DELAYED RELEASE TAB PO SCH ×2 (10:17→20:52)
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
[2017-03-17 00:37] VITALS: BP 120/69; PULSE 73; RESP 17; TEMP 98.2; O2SAT 96
[2017-03-17 04:33] VITALS: BP 118/67; PULSE 74; RESP 17; TEMP 97.8; O2SAT 98
[2017-03-17 08:00] VITALS: BP 100/60; PULSE 68; RESP 18; TEMP 98.1; O2SAT 97
[2017-03-17] MEDS: DULoxetine HCl DR 30 MG CAP PO SCH (09:01)
[2017-03-17] MEDS: PANTOPRAZOLE SOD 40 MG DELAYED RELEASE TAB PO SCH (09:01)
[2017-03-17] MEDS: DOCUSATE SODIUM 50 MG/SENNA 8.6 MG TAB PO SCH (09:01)
[2017-03-17] MEDS: VALPROIC ACID 250 MG CAP PO SCH ×2 (09:01→15:05)
[2017-03-17] MEDS: QUEtiapine FUMARATE 100 MG TAB PO SCH (09:01)
[2017-03-17] MEDS: SODIUM CHLORIDE 0.9% FLUSH 10 ML FLUSH IV FLUSH SCH (09:07)
--- NOTE | 2017-03-17 09:37 | HHI.NSPN ---
History Chief Complaint: Moderate aphasia from previous trauma. Interval History 03/15/17: Pt awake and alert. Denies headaches, nausea, vomiting, or muscle weakness. Moderate aphasia unchanged, otherwise neuro exam unchanged. F/U CT head this am improved. 03/16/17: Pt awake and alert. Denies headaches, nausea, vomiting. Complains of aphasia which is not worse. 03/17/17: Pt awake and alert. Denies headache, nausea, vomiting, or weakness. Aphasia is stable. Review of Systems General: Negative for: fever, chills, insomnia Respiratory: Negative for: shortness of breath, cough, sputum Cardiovascular: Negative for: chest pain Gastrointestinal: Negative for: nausea, vomitting, diarrhea, constipation Exam Results Vital Signs Date Time Temp Pulse Resp B/P (MAP) Pulse Ox O2 Delivery O2 Flow Rate FiO2 03/17/17 04:33 97.8 74 17 118/67 (84) 98 03/16/17 20:16 Room Air 03/15/17 20:31 21 03/14/17 19:00 2.00 Intake and Output 03/17/17 03/17/17 03/18/17 08:00 16:00 00:00 Intake Total 240 ml Balance 240 ml Physical Examination General: Pt resting in bed in NAD. Resp: CTA bilaterally Heart: NSR no murmurs Abd: Soft positive bs Skin: Incision clean and dry. No signs of infection. Muscle: Moves all 4 extremities well. 5/5 strength. Neuro: Pt awake and alert. Pupils 3mm bilaterally reactive bilaterally. Follows commands well. Speech with moderate aphasia but able to answer questions appropriately with yes/no. Lab, Micro, Other Results Last Impressions Head CT 03/15/17 0600 Signed Impressions: Service Date/Time: Wednesday, March 15, 2017 05:12 - CONCLUSION: 1. Decrease in size of right subdural hematoma with placement of subdural drain. Decreasing mass effect and midline shift. Stable encephalomalacia anteriorly. Dashawn Delgadillo MD Medical Decision Making Impression and Plan A: 56 y/o M s/p right blayne hole drainage of right frontal SDH. P: Transfer to Rehab. Continue with current care. Ash Newman Mar 17, 2017 9:37 am
--- NOTE | 2017-03-17 11:37 | HHI.PR ---
Subjective Remarks Patient seen and examined Denies any headache, visual change No Acute event overnight Objective Vitals Vital Signs Date Time Temp Pulse Resp B/P (MAP) Pulse Ox O2 Delivery O2 Flow Rate FiO2 03/17/17 04:33 97.8 74 17 118/67 (84) 98 03/17/17 00:37 98.2 73 17 120/69 (86) 96 03/16/17 20:40 98.6 76 17 112/72 (85) 97 03/16/17 20:16 Room Air 03/16/17 18:00 70 03/16/17 16:00 98.0 77 18 118/57 (77) 99 03/16/17 16:00 76 03/16/17 14:00 76 03/16/17 12:00 98.7 71 16 131/83 (99) 99 03/16/17 12:00 69 I/O 03/16/17 03/16/17 03/16/17 03/17/17 03/17/17 03/17/17 07:00 15:00 23:00 07:00 15:00 23:00 Intake Total 140 ml 1100 ml 920 ml 240 ml Output Total 20 ml 450 ml Balance 120 ml 1100 ml 470 ml 240 ml Intake Oral 100 ml 860 ml 240 ml IV Total 1100 ml Other 40 ml 60 ml Output Urine Total 450 ml Drainage Total 20 ml # Voids 2 3 2 # Bowel Movements 1 0 Result Diagram: 03/14/17 1551 03/14/17 1551 Imaging Last Impressions Head CT 03/15/17 0600 Signed Impressions: Service Date/Time: Wednesday, March 15, 2017 05:12 - CONCLUSION: 1. Decrease in size of right subdural hematoma with placement of subdural drain. Decreasing mass effect and midline shift. Stable encephalomalacia anteriorly. Dashawn Delgadillo MD Objective Remarks GENERAL: NAD SKIN: Warm and dry. HEAD: clifton on right incision EYES: No scleral icterus. No injection or drainage. NECK: Supple, trachea midline. No JVD or lymphadenopathy. CARDIOVASCULAR: Regular rate and rhythm without murmurs, gallops, or rubs. RESPIRATORY: Breath sounds equal bilaterally. No accessory muscle use. GASTROINTESTINAL: Abdomen soft, non-tender, nondistended. MUSCULOSKELETAL: No cyanosis, or edema. BACK: Nontender without obvious deformity. No CVA tenderness. A/P Assessment and Plan 56-year-old man with TBI Subarachnoid hemorrhage/left frontal and temporal hemorrhagic contusions Cerebral edema with right midline shift - Continue reorientation. - Heparin drip held prior to blayne hole. - sp blayne hole with evacuation of right SDH on 03/[address] Salamanca - Continue neuro checks. - Continue valproate 500 mg by mouth 3 times a day for seizure prophylaxis. Continue duloxetine and Seroquel. Seizure disorder - New onset following TBI - Continue valproic acid 500 mg 3 times a day - Seizure precaution Bilateral upper extremity DVT PE Cephalic vein thrombus - Patient is S/P IVC filter placement - Previously on Eliquis for anticoagulation, placed on hold secondary to acute hematuria, GI bleed. - Bilateral Dopplers of the upper extremity showed DVT. - Neurosurgery to decide regarding resuming subcutaneous heparin and subsequently full anticoagulation with heparin. Acute GI bleed - Bleeding scan showed side of acute hemorrhage observed involving some work in the sigmoid colon or rectum. - Flex sigmoidoscopy done 03/03/17 showed no bleeding, grade 2 internal hemorrhoids - Pantoprazole switched to 40 mg twice a day by mouth - cleared for anticoagulation by GI - No bleeding reported. Acute hematuria secondary to trauma - Voiding, no hematuria reported. - Continue monitoring for hematuria, and urinary retention. Aspiration pneumonia - Patient completed treatment with Rocephin - Decannulated on 02/21/17 - Maintain oxygen saturation above 92% Lower leg spasms - Stable on baclofen DVT prophylaxis: SCDs Discharge Planning Discharge per neurosurgery Ash Guzman MD Mar 17, 2017 11:37
[2017-03-17] MEDS ORDERED: HEPARIN SODIUM - SQ 10,000 UNITS/ML VIAL SQ SCH (14:00)
== END 2017-03-17 16:17 | DRG 26 ==
LOC: HSDC 10:34 → HSDI 11:51 → N03A 16:49 → N05B 03-16 18:49
PROVIDERS: ADMIT Neurological Surgery; ATTEND Neurological Surgery
PROC: 009430Z Drainage of Intracranial Subdural Space with Drainage Device, Percutaneous Approach (ICD-10-PCS; principal; 2017-03-14 13:54)
DX: S06.5X9A Traumatic subdural hemorrhage with loss of consciousness of unspecified duration, initial encounter (principal); R47.01 Aphasia; Z86.74 Personal history of sudden cardiac arrest; I82.623 Acute embolism and thrombosis of deep veins of upper extremity, bilateral; I82.619 Acute embolism and thrombosis of superficial veins of unspecified upper extremity; G40.909 Epilepsy, unspecified, not intractable, without status epilepticus; I10 Essential (primary) hypertension; R29.810 Facial weakness; I25.2 Old myocardial infarction; V68.9XXA Unspecified occupant of heavy transport vehicle injured in noncollision transport accident in traffic accident, initial encounter; Y99.1 Military activity; Z79.899 Other long term (current) drug therapy; Z86.711 Personal history of pulmonary embolism; Z86.718 Personal history of other venous thrombosis and embolism; Z95.828 Presence of other vascular implants and grafts
CPT/HCPCS: 70450; 80048; 83735; 85025; 94150; C1713; J0690; J1580; J1644; J3010; J3370; J3480